=== PATIENT | male | born 1960 | race Caucasian/White ===

== ENCOUNTER 2019-10-15 14:42 | Outpatient (CLI) | payer OTHER, SELFPAY ==
[2019-10-15 15:25] LABS: Basophils Percent Auto 0.8 % (0.2-1.2); Eosinophils Absolute Auto 0.1 K/mm3 (0-0.3); Eosinophils Percent Auto 1.6 % (0-4.4); Hematocrit 42.2 % (42.0-52.0); Hemoglobin 14.3 g/dL (14.0-18.0); Immature Granulocyte Absolute 0.02 K/mm3 (0.00-0.031); Immature Granulocyte Percent A 0.4 % (0-0.5); Lymphocytes Absolute Auto 1.68 K/mm3 (0.9-3.2); Lymphocytes Percent Auto 33.3 % (18.3-44.2); Mean Corpuscular HGB Conc 33.9 g/dl (32-36); Mean Corpuscular Hemoglobin 32.1 pg (26-34); Mean Corpuscular Volume 94.6 fl (80-100); Mean Platelet Volume 9.6 fl (7.4-10.4); Monocytes Absolute Auto 0.4 K/mm3 (0.1-0.6); Monocytes Percent Auto 8.3 % (2.6-8.5); Neutrophils Absolute Auto 2.8 K/mm3 (1.3-6.7); Neutrophils Percent Auto 55.6 % (45.5-73.1); Platelet Count Result 211 k/mm3 (150-375); Red Blood Count 4.46 M/mm3 (4.6-6.20); Red Cell Distribution Width 12.8 % (11.5-14.5)
[2019-10-15 15:35] LABS: Blood Urea Nitrogen 24 mg/dL (9-20); Calcium 9.5 mg/dL (8.4-10.2); Carbon Dioxide 29 mmol/L (22-30); Chloride 101 mmol/L (98-107); Cholesterol 195 mg/dL (0-200); Estimated Glomerular Filt Rate > 60; Glucose 92 mg/dL (75-110); HDL Direct 66 mg/dL; Potassium 4.2 mmol/L (3.4-5.0); Sodium 136 mmol/L (137-145); Triglycerides 61 mg/dL (<150)
[2019-10-15 15:46] LABS: LDL Cholesterol Direct 110 mg/dL
[2019-10-15 16:06] LABS: Prostate Specific Antigen 0.4 ng/mL (< OR = 4.0)
[2019-10-15 16:59] LABS: Free T4 Free Thyroxine 1.02 ng/mL (0.78-2.19); Vitamin D 25 Hydroxy 59.1 ng/mL
[2019-10-18 10:38] LABS: Testosterone Free 63.3 pg/mL (46.0-224.0); Testosterone Total 847 ng/dL (250-1100)
== END 2019-10-15 14:43 | disposition home or self-care (01) ==
PROVIDERS: PCP Internal Medicine Endocrinology, Diabetes & Metabolism; Visit Provider Nurse Practitioner Family
DX: Z13.220 Encounter for screening for lipoid disorders (principal); Z12.5 Encounter for screening for malignant neoplasm of prostate; Z13.29 Encounter for screening for other suspected endocrine disorder; R21 Rash and other nonspecific skin eruption; E55.9 Vitamin D deficiency, unspecified; E34.9 Endocrine disorder, unspecified
CPT/HCPCS: 36415; 80048; 80061; 82306; 84153; 84402; 84403; 84439; 84443; 85025; G0103

== ENCOUNTER 2020-10-22 10:58 | Outpatient (CLI) | payer OTHER, SELFPAY ==
[2020-10-22 11:59] LABS: INR 0.9; Prothrombin Time 13.1 Seconds (11.1-14.7)
[2020-10-22 12:56] LABS: Hepatitis B Surface Antigen Negative (Negative)
[2020-10-22 13:02] LABS: HAV RESULT Negative (Negative); Hepatitis B Core IgM Result Negative (Negative)
[2020-10-22 13:14] LABS: Hepatitis C Virus Antibody Negative (Negative)
[2020-10-25 20:21] LABS: GGT 19 U/L (3-70)
== END 2020-10-22 10:59 | disposition home or self-care (01) ==
LOC: ANHLAB 11:04
PROVIDERS: PCP Internal Medicine Endocrinology, Diabetes & Metabolism; Visit Provider Family Medicine
DX: R17 Unspecified jaundice (principal)
CPT/HCPCS: 36415; 80074; 82977; 85610

== ENCOUNTER → 2020-10-23 11:05 | Outpatient (CLI) | payer OTHER, SELFPAY ==
--- NOTE | ~2020-10-23 | US_ITS ---
US abdomen complete EXAMINATION: US Abdomen Complete INDICATION: Elevated bilirubin. Jaundice. PROCEDURE: Realtime High Resolution abdomen ultrasound. COMPARISON: No prior studies for comparison FINDINGS: Gallbladder within normal limits. No gallstones, pericholecystic fluid, gallbladder wall t hickening or biliary dilatation. Common bile duct measures 4 mm. Liver echotexture within normal limits without focal mass. Pancreas within normal limits. Pancreati c tail is obscured by bowel gas. Spleen is unremarkeable. Renal echotexture is within normal limits bilaterally without hydronephrosis, contour deforming mass or renal stone. Right kidney measures 9.9 cm. Left kidney measures 11.6 cm. Visualized aspects of the aorta and IVC are within normal limits. Portal vein is patent. No sonograph ic Osborn's sign indicated by the technologist. IMPRESSION: 1: Normal abdominal ultrasound. Reviewed, dictated and finalized at location B.
== END ==
PROVIDERS: PCP Family Medicine; Visit Provider Family Medicine
DX: R17 Unspecified jaundice (principal)
CPT/HCPCS: 76700

== ENCOUNTER 2022-07-11 12:46 | Outpatient (CLI) | payer OTHER, SELFPAY ==
--- NOTE | ~2022-07-11 | MR_ITS ---
MRI of the lumbar spine Clinical History: Radiculopathy Technique: Axial T2-weighted images, and sagittal T1-weighted, T2-weighted, and T2 fat-sat images wer e acquired. Findings: No acute fracture and 5. Probable minimal grade 1 retrolisthesis of L3 over L4. There are r eactive marrow signal changes due to degenerative disc disease, particularly about the L3-L4, L4-L5, L5-S1 disc spaces. At L1-L2, there is no disc bulge or herniation. There is mild facet arthropathy. No spinal canal sten osis. There is mild left neural foraminal narrowing. Right neural foramen preserved. At L2-L3, there is moderate degenerative disc narrowing with mild diffuse disc bulge, especially the left paracentral to left foraminal region. There is moderate to severe facet arthropathy. No dario sp inal canal stenosis present. There is moderate to severe right neural foraminal narrowing and minimal left neural foraminal narrowing. At L3-L4, there is advanced degenerative disc narrowing. Disc bulge and facet arthropathy contribute to severe thecal sac compression. There is severe right neural foraminal narrowing. There is mild to moderate left neural foraminal narrowing. At L4-L5, there is severe degenerative disc change. Disc bulge and facet arthropathy contribute to se katelin thecal sac compression. There is severe bilateral neural foraminal narrowing. At L5-S1, there is severe degenerative disc narrowing. Disc bulge and advanced facet arthropathy are present. No definite central canal stenosis evident. There is severe bilateral neural foraminal narro wing. Paravertebral soft tissues are unremarkable. Impression: Advanced degenerative spondylosis, as detailed above. There is severe, multifactorial thecal sac comp ression at L3-L4 and L5-L5, with multilevel severe neural foraminal narrowing. Minimal grade 1 retrolisthesis of L3 over L4. Reviewed, dictated and finalized at location . Impression: Advanced degenerative spondylosis, as detailed above. There is severe, multifac torial thecal sac compression at L3-L4 and L5-L5, with multilevel severe neural foraminal narrowing. Minimal grade 1 retrolisthesis of L3 over L4.
--- NOTE | ~2022-07-11 | MR_ITS ---
MRI of the cervical spine Clinical History: Cervical pain Technique: Axial T2-weighted and gradient images, and sagittal T1-weighted, T2-weighted, and STIR asif ges were acquired. Findings: No acute fracture or subluxation identified. There is reversal normal cervical lordosis. Th ere is reactive marrow signal change, particularly about the C5-C6 disc space due to underlying degen erative disc disease. At C2-C3, there is no disc bulge or herniation. There is facet arthropathy. No spinal canal stenosis or cord compression. Probable right neural foraminal narrowing present. Left neural foramen preserved . At C3-C4, there is minimal disc osteophyte complex. No dario spinal canal stenosis or cord compressio n. There is probable bilateral neural foraminal narrowing with left facet arthropathy present. At C4-C5, there is advanced degenerative disc narrowing with mild disc osteophyte complex. There is m inimal flattening of the ventral cord. There is probable left neural foraminal narrowing and question able minimal right neural foraminal narrowing. At C5-C6, there is severe degenerative disc narrowing. There is minimal disc osteophyte complex. No f rank spinal canal stenosis or cord compression. There is severe bilateral neural foraminal narrowing. At C6-C7, there is minimal disc osteophyte complex. No spinal canal stenosis or cord compression. The re is bilateral neural foraminal narrowing, left worse than right. No abnormal signal seen in the spinal cord. Paravertebral soft tissues are unremarkable. Impression: [id number] degenerative spondylosis, as detailed above, with associated reversal normal cervica l lordosis. Reviewed, dictated and finalized at location M. Impression: [id number] degenerative spondylosis, as detailed above, with associated r eversal normal cervical lordosis.
== END 2022-07-11 12:47 | disposition home or self-care (01) ==
PROVIDERS: PCP Family Medicine
DX: M47.27 Other spondylosis with radiculopathy, lumbosacral region (principal); M47.892 Other spondylosis, cervical region
CPT/HCPCS: 72141; 72148

== ENCOUNTER 2023-02-10 13:25 | Outpatient (CLI) | payer OTHER, SELFPAY ==
--- NOTE | ~2023-02-10 | CT_ITS ---
EXAMINATION: CT cervical spine wo con DATE: 02/10/2023 13:22 INDICATION: Cervical spines central canal stenosis. Cervical radiculopathy. TECHNIQUE: Computed tomography (CT) of the cervical spine was performed without intravenous contrast. Automated exposure control and iterative reconstruction technique were employed. The dose-length pro duct was 480.98 mGy-cm. COMPARISON: Cervical spine MRI 02/10/2023 FINDINGS: There is 3 degrees dextrocurvature of cervical spine. There is 2 mm retrolisthesis of C3 on C4 and C5 on C6. There is mild chronic anterior wedging of C5 and C6 vertebral bodies. There are Jaime morl's nodes of the inferior endplates of C2 and C3. There is mildly decreased disc height at C2-C3 a nd C3-C4 and severely decreased disc height from C4 to C5 through C6-C7. The following disc levels ar e specifically discussed: C2-C3: There is moderate right and severe left uncovertebral joint osteoarthritis. There is severe bi lateral facet joint osteoarthritis. There is mild lateral neural foraminal stenosis. There is no cent ral canal stenosis. C3-C4: There is severe right and moderate left uncovertebral joint osteoarthritis. There is severe bi lateral facet joint osteoarthritis. There is moderate bilateral neural foraminal stenosis. There is m ild central canal stenosis. C4-C5: There is severe bilateral uncovertebral joint osteoarthritis. There is severe bilateral facet joint osteoarthritis. There is mild right and moderate left neural foraminal stenosis. There is mild central canal stenosis. C5-C6: There is severe bilateral uncovertebral joint osteoarthritis. There is severe bilateral facet joint osteoarthritis. There is moderate bilateral neural foraminal stenosis. There is mild central ca nal stenosis. C6-C7: There is severe bilateral uncovertebral joint osteoarthritis. There is moderate right and mild left facet joint osteoarthritis. There is mild right and moderate left neural foraminal stenosis. Th ere is mild central canal stenosis. C7-T1: There is no uncovertebral joint osteoarthritis. There is severe bilateral facet joint osteoart hritis. There is mild bilateral neural foraminal stenosis. There is no central canal stenosis. IMPRESSION: 1. Severe cervical spondylosis. Reviewed, dictated and finalized at location A.
--- NOTE | ~2023-02-10 | MR_ITS ---
EXAMINATION: MR cervical spine wo con DATE: 02/10/2023 13:12 INDICATION: Cervical spine stenosis. Neck pain. TECHNIQUE: Magnetic resonance imaging (MRI) of the cervical spine was performed without intravenous c ontrast. COMPARISON: Cervical spine MRI 07/11/2022 FINDINGS: There is 11 degrees levoscoliosis of upper thoracic spine. There is kyphosis of cervical sp ine. There is 2 mm retrolisthesis of C5 on C6. There is mild chronic height loss of C2, C3, C4, C5, a nd C6 vertebral bodies. There is mildly decreased disc height at C3-C4 and severely decreased disc he ight at C4-C5, C5-C6, and C6-C7. The spinal cord signal intensity is normal. The following disc level s are specifically discussed: C2-C3: The disc does not extend beyond the endplate margin. There is mild bilateral uncovertebral maria guadalupe nt osteoarthritis. There is severe bilateral facet joint osteoarthritis. There is mild bilateral neur al foraminal stenosis. There is no central canal stenosis. C3-C4: The disc is bulging. There is severe bilateral uncovertebral joint osteoarthritis. There is se katelin bilateral facet joint osteoarthritis. There is mild bilateral neural foraminal stenosis. There i s mild central canal stenosis. C4-C5: The disc is bulging. There is severe bilateral uncovertebral joint osteoarthritis. There is se katelin bilateral facet joint osteoarthritis. There is moderate bilateral neural foraminal stenosis. The re is mild central canal stenosis with ventral indentation of the spinal cord. C5-C6: The disc is bulging. There is severe bilateral uncovertebral joint osteoarthritis. There is mi ld bilateral facet joint osteoarthritis. There is moderate right and severe left neural foraminal hanna nosis. There is mild central canal stenosis. C6-C7: The disc is bulging. There is severe bilateral uncovertebral joint osteoarthritis. There is mo derate right and mild left facet joint osteoarthritis. There is mild right and moderate left neural f oraminal stenosis. There is mild central canal stenosis. C7-T1: There is a central extrusion. There is mild bilateral uncovertebral joint osteoarthritis. Ther e is severe bilateral facet joint osteoarthritis. There is mild bilateral neural foraminal stenosis. There is no central canal stenosis. IMPRESSION: 1. Severe cervical spondylosis, stable from 07/11/2022. Reviewed, dictated and finalized at location A.
[2023-02-10 15:55] LABS: Vitamin D 25 Hydroxy 68.2 ng/mL
[2023-02-10 19:33] LABS: Cholesterol 217 mg/dL (0-200); HDL Direct 60 mg/dL; Triglycerides 72 mg/dL (<150)
[2023-02-10 19:43] LABS: LDL Cholesterol Direct 124 mg/dL
[2023-02-10 20:03] LABS: Prostate Specific Antigen 1.3 ng/mL (< OR = 4.0)
== END 2023-02-10 13:26 | disposition home or self-care (01) ==
PROVIDERS: Orthopaedic Surgery; PCP Family Medicine; Referring Provider Family Medicine
DX: Z13.220 Encounter for screening for lipoid disorders (principal); E78.2 Mixed hyperlipidemia; Z12.5 Encounter for screening for malignant neoplasm of prostate; E55.9 Vitamin D deficiency, unspecified; R79.89 Other specified abnormal findings of blood chemistry; M47.22 Other spondylosis with radiculopathy, cervical region
CPT/HCPCS: 36415; 72125; 72141; 80061; 82306; 84153; G0103

== ENCOUNTER 2023-04-18 12:15 | Outpatient (CLI) | payer OTHER, SELFPAY ==
--- NOTE | 2023-04-18 | ECHO_ITS ---
Patient Info Name: Roderick Doan Age: 63 years : 1960 Gender: Male Ht: 65 in Wt: 250 lbs BSA: 2.34 m2 HR: 49 bpm BP: 147 / 91 mmHg Heart Rhythm: Bradycardia Technical Quality: Good Exam Date: 04/18/2023 12:59 PM Exam Location: [facility] Patient Status: Outpatient Admit Date: 04/18/2023 Staff Ordering Physician: Irasema, Ney Marx MD [employer] Installer: Briana Jamison RDCS Attending Provider: Elsisa, Ney Marx MD Referring Physician: Irasema CARBAJAL; Exam Type: CA echo dop color flow w con Study Info Indications - evaluate ao valve heart function and ascending ao Complete two-dimensional, color flow and Doppler transthoracic echocardiogram is performed with contrast to opacify the left ventricle and to improve the deliniation of the left ventricle endocardial borders. Strain analysis performed. Contrast/Agitated Saline Contrast/Ag. Saline: Definity Amount: 3.00 ml Administered By: Briana Jamison RDCS Existing IV Access: No New IV Access: Right Site Condition: IV removed Summary 1. Left ventricular chamber dimension is normal. 2. Left ventricular systolic function is normal, estimated at 65-70%. 3. There is mildly increased left ventricular wall thickness. 4. The left ventricular diastolic function is grade I diastolic dysfunction. 5. Global longitudinal strain is mildly elevated at -16 %. 6. There is mild tricuspid valve regurgitation. 7. Mild pulmonary hypertension, estimated pulmonary arterial systolic pressure is 42 mmHg. 8. The aortic root size at the sinus of Valsalva is moderately dilated at 4.[address] chest if clinically indicated. 9. The prox ascending aorta size is mildly dilated. Left Ventricle Left ventricular chamber dimension is normal. Left ventricular systolic function is normal, estimated at 65-70%. There is mildly increased left ventricular wall thickness. The left ventricular diastolic function is grade I diastolic dysfunction. Global longitudinal strain is mildly elevated at -16 %. Right Ventricle Right ventricular chamber dimension is mildly enlarged. Right ventricular systolic function is normal. Left Atria Left atrial chamber dimension is mildly enlarged. Right Atria Right atrial chamber dimension is normal. Aortic Valve The aortic valve is not well visualized. There is no aortic valve stenosis. There is no aortic valve regurgitation. Pulmonic Valve The pulmonic valve is not well visualized. Mitral Valve The mitral valve has normal leaflets. There is trace mitral valve regurgitation. Tricuspid Valve The tricuspid valve leaflets are normal. There is mild tricuspid valve regurgitation. Mild pulmonary hypertension, estimated pulmonary arterial systolic pressure is 42 mmHg. Pericardium/Pleural The pericardium appears normal. There is no pericardial effusion. Inferior Vena Cava Dilated inferior vena cava with >50% collapse upon inspiration consistent with elevated right atrial pressure, 10 mmHg. Aorta The aortic root size at the sinus of Valsalva is moderately dilated at 4.[address] chest if clinically indicated. The prox ascending aorta size is mildly dilated. Left Ventricular Outflow Tract Name Value Normal LVOT 2D LVOT Diameter 2.27 cm
[2023-04-18] MEDS: PERFLUTREN LIPID MICROSPHERES 1.5 ML VIAL DILUTED TO 10 ML TOTAL VOLUME IV PUSH (13:15)
--- NOTE | 2023-04-18 14:55 | IVDEFINITY ---
Prior to administration of IV Definity the patient was educated on the risks and benefits of the imaging enhancing agent including potential adverse side effects. The patient verbalized understanding. Allergies were verified. No exclusion criteria were identified and at least one of the following inclusion criteria were met: 1) physician request, 2) patient technically difficult to image (per the [place] [employer] guidelines of two or more segments not discernable within the apical view), or 3) questionable left ventricular function. ?
== END 2023-04-18 12:16 | disposition home or self-care (01) ==
LOC: ANHCARD 12:17
PROVIDERS: PCP Family Medicine; Visit Provider Internal Medicine Cardiovascular Disease
DX: I71.21 Aneurysm of the ascending aorta, without rupture (principal); I08.3 Combined rheumatic disorders of mitral, aortic and tricuspid valves
CPT/HCPCS: C8929; Q9957

== ENCOUNTER 2024-07-06 11:04 | Outpatient (CLI) | payer OTHER, SELFPAY ==
[2024-07-06 11:34] LABS: Basophils Percent Auto 0.7 % (0.2-1.2); Eosinophils Absolute Auto 0.1 K/mm3 (0-0.3); Eosinophils Percent Auto 2.6 % (0-4.4); Hematocrit 40.9 % (42.0-52.0); Hemoglobin 13.4 g/dL (14.0-18.0); Immature Granulocyte Absolute 0.02 K/mm3 (0.00-0.031); Immature Granulocyte Percent A 0.5 % (0-0.5); Lymphocytes Absolute Auto 1.27 K/mm3 (0.9-3.2); Lymphocytes Percent Auto 29.8 % (18.3-44.2); Mean Corpuscular HGB Conc 32.8 g/dl (32-36); Mean Corpuscular Hemoglobin 31.2 pg (26-34); Mean Corpuscular Volume 95.1 fl (80-100); Mean Platelet Volume 9.3 fl (7.4-10.4); Monocytes Absolute Auto 0.4 K/mm3 (0.1-0.6); Monocytes Percent Auto 10.1 % (2.6-8.5); Neutrophils Absolute Auto 2.4 K/mm3 (1.3-6.7); Neutrophils Percent Auto 56.3 % (45.5-73.1); Platelet Count Result 222 k/mm3 (150-375); Red Cell Distribution Width 13.7 % (11.5-14.5); White Blood Count 4.3 K/mm3 (4.5-10.0)
[2024-07-06 11:49] LABS: Alanine Aminotransferase 21 U/L (6-50); Albumin Level 4.5 g/dL (3.5-5.1); Alkaline Phosphatase 54 U/L (38-126); Anion Gap 12 mmol/L (4-12); Aspartate Amino Transferase 26 U/L (17-59); Bilirubin,Total 1.9 mg/dL (0.2-1.3); Blood Urea Nitrogen 19 mg/dL (9-20); Calcium 9.6 mg/dL (8.4-10.2); Carbon Dioxide 27 mmol/L (22-30); Chloride 101 mmol/L (98-107); Cholesterol 207 mg/dL (0-200); Estimated Glomerular Filt Rate > 60; Glucose 92 mg/dL (65-110); HDL Direct 69 mg/dL; Potassium 4.3 mmol/L (3.4-5.0); Sodium 140 mmol/L (137-145); Triglycerides 70 mg/dL (<150)
[2024-07-06 11:59] LABS: LDL Cholesterol Direct 94 mg/dL
--- OUTSIDE RECORDS SUMMARY | 2024-07-06 12:01 | XMS_ITS | Referral Summary ---
Author Organization [facility] Address [address] [place] [address] Care Team Providers Care Dental Receptionist Name Role Phone Dima Sanchez MD Primary Care Provider + [phone] Ney Villalpando MD Unavailable [phone] Encounters Date Type Department Care Team Description 06/06/2024 9:30 AM COMPANY DANCER Office Visit [facility] Cardiothoracic Surgery [address] [facility] 8th Floor [id number] [place] [phone] Bridgette Hess MD Monoallelic mutation of MYH11 gene; Aneurysm of ascending aorta without rupture 05/04/2024 Orders Only [facility] ([facility]) [address] [place] [id number] Layne Jaquez RN Monoallelic mutation of MYH11 gene (Primary Dx); Aneurysm of ascending aorta without rupture 05/04/2024 Documentation [facility] Cardiology [address] [facility] Medicine 8th [place] [address] [place] [phone] Ney Villalpando MD 05/04/2024 8:38 AM COMPANY DANCER - 05/04/2024 11:59 PM COMPANY DANCER Hospital Encounter [facility] ([facility]) [address] [place] [address] Ney Villalpando MD Monoallelic mutation of MYH11 gene; Aneurysm of ascending aorta without rupture Discharge Disposition: Discharge to home or self care 04/18/2024 11:00 AM COMPANY DANCER Office Visit [facility] Cardiology [address] [facility] 8th [place] [address] [place] [phone] Ney Villalpando MD Monoallelic mutation of MYH11 gene (Primary Dx); Aneurysm of ascending aorta without rupture; Essential hypertension 04/17/2024 Telephone [facility] Cardiology [address] [facility] 8th [place] [address] [place] [address] Ney Villalpando MD from Last 3 Months Allergies No known active allergies Medications multivitamin (MULTI-DAY ORAL)Indicatio ns:supplelment Take 1 tablet by mouth every morning Active Viibryd 40 mg tabletIndicati ons:major depressive disorder Take 1 tablet (40 mg total) by mouth every morning 0 Active zolpidem (AMBIEN) 10 mg tabletIndicati ons:Sleep-Onse t Insomnia Take 1 tablet (10 mg total) by mouth nightly as needed 0 Active losartan-hydro chlorothiazide (HYZAAR) 100-25 mg per tablet TAKE 1 TABLET BY MOUTH DAILY 90 tablet 3 3 Active B cmplx 4/vit D3/C/folic/zin c (VITAL-D RX ORAL) Take by mouth Active cholecalcifero l, vitamin D3, (VITAJOY DAILY D ORAL) Take by mouth Active diclofenac DR (VOLTAREN) 50 mg EC tabletIndicati ons:Osteoarthr itis Take 1 tablet (50 mg total) by mouth 2 (two) times a day for 14 days 28 tablet 4 Active amLODIPine (NORVASC) 5 mg tablet Take 1 tablet (5 mg total) by mouth daily 30 tablet 11 4 025 Active turmeric root extract 500 mg capsule Take 500 capsules by mouth daily Active omega 6-pxp-wwp-fish oil 60-90-500 mg capsule,delaye d release(DR/EC) Take 500 capsules by mouth daily Active aspirin 81 mg tabletIndicati ons:Heart Take 81 mg by mouth every morning 9 021 Discontinued ALPRAZolam (XANAX) 0.5 mg tablet Take 0.5 mg by mouth 3 (three) times a day as needed for anxiety 1 023 Discontinued Active Problems Problem Noted Date Diagnosed Date Monoallelic mutation of MYH11 gene 07/04/2022 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 Not previously noted. Pt with family/personal hx of colon polyps, most recent colonoscopy w/in last 6 months, pt reports normal findings. Denies family h/o colon cancer. Monitor annually. Primary osteoarthritis of right elbow 10/07/2020 Overview (10/07/2020): Added automatically from request for surgery [id number] Personal history of colonic polyps 09/02/2020 Overview (09/02/2020): Added automatically from request for surgery [id number] Family history of colonic polyps 09/02/2020 Overview (09/02/2020): Added automatically from request for surgery [id number] Intraocular pressure increase, left 10/16/2019 Assessment & Plan (01/29/2021 10:57 AM CDT): Mild intraocular pressure (IOP) asymmetry left eye (OS)>OD at 2020 visit. +strong FHx glaucoma (mother's side). Normal RNFL and GCC thickness 2020 on OCT. Pt ed. RTC 1 year. Assessment & Plan (10/16/2019 11:49 AM CDT): Mild intraocular pressure (IOP) asymmetry left eye (OS)>OD. +Strong FHx Glaucoma (mother's side). Normal RNFL and GCC thickness today on OCT. Pt ed. RTC 1 year. Refraction disorder 10/16/2019 Assessment & Plan (05/21/2022 3:11 PM COMPANY DANCER): New mrx, rec ar coating Assessment & Plan (10/16/2019 11:49 AM CDT): Release updated glasses and CLRx for Dailies. Age-related nuclear cataract of both eyes 2019 Assessment & Plan (05/21/2022 3:11 PM COMPANY DANCER): Not v/s, monitor, rec uv eye protection Assessment & Plan (01/29/2021 10:10 AM CDT): Defer cataract surgery until signs and symptoms indicate. Pt was educated on the diagnosis. Recommend daily UV protection. Assessment & Plan (10/16/2019 11:53 AM CDT): Defer cataract surgery until signs and symptoms indicate. Pt was educated on the diagnosis. Recommend daily UV protection. Pterygium of left eye 10/16/2019 Assessment & Plan (01/29/2021 10:10 AM CDT): NVS, pt educated. Stressed UV protection. Assessment & Plan (10/16/2019 11:50 AM CDT): Pt ed. Stressed UV protection. Dermatochalasis of both upper eyelids 10/16/2019 Assessment & Plan (10/16/2019 11:52 AM CDT): Pt is asymptomatic. Follow. Obstructive sleep apnea 11/24/2018 Complete tear of right rotator cuff 05/29/2018 Overview (05/29/2018): Added automatically from request for surgery [id number] Aneurysm of thoracic aorta 01/09/2018 Multiple actinic keratoses 09/24/2015 Lentigo 09/24/2015 Essential hypertension 02/05/2013 Resolved Problems Problem Noted Date Diagnosed Date Resolved Date Melanocytic nevus of trunk 10/01/2016 0 01/09/2018 Lichen simplex chronicus 10/01/201601/2018 Tinea pedis 09/24/2015 01/09/2018 Palpitations 02/06/2013 01/09/2018 Arthralgia of shoulder 01/18/201301/09 Arthralgia of elbow 09/16/2011 01/10/20 18 Immunizations Immunization Administration Dates Next Due Amanda (J&J) SARS-CoV-2 Vaccination 07/07/2020 Tdap 03/12/2020 Social History Tobacco Use Types Packs/Day Years Used Date Smoking Tobacco: Never Passive Smoke Exposure: Never Smokeless Tobacco: Never Tobacco Cessation:Counseling Given: Not Answered Alcohol Use Standard Drinks/Week Comments Yes 8 (1 standard drink = 0.6 oz pur e alcohol) social AUDIT-C Answer Date Recorded Q1: How often do you have a drink containing alc ohol? 2-3 times a week 11/10/2020 Q2: How many drinks containi ng alcohol do you have on a typical day when you are drinking? 1 or 2 11/10/2020 Q3: How often do you have si x or more drinks on one occasion? Less than monthly 11/10/2020 Personal Safety Answer Date Recorded Have you ever been in or are you currently in a harmful physical or emotional relationship or is someone making you feel afraid or unsafe? Denies 09/03/2022 Sex and Gender Information Value Date Recorded Sex Assigned at Not on file Legal Sex Male 3:02 AM COMPANY DANCER Gender Identity Male 04/16/2021 11:58 AM COMPANY DANCER Sexual Orientation Straight 04/02/2019 2: 04 PM COMPANY DANCER Last Filed Vital Signs Vital Sign Reading Time Taken Comments Blood Pressure 121/75 06/06/2024 10:23 AM COMPANY DANCER Pulse 56 06/06/2024 10:23 AM COMPANY DANCER Temperature 37 C (98.6 F) 04/01/2022 9:59 AM COMPANY DANCER Respiratory Rate 16 09/03/2022 11:4 9 AM CDT Oxygen Saturation 97% 06/06/2024 10: 23 AM COMPANY DANCER Inhaled Oxygen Concentration - - Weight 112.3 kg (247 lb 9.6 oz) 025 10:23 AM COMPANY DANCER Height 185.4 cm (6' 1 ) 06/06/2024 10:2 3 AM COMPANY DANCER Body Mass Index 32.67 06/06/2024 10:23 AM COMPANY DANCER Plan of Treatment Upcoming Encounters Date Type Department Care Team (Latest Contact Info) Description 08/20/2024 8:00 AM CDT Hospital Encounter [facility] Operating Room [address] [place] [address] Bridgette Hess MD [id number] [place] [address] Aneurysm of ascending aorta without rupture 08/20/2024 8:00 AM CDT - 08/20/2024 2:45 PM CDT Surgery [facility] Operating Room [address] [place] [address] Bridgette Hess MD [id number] [place] [address] REPLACEMENT AORTIC VALVE/ROOT-VALVE SPARING ROOT REPLACEMENT Scheduled Procedures Name Priority Associated Diagnoses Date/Ti me REPLACEMENT AORTIC VALVE/ROOT Aneurysm of ascending aorta without rupture 08/20/2024 8:00 AM CDT Medical Devices Implanted Type Area Chief Clerk Shelter Device Identifier Shelf Expiration Date Model / Serial / Lot [employer] [id number]-2324 Bcm Swivelock 4.75mm 24.5mm Self Punch Vent Shoulder [place] Suture - [id number] Implanted:Qty: 1 on 09/11/2018 by Dwayne Torrez MD at [facility] Right: Shoulder [employer] 01/30/2020 [id number] / / [id number] Procedures Procedure Name Priority Date/Time Associated Diagnosis Comments CTA CHEST W CONTRAST Schedule Routine, Read Routine (OP Routine) 05/04/2024 9:11 AM COMPANY DANCER 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 The aortic root measures up to 4.7 cm, unchanged when remeasured in a similar fashion from the prior exam. Electronically signed by: Herman Foster M.D. Narrative 05/04/2024 9:22 AM COMPANY DANCER EXAMINATION: CT ANGIOGRAPHY OF THE CHEST WITH CONTRAST HISTORY: Aortic aneurysm follow-up. TECHNIQUE: CT angiography of the chest was performed following uneventful intravenous administration of 93 ml Optiray-350. Vascular 3D images were generated on a dedicated workstation and also reviewed. COMPARISON: CT images dated 05/05/2022. FINDINGS: No significant change in caliber of the thoracic aorta with measurements as follows: Aortic root: 47 x 46 x 45 mm, not significantly changed when re-measured in a similar fashion. Sinotubular junction: 43 x 42 mm. Ascending aorta: 47 x 45 mm. Transverse aortic arch: 33 x 32 mm. The heart size is unchanged. There is no pericardial effusion. 4 vessel aortic arch. The aortic arch is left-sided. No thoracic lymphadenopathy. Mild atherosclerosis of the thoracic aorta with tortuosity but no dissection or contour irregularity. Esophagus is decompressed. The imaged upper abdomen shows a left renal cyst as well as a right renal cyst but no acute CT finding. Mild dependent atelectasis. No consolidation pulmonary edema, pleural effusion, or pneumothorax. No suspicious pulmonary nodule or mass. Old left-sided rib fractures are noted. No suspicious or aggressive osseous lesion. Procedure Note Herman Foster MD - 05/04/2024 EXAMINATION: CT ANGIOGRAPHY OF THE CHEST WITH CONTRAST HISTORY: Aortic aneurysm follow-up. TECHNIQUE: CT angiography of the chest was performed following uneventful intravenous administration of 93 ml Optiray-350. Vascular 3D images were generated on a dedicated workstation and also reviewed. COMPARISON: CT images dated 05/05/2022. FINDINGS: No significant change in caliber of the thoracic aorta with measurements as follows: Aortic root: 47 x 46 x 45 mm, not significantly changed when re-measured in a similar fashion. Sinotubular junction: 43 x 42 mm. Ascending aorta: 47 x 45 mm. Transverse aortic arch: 33 x 32 mm. The heart size is unchanged. There is no pericardial effusion. 4 vessel aortic arch. The aortic arch is left-sided. No thoracic lymphadenopathy. Mild atherosclerosis of the thoracic aorta with tortuosity but no dissection or contour irregularity. Esophagus is decompressed. The imaged upper abdomen shows a left renal cyst as well as a right renal cyst but no acute CT finding. Mild dependent atelectasis. No consolidation pulmonary edema, pleural effusion, or pneumothorax. No suspicious pulmonary nodule or mass. Old left-sided rib fractures are noted. No suspicious or aggressive osseous lesion. IMPRESSION: Unchanged caliber of the thoracic aorta. The aortic root measures up to 4.7 cm, unchanged when remeasured in a similar fashion from the prior exam. Electronically signed by: Herman Foster M.D. us Ney Villalpando MD IMG CT PROCEDURES Mai l Result * POCT creatinine (05/04/2024 8:55 AM COMPANY DANCER) Creatinine POC 1.3 0.7 - 1.3 mg/dL Blood 05/04/2024 8:55 AM COMPANY DANCER 05/04/2024 8:55 AM COMPANY DANCER us Ney Villalpando MD LAB POCT ORDERABLES - DEVICE Final Result [facility] Department [place] [address] * COLONOSCOPY (10/14/2020 7:01 AM CDT) Anatomical Region Laterality Modality Other Narrative Procedure Note John Guthrie MD - 10/14/2020 7:01 AM CDT ENDOSCOPY LAB Patient Name: Roderick Welch Procedure Date: 10/14/2020 7:01 AM Date of : 1960 Admit Type: Outpatient Age: 60 Gender: Male Attending MD: John Guthrie M.D. Room: [facility] ENDOSCOPY ROOM 01 Note Status: Finalized Procedure: Colonoscopy Indications: Surveillance: Personal history of adenomatouspolyps on last colonoscopy 5 years ago, Last colonoscopy: May 2015, Family history of colonic polyps in a first-degree relative Providers: John Guthrie M.D. Referring MD: Dima Sanchez M.D. Medicines: Monitored Anesthesia Care Complications: No immediate complications. Estimated Blood Loss: Estimated blood loss: none. Procedure: Pre-Anesthesia Assessment: - Immediately prior to administration ofmedications, the patient was re-assessed for adequacy to receive sedatives. The benefits, risks and alternatives of theprocedure and sedation were discussed and informed consentwas obtained. All questions were answered. Please referto the signed informed consent document in the medical record. The scope was passed under direct vision.The [id number] was introduced through the anusand advanced to the terminal ileum, with identificationof the appendiceal orifice and IC valve. Thecolonoscopy was performed without difficulty. The patient tolerated the procedure well. The quality of thebowel preparation was evaluated using the BBPS (BostonBowel Preparation Scale) with scores of: Right Colon = 3, Transverse Colon = 3 and Left Colon = 3 (entiremucosa seen well with no residual staining, smallfragments of stool or opaque liquid). The total BBPS score equals 9. The bowel preparation used was SUPREP via split dose instruction. The right colon wasexamined with at least 2 passes of the colonoscope. Therectum was examined both with straight and retroflexedview. Findings: The perianal and digital rectal examinations were normal. Multiple diverticula were found in the sigmoid colon. The exam was otherwise normal throughout the examined colon. Impression: - Diverticulosis in the sigmoid colon. - No specimens collected. Recommendation: - Annual stool exams for blood and colonoscopy in 5 years or sooner if symptoms develop or stool exams reveal blood. - If an emergency develops, please proceed to the nearest emergency room, or call the office at . If the office is closed, call and ask for the GI fellow production inspector. Electronically Signed by John Guthrie MD John Guthrie M.D. 10/14/2020 7:55:34 AM Number of Addenda: 0 Note Initiated On: 10/14/2020 7:01 AM John Guthrie MD ENDOSCOPY PROCEDURES Final Res ult from Last 3 Months or Most Recently Relevant to Health Maintenance Insurance [facility] Advance Directives For more information, please contact: [phone] * Full Code (Latest Code Status on File) Date Activated Date Inactivated Comments 10/14/2020 6:38 AM 10/14/2020 12:29 PM Care Teams Dental Receptionist Relationship Specialty Start Date End Date Dima Sanchez MD PCP - General 05/01/20 Ney Villalpando MD [address] [place] [address] Career Representative Cardiology 02/08/23
--- OUTSIDE RECORDS SUMMARY | 2024-07-06 12:01 | XMS_ITS | Encounter Summary ---
Author Organization [facility] Address [address] [place] [address] Phone Care Team Providers Care Engagement Quality Consultant Name Role Phone Dima Sanchez MD Primary Care Provider + [phone] Dima Sanchez MD Primary Care Provider + [phone] Theron Peace MD Primary Care Provider [phone] Theron Upton MD Primary Care Provider [phone] Dima Sanchez MD Primary Care Provider + [phone] Ney Villalpando MD Unavailable [phone] Encounter Details Date Type Department Care Team (Latest Contact Info) Description 03/25/2005 Orders Only [facility] Scanning, Provider Social History Tobacco Use Types Packs/Day Years Used Date Smoking Tobacco: Never Assessed Sex and Gender Information Value Date Recorded Sex Assigned at Not on file Legal Sex Male 3:02 AM LABORATORY WORKER Gender Identity Male 04/16/2021 11:58 AM LABORATORY WORKER Sexual Orientation Straight 04/02/2019 2: 04 PM LABORATORY WORKER documented as of this encounter Plan of Treatment Upcoming Encounters Date Type Department Care Team (Latest Contact Info) Description 08/20/2024 8:00 AM CDT Hospital Encounter [facility] Operating Room 1 [place] [address] Bridgette Hess MD [address] [facility] [id number] [place], [place] [id number] Aneurysm of ascending aorta without rupture 08/20/2024 8:00 AM CDT - 08/20/2024 2:45 PM CDT Surgery [facility] Operating Room [address] [place] [address] Bridgette Hess MD [address] [facility] [id number] [place] [address] REPLACEMENT AORTIC VALVE/ROOT-VALVE SPARING ROOT REPLACEMENT Scheduled Procedures Name Priority Associated Diagnoses Date/Ti me REPLACEMENT AORTIC VALVE/ROOT Aneurysm of ascending aorta without rupture 08/20/2024 8:00 AM CDT documented as of this encounter Procedures Procedure Name Priority Date/Time Associated Diagnosis Comments CARDIOLOGY DOCUMENT SCAN 03/25/2005 documented in this encounter Results * SCAN - CARDIOLOGY (03/25/2005) Anatomical Region Laterality Modality Other us Provider Scanning [facility] CARDI[facility] SERVICES PROCEDURES Final Result documented in this encounter Visit Diagnoses Not on filedocumented in this encounter Care Teams Engagement Quality Consultant Relationship Specialty Start Date End Date Dima Sanchez MD PCP - General 02/02/13 01/09/18 Dima Sanchez MD PCP - General 02/01/13 02/01/13 Theron Peace MD [address] [place] [address] PCP - General Obstetrics and Gynecology 01/10/1803/07/18 Theron Upton MD [address] [facility] [address] [place] [address] PCP - General Endocrinology Diabetes & Metabolism 03/08/18 04/30/20 Dima Sanchez MD PCP - General 05/01/20 Ney Villalpando MD [address] [place] [address] Instrument Tech Cardiology 02/08/23 documented as of this encounter
--- OUTSIDE RECORDS SUMMARY | 2024-07-06 12:01 | XMS_ITS | Patient Health Summary ---
Author Organization [facility] Address [address] [place] [address] Care Team Providers Care Industrial Relations Officer Name Role Phone Dima Sanchez MD Primary Care Provider [phone] [facility],non-owned Affiliates and Associated Physician Practices is amultiple site organization consisting of ambulatory clinics and hospital sitesin [place], [place], [place] and [place]. This disclosure is being madepursuant to the Care Everywhere program and may not contain all information available regarding this patient. Last updated 18.[facility] Social History Tobacco Use Types Packs/Day Years Used Date Smoking Tobacco: Never Assessed Sex and Gender Information Value Date Recorded Sex Assigned at Not on file Gender Identity Not on file Sexual Orientation Not on file Procedures * ECHO COMPLETE(Performed 02/05/2013) * MRI SHOULDER LEFT WO CONTRAST(Performed 01/22/2013) Results * ECHO W DOPPLER AND COLOR FLOW (02/05/2013 12:00 AM CDT) Anatomical Region Laterality Modality Other 02/05/2013 Dima Sanchez MD ECHOCARDIOGRAPHY RAD IANT * MRI SHOULDER LEFT WO CONTRAST (01/22/2013 8:08 AM CDT) Anatomical Region Laterality Modality Upper Extremity Other Impressions 01/22/2013 3:48 PM CDT Impression: 1. Supraspinatus high-grade articular surface partial thickness tear (greater than 50 percent thickness) at the insertion. 2. Subscapularis small focal partial-thickness articular surface tear. 3. Extensive signal abnormality in the glenoid labrum consistent with degenerative tear. 4. Moderate glenohumeral joint osteoarthritis. 5. Moderate glenohumeral effusion containing debris in the long head of the biceps tendon sheath and also in the subcoracoid region. Report dictated by Yrn Palomino MD. I, Dr. GEOFFREY ZHENG MD have personally reviewed and interpreted this examination/study. This report was electronically signed by GEOFFREY ZHENG MD on 01/22/2013 3:48 PM . Narrative 01/22/2013 3:48 PM CDT Exam: MR of the left shoulder without contrast Date: 01/22/2013 at 0735 hours Clinical indication: Pain in joint Technique: Coronal T1, T2 fat-sat; sagittal T1, T2 fat-sat, T2 fat-sat oblique; and axial proton density fat-sat images were obtained. Comparison: None available Findings: There is a moderate glenohumeral joint effusion with debris in the subcoracoid region and biceps tendon sheath. This debris may be related to synovial debris or synovitis. Extensive increased signal and abnormal morphology in the superior, anterior/inferior, and posterior labrum suggesting extensive degenerative tear. Thinning of the glenoid articular cartilage is noted consistent with osteoarthritis. Subchondral cyst formation is noted in the superior glenoid. The acromioclavicular joint is intact with mild-moderate degenerative changes. There is no fracture or dislocation. In the subscapularis tendon, there is a small undersurface tear (partial- thickness, 50%) and tendinosis. In the supraspinatus tendon, there is tendinosis and a high-grade articular surface partial thickness tear (greater than 50% thickness) at the insertion. In the infraspinatus tendon, there is mild tendinosis, but no tear. In the teres minor tendon, there is no tear. The long head of the biceps tendon is intact. There is a small amount of subdeltoid/subacromial fluid. Procedure Note Geoffrey Zheng MD - 07/31/2017 Exam: MR of the left shoulder without contrast Date: 01/22/2013 at 0735 hours Clinical indication: Pain in joint Technique: Coronal T1, T2 fat-sat; sagittal T1, T2 fat-sat, T2 fat-satoblique; and axial proton density fat-sat images were obtained. Comparison: None available Findings: There is a moderate glenohumeral joint effusion with debris in thesubcoracoid region and biceps tendon sheath. This debris may be related tosynovial debris or synovitis. Extensive increased signal and abnormalmorphology in the superior, anterior/inferior, and posterior labrum suggesting extensive degenerativetear. Thinning of the glenoid articular cartilage is noted consistent withosteoarthritis. Subchondral cyst formation is noted in the superiorglenoid. The acromioclavicular joint is intact with mild-moderate degenerativechanges. There is no fracture or dislocation. In the subscapularis tendon, there is a small undersurface tear(partial- thickness, 50%) and tendinosis. In the supraspinatus tendon, there is tendinosis and a high-gradearticular surface partial thickness tear (greater than 50% thickness) atthe insertion. In the infraspinatus tendon, there is mild tendinosis, but no tear. In the teres minor tendon, there is no tear. The long head of the biceps tendon is intact. There is a small amount of subdeltoid/subacromial fluid. IMPRESSION Impression: 1. Supraspinatus high-grade articular surface partial thickness tear(greater than 50 percent thickness) at the insertion. 2. Subscapularis small focal partial-thickness articular surface tear. 3. Extensive signal abnormality in the glenoid labrum consistent withdegenerative tear. 4. Moderate glenohumeral joint osteoarthritis. 5. Moderate glenohumeral effusion containing debris in the long head ofthe biceps tendon sheath and also in the subcoracoid region. Report dictated by Yrn Palomino MD. I, Dr. GEOFFREY ZHENG MD have personally reviewed and interpreted thisexamination/study. This report was electronically signed by GEOFFREY ZHENG MD on 01/22/20133:48 PM . Dima Sanchez MD MR ORDERABLES Care Teams Industrial Relations Officer Relationship Specialty Start Date End Date Dima Sanchez MD [address] [place] [id number] PCP - General 01/22/13
--- OUTSIDE RECORDS SUMMARY | 2024-07-06 12:01 | XMS_ITS | Encounter Summary ---
Author Organization [facility] Address [address] [place] [address] Phone Care Team Providers Care Ios Software Engineer Name Role Phone Dima Sanchez MD Primary Care Provider + [phone] Dima Sanchez MD Primary Care Provider + [phone] Theron Peace MD Primary Care Provider [phone] Theron Upton MD Primary Care Provider [phone] Dima Sanchez MD Primary Care Provider + [phone] Ney Villalpando MD Unavailable [phone] Encounter Details Date Type Department Care Team (Latest Contact Info) Description 09/06/2007 Orders Only [facility] Scanning, Provider Social History Tobacco Use Types Packs/Day Years Used Date Smoking Tobacco: Never Assessed Sex and Gender Information Value Date Recorded Sex Assigned at Not on file Legal Sex Male 3:02 AM TRESTLE BUILDER Gender Identity Male 04/16/2021 11:58 AM TRESTLE BUILDER Sexual Orientation Straight 04/02/2019 2: 04 PM TRESTLE BUILDER documented as of this encounter Plan of Treatment Upcoming Encounters Date Type Department Care Team (Latest Contact Info) Description 08/20/2024 8:00 AM CDT Hospital Encounter [facility] [address] [place] [address] Bridgette Hess MD [address] [facility] [id number] [place], [place] [id number] Aneurysm of ascending aorta without rupture 08/20/2024 8:00 AM CDT - 08/20/2024 2:45 PM CDT Surgery [facility] [address] [place] [address] Bridgette Hess MD [address] [facility] [id number] [place] [address] REPLACEMENT AORTIC VALVE/ROOT-VALVE SPARING ROOT REPLACEMENT Scheduled Procedures Name Priority Associated Diagnoses Date/Ti me REPLACEMENT AORTIC VALVE/ROOT Aneurysm of ascending aorta without rupture 08/20/2024 8:00 AM CDT documented as of this encounter Procedures Procedure Name Priority Date/Time Associated Diagnosis Comments SCAN - RADIOLOGY/IMAGING 09/06/2007 documented in this encounter Results * SCAN - RADIOLOGY/IMAGING (09/06/2007) Anatomical Region Laterality Modality Other us Provider Scanning Final Result documented in this encounter Visit Diagnoses Not on filedocumented in this encounter Care Teams Ios Software Engineer Relationship Specialty Start Date End Date Dima Sanchez MD PCP - General 02/02/13 01/09/18 Dima Sanchez MD PCP - General 02/01/13 02/01/13 Theron Peace MD [address] [place] [address] PCP - General Obstetrics and Gynecology 01/10/1803/07/18 Theron Upton MD [address] [facility] [address] [place] [address] PCP - General Endocrinology Diabetes & Metabolism 03/08/18 04/30/20 Dima Sanchez MD PCP - General 05/01/20 Ney Villalpando MD [address] [place] [address] Highway Maintenance Technician Cardiology 02/08/23 documented as of this encounter
--- OUTSIDE RECORDS SUMMARY | 2024-07-06 12:01 | XMS_ITS | Clinical Summary ---
Author Organization [facility] Address [address] [place] [address] Care Team Providers Care Restaurant Hostess Name Role Phone Dima Sanchez MD Primary Care Provider [phone] Source Comments [facility],non-owned Affiliates and Associated Physician Practices is amultiple site organization consisting of ambulatory clinics and hospital sitesin [place], [place], [place] and [place]. This disclosure is being madepursuant to the Care Everywhere program and may not contain all information available regarding this patient. Last updated 18.[facility] Social History Tobacco Use Types Packs/Day Years Used Date Smoking Tobacco: Never Assessed Sex and Gender Information Value Date Recorded Sex Assigned at Not on file Gender Identity Not on file Sexual Orientation Not on file Plan of Treatment Health Maintenance Due Date Last Done Comments COLOGUARD (AGES 45-75) - COL ON CA SCREENING 1960 COLON MONITORING 1960 COLONOSCOPY - COLON CA SCREENING 1960 CT COLONOGRAPHY - COLON CA SCREENING 1960 Colorectal Cancer Screening 1960 FIT - COLON CA SCREENING 1960 FLEX SIG - COLON CA SCREENING 1960 LIPID TESTING 1960 HIV SCREENING 1975 HEPATITIS C SCREENING 03/03/1978 DTAP/TDAP/TD VACCINES (1 - Tdap) 1979 PNEUMOCOCCAL VACCINE 50+ (1 of 1 - PCV) 2010 ZOSTER VACCINE (1 of 2) 2010 COVID-19 VACCINE ( - 2023-2 5 season) 2024 INFLUENZA VACCINE (#1) 2024 DEPRESSION SCREENING 05/02/2024 Respiratory Syncytial Virus (RSV) Vaccine Pt: or over 60 yrs (1 - 1-dose 75+ series) 2035 HEPATITIS B VACCINE Aged Out No longe r eligible based on patient's age to complete this topic HIB VACCINE Aged Out No longer eligi ble based on patient's age to complete this topic HPV VACCINE Aged Out No longer eligi ble based on patient's age to complete this topic MENINGOCOCCAL (Group B) VACCINE Aged Out No longer eligible based on patient's age to complete this topic MENINGOCOCCAL VACCINE Aged Out No [place] eligible based on patient's age to complete this topic Care Teams Restaurant Hostess Relationship Specialty Start Date End Date Dima Sanchez MD [address] [place] [address] PCP - General 01/22/13
--- OUTSIDE RECORDS SUMMARY | 2024-07-06 12:01 | XMS_ITS | Clinical Summary ---
Author Organization [facility] Address [address] [place] [address] Care Team Providers Care Manager Client Name Role Phone Dima Sanchez MD Primary Care Provider + [phone] Ney Villalpando MD Unavailable [phone] Allergies No known active allergies Medications multivitamin [...] 500 capsules by mouth daily Active omega 5-ead-hle-fish oil 60-90-500 mg capsule,delaye d release(DR/EC) Take [...] (10/07/2020): Added automatically from request for surgery [id number] Personal history of colonic polyps 09/02/2020 Overview (09/02/2020): Added automatically from request for surgery [id number] Family history of colonic polyps 09/02/2020 Overview (09/02/2020): Added automatically from request for surgery [id number] Intraocular pressure increase, left 10/16/2019 Assessment & [...] 10/16/2019 Assessment & Plan (05/21/2022 3:11 PM AUTO PHONE INSTALLER): New mrx, rec ar coating Assessment & Plan (10/16/2019 11:49 AM CDT): Release updated glasses and CLRx for Dailies. Age-related nuclear cataract of both eyes 2019 Assessment & Plan (05/21/2022 3:11 PM AUTO PHONE INSTALLER): Not v/s, monitor, rec uv eye protection [...] (05/29/2018): Added automatically from request for surgery [id number] Aneurysm of thoracic aorta 01/09/2018 Multiple actinic keratoses 09/24/2015 Lentigo 09/24/2015 Essential hypertension 02/05/2013 Resolved Problems Problem Noted Date Diagnosed Date Resolved Date Melanocytic nevus of trunk 10/01/2016 0 01/09/2018 Lichen simplex chronicus 10/01/201601/2018 Tinea pedis 09/24/2015 01/09/2018 Palpitations 02/06/2013 01/09/2018 Arthralgia of shoulder 01/18/201301/09 Arthralgia of elbow 09/16/2011 01/10/20 18 Encounters Date Type Department Care Team Description 06/06/2024 9:30 AM AUTO PHONE INSTALLER Office Visit [facility] Cardiothoracic Surgery [address] [place] [address] [facility] 8th Floor [address] [place] [address] Bridgette Hess MD Monoallelic mutation of MYH11 gene; Aneurysm of ascending aorta without rupture 05/04/2024 8:38 AM AUTO PHONE INSTALLER - 05/04/2024 11:59 PM AUTO PHONE INSTALLER Hospital Encounter [facility] ([facility]) [address] [place] [address] Ney Villalpando MD Monoallelic mutation of MYH11 gene; Aneurysm of ascending aorta without rupture Discharge Disposition: Discharge to home or self care 05/04/2024 Orders Only [facility] ([facility]) [address] [place] [address] Layne Jaquez RN Monoallelic mutation of MYH11 gene (Primary Dx); Aneurysm of ascending aorta without rupture 05/04/2024 Documentation [facility] Cardiology [address] [place] [address] [facility] 8th [place] [address] [place] [address] Ney Villalpando MD 04/18/2024 11:00 AM AUTO PHONE INSTALLER Office Visit [facility] Cardiology [address] [place] [address] 8th [place] [address] [place] [address] Ney Villalpando MD Monoallelic mutation of MYH11 gene (Primary Dx); Aneurysm of ascending aorta without rupture; Essential hypertension 04/17/2024 Telephone [facility] Cardiology [address] [place] [address] [facility] 8th [place] [address] [place] [address] Ney Villalpando MD from Last 3 Months Immunizations Immunization Administration Dates Next Due Memolane (J&J) SARS-CoV-2 Vaccination 07/07/2020 Tdap 03/12/2020 Surgical History Surgery Date Site/Laterality Comments ELBOW SURGERY 05/02/2005 - 05/01/2006 Bilateral arthroscopic capsular arthroplasty THROMBOLYSIS 01/30/2002 - 03/01/2002 NERVE SURGERY 05/02/2007 - 05/01/2008 Left ulnar nerve decompression COLONOSCOPY 10/14/2020 ROTATOR CUFF REPAIR 05/02/2018 - 05/01/2019 Right OTHER SURGICAL HISTORY 05/02/2000 - 05/01/2001 Left torn labrium EXPLORATORY LAPAROTOMY 05/02/1980 - 05/01/1981 lacerated liver FL UPPER GI AIR CONTRAST W KUB 08/02/2022 Bilateral KNEE ARTHROSCOPY W/ LATERAL RELEASE Both elbows Medical History Medical History Date Comments Arthritis Deep vein thrombosis (HCC) 1999 Depression Hypertension Ascending aortic aneurysm 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) 02/06/2013 Sleep apnea Cataract Family History Medical History Relation Name Comments Glaucoma Brother Suspect Cancer Father Johnathan Welch Family history of malignant neoplasm - (Added by TW Conv) Hypertension Father Johnathan Welch Stroke Father Johnathan Welch Diabetes Mother Zhanna Welch Family history of diabetes mellitus - (Added by TW Conv) Glaucoma Mother Zhanna Welch Hypertension Mother Zhanna Welch Macular degeneration Mother Zhanna Welch Heart disease Paternal Grandfather Anaya Welch Heart disease Paternal Grandmother Soni Welch Anesthesia problems Neg Hx Relation Name Status Comments Brother Father Johnathan Welch Mother Zhanna Welch Paternal Grandfather Anaya Welch Paternal Grandmother Soni Welch Social History Tobacco Use Types Packs/Day Years [...] on file Legal Sex Male 3:02 AM AUTO PHONE INSTALLER Gender Identity Male 04/16/2021 11:58 AM AUTO PHONE INSTALLER Sexual Orientation Straight 04/02/2019 2: 04 PM AUTO PHONE INSTALLER Obstetrics History Last Filed Vital Signs Vital Sign Reading Time Taken Comments Blood Pressure 121/75 06/06/2024 10:23 AM AUTO PHONE INSTALLER Pulse 56 06/06/2024 10:23 AM AUTO PHONE INSTALLER Temperature 37 C (98.6 F) 04/01/2022 9:59 AM AUTO PHONE INSTALLER Respiratory Rate 16 09/03/2022 11:4 9 AM CDT Oxygen Saturation 97% 06/06/2024 10: 23 AM AUTO PHONE INSTALLER Inhaled Oxygen Concentration - - Weight 112.3 kg (247 lb 9.6 oz) 025 10:23 AM AUTO PHONE INSTALLER Height 185.4 cm (6' 1 ) 06/06/2024 10:2 3 AM AUTO PHONE INSTALLER Body Mass Index 32.67 06/06/2024 10:23 AM AUTO PHONE INSTALLER Plan of Treatment Upcoming Encounters Date Type Department Care Team (Latest Contact Info) Description 08/20/2024 8:00 AM CDT Hospital Encounter [facility] Operating Room [address] [place] [address] Bridgette Hess MD [address] [facility] [address] [place], [place] [id number] Aneurysm of ascending aorta without rupture 08/20/2024 8:00 AM CDT - 08/20/2024 2:45 PM CDT Surgery [facility] Operating Room [address] [place] [phone] Bridgette Hess MD [address] [facility] [address] [place], [place] [phone] REPLACEMENT AORTIC VALVE/ROOT-VALVE SPARING ROOT REPLACEMENT Scheduled Procedures Name Priority Associated Diagnoses Date/Ti me REPLACEMENT AORTIC VALVE/ROOT Aneurysm of ascending aorta without rupture 08/20/2024 8:00 AM CDT Health Maintenance Due Date Last Done Comments Depression Screening 1960 Hepatitis C Screening 1960 Prostate Cancer Screening-PSA 1960 Hepatitis B Screening 1978 Regular Well Visit/Exam 18-64 1978 Zoster Vaccine (1 of 2) 2010 Covid-19 Vaccine (2 - season) 2024 07/07/2020 Influenza Vaccine (#1) 2024 DTaP/Tdap/Td Vaccine (2 - Td or Tdap) 03/12/2030 03/12/2020 Colon Cancer Screening-Colonoscopy 10/14/2030 10/14/2020, 05/14/2015 Colon Cancer Screening-CT Colonography Discontinued 10/14/2020, 05/14/2015 Colon Cancer Screening-DNA Stool Discontinued 10/14/2020, 05/14/2015 Colon Cancer Screening-FIT Discontinued 10/14, 05/14/2015 Colon Cancer Screening-Sigmoidoscopy Discontinued 10/14/2020, 05/14/2015 Pneumococcal vaccine <65 Aged Out No longer eligible based on patient's age to complete this topic Medical Devices Implanted Type Area Furnace Brazer Device Identifier Shelf Expiration Date Model / Serial / Lot [employer] [id number] Bcm Swivelock 4.75mm 24.5mm Self Punch Vent Shoulder [place] Suture - [id number] Implanted:Qty: 1 on 09/11/2018 by Dwayne Torrez MD at [facility] Right: Shoulder [employer] 01/30/2020 [id number] / / [id number] Procedures Procedure Name Priority Date/Time Associated Diagnosis Comments CTA CHEST W CONTRAST Schedule Routine, Read Routine (OP Routine) 05/04/2024 9:11 AM AUTO PHONE INSTALLER Monoallelic mutation of MYH11 gene Aneurysm of ascending aorta without rupture POCT CREATININE - DEVICE Routine 05/04/2024 8:55 AM AUTO PHONE INSTALLER COLONOSCOPY 10/14/2020 7:01 AM CDT from Last 3 Months or Most Recently Relevant to Health Maintenance Results * CTA Chest W Contrast (05/04/2024 9:11 AM AUTO PHONE INSTALLER) Anatomical Region Laterality Modality Chest N/A Computed Tomogra phy 05/04/2024 9:22 AM AUTO PHONE INSTALLER Impressions 05/04/2024 9:22 AM AUTO PHONE INSTALLER Unchanged caliber of the thoracic aorta. The aortic root measures up to 4.7 cm, unchanged when remeasured in a similar fashion from the prior exam. Electronically signed by: Herman Foster M.D. Narrative 05/04/2024 9:22 AM AUTO PHONE INSTALLER EXAMINATION: CT ANGIOGRAPHY OF THE CHEST WITH [...] exam. Electronically signed by: Herman Foster M.D. Ney Villalpando MD IMG CT PROCEDURES Mai l Result * POCT creatinine (05/04/2024 8:55 AM AUTO PHONE INSTALLER) Creatinine POC 1.3 0.7 - 1.3 mg/dL Blood 05/04/2024 8:55 AM AUTO PHONE INSTALLER 05/04/2024 8:55 AM AUTO PHONE INSTALLER Ney Villalpando MD LAB POCT ORDERABLES - DEVICE Final Result Performing Organization Address City/State/[facility] Co de Phone Number [facility] Department [place] [address] * COLONOSCOPY (10/14/2020 7:01 AM CDT) Anatomical Region Laterality Modality Other Narrative Procedure Note John Guthrie MD - 10/14/2020 7:01 AM CDT ENDOSCOPY LAB Patient Name: Roderick Welch Procedure Date: 10/14/2020 7:01 AM Date of : 1960 Admit Type: Outpatient Age: 60 Gender: Male Attending MD: John Guthrie M.D. Room: [facility] ENDOSCOPY ROOM 01 Note Status: Finalized Procedure: [...] The scope was passed under direct vision.The [id number] was introduced through the anusand advanced to [...] call and ask for the GI fellow solution lead. Electronically Signed by John Guthrie MD John Guthrie M.D. 10/14/2020 7:55:34 AM Number of Addenda: 0 Note Initiated On: 10/14/2020 7:01 AM John Guthrie MD ENDOSCOPY PROCEDURES Final Res ult from Last 3 Months or Most Recently Relevant to Health Maintenance Insurance [facility] Advance Directives For more information, please contact: [phone] * Full Code (Latest Code Status on File) Date Activated Date Inactivated Comments 10/14/2020 6:38 AM 10/14/2020 12:29 PM Care Teams Manager Client Relationship Specialty Start Date End Date Dima Sanchez MD PCP - General 05/01/20 Ney Villalpando MD [address] [place] [address] Exhibition Designer Cardiology 02/08/23
--- OUTSIDE RECORDS SUMMARY | 2024-07-06 12:01 | XMS_ITS | Encounter Summary ---
Author Organization [facility] School [facility] Address [address] [place] [address] Phone Care Team Providers Care Janitor Caretaker Name Role Phone Dima Sanchez MD Primary Care Provider + [phone] Dima Sanchez MD Primary Care Provider + [phone] Theron Peace MD Primary Care Provider +[phone] Theron Upton MD Primary Care Provider +[phone] Dima Sanchez MD Primary Care Provider + [phone] Ney Villalpando MD Unavailable [phone] Encounter Details Date Type Department Care Team (Latest Contact Info) Description 01/22/2013 Orders Only [facility] Scanning, Provider Social History Tobacco Use Types Packs/Day Years Used Date Smoking Tobacco: Never Assessed Sex and Gender Information Value Date Recorded Sex Assigned at Not on file Legal Sex Male 3:02 AM SERVICE CENTER ASSISTANT Gender Identity Male 04/16/2021 11:58 AM SERVICE CENTER ASSISTANT Sexual Orientation Straight 04/02/2019 2: 04 PM SERVICE CENTER ASSISTANT documented as of this encounter Plan of Treatment Upcoming Encounters Date Type Department Care Team (Latest Contact Info) Description 08/20/2024 8:00 AM CDT Hospital Encounter [facility] Operating Room 1 [place] [address] Bridgette Hess MD [address] [facility] 8233-08-31 [place], [place] [id number] Aneurysm of ascending aorta without rupture 08/20/2024 8:00 AM CDT - 08/20/2024 2:45 PM CDT Surgery [facility] Operating Room 1 [place] [address] Bridgette Hess MD [address] [facility] 8233-08-31 [place] [address] REPLACEMENT AORTIC VALVE/ROOT-VALVE SPARING ROOT REPLACEMENT Scheduled Procedures Name Priority Associated Diagnoses Date/Ti me REPLACEMENT AORTIC VALVE/ROOT Aneurysm of ascending aorta without rupture 08/20/2024 8:00 AM CDT documented as of this encounter Procedures Procedure Name Priority Date/Time Associated Diagnosis Comments SCAN - RADIOLOGY/IMAGING 01/22/2013 documented in this encounter Results * SCAN - RADIOLOGY/IMAGING (01/22/2013) Anatomical Region Laterality Modality Other us Provider Scanning Final Result documented in this encounter Visit Diagnoses Not on filedocumented in this encounter Care Teams Janitor Caretaker Relationship Specialty Start Date End Date Dima Sanchez MD PCP - General 02/02/13 01/09/18 Dima Sanchez MD PCP - General 02/01/13 02/01/13 Theron Peace MD [address] [place] [address] PCP - General Obstetrics and Gynecology 01/10/1803/07/18 Theron Upton MD [address] [facility] [address] [place] [address] PCP - General Endocrinology Diabetes & Metabolism 03/08/18 04/30/20 Dima Sanchez MD PCP - General 05/01/20 Ney Villalpando MD [address] [place] [address] Frog Catcher Cardiology 02/08/23 documented as of this encounter
--- OUTSIDE RECORDS SUMMARY | 2024-07-06 12:01 | XMS_ITS | Referral Summary ---
Author Organization [facility] Address [address] [place] [address] Care Team Providers Care Corporate Sales Representative Name Role Phone Dima Sanchez MD Primary Care Provider [phone] Source Comments [facility],non-owned Affiliates and Associated Physician Practices is amultiple site organization consisting of ambulatory clinics and hospital sitesin [place], [place], [place] and [place]. This disclosure is being madepursuant to the Care Everywhere program and may not contain all information available regarding this patient. Last updated 18.[facility] [employer] Social History Tobacco Use Types Packs/Day Years Used Date Smoking Tobacco: Never Assessed Sex and Gender Information Value Date Recorded Sex Assigned at Not on file Gender Identity Not on file Sexual Orientation Not on file Plan of Treatment Not on file Care Teams Corporate Sales Representative Relationship Specialty Start Date End Date Dima Sanchez MD [address] [place] [address] PCP - General 01/22/13
--- OUTSIDE RECORDS SUMMARY | 2024-07-06 12:01 | XMS_ITS | Encounter Summary ---
Author Organization [facility] School of [facility] Address [address] [place] [address] Phone Care Team Providers Care Hydrogen Braze Furnace Operator Name Role Phone Dima Sanchez MD Primary Care Provider + [phone] Dima Sanchez MD Primary Care Provider + [phone] Theron Peace MD Primary Care Provider +[phone] Theron Upton MD Primary Care Provider +[phone] Dima Sanchez MD Primary Care Provider + [phone] Ney Villalpando MD Unavailable [phone] Encounter Details Date Type Department Care Team (Latest Contact Info) Description 02/01/2013 Orders Only [facility] Scanning, Provider Social History Tobacco Use Types Packs/Day Years Used Date Smoking Tobacco: Never Assessed Sex and Gender Information Value Date Recorded Sex Assigned at Not on file Legal Sex Male 3:02 AM LABOR UTILIZATION SUPERINTENDENT Gender Identity Male 04/16/2021 11:58 AM LABOR UTILIZATION SUPERINTENDENT Sexual Orientation Straight 04/02/2019 2: 04 PM LABOR UTILIZATION SUPERINTENDENT documented as of this encounter Plan of Treatment Upcoming Encounters Date Type Department Care Team (Latest Contact Info) Description 08/20/2024 8:00 AM CDT Hospital Encounter [facility] Operating Room 1 [place] [address] Bridgette Hess MD [address] [facility] 8233-08-[address] [place], [place] [id number] Aneurysm of ascending aorta without rupture 08/20/2024 8:00 AM CDT - 08/20/2024 2:45 PM CDT Surgery [facility] Operating Room 1 [place] [address] Bridgette Hess MD [address] [facility] 8233-08-31 [place] [address] REPLACEMENT AORTIC VALVE/ROOT-VALVE SPARING ROOT REPLACEMENT Scheduled Procedures Name Priority Associated Diagnoses Date/Ti me REPLACEMENT AORTIC VALVE/ROOT Aneurysm of ascending aorta without rupture 08/20/2024 8:00 AM CDT documented as of this encounter Procedures Procedure Name Priority Date/Time Associated Diagnosis Comments CARDIOLOGY DOCUMENT SCAN 02/01/2013 documented in this encounter Results * SCAN - CARDIOLOGY (02/01/2013) Anatomical Region Laterality Modality Other us Provider Scanning CV CARDIAC SERVICES PROCEDURES Final Result documented in this encounter Visit Diagnoses Not on filedocumented in this encounter Care Teams Hydrogen Braze Furnace Operator Relationship Specialty Start Date End Date Dima Sanchez MD PCP - General 02/02/13 01/09/18 Dima Sanchez MD PCP - General 02/01/13 02/01/13 Theron Peace MD [address] [place] [place] [address] PCP - General Obstetrics and Gynecology 01/10/1803/07/18 Theron Upton MD [address] [facility] [address] [place] [address] PCP - General Endocrinology Diabetes & Metabolism 03/08/18 04/30/20 Dima Sanchez MD PCP - General 05/01/20 Ney Villalpando MD [address] [place] [address] Senior Insight Manager International Cardiology 02/08/23 documented as of this encounter
--- OUTSIDE RECORDS SUMMARY | 2024-07-06 12:01 | XMS_ITS | Clinical Summary ---
Author Organization [facility] Address [address] [place] [address] Care Team Providers Care Telecommunication Engineer Name Role Phone Unavailable Primary Care Provider Unavailabl e Social History Tobacco Use Types Packs/Day Years Used Date Smoking Tobacco: Never Assessed Sex and Gender Information Value Date Recorded Sex Assigned at Not on file Legal Sex Male 7:20 PM CDT Gender Identity Not on file Sexual Orientation Not on file Plan of Treatment Health Maintenance Due Date Last Done Comments Colorectal Cancer Screening Colonoscopy (10 Years) 1960 Annual Physical 1963 Hepatitis C 1978 DTaP, Tdap and Td Vaccines ( 1 - Tdap) 1979 Zoster Vaccines (1 of 2) 2010 COVID-19 Vaccine ( - 2023-2 5 season) 2024 Influenza Adult (#1) 2024 RSV Immunization or 60+ Years (1 - 1-dose 75+ series) 2035 Meningococcal B Vaccine Aged Out No l onger eligible based on patient's age to complete this topic Meningococcal Vaccine Aged Out No [place] eligible based on patient's age to complete this topic Pneumococcal Vaccine: Pediat rics (0 to 5 Years) and At-Risk Patients (6 to 64 Years) Aged Out No longer eligible b ased on patient's age to complete this topic RSV Immunizations Under 20 Months Aged Out No longer eligible based on patient's age to complete this topic
--- OUTSIDE RECORDS SUMMARY | 2024-07-06 12:01 | XMS_ITS | Encounter Summary ---
Author Organization [facility] School of [facility] Address [address] [place] [address] Phone Care Team Providers Care Carton Liner Name Role Phone Dima Sanchez MD Primary Care Provider + [phone] Dima Sanchez MD Primary Care Provider + [phone] Theron Peace MD Primary Care Provider [phone] Theron Upton MD Primary Care Provider [phone] Dima Sanchez MD Primary Care Provider + [phone] Ney Villalpando MD Unavailable [phone] Encounter Details Date Type Department Care Team (Latest Contact Info) Description 09/10/2011 Orders Only [facility] Scanning, Provider Social History Tobacco Use Types Packs/Day Years Used Date Smoking Tobacco: Never Assessed Sex and Gender Information Value Date Recorded Sex Assigned at Not on file Legal Sex Male 3:02 AM INSTALLER MOLDING AND TRIM Gender Identity Male 04/16/2021 11:58 AM INSTALLER MOLDING AND TRIM Sexual Orientation Straight 04/02/2019 2: 04 PM INSTALLER MOLDING AND TRIM documented as of this encounter Plan of Treatment Upcoming Encounters Date Type Department Care Team (Latest Contact Info) Description 08/20/2024 8:00 AM CDT Hospital Encounter [facility] Operating Room 1 [place] [address] Bridgette Hess MD [address] [facility] 8233-08-[address] [place], [place] [id number] Aneurysm of ascending aorta without rupture 08/20/2024 8:00 AM CDT - 08/20/2024 2:45 PM CDT Surgery [facility] Operating Room [address] [place] [address] Bridgette Hess MD [address] [facility] 8233-08-31 [place] [address] REPLACEMENT AORTIC VALVE/ROOT-VALVE SPARING ROOT REPLACEMENT Scheduled Procedures Name Priority Associated Diagnoses Date/Ti me REPLACEMENT AORTIC VALVE/ROOT Aneurysm of ascending aorta without rupture 08/20/2024 8:00 AM CDT documented as of this encounter Procedures Procedure Name Priority Date/Time Associated Diagnosis Comments CARDIOLOGY DOCUMENT SCAN 09/10/2011 documented in this encounter Results * SCAN - CARDIOLOGY (09/10/2011) Anatomical Region Laterality Modality Other us Provider Scanning CV CARDIAC SERVICES PROCEDURES Final Result documented in this encounter Visit Diagnoses Not on filedocumented in this encounter Care Teams Carton Liner Relationship Specialty Start Date End Date Dima Sanchez MD PCP - General 02/02/13 01/09/18 Dima Sanchez MD PCP - General 02/01/13 02/01/13 Theron Peace MD [address] [place] [address] PCP - General Obstetrics and Gynecology 01/10/1803/07/18 Theron Upton MD [address] [facility] [address] [place] [address] PCP - General Endocrinology Diabetes & Metabolism 03/08/18 04/30/20 Dima Sanchez MD PCP - General 05/01/20 Ney Villalpando MD [address] [place] [place] [address] Philosophy Specialist Cardiology 02/08/23 documented as of this encounter
--- OUTSIDE RECORDS SUMMARY | 2024-07-06 12:01 | XMS_ITS | Encounter Summary ---
Author Organization [facility] School of [facility] Address [address] [place] [address] Phone Care Team Providers Care Pulley Man Name Role Phone Dima Sanchez MD Primary Care Provider + [phone] Dima Sanchez MD Primary Care Provider + [phone] Theron Peace MD Primary Care Provider [phone] Theron Upton MD Primary Care Provider [phone] Dima Sanchez MD Primary Care Provider + [phone] Ney Villalpando MD Unavailable [phone] Encounter Details Date Type Department Care Team (Latest Contact Info) Description 05/12/2000 Orders Only [facility] Scanning, Provider Social History Tobacco Use Types Packs/Day Years Used Date Smoking Tobacco: Never Assessed Sex and Gender Information Value Date Recorded Sex Assigned at Not on file Legal Sex Male 3:02 AM INFORMATION TECHNOLOGY SECURITY MANAGER Gender Identity Male 04/16/2021 11:58 AM INFORMATION TECHNOLOGY SECURITY MANAGER Sexual Orientation Straight 04/02/2019 2: 04 PM INFORMATION TECHNOLOGY SECURITY MANAGER documented as of this encounter Plan of Treatment Upcoming Encounters Date Type Department Care Team (Latest Contact Info) Description 08/20/2024 8:00 AM CDT Hospital Encounter [facility] Operating Room 1 [place] [address] Bridgette Hess MD [address] [facility] 8233-08-[address] [place], [place] [id number] Aneurysm of ascending aorta without rupture 08/20/2024 8:00 AM CDT - 08/20/2024 2:45 PM CDT Surgery [facility] Operating Room [address] [place] [address] Bridgette Hess MD [address] [facility] 8233-08-31 [place] [address] REPLACEMENT AORTIC VALVE/ROOT-VALVE SPARING ROOT REPLACEMENT Scheduled Procedures Name Priority Associated Diagnoses Date/Ti me REPLACEMENT AORTIC VALVE/ROOT Aneurysm of ascending aorta without rupture 08/20/2024 8:00 AM CDT documented as of this encounter Procedures Procedure Name Priority Date/Time Associated Diagnosis Comments CARDIOLOGY DOCUMENT SCAN 05/12/2000 documented in this encounter Results * SCAN - CARDIOLOGY (05/12/2000) Anatomical Region Laterality Modality Other us Provider Scanning CV CARDIAC SERVICES PROCEDURES Final Result documented in this encounter Visit Diagnoses Not on filedocumented in this encounter Care Teams Pulley Man Relationship Specialty Start Date End Date Dima Sanchez MD PCP - General 02/02/13 01/09/18 Dima Sanchez MD PCP - General 02/01/13 02/01/13 Theron Peace MD [address] [place] [address] PCP - General Obstetrics and Gynecology 01/10/1803/07/18 Theron Upton MD [address] [facility] [address] [place] [address] PCP - General Endocrinology Diabetes & Metabolism 03/08/18 04/30/20 Dima Sanchez MD PCP - General 05/01/20 Ney Villalpando MD [address] [place] [address] Physician Extender Cardiology 02/08/23 documented as of this encounter
[2024-07-09 10:48] LABS: PSA, Free 0.3 ng/mL; PSA, Total 1.2 ng/mL (< OR = 4.0); Percent Free Prostate Spec Ag 25 % (calc) (>25)
== END 2024-07-06 11:05 | disposition home or self-care (01) ==
PROVIDERS: PCP Family Medicine; Visit Provider Family Medicine
DX: E55.9 Vitamin D deficiency, unspecified (principal); Z13.220 Encounter for screening for lipoid disorders; Z13.9 Encounter for screening, unspecified; Z12.5 Encounter for screening for malignant neoplasm of prostate; Z13.0 Encounter for screening for diseases of the blood and blood-forming organs and certain disorders involving the immune mechanism; Z13.818 Encounter for screening for other digestive system disorders
CPT/HCPCS: 36415; 80053; 80061; 82652; 84153; 84154; 84443; 85025

== ENCOUNTER 2024-07-09 10:29 | Outpatient (CLI) | payer OTHER, SELFPAY ==
[2024-07-09 11:10] LABS: Alanine Aminotransferase 21 U/L (6-50); Albumin Level 4.5 g/dL (3.5-5.1); Alkaline Phosphatase 55 U/L (38-126); Aspartate Amino Transferase 27 U/L (17-59); Bilirubin,Total 1.8 mg/dL (0.2-1.3)
--- OUTSIDE RECORDS SUMMARY | 2024-07-09 12:16 | XMS_ITS | Encounter Summary ---
Author Organization [facility] School of [facility] Address [address] [place] [address] Phone Care Team Providers Care Roadmaster Name Role Phone Dima Sanchez MD Primary Care Provider + [phone] Dima Sanchez MD Primary Care Provider + [phone] Theron Peace MD Primary Care Provider +[phone] Theron Upton MD Primary Care Provider +[phone] Dima Sanchez MD Primary Care Provider + [phone] Ney Villalpando MD Unavailable [phone] Encounter Details Date Type Department Care Team (Latest Contact Info) Description 09/06/2007 Orders Only [facility] Scanning, Provider Social History Tobacco Use Types Packs/Day Years Used Date Smoking Tobacco: Never Assessed Sex and Gender Information Value Date Recorded Sex Assigned at Not on file Legal Sex Male 3:02 AM ROLLER LEVELER Gender Identity Male 04/16/2021 11:58 AM ROLLER LEVELER Sexual Orientation Straight 04/02/2019 2: 04 PM ROLLER LEVELER documented as of this encounter Plan of Treatment Upcoming Encounters Date Type Department Care Team (Latest Contact Info) Description 08/20/2024 8:00 AM CDT Hospital Encounter [facility] Operating Room 1 [place] [address] Bridgette Hess MD [address] [facility] 8233-08-[address] [place], [place] [id number] Aneurysm of ascending aorta without rupture 08/20/2024 8:00 AM CDT - 08/20/2024 2:45 PM CDT Surgery [facility] Operating Room 1 [place] [address] Bridgette Hess MD [address] [facility] 8233-08-[address] [place] [address] REPLACEMENT AORTIC VALVE/ROOT-VALVE SPARING ROOT REPLACEMENT Scheduled [...] on filedocumented in this encounter Care Teams Roadmaster Relationship Specialty Start Date End Date Dima Sanchez MD PCP - General 02/02/13 01/09/18 Dima Sanchez MD PCP - General 02/01/13 02/01/13 Theron Peace MD [address] [place] [address] PCP - General Obstetrics and Gynecology 01/10/1803/07/18 Theron Upton MD [address] [facility] [address] [place] [address] PCP - General Endocrinology Diabetes & Metabolism 03/08/18 04/30/20 Dima Sanchez MD PCP - General 05/01/20 Ney Villalpando MD [address] [place] [address] Scientific Laboratory Supervisor Cardiology 02/08/23 documented as of this encounter
--- OUTSIDE RECORDS SUMMARY | 2024-07-09 12:16 | XMS_ITS | Encounter Summary ---
Author Organization [facility] Address [address] [place] [address] Phone Care Team Providers Care Bindery Machine Setter Name Role Phone Dima Sanchez MD Primary Care Provider + [phone] Dima Sanchez MD Primary Care Provider + [phone] Theron Peace MD Primary Care Provider [phone] Theron Upton MD Primary Care Provider [phone] Dima Sanchez MD Primary Care Provider + [phone] Ney Villalpando MD Unavailable [phone] Encounter Details Date Type Department Care Team (Latest Contact Info) Description 03/25/2005 Orders Only [facility] Scanning, Provider Social History Tobacco Use Types Packs/Day Years Used Date Smoking Tobacco: Never Assessed Sex and Gender Information Value Date Recorded Sex Assigned at Not on file Legal Sex Male 3:02 AM GENERAL OFFICE DISPATCHER Gender Identity Male 04/16/2021 11:58 AM GENERAL OFFICE DISPATCHER Sexual Orientation Straight 04/02/2019 2: 04 PM GENERAL OFFICE DISPATCHER documented as of this encounter Plan of Treatment Upcoming Encounters Date Type Department Care Team (Latest Contact Info) Description 08/20/2024 8:00 AM CDT Hospital Encounter [facility] Operating Room 1 [place] [address] Bridgette Hess MD [address] [facility] 8233[address]08-[address] [place], [place] [id number] Aneurysm of ascending aorta without rupture 08/20/2024 8:00 AM CDT - 08/20/2024 2:45 PM CDT Surgery [facility] Operating Room 1 [place] [address] Bridgette Hess MD [address] [facility] 8233-08-31 [place] [address] REPLACEMENT AORTIC VALVE/ROOT-VALVE SPARING ROOT REPLACEMENT Scheduled [...] on filedocumented in this encounter Care Teams Bindery Machine Setter Relationship Specialty Start Date End Date Dima Sanchez MD PCP - General 02/02/13 01/09/18 Dima Sanchez MD PCP - General 02/01/13 02/01/13 Theron Peace MD [address] [place] [address] PCP - General Obstetrics and Gynecology 01/10/1803/07/18 Therno Upton MD [address] [facility] [address] [place] [address] PCP - General Endocrinology Diabetes & Metabolism 03/08/18 04/30/20 Dima Sanchez MD PCP - General 05/01/20 Ney Villalpando MD [address] [place] [address] Counselor Camp Cardiology 02/08/23 documented as of this encounter
--- OUTSIDE RECORDS SUMMARY | 2024-07-09 12:16 | XMS_ITS | Clinical Summary ---
Author Organization [facility] Address [address] [place] [address] Care Team Providers Care Fit Model Name Role Phone Dima Sanchez MD Primary Care Provider + [phone] Ney Villalpando MD Unavailable [phone] Allergies No known active allergies Medications multivitamin [...] 500 capsules by mouth daily Active omega 6-npg-gri-fish oil 60-90-500 mg capsule,delaye d release(DR/EC) Take [...] (10/07/2020): Added automatically from request for surgery [id number] Personal history of colonic polyps 09/02/2020 Overview (09/02/2020): Added automatically from request for surgery [id number] Family history of colonic polyps 09/02/2020 Overview (09/02/2020): Added automatically from request for surgery [id number] Intraocular pressure increase, left 10/16/2019 Assessment & [...] 10/16/2019 Assessment & Plan (05/21/2022 3:11 PM MONOMER RECOVERY OPERATOR): New mrx, rec ar coating Assessment & Plan (10/16/2019 11:49 AM CDT): Release updated glasses and CLRx for Dailies. Age-related nuclear cataract of both eyes 2019 Assessment & Plan (05/21/2022 3:11 PM MONOMER RECOVERY OPERATOR): Not v/s, monitor, rec uv eye protection [...] (05/29/2018): Added automatically from request for surgery [id number] Aneurysm of thoracic aorta 01/09/2018 Multiple actinic keratoses 09/24/2015 Lentigo 09/24/2015 Essential hypertension 02/05/2013 Resolved Problems Problem Noted Date Diagnosed Date Resolved Date Melanocytic nevus of trunk 10/01/2016 0 01/09/2018 Lichen simplex chronicus 10/01/201601/2018 Tinea pedis 09/24/2015 01/09/2018 Palpitations 02/06/2013 01/09/2018 Arthralgia of shoulder 01/18/201301/09 Arthralgia of elbow 09/16/2011 01/10/20 18 Encounters Date Type Department Care Team Description 06/06/2024 9:30 AM MONOMER RECOVERY OPERATOR Office Visit [facility] Cardiothoracic Surgery [address] [place] [address] Advanced Medicine 8th Floor [address] Room 08-085 [place] [address] Bridgette Hess MD Monoallelic mutation of MYH11 gene; Aneurysm of ascending aorta without rupture 05/04/2024 8:38 AM MONOMER RECOVERY OPERATOR - 05/04/2024 11:59 PM MONOMER RECOVERY OPERATOR Hospital Encounter [facility] [address] [place] [address] Ney Villalpando MD Monoallelic mutation of MYH11 gene; Aneurysm of ascending aorta without rupture Discharge Disposition: Discharge to home or self care 05/04/2024 Orders Only [facility] [address] [place] [address] Layne Jaquez RN Monoallelic mutation of MYH11 gene (Primary Dx); Aneurysm of ascending aorta without rupture 05/04/2024 Documentation [facility] Cardiology [address] [place] [address] Advanced [facility] 8th [place] [address] [place] [address] Ney Villalpando MD 04/18/2024 11:00 AM MONOMER RECOVERY OPERATOR Office Visit [facility] Cardiology [address] [place] [address] 8th [place] [address] [place] [address] Ney Villalpando MD Monoallelic mutation of MYH11 gene (Primary Dx); Aneurysm of ascending aorta without rupture; Essential hypertension 04/17/2024 Telephone [facility] Cardiology [address] [place] [address] Advanced [facility] 8th [place] [address] [place] [address] Ney Villalpando MD from Last 3 Months Immunizations Immunization Administration Dates Next Due Squirrly (J&J) SARS-CoV-2 Vaccination 07/07/2020 Tdap 03/12/2020 Surgical [...] (Added by TW Conv) Hypertension Father Johnathan Wlech Stroke Father Johnathan Welch Diabetes Mother Zhanna [...] on file Legal Sex Male 3:02 AM MONOMER RECOVERY OPERATOR Gender Identity Male 04/16/2021 11:58 AM MONOMER RECOVERY OPERATOR Sexual Orientation Straight 04/02/2019 2: 04 PM MONOMER RECOVERY OPERATOR Obstetrics History Last Filed Vital Signs Vital Sign Reading Time Taken Comments Blood Pressure 121/75 06/06/2024 10:23 AM MONOMER RECOVERY OPERATOR Pulse 56 06/06/2024 10:23 AM MONOMER RECOVERY OPERATOR Temperature 37 C (98.6 F) 04/01/2022 9:59 AM MONOMER RECOVERY OPERATOR Respiratory Rate 16 09/03/2022 11:4 9 AM CDT Oxygen Saturation 97% 06/06/2024 10: 23 AM MONOMER RECOVERY OPERATOR Inhaled Oxygen Concentration - - Weight 112.3 kg (247 lb 9.6 oz) 025 10:23 AM MONOMER RECOVERY OPERATOR Height 185.4 cm (6' 1 ) 06/06/2024 10:2 3 AM MONOMER RECOVERY OPERATOR Body Mass Index 32.67 06/06/2024 10:23 AM MONOMER RECOVERY OPERATOR Plan of Treatment Upcoming Encounters Date Type Department Care Team (Latest Contact Info) Description 08/20/2024 8:00 AM CDT Hospital Encounter [facility] Operating Room 1 [place] [address] Bridgette Hess MD [address] [place] [id number] [place], [place] [phone] Aneurysm of ascending aorta without rupture 08/20/2024 8:00 AM CDT - 08/20/2024 2:45 PM CDT Surgery [facility] Operating Room [address] [place] [phone] Bridgette Hess MD [address] [place] [id number] [place], [place] [id number] REPLACEMENT AORTIC VALVE/ROOT-VALVE SPARING ROOT REPLACEMENT Scheduled [...] this topic Medical Devices Implanted Type Area Doll Maker Device Identifier Shelf Expiration Date Model / Serial / Lot [employer] Ar-2324 Bcm Swivelock 4.75mm 24.5mm Self Punch Vent Shoulder Kiron Suture - [id number] Implanted:Qty: 1 on 09/11/2018 by Dwayne Torrez MD at [facility] Right: Shoulder [employer] 01/30/2020 AR-[id number] / / [id number] Procedures Procedure Name Priority Date/Time Associated Diagnosis Comments CTA CHEST W CONTRAST Schedule Routine, Read Routine (OP Routine) 05/04/2024 9:11 AM MONOMER RECOVERY OPERATOR Monoallelic mutation of MYH11 gene Aneurysm of ascending aorta without rupture POCT CREATININE - DEVICE Routine 05/04/2024 8:55 AM MONOMER RECOVERY OPERATOR COLONOSCOPY 10/14/2020 7:01 AM CDT from Last 3 Months or Most Recently Relevant to Health Maintenance Results * CTA Chest W Contrast (05/04/2024 9:11 AM MONOMER RECOVERY OPERATOR) Anatomical Region Laterality Modality Chest N/A Computed Tomogra phy 05/04/2024 9:22 AM MONOMER RECOVERY OPERATOR Impressions 05/04/2024 9:22 AM MONOMER RECOVERY OPERATOR Unchanged caliber of the thoracic aorta. The aortic root measures up to 4.7 cm, unchanged when remeasured in a similar fashion from the prior exam. Electronically signed by: Herman Foster M.D. Narrative 05/04/2024 9:22 AM MONOMER RECOVERY OPERATOR EXAMINATION: CT ANGIOGRAPHY OF THE CHEST WITH [...] Result * POCT creatinine (05/04/2024 8:55 AM MONOMER RECOVERY OPERATOR) Creatinine POC 1.3 0.7 - 1.3 mg/dL Blood 05/04/2024 8:55 AM MONOMER RECOVERY OPERATOR 05/04/2024 8:55 AM MONOMER RECOVERY OPERATOR Ney Villalpando MD LAB POCT ORDERABLES - DEVICE Final Result Performing Organization Address City/State/[facility] Co de Phone Number [facility] Department [place] [address] * COLONOSCOPY (10/14/2020 7:01 AM CDT) Anatomical Region Laterality Modality Other Narrative Procedure Note John Guthrie MD - 10/14/2020 7:01 AM CDT ENDOSCOPY LAB Patient Name: Roderick Welch Procedure Date: 10/14/2020 7:01 AM Date of : 1960 Admit Type: Outpatient Age: 60 Gender: Male Attending MD: John Guthrie M.D. Room: [facility] ENDOSCOPY ROOM 01 Note Status: Finalized [...] The scope was passed under direct vision.The [id number] was introduced through the anusand advanced to [...] call and ask for the GI fellow senior loss control specialist. Electronically Signed by John Guthrie MD John Guthrie M.D. 10/14/2020 7:55:34 AM Number of Addenda: 0 Note Initiated On: 10/14/2020 7:01 AM John Guthrie MD ENDOSCOPY PROCEDURES Final Res ult from Last 3 Months or Most Recently Relevant to Health Maintenance Insurance [facility] Advance Directives For more information, please contact: [phone] * Full Code (Latest Code Status on File) Date Activated Date Inactivated Comments 10/14/2020 6:38 AM 10/14/2020 12:29 PM Care Teams Fit Model Relationship Specialty Start Date End Date Dima Sanchez MD PCP - General 05/01/20 Ney Villalpando MD [address] [address] Cascade Operator Cardiology 02/08/23
--- OUTSIDE RECORDS SUMMARY | 2024-07-09 12:16 | XMS_ITS | Encounter Summary ---
Author Organization [facility] Address [address] [place] [address] Phone Care Team Providers Care Human Resources Partner Name Role Phone Dima Sanchez MD Primary Care Provider + [phone] Dima Sanchez MD Primary Care Provider + [phone] Theron Peace MD Primary Care Provider [phone] Theron Upton MD Primary Care Provider [phone] Dima Sanchez MD Primary Care Provider + [phone] Ney Villalpando MD Unavailable [phone] Encounter Details Date Type Department Care Team (Latest Contact Info) Description 01/22/2013 Orders Only [facility] Scanning, Provider Social History Tobacco Use Types Packs/Day Years Used Date Smoking Tobacco: Never Assessed Sex and Gender Information Value Date Recorded Sex Assigned at Not on file Legal Sex Male 3:02 AM FORMULATOR Gender Identity Male 04/16/2021 11:58 AM FORMULATOR Sexual Orientation Straight 04/02/2019 2: 04 PM FORMULATOR documented as of this encounter Plan of Treatment Upcoming Encounters Date Type Department Care Team (Latest Contact Info) Description 08/20/2024 8:00 AM CDT Hospital Encounter [facility] Operating Room 1 [place] [address] Bridgette Hess MD [address] [facility] [id number] [place], [place] [phone] Aneurysm of ascending aorta without rupture 08/20/2024 8:00 AM CDT - 08/20/2024 2:45 PM CDT Surgery [facility] Operating Room [address] [place] [address] Bridgette Hess MD [address] [facility] [id number] [place] [address] REPLACEMENT AORTIC VALVE/ROOT-VALVE SPARING ROOT REPLACEMENT Scheduled [...] on filedocumented in this encounter Care Teams Human Resources Partner Relationship Specialty Start Date End Date Dima Sanchez MD PCP - General 02/02/13 01/09/18 Dima Sanchez MD PCP - General 02/01/13 02/01/13 Theron Peace MD [address] [place] [address] PCP - General Obstetrics and Gynecology 01/10/1803/07/18 Theron Upton MD [address] [facility] [address] [place] [address] PCP - General Endocrinology Diabetes & Metabolism 03/08/18 04/30/20 Dima Sanchez MD PCP - General 05/01/20 Ney Villalpando MD [address] [place] [address] Appeals Rn Cardiology 02/08/23 documented as of this encounter
--- OUTSIDE RECORDS SUMMARY | 2024-07-09 12:16 | XMS_ITS | Referral Summary ---
Author Organization [facility] Address [address] [place] [address] Care Team Providers Care Vice President Of Talent Acquisition Name Role Phone Dima Sanchez MD Primary Care Provider + [phone] Ney Villalpando MD Unavailable [phone] Encounters Date Type Department Care Team Description 06/06/2024 9:30 AM BUS MATRON Office Visit [facility] Cardiothoracic Surgery [address] [facility] Advanced Medicine 8th Floor [address] [place] [phone] Bridgette Hess MD Monoallelic mutation of MYH11 gene; Aneurysm of ascending aorta without rupture 05/04/2024 Orders Only [facility]iology [facility] [facility] ([facility]) [address] [place] [address] Layne Jaquez RN Monoallelic mutation of MYH11 gene (Primary Dx); Aneurysm of ascending aorta without rupture 05/04/2024 Documentation [facility] Cardiology [address] [facility] Medicine 8th [place] [address] [place] [address] Ney Villalpando MD 05/04/2024 8:38 AM BUS MATRON - 05/04/2024 11:59 PM BUS MATRON Hospital Encounter [facility] Rad[facility] [place] ([facility]) [address] [place] [address] Ney Villalpando MD Monoallelic mutation of MYH11 gene; Aneurysm of ascending aorta without rupture Discharge Disposition: Discharge to home or self care 04/18/2024 11:00 AM BUS MATRON Office Visit [facility] Cardiology [address] [facility] 8th [place] [address] [place] [address] Ney Villalpando MD Monoallelic mutation of MYH11 gene (Primary Dx); Aneurysm of ascending aorta without rupture; Essential hypertension 04/17/2024 Telephone [facility] Cardiology [address] [facility] 8th [place] [address] [place] [address] Ney Villalpando MD from Last [...] 500 capsules by mouth daily Active omega 8-kmj-dpb-fish oil 60-90-500 mg capsule,delaye d release(DR/EC) Take [...] (10/07/2020): Added automatically from request for surgery [id number] Personal history of colonic polyps 09/02/2020 Overview (09/02/2020): Added automatically from request for surgery [id number] Family history of colonic polyps 09/02/2020 Overview (09/02/2020): Added automatically from request for surgery [id number] Intraocular pressure increase, left 10/16/2019 Assessment & [...] 10/16/2019 Assessment & Plan (05/21/2022 3:11 PM BUS MATRON): New mrx, rec ar coating Assessment & Plan (10/16/2019 11:49 AM CDT): Release updated glasses and CLRx for Dailies. Age-related nuclear cataract of both eyes 2019 Assessment & Plan (05/21/2022 3:11 PM BUS MATRON): Not v/s, monitor, rec uv eye protection [...] (05/29/2018): Added automatically from request for surgery [id number] Aneurysm of thoracic aorta 01/09/2018 Multiple actinic [...] on file Legal Sex Male 3:02 AM BUS MATRON Gender Identity Male 04/16/2021 11:58 AM BUS MATRON Sexual Orientation Straight 04/02/2019 2: 04 PM BUS MATRON Last Filed Vital Signs Vital Sign Reading Time Taken Comments Blood Pressure 121/75 06/06/2024 10:23 AM BUS MATRON Pulse 56 06/06/2024 10:23 AM BUS MATRON Temperature 37 C (98.6 F) 04/01/2022 9:59 AM BUS MATRON Respiratory Rate 16 09/03/2022 11:4 9 AM CDT Oxygen Saturation 97% 06/06/2024 10: 23 AM BUS MATRON Inhaled Oxygen Concentration - - Weight 112.3 kg (247 lb 9.6 oz) 025 10:23 AM BUS MATRON Height 185.4 cm (6' 1 ) 06/06/2024 10:2 3 AM BUS MATRON Body Mass Index 32.67 06/06/2024 10:23 AM BUS MATRON Plan of Treatment Upcoming Encounters Date Type Department Care Team (Latest Contact Info) Description 08/20/2024 8:00 AM CDT Hospital Encounter [facility] Operating Room 1 [place] [address] Bridgette Hess MD [address] [facility] [id number] [address] Aneurysm of ascending aorta without rupture 08/20/2024 8:00 AM CDT - 08/20/2024 2:45 PM CDT Surgery [facility] Operating Room 1 [place] [address] Bridgette Hess MD [address] [facility] [id number] [address] REPLACEMENT AORTIC VALVE/ROOT-VALVE SPARING ROOT REPLACEMENT Scheduled Procedures Name Priority Associated Diagnoses Date/Ti me REPLACEMENT AORTIC VALVE/ROOT Aneurysm of ascending aorta without rupture 08/20/2024 8:00 AM CDT Medical Devices Implanted Type Area Test Skein Winder Device Identifier Shelf Expiration Date Model / Serial / Lot [employer] Ar-2324 Bcm Swivelock 4.75mm 24.5mm Self Punch Vent Shoulder [place] Suture - [id number] Implanted:Qty: 1 on 09/11/2018 by Dwayne Torrez MD at [facility] Advanced Medicine Right: Shoulder [employer] 01/30/2020 AR-[id number] / / [id number] Procedures Procedure Name Priority Date/Time Associated Diagnosis Comments CTA CHEST W CONTRAST Schedule Routine, Read Routine (OP Routine) 05/04/2024 9:11 AM BUS MATRON Monoallelic mutation of MYH11 gene Aneurysm of ascending aorta without rupture POCT CREATININE - DEVICE Routine 05/04/2024 8:55 AM BUS MATRON COLONOSCOPY 10/14/2020 7:01 AM CDT from Last 3 Months or Most Recently Relevant to Health Maintenance Results * CTA Chest W Contrast (05/04/2024 9:11 AM BUS MATRON) Anatomical Region Laterality Modality Chest N/A Computed Tomogra phy 05/04/2024 9:22 AM BUS MATRON Impressions 05/04/2024 9:22 AM BUS MATRON Unchanged caliber of the thoracic aorta. The aortic root measures up to 4.7 cm, unchanged when remeasured in a similar fashion from the prior exam. Electronically signed by: Herman Foster M.D. Narrative 05/04/2024 9:22 AM BUS MATRON EXAMINATION: CT ANGIOGRAPHY OF THE CHEST WITH [...] Result * POCT creatinine (05/04/2024 8:55 AM BUS MATRON) Creatinine POC 1.3 0.7 - 1.3 mg/dL Blood 05/04/2024 8:55 AM BUS MATRON 05/04/2024 8:55 AM BUS MATRON us Ney Villalpando MD LAB POCT ORDERABLES - DEVICE Final Result [facility] Department [place] [address] * COLONOSCOPY (10/14/2020 7:01 AM CDT) Anatomical Region Laterality Modality Other Narrative Procedure Note John Guthrie MD - 10/14/2020 7:01 AM CDT ENDOSCOPY LAB Patient Name: Roderick Welch Procedure Date: 10/14/2020 7:01 AM Date of : 1960 Admit Type: Outpatient Age: 60 Gender: Male Attending MD: John Guthrie M.D. Room: [facility] ENDOSCOPY ROOM 01 Note Status: Finalized [...] The scope was passed under direct vision.The [id number] was introduced through the anusand advanced to [...] call and ask for the GI fellow merchandise presentation associate. Electronically Signed by John Guthrie MD John Guthrie M.D. 10/14/2020 7:55:34 AM Number of Addenda: 0 Note Initiated On: 10/14/2020 7:01 AM John Guthrie MD ENDOSCOPY PROCEDURES Final Res ult from Last 3 Months or Most Recently Relevant to Health Maintenance Insurance [facility]PPO Address[facility] [address] [place] [address] [facility] H[facility]/PPO Address: [facility] [address] [place] [address] [facility] H[facility]/PPO Address: [facility] [address] [place] [address] Advance Directives For more information, please contact: [phone] * Full Code (Latest Code Status on File) Date Activated Date Inactivated Comments 10/14/2020 6:38 AM 10/14/2020 12:29 PM Care Teams Vice President Of Talent Acquisition Relationship Specialty Start Date End Date Dima Sanchez MD PCP - General 05/01/20 Ney Villalpando MD [address] CARDIOLOGY [address] Crew Trainer Cardiology 02/08/23
--- OUTSIDE RECORDS SUMMARY | 2024-07-09 12:16 | XMS_ITS | Clinical Summary ---
Author Organization [facility] [employer] Address [address] [place] [address] Care Team Providers Care Garage Attendant Name Role Phone Dima Sanchez MD Primary Care Provider [phone] Source Comments [facility] [employer],non-owned Affiliates and Associated Physician Practices is amultiple site organization consisting of ambulatory clinics and hospital sitesin [place], [place], [place] and [place]. This disclosure is being madepursuant to the Care Everywhere program and may not contain all information available regarding this patient. Last updated 18.[facility] [employer] Social History Tobacco Use Types Packs/Day Years [...] age to complete this topic Care Teams Garage Attendant Relationship Specialty Start Date End Date Dima Sanchez MD [address] [place] [address] PCP - General 01/22/13
--- OUTSIDE RECORDS SUMMARY | 2024-07-09 12:16 | XMS_ITS | Encounter Summary ---
Author Organization [facility] Address [address] [place] [address] Phone Care Team Providers Care Sort Manager Name Role Phone Dima Sanchez MD Primary Care Provider + [phone] Dima Sanchez MD Primary Care Provider + [phone] Theron Peace MD Primary Care Provider [phone] Theron Upton MD Primary Care Provider [phone] Dima Sanchez MD Primary Care Provider + [phone] Ney Villalpando MD Unavailable [phone] Encounter Details Date Type Department Care Team (Latest Contact Info) Description 09/10/2011 Orders Only [facility] Scanning, Provider Social History Tobacco Use Types Packs/Day Years Used Date Smoking Tobacco: Never Assessed Sex and Gender Information Value Date Recorded Sex Assigned at Not on file Legal Sex Male 3:02 AM ATHLETIC MONITOR Gender Identity Male 04/16/2021 11:58 AM ATHLETIC MONITOR Sexual Orientation Straight 04/02/2019 2: 04 PM ATHLETIC MONITOR documented as of this encounter Plan of Treatment Upcoming Encounters Date Type Department Care Team (Latest Contact Info) Description 08/20/2024 8:00 AM CDT Hospital Encounter [facility] Operating Room 1 [place] [address] Bridgette Hess MD [address] [facility] [id number] [place], [place] [phone] Aneurysm of ascending aorta without rupture 08/20/2024 8:00 AM CDT - 08/20/2024 2:45 PM CDT Surgery [facility] Operating Room [address] [place] [address] Bridgette Hess MD [address] [facility] [id number] [place] [address] REPLACEMENT AORTIC VALVE/ROOT-VALVE SPARING ROOT REPLACEMENT Scheduled [...] on filedocumented in this encounter Care Teams Sort Manager Relationship Specialty Start Date End Date Dima Sanchez MD PCP - General 02/02/13 01/09/18 Dima Sanchez MD PCP - General 02/01/13 02/01/13 Theron Peace MD [address] [place] [address] PCP - General Obstetrics and Gynecology 01/10/1803/07/18 Theron Upton MD [address] [facility] [address] [place] [address] PCP - General Endocrinology Diabetes & Metabolism 03/08/18 04/30/20 Dima Sanchez MD PCP - General 05/01/20 Ney Villalpando MD [address] [place] [address] Recycling Director Cardiology 02/08/23 documented as of this encounter
--- OUTSIDE RECORDS SUMMARY | 2024-07-09 12:16 | XMS_ITS | Clinical Summary ---
Author Organization [facility] Address [address] [place] [address] Care Team Providers Care Fugitive Detective Name Role Phone Unavailable Primary Care Provider [...]
--- OUTSIDE RECORDS SUMMARY | 2024-07-09 12:16 | XMS_ITS | Patient Health Summary ---
Author Organization [facility] Address [address] [facility] [place] [address] Care Team Providers Care Senior Linux Systems Engineer Name Role Phone Dima Sanchez MD Primary Care Provider Note from [facility],non-owned Affiliates and Associated Physician Practices is amultiple site organization consisting of ambulatory clinics and hospital sitesin [place], [place], [place] and [place]. This disclosure is being madepursuant to the Care Everywhere program and may not contain all information available regarding this patient. Last updated 18.[facility] Social History Tobacco Use Types Packs/Day Years [...] Dima Sanchez MD MR ORDERABLES Care Teams Senior Linux Systems Engineer Relationship Specialty Start Date End Date Dima Sanchez MD [address] [place] [address] PCP - General 01/22/13
--- OUTSIDE RECORDS SUMMARY | 2024-07-09 12:16 | XMS_ITS | Encounter Summary ---
Author Organization [facility] [place] Address [address] [place] [address] Phone Care Team Providers Care Speech Teacher Name Role Phone Dima Sanchez MD Primary Care Provider + [phone] Dima Sanchez MD Primary Care Provider + [phone] Theron Peace MD Primary Care Provider +[phone] Theron Upton MD Primary Care Provider [phone] Dima Sanchez MD Primary Care Provider + [phone] Ney Villalpando MD Unavailable [phone] Encounter Details Date Type Department Care Team (Latest Contact Info) Description 02/01/2013 Orders Only [facility] Scanning, Provider Social History Tobacco Use Types Packs/Day Years Used Date Smoking Tobacco: Never Assessed Sex and Gender Information Value Date Recorded Sex Assigned at Not on file Legal Sex Male 3:02 AM NEEDLE LOOM OPERATOR HELPER Gender Identity Male 04/16/2021 11:58 AM NEEDLE LOOM OPERATOR HELPER Sexual Orientation Straight 04/02/2019 2: 04 PM NEEDLE LOOM OPERATOR HELPER documented as of this encounter Plan of Treatment Upcoming Encounters Date Type Department Care Team (Latest Contact Info) Description 08/20/2024 8:00 AM CDT Hospital Encounter [facility] Operating Room [address] [place] [address] Bridgette Hess MD [address] [facility] [address] [place], [place] [id number] Aneurysm of ascending aorta without rupture 08/20/2024 8:00 AM CDT - 08/20/2024 2:45 PM CDT Surgery [facility] [address] [place] [address] Bridgette Hess MD [address] [facility] 8233-08-31 [place] [address] REPLACEMENT AORTIC VALVE/ROOT-VALVE SPARING ROOT REPLACEMENT Scheduled [...] on filedocumented in this encounter Care Teams Speech Teacher Relationship Specialty Start Date End Date Dima Sanchez MD PCP - General 02/02/13 01/09/18 Dima Sanchez MD PCP - General 02/01/13 02/01/13 Theron Peace MD [address] [place] [address] PCP - General Obstetrics and Gynecology 01/10/1803/07/18 Theron Upton MD [address] [facility] [address] [place] [address] PCP - General Endocrinology Diabetes & Metabolism 03/08/18 04/30/20 Dima Sanchez MD PCP - General 05/01/20 Ney Villalpando MD [address] [place] [address] Anthropologist Cardiology 02/08/23 documented as of this encounter
--- OUTSIDE RECORDS SUMMARY | 2024-07-09 12:16 | XMS_ITS | Encounter Summary ---
Author Organization [facility] Address [address] [place] [address] Phone Care Team Providers Care Tree And Shrub Worker Name Role Phone Dima Sanchez MD Primary Care Provider + [phone] Dima Sanchez MD Primary Care Provider + [phone] Theron Peace MD Primary Care Provider [phone] Theron Upton MD Primary Care Provider [phone] Dima Sanchez MD Primary Care Provider + [phone] Ney Villalpando MD Unavailable [phone] Encounter Details Date Type Department Care Team (Latest Contact Info) Description 05/12/2000 Orders Only [facility] Scanning, Provider Social History Tobacco Use Types Packs/Day Years Used Date Smoking Tobacco: Never Assessed Sex and Gender Information Value Date Recorded Sex Assigned at Not on file Legal Sex Male 3:02 AM PULPER OPERATOR Gender Identity Male 04/16/2021 11:58 AM PULPER OPERATOR Sexual Orientation Straight 04/02/2019 2: 04 PM PULPER OPERATOR documented as of this encounter Plan of Treatment Upcoming Encounters Date Type Department Care Team (Latest Contact Info) Description 08/20/2024 8:00 AM CDT Hospital Encounter [facility] Operating Room [address] [place] [address] Bridgette Hess MD [address] [facility] [place] [address] [place], [place] [id number] Aneurysm of ascending aorta without rupture 08/20/2024 8:00 AM CDT - 08/20/2024 2:45 PM CDT Surgery [facility] Operating [address] [place] [address] Bridgette Hess MD [address] [facility] [address] [place] [address] REPLACEMENT AORTIC VALVE/ROOT-VALVE SPARING ROOT REPLACEMENT Scheduled [...] on filedocumented in this encounter Care Teams Tree And Shrub Worker Relationship Specialty Start Date End Date Dima Sanchez MD PCP - General 02/02/13 01/09/18 Dima Sanchez MD PCP - General 02/01/13 02/01/13 Theron Peace MD [address] [place] [address] PCP - General Obstetrics and Gynecology 01/10/1803/07/18 Theron Upton MD [address] [facility] [address] [place] [address] PCP - General Endocrinology Diabetes & Metabolism 03/08/18 04/30/20 Dima Sanchez MD PCP - General 05/01/20 Ney Villalpando MD [address] [place] [address] Sales Assistant Displays Cardiology 02/08/23 documented as of this encounter
--- OUTSIDE RECORDS SUMMARY | 2024-07-09 12:16 | XMS_ITS | Referral Summary ---
Author Organization [facility] Address [address] [place] [address] Care Team Providers Care Aircraft Electrician Name Role Phone Dima Sanchez MD Primary Care Provider [phone] Source Comments [facility],non-owned Affiliates and Associated Physician Practices is amultiple site organization consisting of ambulatory clinics and hospital sitesin [place], [place], [place] and [place]. This disclosure is being madepursuant to the Care Everywhere program and may not contain all information available regarding this patient. Last updated 18.[facility] [employer] Social History Tobacco Use Types Packs/Day Years Used Date Smoking Tobacco: Never Assessed Sex and Gender Information Value Date Recorded Sex Assigned at Not on file Gender Identity Not on file Sexual Orientation Not on file Plan of Treatment Not on file Care Teams Aircraft Electrician Relationship Specialty Start Date End Date Dima Sanchez MD [address] [place] [address] PCP - General 01/22/13
== END 2024-07-09 10:30 | disposition home or self-care (01) ==
LOC: ANHLAB 10:29
PROVIDERS: PCP Family Medicine; Visit Provider Family Medicine
DX: Z13.818 Encounter for screening for other digestive system disorders (principal)
CPT/HCPCS: 36415; 80076

== ENCOUNTER 2024-08-10 09:50 | Outpatient (CLI) | payer OTHER, SELFPAY ==
--- OUTSIDE RECORDS SUMMARY | 2024-08-10 10:22 | XMS_ITS | Encounter Summary ---
Author Organization [facility] Address [address] [place] [address] Phone Care Team Providers Care Pile Fabric Knitter Name Role Phone Dima Sanchez MD Primary Care Provider + [phone] Dima Sanchez MD Primary Care Provider + [phone] Theron Peace MD Primary Care Provider [phone] Theron Upton MD Primary Care Provider [phone] Dima Sanchez MD Primary Care Provider + [phone] Ney Villalpando MD Unavailable [phone] Encounter Details Date Type Department Care Team (Latest Contact Info) Description 05/12/2000 Orders Only [facility] Scanning, Provider Social History Tobacco Use Types Packs/Day Years Used Date Smoking Tobacco: Never Assessed Sex and Gender Information Value Date Recorded Sex Assigned at Not on file Legal Sex Male 3:02 AM GRAIN SHIPPER Gender Identity Male 04/16/2021 11:58 AM GRAIN SHIPPER Sexual Orientation Straight 04/02/2019 2: 04 PM GRAIN SHIPPER documented as of this encounter Plan of Treatment Upcoming Encounters Date Type Department Care Team (Latest Contact Info) Description 08/20/2024 8:00 AM CDT Hospital Encounter [facility] Operating Room [address] [place] [address] Bridgette Hess MD [address] [facility] [address] [place] [address] Aneurysm of ascending aorta without rupture 08/20/2024 8:00 AM CDT Anesthesia Event [facility] Operating [facility] [address] [place] [address] Gunnar Stephenson, INTERPRETER AND TRANSLATOR [address] [facility] [id number] [place] [address] 08/20/2024 8:00 AM CDT - 08/20/2024 2:45 PM CDT Surgery [facility] Operating [address] [place] [address] Bridgette Hess MD [address] [facility] [place] [place] 8[address] [place] [address] REPLACEMENT AORTIC VALVE/ROOT-VALVE SPARING ROOT REPLACEMENT Scheduled [...] on filedocumented in this encounter Care Teams Pile Fabric Knitter Relationship Specialty Start Date End Date Dima Sanchez MD PCP - General 02/02/13 01/09/18 Dima Sanchez MD PCP - General 02/01/13 02/01/13 Theron Peace MD [address] [place] [address] PCP - General Obstetrics and Gynecology 01/10/1803/07/18 Theron Upton MD [address] [place] [address] PCP - General Endocrinology Diabetes & Metabolism 03/08/18 04/30/20 Dima Sanchez MD PCP - General 05/01/20 Ney Villalpando MD [address] [place] [address] Iap Displays Analyst Cardiology 02/08/23 documented as of this encounter
--- OUTSIDE RECORDS SUMMARY | 2024-08-10 10:22 | XMS_ITS | Encounter Summary ---
Author Organization [facility] Address [address] [place] [address] Phone Care Team Providers Care Warehouse Freight Handler Name Role Phone Dima Sanchez MD Primary Care Provider + [phone] Dima Sanchez MD Primary Care Provider + [phone] Theron Peace MD Primary Care Provider [phone] Theron Upton MD Primary Care Provider [phone] Dima Sanchez MD Primary Care Provider + [phone] Ney Villalpando MD Unavailable [phone] Encounter Details Date Type Department Care Team (Latest Contact Info) Description 09/10/2011 Orders Only [facility] Scanning, Provider Social History Tobacco Use Types Packs/Day Years Used Date Smoking Tobacco: Never Assessed Sex and Gender Information Value Date Recorded Sex Assigned at Not on file Legal Sex Male 3:02 AM CRATE OPENER Gender Identity Male 04/16/2021 11:58 AM CRATE OPENER Sexual Orientation Straight 04/02/2019 2: 04 PM CRATE OPENER documented as of this encounter Plan of Treatment Upcoming Encounters Date Type Department Care Team (Latest Contact Info) Description 08/20/2024 8:00 AM CDT Hospital Encounter [facility] Operating Room [address] [place] [address] Bridgette Hess MD [address] [facility] [address] [place] [address] Aneurysm of ascending aorta without rupture 08/20/2024 8:00 AM CDT Anesthesia Event [facility] Operating Room [address] [place] [address] Gunnar Stephenson, PELLETIZER [address] [facility] [id number] [place] [address] 08/20/2024 8:00 AM CDT - 08/20/2024 2:45 PM CDT Surgery [facility] Operating Room [address] [place] [address] Bridgette Hess MD [address] [facility] [address] [place] [address] REPLACEMENT AORTIC VALVE/ROOT-VALVE SPARING ROOT REPLACEMENT Scheduled [...] on filedocumented in this encounter Care Teams Warehouse Freight Handler Relationship Specialty Start Date End Date Dima Sanchez MD PCP - General 02/02/13 01/09/18 Dima Sanchez MD PCP - General 02/01/13 02/01/13 Theron Peace MD [address] [place] [address] PCP - General Obstetrics and Gynecology 01/10/1803/07/18 Theron Upton MD [address] [place] [address] PCP - General Endocrinology Diabetes & Metabolism 03/08/18 04/30/20 Dima Sanchez MD PCP - General 05/01/20 Ney Villalpando MD [address] [place] [address] Vocational Trainer Cardiology 02/08/23 documented as of this encounter
--- OUTSIDE RECORDS SUMMARY | 2024-08-10 10:22 | XMS_ITS | Encounter Summary ---
Author Organization [facility] Address [address] [place] [address] Phone Care Team Providers Care Lead Press Operator Name Role Phone Dima Sanchez MD Primary Care Provider + [phone] Dima Sanchez MD Primary Care Provider + [phone] Theron Peace MD Primary Care Provider [phone] Theron Upton MD Primary Care Provider [phone] Dima Sanchez MD Primary Care Provider + [phone] Ney Villalpando MD Unavailable [phone] Encounter Details Date Type Department Care Team (Latest Contact Info) Description 03/25/2005 Orders Only [facility] Scanning, Provider Social History Tobacco Use Types Packs/Day Years Used Date Smoking Tobacco: Never Assessed Sex and Gender Information Value Date Recorded Sex Assigned at Not on file Legal Sex Male 3:02 AM COUNTY ORDINARY Gender Identity Male 04/16/2021 11:58 AM COUNTY ORDINARY Sexual Orientation Straight 04/02/2019 2: 04 PM COUNTY ORDINARY documented as of this encounter Plan of Treatment Upcoming Encounters Date Type Department Care Team (Latest Contact Info) Description 08/20/2024 8:00 AM CDT Hospital Encounter [facility] Operating Room [address] [place] [address] Bridgette Hess MD [address] [facility] [address] [place] [address] Aneurysm of ascending aorta without rupture 08/20/2024 8:00 AM CDT Anesthesia Event [facility] Operating Room [address] [place] [address] Gunnar Stephenson, ALIGNER BARREL AND RECEIVER [address] [facility] [phone] [place] [address] 08/20/2024 8:00 AM CDT - 08/20/2024 2:45 PM CDT Surgery [facility] Operating Room [address] [place] [address] Bridgette Hess MD [address] [facility] [address] [place] [address] REPLACEMENT AORTIC VALVE/ROOT-VALVE SPARING ROOT REPLACEMENT Scheduled [...] on filedocumented in this encounter Care Teams Lead Press Operator Relationship Specialty Start Date End Date Dima Sanchez MD PCP - General 02/02/13 01/09/18 Dima Sanchez MD PCP - General 02/01/13 02/01/13 Theron Peace MD [address] [place] [address] PCP - General Obstetrics and Gynecology 01/10/1803/07/18 Theron Upton MD [address] [employer] [address] [place] [address] PCP - General Endocrinology Diabetes & Metabolism 03/08/18 04/30/20 Dima Sanchez MD PCP - General 05/01/20 Ney Villalpando MD [address] [employer] [address] [place] [address] Complex Manager Cardiology 02/08/23 documented as of this encounter
--- OUTSIDE RECORDS SUMMARY | 2024-08-10 10:22 | XMS_ITS | Clinical Summary ---
Author Organization [facility] Address [address] [place] [address] Care Team Providers Care Manager Developmental Name Role Phone Dima Sanchez MD Primary Care Provider [phone] Ney Villalpando MD Unavailable [phone] Allergies No known active allergies Medications multivitamin (MULTI-DAY ORAL)Indications :supplelment Take 1 tablet by mouth every morning Active Viibryd 40 mg tabletIndication s:major depressive disorder Take 1 tablet (40 mg total) by mouth every morning 09/17/19 20 Active zolpidem (AMBIEN) 10 mg tabletIndication s:Sleep-Onset Insomnia Take 1 tablet (10 mg total) by mouth nightly as needed 09/26/19 20 Active losartan-hydroch lorothiazide (HYZAAR) 100-25 mg per tablet TAKE 1 TABLET BY MOUTH DAILY 90 tablet 3 04/18/20 23 Active B cmplx 4/vit D3/C/folic/zinc (VITAL-D RX ORAL) Take by mouth Active cholecalciferol, vitamin D3, (VITAJOY DAILY D ORAL) Take by mouth Active diclofenac DR (VOLTAREN) 50 mg EC tabletIndication s:Osteoarthritis Take 1 tablet (50 mg total) by mouth 2 (two) times a day for 14 days 28 tablet 05/20/19 24 Active amLODIPine (NORVASC) 5 mg tablet Take 1 tablet (5 mg total) by mouth daily 30 tablet 11 04/18/20 24 025 Active turmeric root extract 500 mg capsule Take 500 capsules by mouth daily Active omega 9-tqg-ods-fish oil 60-90-500 mg capsule,delayed release(DR/EC) Take 500 capsules by mouth daily Active chlorhexidine (PERIDEX) 0.12 % oral rinseIndications :Mouth Infection Prevention Apply 15 mL to the mouth or throat 3 (three) times a day for 5 days 225 mL 08/16/19 25 025 Active mupirocin (BACTROBAN) 2 % ointmentIndicati ons:Methicillin- Resistant S. Aureus Nasal Colonization Apply to each nostril 2 (two) times a day for 5 days 22 g 08/16/19 25 025 Active aspirin 81 mg tabletIndication s:Heart Take 81 mg by mouth every morning 06/11/19 09 021 Discontinued ALPRAZolam (XANAX) 0.5 mg tablet Take 0.5 mg by mouth 3 (three) times a day as needed for anxiety 08/22/19 21 023 Discontinued Active Problems Problem Noted Date [...] (10/07/2020): Added automatically from request for surgery [id number] Personal history of colonic polyps 09/02/2020 Overview (09/02/2020): Added automatically from request for surgery [id number] Family history of colonic polyps 09/02/2020 Overview (09/02/2020): Added automatically from request for surgery [id number] Intraocular pressure increase, left 10/16/2019 Assessment & [...] 10/16/2019 Assessment & Plan (05/21/2022 3:11 PM SCHOOL LUNCH MONITOR): New mrx, rec ar coating Assessment & Plan (10/16/2019 11:49 AM CDT): Release updated glasses and CLRx for Dailies. Age-related nuclear cataract of both eyes 2019 Assessment & Plan (05/21/2022 3:11 PM SCHOOL LUNCH MONITOR): Not v/s, monitor, rec uv eye protection [...] (05/29/2018): Added automatically from request for surgery [id number] Aneurysm of thoracic aorta 01/09/2018 Multiple actinic keratoses 09/24/2015 Lentigo 09/24/2015 Essential hypertension 02/05/2013 Resolved Problems Problem Noted Date Diagnosed Date Resolved Date Melanocytic nevus of trunk 10/01/2016 0 01/09/2018 Lichen simplex chronicus 10/01/201601/2018 Tinea pedis 09/24/2015 01/09/2018 Palpitations 02/06/2013 01/09/2018 Arthralgia of shoulder 01/18/201301/09 Arthralgia of elbow 09/16/2011 01/10/20 18 Encounters Date Type Department Care Team Description 08/10/2024 7:45 AM CDT Hospital Encounter [facility] Cardiac Diagnostic Lab [address] [facility] [address] [place] [address] Aneurysm of ascending aorta without rupture 08/09/2024 9:35 AM CDT - 08/09/2024 11:00 AM CDT Surgery [facility] [address] [place] [phone] Ashley Beckman, DO LEFT HEART CATHETERIZATION WITH CORONARY ANGIOGRAPHY AND WITH OR WITHOUT LEFT VENTRICULOGRAM [id number] 08/09/2024 6:43 AM CDT - 08/09/2024 1:25 PM CDT Hospital Encounter [facility] [address] [place] [phone] Elvie PangTea Leaf ReaderMD Aneurysm of ascending aorta without rupture Discharge Disposition: Discharge to home or self care 07/18/2024 Documentation [facility] Cardiothoracic Surgery [address] [facility] 8th Floor [address] Room [address] [phone] Jason Hess MD Surgery Confirmation 07/18/2024 Orders Only [facility] Cardiothoracic Surgery [facility] 8th Floor [address] Room [address] [place] [phone] Jason Hess MD 07/18/2024 Orders Only [facility] Cardiothoracic Surgery [address] [facility] 8th Floor [address] Room [address] [place] [phone] Jason Hess MD Aneurysm of ascending aorta without rupture (Primary Dx) 07/18/2024 Orders Only [facility] Cardiothoracic Surgery [address] [facility] 8th Floor [address] Room [address] [place] [phone] Jason Hess MD Aneurysm of ascending aorta without rupture (Primary Dx) 07/18/2024 Telephone [facility] Cardiology [address] [facility] 8th [place] [address] [place] [address] surgery 06/06/2024 9:30 AM SCHOOL LUNCH MONITOR Office Visit [facility] Cardiothoracic Surgery [address] [facility] 8th Floor [address] Room [address] [place] [phone] Jason Hess MD Monoallelic mutation of MYH11 gene; Aneurysm of ascending aorta without rupture from Last 3 Months Immunizations Immunization Administration Dates Next Due Amanda (J&J) SARS-CoV-2 Vaccination 07/07/2020 Tdap 03/12/2020 Surgical [...] KNEE ARTHROSCOPY W/ LATERAL RELEASE Both elbows CARDIAC CATHETERIZATION 08/09/2024 Left Procedure: LEFT HEART CATHETERIZATION WITH CORONARY ANGIOGRAPHY AND WITH OR WITHOUT LEFT VENTRICULOGRAM [id number]; Surgeon: Ashley Beckman DO; Location: [facility] CARDIAC SHELL MACHINE OPERATOR; Service: Cardiovascular; Laterality: Left; Medical History Medical History Date Comments Arthritis [...] you have a drink containing alc ohol? Monthly or less 08/09/2024 Q2: How many drinks containi ng alcohol do you have on a typical day when you are drinking? 1 or 2 08/09/2024 Q3: How often do you have si x or more drinks on one occasion? Never 08/09/2024 Personal Safety Answer Date Recorded Have you ever been in or are you currently in a harmful physical or emotional relationship or is someone making you feel afraid or unsafe? Denies 08/09/2024 Sex and Gender Information Value Date Recorded Sex Assigned at Not on file Legal Sex Male 3:02 AM SCHOOL LUNCH MONITOR Gender Identity Male 04/16/2021 11:58 AM SCHOOL LUNCH MONITOR Sexual Orientation Straight 04/02/2019 2: 04 PM SCHOOL LUNCH MONITOR Obstetrics History Last Filed Vital Signs Vital Sign Reading Time Taken Comments Blood Pressure 106/56 08/09/2024 12:55 PM CDT Pulse 61 08/09/2024 12:55 PM CDT Temperature 36.8 C (98.2 F) 08/09/2024 8:10 AM CDT Respiratory Rate 25 08/09/2024 12:5 5 PM CDT Oxygen Saturation 97% 08/09/2024 12: 55 PM CDT Inhaled Oxygen Concentration - - Weight 107.4 kg (236 lb 12.4 oz) 08/09/2024 8:10 AM CDT Height 188 cm (6' 2 ) 08/09/2024 8:10 AM CDT Body Mass Index 30.4 08/09/2024 8:10 AM CDT Plan of Treatment Upcoming Encounters Date Type Department Care Team (Latest Contact Info) Description 08/20/2024 8:00 AM CDT Hospital Encounter [facility] Operating Room [address] [place] [address] Jason Hess MD [address] [facility] [id number] [place] [address] Aneurysm of ascending aorta without rupture 08/20/2024 8:00 AM CDT Anesthesia Event [facility] Operating Room [address] [place] [phone] Gunnar Stephenson, OFFICE SERVICES COORDINATOR [address] [facility] [id number] [place] [address] 08/20/2024 8:00 AM CDT - 08/20/2024 2:45 PM CDT Surgery [facility] Operating Room [address] [place] [address] Jason Hess MD [address] [facility] [id number] [place] [address] REPLACEMENT AORTIC VALVE/ROOT-VALVE SPARING ROOT REPLACEMENT Scheduled [...] (2 - season) 2024 07/07/2020 Influenza Vaccine (Season Ended) 2024 DTaP/Tdap/Td Vaccine (2 - Td or Tdap) 03/12/2030 03/12/2020 Colon Cancer Screening-Colonoscopy 10/14/2030 10/14/2020, 05/14/2015 Colon Cancer Screening-CT Colonography Discontinued 10/14/2020, 05/14/2015 Colon Cancer Screening-DNA Stool Discontinued 10/14/2020, 05/14/2015 Colon Cancer Screening-FIT Discontinued 10/14, 05/14/2015 Colon Cancer Screening-Sigmoidoscopy Discontinued 10/14/2020, 05/14/2015 Pneumococcal vaccine <65 Aged Out No longer eligible based on patient's age to complete this topic Medical Devices Implanted Type Area Information Engineer Device Identifier Shelf Expiration Date Model / Serial / Lot [employer] Ar-[id number] Bcm Swivelock 4.75mm 24.5mm Self Punch Vent Shoulder [place] Suture - [id number] Implanted:Qty: 1 on 09/11/2018 by Dwayne Torrez MD at [facility] Advanced Medicine Right: Shoulder [employer] 01/30/2020 [id number] / / [id number] Procedures Procedure Name Priority Date/Time Associated Diagnosis Comments TRANSTHORACIC ECHO (TTE) COMPLETE W DOPPLER/CF WO CONTRAST Routine 08/10/2024 9:03 AM CDT Aneurysm of ascending aorta without rupture LEFT HEART CATHETERIZATION WITH CORONARY ANGIOGRAPHY AND WITH AND WITHOUT LEFT VENTRICULOGRAM Routine 08/09/2024 10:35 AM CDT Aneurysm of ascending aorta without rupture CBC WITHOUT DIFFERENTIAL Routine 08/09/2024 10:10 AM CDT ECG 12-LEAD Routine 08/09/2024 7:02 AM CDT EGFR STAT 08/09/2024 6:47 AM CDT BASIC METABOLIC PANEL STAT 08/09/2024 6:47 AM CDT CBC WITHOUT DIFFERENTIAL STAT 08/09/2024 6:47 AM CDT COLONOSCOPY 10/14/2020 7:01 AM CDT from Last 3 Months or Most Recently Relevant to Health Maintenance Results * TRANSTHORACIC ECHO (TTE) COMPLETE W DOPPLER/CF WO CONTRAST (08/10/2024 9:03 AM CDT) Anatomical Region Laterality Modality Ultrasound 08/10/2024 8:18 AM CDT Narrative 08/10/2024 9:18 AM CDT [facility] Cardiac [place] [address] Transthoracic Echocardiographic Report Patient Name: RODERICK WELCH GE : 1960 (64y 5m) Gender: M Study Date: 08/10/2024 08:18:39 AM Ht(Inch): 74 Wt(Lb): 229.94 BSA: 2.33 Bottle House Pumper: Yara Park RDCS Location: [facility] Order Provider: JASON HESS Heart Rate: 56 BMI: 29.52 BP: 138 / 84 Ref Provider: JASON HESS PROCEDURES: Echocardiographic Report: Transthoracic complete echo with strain imaging, 2D, spectral and tissue Doppler, color flow Doppler, M-mode. INDICATIONS: I71.21 Aneurysm of the ascending aorta, without rupture. CONCLUSIONS: 1. Normal left ventricular size based on volume index. Concentric LV hypertrophy. Normal left ventricular systolic function. The Ejection Fraction (Freed's) is measured at 62 %. The average global longitudinal strain is normal. 2. Moderate aortic root dilation at sinuses of Valsalva. Dilation of the ascending aorta when indexed. 3. Right ventricular dilatation. Normal right ventricular systolic function. 4. Mildly dilated left atrium. 5. Right atrial dilatation. 6. Mild mitral annular calcification. Mild mitral valve regurgitation. 7. The estimated pulmonary artery systolic pressure is 33.0 mmHg. 8. Mild pulmonic regurgitation. 9. Normal pericardium without pericardial effusion. 10. IVC is normal in size. ATTESTATION: I have personally reviewed and interpreted this study without fellow or resident. - DISCLAIMER: The study images and the final report will be retained in the patient chart by the Echo Laboratory for the legally required time period. This chart constitutes the legal record of any testing performed. FINDINGS: Left Ventricle: Normal left ventricular size based on volume index. Concentric LV hypertrophy. Normal left ventricular systolic function. The Ejection Fraction (Freed's) is measured at 62 %. The average global longitudinal strain is normal. The LV global strain is: -22.0 %. Right Ventricle: Right ventricular dilatation. Normal right ventricular systolic function. Left Atrium: Mildly dilated left atrium. Right Atrium: Right atrial dilatation. Mitral Valve: Mild mitral annular calcification. Mild mitral valve regurgitation. Aortic Valve: The mean transaortic gradient is 5 mmHg. The aortic valve area by the continuity equation (using VTI) is 3.96 cm2. Aortic valve dimensionless index is 0.76. Tricuspid Valve: Normal tricuspid valve structure. Mild tricuspid regurgitation. The estimated pulmonary artery systolic pressure is 33.0 mmHg. Pulmonic Valve: Mild pulmonic regurgitation. Pericardium: Normal pericardium without pericardial effusion. Aorta: Moderate aortic root dilation at sinuses of Valsalva. Dilation of the ascending aorta when indexed. IVC: IVC is normal in size. MEASUREMENTS: 2D/MM Value Range Doppler Value Range LVIDd 2D 5.54 cm [ 4.20 - 5.80 ] AV Peak Isra 1.5 m/s [ 1.0 - 1.7 ] LVIDs 2D 3.64 cm [ 2.50 - 4.00 ] AV Peak PG 9.00 mmHg IVSd 2D 1.16 cm [ 0.60 - 1.00 ] AV Mean PG 5 mmHg LVPWd 2D 1.18 cm [ 0.60 - 1.00 ] AV VTI 31.7 cm LV Thickness Ratio 1.0 LVOT Peak Isra 1.2 m/s [ 0.7 - 1.1 ] LV FS 2D 34.30 % [ 25.00 - 43.00 ] LVOT Peak PG 5.76 mmHg LV Mass 2D 271.68 g LVOT Mean PG 3 mmHg LV Mass Index 2D 116.60 g/m2 LVOT VTI 24.2 cm RWT 0.43 LVOT Diam 2.57 cm EDV Mod BP 118.38 ml [ 62.00 - 150.00 ] CORY VTI 3.96 cm2 LV EDV Index 50.81 ml/m2 LVOT/AV VTI 0.76 - Dimensionless index (DVI) ESV Mod BP 45.50 ml [ 21.00 - 61.00 ] MV E Peak Isra 0.7 m/s [ 0.6 - 1.3 ] EF Mod BP 62 % [ 52 - 72 ] MV A Peak Isra 0.6 m/s [ 1.0 - 1.2 ] LV GLS -22.0 % [ -25.0 - -18.0 ] MV E/A 1.1 ratio [ 0.8 - 1.5 ] LA Length 4C 6.36 cm MV Decel Time 297.45 msec [ 104.00 - 258.00 ] LA Length 2C 6.74 cm Med E` Isra 7.3 cm/sec [ 8.0 - 25.0 ] LA Volume BP 85.80 ml Lat E` Isra 15.9 cm/sec [ 10.0 - 25.0 ] LA Volume Index 36.82 ml/m2 [ 16.00 - 34.00 ] Average E/E` 6.03 RV Base Dimen 2D 5.6 cm [ 2.5 - 4.2 ] RV S` 15.58 cm/sec TAPSE 3.01 cm [ 1.71 - 5.00 ] TR Peak Isra 2.7 m/s [ 1.0 - 2.8 ] RA Volume 118.66 ml TR Peak PG 29.2 mmHg RA Volume Index 50.93 ml/m2 PV Peak Isra 1.0 m/s [ 0.4 - 0.8 ] AoR Diam 2D 4.58 cm [ 3.10 - 3.70 ] PV Peak PG 4.00 mmHg Ao Root Index 1.97 cm/m2 [ 1.00 - 2.00 ] PI Peak Isra 1.7 m/s Asc Ao Diam 2D 4.60 cm PI Peak PG 12 mmHg Asc Ao Index 1.97 cm/m2 PI PHT 427.56 sec Electronically Signed By: Mimi Wilson [facility] 08/10/2024 9:17:54 AM CDT Procedure Note Mimi Wilson MD - 08/10/2024 [facility] Cardiac [place] [address] [place] [address] Transthoracic Echocardiographic Report Patient Name: RODERICK WELCH GE : 1960 (64y 5m) Gender: M Study Date: 08/10/2024 08:18:39 AM Ht(Inch): 74 Wt(Lb): 229.94 BSA: 2.33 Bottle House Pumper: Yara Park RDCS Location: [facility] Order Provider:JASON HESS Heart Rate: 56 BMI: 29.52 BP: 138 / 84 Ref Provider: JASON HESS PROCEDURES: Echocardiographic Report: Transthoracic complete echo with strain imaging,2D, spectral and tissue Doppler, color flow Doppler, M-mode. INDICATIONS: I71.21 Aneurysm of the ascending aorta, without rupture. CONCLUSIONS: 1. Normal left ventricular size based on volume index. Concentric LVhypertrophy. Normal left ventricular systolic function. The Ejection Fraction (Freed's) ismeasured at 62 %. The average global longitudinal strain is normal. 2. Moderate aortic root dilation at sinuses of Valsalva. Dilation of theascending aorta when indexed. 3. Right ventricular dilatation. Normal right ventricular systolicfunction. 4. Mildly dilated left atrium. 5. Right atrial dilatation. 6. Mild mitral annular calcification. Mild mitral valve regurgitation. 7. The estimated pulmonary artery systolic pressure is 33.0 mmHg. 8. Mild pulmonic regurgitation. 9. Normal pericardium without pericardial effusion. 10. IVC is normal in size. ATTESTATION: I have personally reviewed and interpreted this study without fellow orresident. - DISCLAIMER: The study images and the final report will be retained in the patientchart by the Echo Laboratory for the legally required time period. This chart constitutesthe legal record of any testing performed. FINDINGS: Left Ventricle: Normal left ventricular size based on volume index.Concentric LV hypertrophy. Normal left ventricular systolic function. The EjectionFraction (Freed's) is measured at 62 %. The average global longitudinal strain is normal. TheLV global strain is: -22.0 %. Right Ventricle: Right ventricular dilatation. Normal right ventricularsystolic function. Left Atrium: Mildly dilated left atrium. Right Atrium: Right atrial dilatation. Mitral Valve: Mild mitral annular calcification. Mild mitral valveregurgitation. Aortic Valve: The mean transaortic gradient is 5 mmHg. The aortic valvearea by the continuity equation (using VTI) is 3.96 cm2. Aortic valve dimensionlessindex is 0.76. Tricuspid Valve: Normal tricuspid valve structure. Mild tricuspidregurgitation. The estimated pulmonary artery systolic pressure is 33.0 mmHg. Pulmonic Valve: Mild pulmonic regurgitation. Pericardium: Normal pericardium without pericardial effusion. Aorta: Moderate aortic root dilation at sinuses of Valsalva. Dilation ofthe ascending aorta when indexed. IVC: IVC is normal in size. MEASUREMENTS: 2D/MM Value Range DopplerValue Range LVIDd 2D 5.54 cm [ 4.20 - 5.80 ] AV Peak Vel1.5 m/s [ 1.0 - 1.7 ] LVIDs 2D 3.64 cm [ 2.50 - 4.00 ] AV Peak PG9.00 mmHg IVSd 2D 1.16 cm [ 0.60 - 1.00 ] AV Mean PG5 mmHg LVPWd 2D 1.18 cm [ 0.60 - 1.00 ] AV VTI31.7 cm LV Thickness Ratio 1.0 LVOT Peak Vel1.2 m/s [ 0.7 - 1.1 ] LV FS 2D 34.30 % [ 25.00 - 43.00 ] LVOT Peak PG5.76 mmHg LV Mass 2D 271.68 g LVOT Mean PG3 mmHg LV Mass Index 2D 116.60 g/m2 LVOT VTI24.2 cm RWT 0.43 LVOT Diam2.57 cm EDV Mod BP 118.38 ml [ 62.00 - 150.00 ] CORY VTI3.96 cm2 LV EDV Index 50.81 ml/m2 LVOT/AV VTI0.76 - Dimensionless index (DVI) ESV Mod BP 45.50 ml [ 21.00 - 61.00 ] MV E Peak Vel0.7 m/s [ 0.6 - 1.3 ] EF Mod BP 62 % [ 52 - 72 ] MV A Peak Vel0.6 m/s [ 1.0 - 1.2 ] LV GLS -22.0 % [ -25.0 - -18.0 ] MV E/A1.1 ratio [ 0.8 - 1.5 ] LA Length 4C 6.36 cm MV Decel Xdny662.45 msec [ 104.00 - 258.00 ] LA Length 2C 6.74 cm Med E` Vel7.3 cm/sec [ 8.0 - 25.0 ] LA Volume BP 85.80 ml Lat E` Vel15.9 cm/sec [ 10.0 - 25.0 ] LA Volume Index 36.82 ml/m2 [ 16.00 - 34.00 ] Average E/E`6.03 RV Base Dimen 2D 5.6 cm [ 2.5 - 4.2 ] RV S`15.58 cm/sec TAPSE 3.01 cm [ 1.71 - 5.00 ] TR Peak Vel2.7 m/s [ 1.0 - 2.8 ] RA Volume 118.66 ml TR Peak PG29.2 mmHg RA Volume Index 50.93 ml/m2 PV Peak Vel1.0 m/s [ 0.4 - 0.8 ] AoR Diam 2D 4.58 cm [ 3.10 - 3.70 ] PV Peak PG4.00 mmHg Ao Root Index 1.97 cm/m2 [ 1.00 - 2.00 ] PI Peak Vel1.7 m/s Asc Ao Diam 2D 4.60 cm PI Peak PG12 mmHg Asc Ao Index 1.97 cm/m2 PI [id number] sec Electronically Signed By: Mimi Wilson [facility] 08/10/2024 9:17:54 AM CDT Jason Hess MD CV ECHO PROCEDURES Final Result * LEFT HEART CATHETERIZATION WITH CORONARY ANGIOGRAPHY AND WITH AND WITHOUT LEFT VENTRICULOGRAM (08/09/2024 10:35 AM CDT) Anatomical Region Laterality Modality X-Ray Angiograph y Narrative 08/09/2024 12:29 PM CDT Cardiac Catheterization Report, Left Heart Facility: [facility] Referring Physician: Jason Hess MD Performing: Ashley Beckman DO Fellow: Celeste Chaney MD PATIENT CLINICAL PROFILE Roderick Welch is a 64 y.o. male with a history of dilated ascending aorta and hypertension who is being referred for coronary angiography as part of his evaluation in preparation for surgical intervention. He is referred by Dr. Hess for left heart catheterization and selective coronary angiography. Allergies: NKDA PROCEDURE The risks, benefits and alternatives of the procedures and moderate sedation were explained to the patient and informed consent was obtained. The patient was brought to the sugar laboratory assistant and placed on the table. The planned puncture sites were prepped and draped in the usual sterile fashion. The patient was sedated for the procedure. Cardiac catheterization performed. Sedation: versed 1 mg, fentanyl 25 mcg. Right radial artery access. The puncture site was infiltrated with 2 % lidocaine. The vessel was accessed using the modified Seldinger technique, a wire was threaded into the vessel, and a 4/5 Fr GlideSheath Slender was advanced over the wire into the vessel. Vasodilators and heparin were given after access obtained. Left coronary artery angiography. A 5 Fr Eric catheter was advanced to the aorta and positioned in the vessel ostia under fluoroscopic guidance. Angiography was performed in multiple projections. Right coronary artery angiography. A 5 Fr Eric catheter was advanced to the aorta and positioned in the vessel ostia under fluoroscopic guidance. Angiography was performed in multiple projections. At the end of the case, a Trans Radial Band was applied to the right wrist and the arterial sheath was removed with hemostasis obtained. The patient was transported to the post-procedure holding area in stable condition. There were no procedural complications. RESULTS Selective Coronary Angiography: This coronary arterial system is a right-dominant system. Left main coronary artery: Left main coronary artery gives rise to the LAD and circumflex. There are minimal luminal irregularities. Left anterior descending coronary artery: Left anterior descending artery arises from the left main and courses down the anterior wall, wrapping around the LV apex. The LAD supplies multiple diagonal branches. There is minimal disease throughout the LAD. Left circumflex coronary artery: Circumflex arises from the left main and gives rise to multiple OM branches with the AV groove circumflex becoming diminutive. OM1 and OM2 are moderate-sized vessels. There is minimal disease throughout the circumflex and OM branches. Right coronary artery: Right coronary artery is a dominant vessel that gives rise to the RPDA and RPL branch. This is a large vessel that supplies a significant territory. There is minimal disease throughout the RCA or RPDA branches. DIAGNOSTIC IMPRESSIONS No [place] coronary artery disease.. THERAPEUTIC RECOMMENDATIONS Findings of the catheterization were discussed with the patient and will be conveyed to the referring physician who will determine the patient's future therapy and follow-up. Conscious sedation note: I provided direct xcce-nw-hmoi monitoring of conscious sedation, which was administered by an independent, trained nurse using fentanyl and midazolam for 35 minutes. Ashley Beckman DO [facility] Division of Cardiology [facility] Jason Hess MD CV CARDIAC CATH PROCEDURES Final Result * (ABNORMAL) CBC without differential (08/09/2024 10:10 AM CDT) [facility] WBC 3.66(L) 3.80 - 9.90 K/cumm Hgb 12.5(L) 13.0 - 17.5 g/dL [facility] Hct 36.1(L) 38.9 - 50.3 % [facility] Plt 237 150 - 400 K/cumm [facility] MPV 9.5 9.1 - 12.3 fL [facility] RBC 3.97(L) 4.30 - 5.80 M/cumm [facility] MCV 90.9 81.3 - 96.4 fL [facility] MCH 31.5 27.1 - 33.3 pg [facility] MCHC 34.6 32.3 - 35.7 g/dL [facility] RDW CV 13.0 11.1 - 14.9 % [facility] RDW SD 43.3 35.7 - 48.1 fL [facility] NRBC abs 0.00 0.00 - 0.01 K/cumm [facility] Blood 08/09/2024 10:1 0 AM CDT 08/09/2024 10:16 AM CDT Narrative [facility] - 08/09/2024 10:32 AM CDT To be drawn after hydration bolus complete us Ashley Beckman DO LAB BLOOD ORDERABLE S Final Result [facility] Department [place] [address] * ECG 12 lead (08/09/2024 7:02 AM CDT) Ventricular Rate EKG/Min 51 BPM [facility] Atrial Rate 51 BPM [facility] ND-Interval (MSEC) 200 ms [facility] QRS-Interval (MSEC) 146 ms [facility] QT-Interval (MSEC) 480 ms [facility] QTc 442 ms [facility] [employer] 66 degrees [facility] [employer] -50 degrees [facility] [employer] 12 degrees [facility] Diagnosis Sinus bradycardia Right bundle branch block Left anterior fascicular block Bifascicular block Abnormal ECG When compared with ECG of 10-JUL-2018 09:54, no significant change Confirmed by BLANCA PRO M.D ([id number]) on 08/09/2024 11:44:55 AM [facility] 08/09/2024 7:02 AM CDT 08/09/2024 11:44 AM CDT us Ashley Harrisonminruby DO ECG ORDERABLES Fin al Result [facility] * eGFR (08/09/2024 6:47 AM CDT) eGFR 82 >=60 mL/min/1. 73 m2 Comment: Interpretive Data Reference Interval Normal >/= 90 mL/min/1.73m2 Mildly decreased* 60 - 89 mL/min/1.73m2 Mildly to moderately decreased 45 - 59 mL/min/1.73m2 Moderately to severely decreased 30 - 44 mL/min/1.73m2 Severely decreased 15 - 29 mL/min/1.73m2 Kidney Failure < 15 mL/min/1.73m2 *Relative to young adult level Estimated glomerular filtration rate is determined by the 2020 CKD-EPI equation recommended by the National Kidney Foundation (A Unifying Approach to GFR Estimation: Recommendations of the NKF-ASK Task Force on Reassessing the Inclusion of Race in Diagnosing Kidney Disease, JASN 2020). The CKD-EPI equation should not be used for patients with unstable renal function and has not been validated in children and those over 70. Current interpretive data was last reviewed 2021. Blood 08/09/2024 6:47 AM CDT 08/09/2024 8:32 AM CDT Ashley Beckman DO LAB BLOOD ORDERABLE S Final Result Performing Organization Address City/[facility] Co de Phone Number [facility] Department [place] [address] * CBC without differential (08/09/2024 6:47 AM CDT) Pathologist [facility] WBC 3.86 3.80 - 9.90 K/cumm Hgb 13.6 13.0 - 17.5 g/dL [facility] Hct 39.6 38.9 - 50.3 % [facility] Plt 257 150 - 400 K/cumm [facility] MPV 9.7 9.1 - 12.3 fL [facility] RBC 4.34 4.30 - 5.80 M/cumm [facility] MCV 91.2 81.3 - 96.4 fL [facility] MCH 31.3 27.1 - 33.3 pg [facility] MCHC 34.3 32.3 - 35.7 g/dL [facility] RDW CV 13.1 11.1 - 14.9 % [facility] RDW SD 43.8 35.7 - 48.1 fL [facility] NRBC abs 0.00 0.00 - 0.01 K/cumm [facility] Blood 08/09/2024 6:47 AM CDT 08/09/2024 8:32 AM CDT us Ashley Beckman DO LAB BLOOD ORDERABLE S Final Result [facility] Department [place] [address] * Basic metabolic panel (08/09/2024 6:47 AM CDT) Sodium 143 135 - 145 mmol/L Potassium, pl 4.9 3.3 - 4.9 mmol/L [facility] Comment:Hemolyzed; Potassium value may be falsely elevated by as much as 0.6-1.0 mmol/L. Suggest redraw and reanalysis. Chloride 105 97 - 110 mmol/L [facility] CO2 30 22 - 32 mmol/L [facility] Anion gap 8 2 - 15 mmol/L [facility] BUN 14 6 - 25 mg/dL [facility] Creatinine 1.02 0.80 - 1.30 mg/dL [facility] Glucose 97 70 - 199 mg/dL [facility] Comment: Interpretive Data Fasting glucose >/= 126 mg/dl is diagnostic for diabetes. Fasting is defined as no caloric intake for at least 8 hours. Fasting glucose between 100 mg/dl to 125 mg/dl is diagnostic of prediabetes. In a patient with classic symptoms of hyperglycemia or hyperglycemic crisis, a random glucose >/= 200 mg/dl is diagnostic for diabetes. In the absence of unequivocal hyperglycemia, results should be confirmed by repeat testing. The classification and Diagnosis of Diabetes Diabetes Care 202; 46: S19-S40. Current interpretive data was last revised 2022. Calcium 9.6 8.5 - 10.3 mg/dL D[facility] AMBROSIO Blood 08/09/2024 6:47 AM CDT 08/09/2024 8:32 AM CDT us Ashley Zhongpaulineharvey Beckman DO LAB BLOOD ORDERABLE S Final Result [facility] Department [place] [address] * COLONOSCOPY (10/14/2020 7:01 AM CDT) Anatomical Region Laterality Modality Other Narrative Procedure Note John Guthrie MD - 10/14/2020 7:01 AM CDT ENDOSCOPY LAB Patient Name: Roderick Welch Procedure Date: 10/14/2020 7:01 AM Date of : 1960 Admit Type: Outpatient Age: 60 Gender: Male Attending MD: John Guthrie M.D. Room: [facility] ENDOSCOPY ROOM 01 Note Status: Finalized [...] The scope was passed under direct vision.The [id number] was introduced through the anusand advanced to [...] call and ask for the GI fellow school transportation director. Electronically Signed by John Guthrie MD John Guthrie M.D. 10/14/2020 7:55:34 AM Number of Addenda: 0 Note Initiated On: 10/14/2020 7:01 AM John Guthrie MD ENDOSCOPY PROCEDURES Final Res ult from Last 3 Months or Most Recently Relevant to Health Maintenance Insurance [facility] Advance Directives For more information, please contact: [phone] * Full Code (Latest Code Status on File) Date Activated Date Inactivated Comments 10/14/2020 6:38 AM 10/14/2020 12:29 PM Care Teams Manager Developmental Relationship Specialty Start Date End Date Dima Sanchez MD PCP - General 05/01/20 Ney Villalpando MD [address] [facility] [address] [place] [address] [facility] Cardiology 02/08/23
--- OUTSIDE RECORDS SUMMARY | 2024-08-10 10:22 | XMS_ITS | Referral Summary ---
Author Organization [facility] Address [address] [place] [address] Care Team Providers Care Cabinet Professional Name Role Phone Dima Sanchez MD Primary Care Provider + [phone] Ney Villalpando MD Unavailable [phone] Encounters Date Type Department Care Team Description 08/10/2024 7:45 AM CDT Hospital Encounter [facility] Cardiac Diagnostic Lab [address] [facility] [address] [place] [address] Aneurysm of ascending aorta without rupture 08/09/2024 9:35 AM CDT - 08/09/2024 11:00 AM CDT Surgery [facility] Heart and Vascular [address] [phone] Ashley Beckman, LEFT HEART CATHETERIZATION WITH CORONARY ANGIOGRAPHY AND WITH OR WITHOUT LEFT VENTRICULOGRAM [id number] 08/09/2024 6:43 AM CDT - 08/09/2024 1:25 PM CDT Hospital Encounter [facility] Heart count includes the [facility] Vascular [address] [phone] Elvie PangSales CoordinatorMD Aneurysm of ascending aorta without rupture Discharge Disposition: Discharge to home or self care 07/18/2024 Documentation [facility] Cardiothoracic Surgery [address] [facility] 8th Floor [address] Room [address] [place] [address] Jason Hess MD Surgery Confirmation 07/18/2024 Orders Only [facility] Cardiothoracic Surgery [address] [facility] 8th Floor [address] Room [address] [place] [phone] Jason Hess MD 07/18/2024 Orders Only [facility] Cardiothoracic Surgery [address] [facility] 8th Floor [address] Room [address] [place] [phone] Jason Hess MD Aneurysm of ascending aorta without rupture (Primary Dx) 07/18/2024 Orders Only [facility] Cardiothoracic Surgery [address] [facility] 8th Floor [address] Room [address] [place] [phone] Jason Hess MD Aneurysm of ascending aorta without rupture (Primary Dx) 07/18/2024 Telephone [facility] Cardiology [address] [facility] 8th [place] [address] [place] [address] surgery 06/06/2024 9:30 AM PROPERTY AND SUPPLY OFFICER Office Visit [facility] Cardiothoracic Surgery Counts include 234 beds at the [facility] 8th Floor [address] Room [address] [place] [phone] Jason Hess MD Monoallelic mutation of MYH11 gene; Aneurysm of ascending aorta without rupture from Last 3 Months Allergies No known [...] 500 capsules by mouth daily Active omega 8-vav-ywt-fish oil 60-90-500 mg capsule,delayed release(DR/EC) Take 500 [...] (10/07/2020): Added automatically from request for surgery [id number] Personal history of colonic polyps 09/02/2020 Overview (09/02/2020): Added automatically from request for surgery [id number] Family history of colonic polyps 09/02/2020 Overview (09/02/2020): Added automatically from request for surgery [id number] Intraocular pressure increase, left 10/16/2019 Assessment & [...] 10/16/2019 Assessment & Plan (05/21/2022 3:11 PM PROPERTY AND SUPPLY OFFICER): New mrx, rec ar coating Assessment & Plan (10/16/2019 11:49 AM CDT): Release updated glasses and CLRx for Dailies. Age-related nuclear cataract of both eyes 2019 Assessment & Plan (05/21/2022 3:11 PM PROPERTY AND SUPPLY OFFICER): Not v/s, monitor, rec uv eye protection [...] (05/29/2018): Added automatically from request for surgery [id number] Aneurysm of thoracic aorta 01/09/2018 Multiple actinic [...] on file Legal Sex Male 3:02 AM PROPERTY AND SUPPLY OFFICER Gender Identity Male 04/16/2021 11:58 AM PROPERTY AND SUPPLY OFFICER Sexual Orientation Straight 04/02/2019 2: 04 PM PROPERTY AND SUPPLY OFFICER Last Filed Vital Signs Vital Sign Reading [...] Description 08/20/2024 8:00 AM CDT Hospital Encounter [facility] Operating Room 1 [place] [phone] Jason Hess MD [address] [facility] [id number] [place] [address] Aneurysm of ascending aorta without rupture 08/20/2024 8:00 AM CDT Anesthesia Event [facility] Operating Room [address] [place] [phone] Gunnar Stephenson, SANTOS [address] [facility] [phone] [place] [address] 08/20/2024 8:00 AM CDT - 08/20/2024 2:45 PM CDT Surgery [facility] Operating Room [address] [place] [phone] Jason Hess MD [address] [facility] [id number] [place] [address] REPLACEMENT AORTIC VALVE/ROOT-VALVE SPARING ROOT REPLACEMENT Scheduled Procedures Name Priority Associated Diagnoses Date/Ti me REPLACEMENT AORTIC VALVE/ROOT Aneurysm of ascending aorta without rupture 08/20/2024 8:00 AM CDT Medical Devices Implanted Type Area Cloth Classer Device Identifier Shelf Expiration Date Model / Serial / Lot [employer] Ar-2324 Bcm Swivelock 4.75mm 24.5mm Self Punch Vent Shoulder [place] Suture - [id number] Implanted:Qty: 1 on 09/11/2018 by Dwayne Torrez MD at [facility] Medicine Right: Shoulder [employer] 01/30/2020 [id number] / / [id number] Procedures Procedure Name Priority Date/Time Associated Diagnosis [...] AM CDT Narrative 08/10/2024 9:18 AM CDT [facility] [place] [address] Transthoracic Echocardiographic Report Patient Name: RODERICK WELCH GE : 1960 (64y 5m) Gender: M Study Date: 08/10/2024 08:18:39 AM Ht(Inch): 74 Wt(Lb): 229.94 BSA: 2.33 Copy Reader: Yara Park RDCS Location: [facility] Order Provider: JSAON HESS Heart Rate: 56 BMI: 29.52 BP: [...] 427.56 sec Electronically Signed By: Mimi Wilson [facility] 08/10/2024 9:17:54 AM CDT Procedure Note Mimi Wilson MD - 08/10/2024 [facility] [place] [address] Transthoracic Echocardiographic Report Patient Name: RODERICK WELCH GE : 1960 (64y 5m) Gender: M Study Date: 08/10/2024 08:18:39 AM Ht(Inch): 74 Wt(Lb): 229.94 BSA: 2.33 Copy Reader: Yara Park RDCS Location: [facility] Order Provider:JASON HESS Heart Rate: 56 BMI: [...] LA Length 4C 6.36 cm MV Decel Dntb240.45 msec [ 104.00 - 258.00 ] LA [...] mmHg Asc Ao Index 1.97 cm/m2 PI SDZ674.56 sec Electronically Signed By: Mimi Wilson [facility] 08/10/2024 9:17:54 AM CDT us Jason Hess MD CV ECHO PROCEDURES Final Result * LEFT HEART CATHETERIZATION WITH CORONARY ANGIOGRAPHY AND WITH AND WITHOUT LEFT VENTRICULOGRAM (08/09/2024 10:35 AM CDT) Anatomical Region Laterality Modality X-Ray Angiograph y Narrative 08/09/2024 12:29 PM CDT Cardiac Catheterization Report, Left Heart Facility: [facility] Referring Physician: Jason Hess MD [...] obtained. The patient was brought to the clinical lab assistant and placed on the table. The [...] RCA or RPDA branches. DIAGNOSTIC IMPRESSIONS No tatitlek coronary artery disease.. THERAPEUTIC RECOMMENDATIONS Findings of the catheterization were discussed with the patient and will be conveyed to the referring physician who will determine the patient's future therapy and follow-up. Conscious sedation note: I provided direct gyva-uh-xprj monitoring of conscious sedation, which was administered by an independent, trained nurse using fentanyl and midazolam for 35 minutes. Ashley Beckman DO [employer] Division of Cardiology [facility] Jason Hess MD CV CARDIAC CATH PROCEDURES Final Result * (ABNORMAL) CBC without differential (08/09/2024 10:10 AM CDT) WBC 3.66(L) 3.80 - 9.90 K/cumm Hgb 12.5(L) 13.0 - 17.5 g/dL [facility] Hct 36.1(L) 38.9 - 50.3 % [facility] Plt 237 150 - 400 K/cumm [facility] MPV 9.5 9.1 - 12.3 fL [facility] RBC 3.97(L) 4.30 - 5.80 M/cumm [facility] MCV 90.9 81.3 - 96.4 fL [facility] MCH 31.5 27.1 - 33.3 pg [facility] MCHC 34.6 32.3 - 35.7 g/dL [facility] RDW CV 13.0 11.1 - 14.9 % [facility] RDW SD 43.3 35.7 - 48.1 fL [facility] NRBC abs 0.00 0.00 - 0.01 K/cumm [facility] Blood 08/09/2024 10:1 0 AM CDT 08/09/2024 10:16 AM CDT Narrative DEDRICK AMBROSIO - 08/09/2024 10:32 AM CDT To be drawn after hydration bolus complete us Ashley Beckman DO LAB BLOOD ORDERABLE S Final Result Performing Organization Address City/[facility] Co de Phone Number [facility] Department [place] [address] * ECG 12 lead (08/09/2024 7:02 AM CDT) Ventricular Rate EKG/Min 51 BPM [facility] Atrial Rate 51 BPM [facility] GA-Interval (MSEC) 200 ms [facility] QRS-Interval (MSEC) 146 ms [facility] QT-Interval (MSEC) 480 ms [facility] QTc 442 ms [facility] P [place] 66 degrees [facility] R [place] -50 degrees [facility] T [place] 12 degrees [facility] Diagnosis Sinus bradycardia Right bundle branch block Left anterior fascicular block Bifascicular block Abnormal ECG When compared with ECG of 10-JUL-2018 09:54, no significant change Confirmed by BLANCA PRO M.D ([id number]) on 08/09/2024 11:44:55 AM [facility] 08/09/2024 7:02 AM CDT 08/09/2024 11:44 AM CDT us Ashley Beckman DO ECG ORDERABLES Fin al Result Performing Organization Address City/[facility]/ZIP Co de Phone Number [facility] * eGFR (08/09/2024 6:47 AM [...] DO LAB BLOOD ORDERABLE S Final Result [facility] Department [place] [address] * CBC without differential (08/09/2024 6:47 AM CDT) WBC 3.86 3.80 - 9.90 K/cumm Hgb 13.6 13.0 - 17.5 g/dL [facility] Hct 39.6 38.9 - 50.3 % [facility] Plt 257 150 - 400 K/cumm [facility] MPV 9.7 9.1 - 12.3 fL [facility] RBC 4.34 4.30 - 5.80 M/cumm [facility] MCV 91.2 81.3 - 96.4 fL [facility] MCH 31.3 27.1 - 33.3 pg [facility] MCHC 34.3 32.3 - 35.7 g/dL [facility] RDW CV 13.1 11.1 - 14.9 % [facility] RDW SD 43.8 35.7 - 48.1 fL [facility] NRBC abs 0.00 0.00 - 0.01 K/cumm [facility] Blood 08/09/2024 6:47 AM CDT 08/09/2024 8:32 AM CDT us Ashley Dushayyski Giacomino DO LAB BLOOD ORDERABLE S Final Result D[facility]RICK AMBROSIO [facility] Department [place] [address] * Basic metabolic panel (08/09/2024 6:47 AM CDT) Sodium 143 135 - 145 mmol/L Potassium, pl 4.9 3.3 - 4.9 mmol/L [facility] Comment:Hemolyzed; Potassium value may be falsely elevated by as much as 0.6-1.0 mmol/L. Suggest redraw and reanalysis. Chloride 105 97 - 110 mmol/L [facility] CO2 30 22 - 32 mmol/L [facility] Anion gap 8 2 - 15 mmol/L [facility] BUN 14 6 - 25 mg/dL [facility] Creatinine 1.02 0.80 - 1.30 mg/dL [facility] Glucose 97 70 - 199 mg/dL [facility] Comment: Interpretive Data Fasting glucose >/= 126 [...] 2022. Calcium 9.6 8.5 - 10.3 mg/dL [facility] Blood 08/09/2024 6:47 AM CDT 08/09/2024 8:32 AM CDT us Ashley Dupaulniegwyni Giacomino DO LAB BLOOD ORDERABLE S Final Result DEDRICK [facility] One [facility] Department [place] [address] * COLONOSCOPY (10/14/2020 7:01 AM CDT) Anatomical Region Laterality Modality Other Narrative Procedure Note John Guthrie MD - 10/14/2020 7:01 AM CDT ENDOSCOPY LAB Patient Name: Roderick Welch Procedure Date: 10/14/2020 7:01 AM Date of : 1960 Admit Type: Outpatient Age: 60 Gender: Male Attending MD: John Guthrie M.D. Room: [facility] ENDOSCOPY ROOM 01 Note Status: Finalized Procedure: [...] The scope was passed under direct vision.The [id number] was introduced through the anusand advanced to [...] call and ask for the GI fellow insolvency consultant. Electronically Signed by John Guthrie MD John Guthrie M.D. 10/14/2020 7:55:34 AM Number of Addenda: 0 Note Initiated On: 10/14/2020 7:01 AM John Guthrie MD ENDOSCOPY PROCEDURES Final Res ult from Last 3 Months or Most Recently Relevant to Health Maintenance Insurance [facility]PP[facility] Address: [address] [place] [address] [facility] Advance Directives For more information, please contact: [phone] * Full Code (Latest Code Status on File) Date Activated Date Inactivated Comments 10/14/2020 6:38 AM 10/14/2020 12:29 PM Care Teams Cabinet Professional Relationship Specialty Start Date End Date Dima Sanchez MD PCP - General 05/01/20 Ney Villalpando MD [address] [facility] [address] [place] [address] [facility] 02/08/23
--- OUTSIDE RECORDS SUMMARY | 2024-08-10 10:22 | XMS_ITS | Clinical Summary ---
Author Organization [facility] Address [address] [place] [address] Care Team Providers Care Electrostatic Powder Coating Technician Name Role Phone Unavailable Primary Care Provider [...] Vaccine ( - 2023-2 5 season) 2024 RSV Immunization or 60+ Years (1 [...]
--- OUTSIDE RECORDS SUMMARY | 2024-08-10 10:22 | XMS_ITS | Encounter Summary ---
Author Organization [facility] Address [address] [place] [address] Phone Care Team Providers Care Faculty Research Assistant Name Role Phone Dima Sanchez MD Primary Care Provider + [phone] Dima Sanchez MD Primary Care Provider + [phone] Theron Peace MD Primary Care Provider [phone] Theron Upton MD Primary Care Provider [phone] Dima Sanchez MD Primary Care Provider + [phone] Ney Villalpando MD Unavailable [phone] Encounter Details Date Type Department Care Team (Latest Contact Info) Description 01/22/2013 Orders Only [facility] Scanning, Provider Social History Tobacco Use Types Packs/Day Years Used Date Smoking Tobacco: Never Assessed Sex and Gender Information Value Date Recorded Sex Assigned at Not on file Legal Sex Male 3:02 AM FIELD OPERATIONS FARM MANAGER Gender Identity Male 04/16/2021 11:58 AM FIELD OPERATIONS FARM MANAGER Sexual Orientation Straight 04/02/2019 2: 04 PM FIELD OPERATIONS FARM MANAGER documented as of this encounter Plan of Treatment Upcoming Encounters Date Type Department Care Team (Latest Contact Info) Description 08/20/2024 8:00 AM CDT Hospital Encounter [facility] Operating Room 1 [place] [phone] Bridgette Hess MD [address] [facility] [id number] [place] [address] Aneurysm of ascending aorta without rupture 08/20/2024 8:00 AM CDT Anesthesia Event [facility] Operating Room [address] [place] [address] Gunnar Stephenson, REEL MAN [address] [facility] [address] [phone] [place] [address] 08/20/2024 8:00 AM CDT - 08/20/2024 2:[address] [facility] Operating Room [address] [place] [address] Bridgette Hess MD [address] [facility] [id number] [place] [address] REPLACEMENT AORTIC VALVE/ROOT-VALVE SPARING ROOT REPLACEMENT Scheduled Procedures Name Priority Associated Diagnoses Date/Ti me REPLACEMENT AORTIC VALVE/ROOT Aneurysm of ascending aorta without rupture 08/20/2024 8:00 AM CDT documented as of this encounter Procedures Procedure Name Priority Date/Time Associated Diagnosis Comments SCAN - RADIOLOGY/IMAGING 01/22/2013 documented in this encounter Results * SCAN - RADIOLOGY/IMAGING (01/22/2013) Anatomical Region Laterality Modality Other Provider Scanning Final Result documented in this encounter Visit Diagnoses Not on filedocumented in this encounter Care Teams Faculty Research Assistant Relationship Specialty Start Date End Date Dima Sanchez MD PCP - General 02/02/13 01/09/18 Dima Sanchez MD PCP - General 02/01/13 02/01/13 Theron Peace MD [address] [place] [address] PCP - General Obstetrics and Gynecology 01/10/1803/07/18 Theron Upton MD [email or web address] [place] [address] PCP - General Endocrinology Diabetes & Metabolism 03/08/18 04/30/20 Dima Sanchez MD PCP - General 05/01/20 Ney Villalpando MD [email or web address] [place] [address] Box Repairer Cardiology 02/08/23 documented as of this encounter
--- OUTSIDE RECORDS SUMMARY | 2024-08-10 10:22 | XMS_ITS | Encounter Summary ---
Author Organization [facility] Address [address] [place] [address] Phone Care Team Providers Care Clin Application Specialist Name Role Phone Dima Sanchez MD Primary Care Provider + [phone] Dima Sanchez MD Primary Care Provider + [phone] Theron Peace MD Primary Care Provider [phone] Theron Upton MD Primary Care Provider [phone] Dima Sanchez MD Primary Care Provider + [phone] Ney Villalpando MD Unavailable [phone] Encounter Details Date Type Department Care Team (Latest Contact Info) Description 09/06/2007 Orders Only [facility] Scanning, Provider Social History Tobacco Use Types Packs/Day Years Used Date Smoking Tobacco: Never Assessed Sex and Gender Information Value Date Recorded Sex Assigned at Not on file Legal Sex Male 3:02 AM 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 PRESIDENT RESIDENTIAL SOLAR SALES Gender Identity Male 04/16/2021 11:58 AM VICE PRESIDENT [employer]IDENTIAL [employer] SAL[employer] Sexual Orientation Straight 04/02/2019 2: 04 PM VICE PRESIDENT RESIDENTIAL SOLAR SALES documented as of this encounter Plan of Treatment Upcoming Encounters Date Type Department Care Team (Latest Contact Info) Description 08/20/2024 8:00 AM CDT Hospital Encounter [facility] [address] [place] [phone] Bridgette Hess MD [address] [facility] [id number] [place] [address] Aneurysm of ascending aorta without rupture 08/20/2024 8:00 AM CDT Anesthesia Event [facility] [address] [place] [address] Gunnar Stephenson, SHOE WORKER [address] [facility] [id number] [place] [address] 08/20/2024 8:00 AM CDT - 08/20/2024 2:45 PM CDT Surgery [facility] [address] [place] [address] Bridgette Hess MD [address] [facility] [id number] [place] [address] REPLACEMENT AORTIC VALVE/ROOT-VALVE SPARING ROOT REPLACEMENT Scheduled Procedures Name Priority Associated Diagnoses Date/Ti me REPLACEMENT AORTIC VALVE/ROOT Aneurysm of ascending aorta without rupture 08/20/2024 8:00 AM CDT documented as of this encounter Procedures Procedure Name Priority Date/Time Associated Diagnosis Comments SCAN - RADIOLOGY/IMAGING 09/06/2007 documented in this encounter Results * SCAN - RADIOLOGY/IMAGING (09/06/2007) Anatomical Region Laterality Modality Other Provider Scanning Final Result documented in this encounter Visit Diagnoses Not on filedocumented in this encounter Care Teams Clin Application Specialist Relationship Specialty Start Date End Date Dima Sanchez MD PCP - General 02/02/13 01/09/18 Dima Sanchez MD PCP - General 02/01/13 02/01/13 Theron Peace MD [address] [place] [address] PCP - General Obstetrics and Gynecology 01/10/1803/07/18 Theron Upton MD [address] [place] [address] PCP - General Endocrinology Diabetes & Metabolism 03/08/18 04/30/20 Dima Sanchez MD PCP - General 05/01/20 Ney Villalpando MD [address] [place] [address] Cottrell Operator Cardiology 02/08/23 documented as of this encounter
--- OUTSIDE RECORDS SUMMARY | 2024-08-10 10:22 | XMS_ITS | Encounter Summary ---
Author Organization [facility] Address [address] [place] [address] Phone Care Team Providers Care Systems Programmer Analyst Name Role Phone Dima Sanchez MD Primary Care Provider + [phone] Dima Sanchez MD Primary Care Provider + [phone] Theron Peace MD Primary Care Provider [phone] Theron Upton MD Primary Care Provider [phone] Dima Sanchez MD Primary Care Provider + [phone] Ney Villalpando MD Unavailable [phone] Encounter Details Date Type Department Care Team (Latest Contact Info) Description 02/01/2013 Orders Only [facility] Scanning, Provider Social History Tobacco Use Types Packs/Day Years Used Date Smoking Tobacco: Never Assessed Sex and Gender Information Value Date Recorded Sex Assigned at Not on file Legal Sex Male 3:02 AM FUDGE CANDY MAKER Gender Identity Male 04/16/2021 11:58 AM FUDGE CANDY MAKER Sexual Orientation Straight 04/02/2019 2: 04 PM FUDGE CANDY MAKER documented as of this encounter Plan of Treatment Upcoming Encounters Date Type Department Care Team (Latest Contact Info) Description 08/20/2024 8:00 AM CDT Hospital Encounter [facility] Operating Room [address] [place] [phone] Bridgette Hess MD [address] [facility] [id number] [place] [address] Aneurysm of ascending aorta without rupture 08/20/2024 8:00 AM CDT Anesthesia Event [facility] [address] [place] [address] Gunnar Stephenson, MERCHANT MILLER [address] [facility] [id number] [place] [address] 08/20/2024 8:00 AM CDT - 08/20/2024 2:45 PM CDT Surgery [facility] [address] [place] [phone] Bridgette Hess MD [address] [facility] [id number] [place] [address] REPLACEMENT AORTIC VALVE/ROOT-VALVE SPARING ROOT REPLACEMENT Scheduled [...] on filedocumented in this encounter Care Teams Systems Programmer Analyst Relationship Specialty Start Date End Date Dima Sanchez MD PCP - General 02/02/13 01/09/18 Dima Sanchez MD PCP - General 02/01/13 02/01/13 Theron Peace MD [address] [place] [address] PCP - General Obstetrics and Gynecology 01/10/1803/07/18 Theron Upton MD [address] [place] [address] PCP - General Endocrinology Diabetes & Metabolism 03/08/18 04/30/20 Dima Sanchez MD PCP - General 05/01/20 Ney Villalpando MD [address] [place] [address] Dowel Pin Worker Cardiology 02/08/23 documented as of this encounter
--- OUTSIDE RECORDS SUMMARY | 2024-08-10 10:22 | XMS_ITS | Clinical Summary ---
Author Organization [facility] Address [address] [place] [address] Care Team Providers Care Hack Driver Name Role Phone Dima Sanchez MD Primary Care Provider [phone] Source Comments [facility],non-owned Affiliates and Associated Physician Practices is amultiple site organization consisting of ambulatory clinics and hospital sitesin [place], [place], [place] and [place]. This disclosure is being madepursuant to the Care Everywhere program and may not contain all information available regarding this patient. Last updated 18.[facility] Social History Tobacco Use Types Packs/Day Years [...] VACCINE ( - 2023-2 5 season) 2024 DEPRESSION SCREENING 05/02/2024 INFLUENZA VACCINE (Season Ended) 2024 Respiratory Syncytial Virus (RSV) Vaccine Pt: or [...] to complete this topic MENINGOCOCCAL (Group B) VACC INE SHARED DECISION-MAKING Aged Out No longer eligibl e based on patient's age to complete this topic MENINGOCOCCAL GROUPS A/C/Y/W VACCINE Aged Out No longer eligible b ased on patient's age to complete this topic Care Teams Hack Driver Relationship Specialty Start Date End Date Dima Sanchez MD [address] [place] [address] PCP - General 01/22/13
--- OUTSIDE RECORDS SUMMARY | 2024-08-10 10:23 | XMS_ITS | Encounter Summary ---
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 of ascending aorta without rupture [I71.21] Procedures LEFT HEART CATHETERIZATION WITH CORONARY ANGIOGRAPHY AND WITH OR WITHOUT LEFT VENTRICULOGRAM [id number] Referral ID Status Reason Start Date Expiration Date Visits Re quested Visits Authorized [id number] 1 1 Encounter Details Date Type Department Care Team (Latest Contact Info) Description 08/09/2024 6:43 AM CDT - 08/09/2024 1:25 PM CDT Hospital Encounter [facility] [address] [place] [address] Elvie aPngBee RaiserMD [address] [place], [place] [id number] Aneurysm of ascending aorta without rupture Discharge Disposition: Discharge to home or self care Social History Tobacco Use Types Packs/Day Years Used Date Smoking Tobacco: Never Passive Smoke Exposure: Never Smokeless Tobacco: Never Alcohol Use Standard Drinks/Week Comments Yes 8 [...] on file Legal 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 Monthly or less 08/09/2024 8:15 AM CDT Hannah Martinez RN Q2: How many drinks containing alcohol do you have on a typical day when you are drinking? 1 or 2 08/09/2024 8:15 AM DORIST Aidee Martienz RN Q3: How often do you have six or more drinks on one occasion? Never 08/09/2024 8:15 AM CDT Hannah Martinez RN documented as of this encounter Discharge Instructions * Discharge Instructions* Celeste Chaney MD - 08/09/2024 10:44 AM CDT Discharge Instructions For Cardiac Catheterization (Radial Approach) The Radial Artery is the small artery on the thumb side of your wrist. Your doctor has used this artery for your procedure. At the end of your procedure your doctor placed a special pressure pad/banddirectly on the artery to stop the bleeding and applied a wrist support to keep your wrist and handin a quiet position. We have removed that band and the support and have a Band-aid over the site. You may remove the Band-aid in the morning. Gently clean the area and apply a new Band-aid in the morning if you wish. Activity Restrictions: Take it easy for the next few days. We encourage you to perform your usual activities; you should move your arm, wrist, hand and fingers when you go home. Perform hand exercises by making a fist and opening it 5-10 times a minute as often as you remember. Due to your sedation: do not drive for 24 hours, and do not make any legal decisions for 24 hours. Keep the site dry. Do not soak your arm in water or a bath for 3 days. Washing your hands and showering is okay. Do not lift more than 5 pounds with your affect arm for 3 days. No heavy impact activities for one week. All activities are permitted after one week if no problems occur. Avoid NSAIDs. You may take Acetaminophen 650mg every 6 hours for mild post- procedural discomfort. Due to receiving sedation for your procedure: Do not make any legal decisions for 24 hours Do not operate potentially dangerous machinery for 24 hours Do not drink alcohol for 24hours Continue to take your home medications on your regular schedule. If you notice bleeding at the puncture site: Apply gentle direct pressure with your fingers over the site for 15 minutes. After 15 minutes you may release the pressure gently. If the bleeding re-starts or continues; reapply direct pressure and call 911. NEVER wrap a dressing or adhesive tape completely around your wrist as this can cause serious circulation complications. Call your doctor immediately for any of these rare but serious problems. If you are unable to reach your doctor go to the nearest Emergency Room. A swelling or bruise that is increasing in size or getting worse rather than disappearing. Severe pain at the puncture site, affected hand or forearm Your affected hand becomes cold, pale, or numb as compared to your other hand. Your arm becomes red, warm to the touch, or swollen as compared to your other arm. IV dye reactions are rare but can occur. If you develop a rash, hives, or itching of the skin or have throat tightness, notice selling of the tongue or lips, you may be having a dye reaction. For routine questions or concerns regarding your care after your catheterization please feel free to call us. From 7am-5pm M-F call our Outpatient Nurse Coordinators at [phone]. If you need to speak to someone after 5pm please call [facility] at [phone] and ask the postage machine operator topage the Cardiac International Trade Specialist Fellow collision mechanic. documented in this encounter Medications at Time of Discharge amLODIPine (NORVASC) 5 mg tablet Take 1 tablet (5 mg total) by mouth daily 30 tablet 11 04/18/2024 5 B cmplx 4/vit D3/C/folic/zinc (VITAL-D RX ORAL) Take by mouth chlorhexidine (PERIDEX) 0.12 % oral rinseIndications:M outh Infection Prevention Apply 15 mL to the mouth or throat 3 (three) times a day for 5 days 225 mL 08/15/2024 5 cholecalciferol, vitamin D3, (VITAJOY DAILY D ORAL) Take by mouth multivitamin (MULTI-DAY ORAL)Indications:s upplelment Take 1 tablet by mouth every morning mupirocin (BACTROBAN) 2 % ointmentIndication s:Methicillin-Resi stant S. Aureus Nasal Colonization Apply to each nostril 2 (two) times a day for 5 days 22 g 08/15/2024 5 omega 3-eqg-org-fish oil 60-90-500 mg capsule,delayed release(DR/EC) Take 500 capsules by mouth daily turmeric root extract 500 mg capsule Take 500 capsules by mouth daily Viibryd 40 mg tabletIndications: major depressive disorder Take 1 tablet (40 mg total) by mouth every morning 09/17/2019 zolpidem (AMBIEN) 10 mg tabletIndications: Sleep-Onset Insomnia Take 1 tablet (10 mg total) by mouth nightly as needed 09/26/2019 documented as of this encounter Discharge Disposition Disposition Code Departure Means Destination Comment s Discharge to home or self care documented in this encounter Miscellaneous Notes * Perioperative Nursing Note - Peyman Smart RN - 08/09/2024 1:13 PM CDT PT returns from [facility] procedure alert and oriented x 4 with a TR band. The site has remained clean and dry with no signs of active bleeding or oozing. The site has remained soft and free from a hematoma. The pt has been drinking fluids and eating without difficulty. Once bedrest was completed, pt ambulated in the hallway with a steady gait, used the restroom and then returned to the bay to prepare for discharge. INT was removed with tip intact, coban applied. All belongings returned to patient, AVS reviewed and signed by patient, patient discharged per MD order via Dr. Chaney, with responsible caregiver spouse. * Pre-Sedation Documentation - Celeste Chaney MD - 08/09/2024 8:01 AM CDT Sedation Plan ASA 3 - Severe systemic disease Mallampati class: III. Risks, benefits, and alternatives discussed with patient. History of sedation/Anesthesia complications:No History of transfusion reaction: No Current Facility-Administered Medications Medication Dose Route Frequency Provider Last Rate Last Admin Carrier Fluids for Secondary Infusion - 0.9% Sodium Chloride 30 mL intravenous PRN Giacomino Ashley Dugolenski, DO sodium chloride 0.9% bolus 300 mL 300 mL intravenous Once GiacominAshley beltransktobias, DO Followed by sodium chloride 0.9% infusion 1 mL/kg/hr intravenous Continuous Giacomino, Ashley Dupaulinelenski, DO sodium chloride 0.9% flush 0.5-20 mL 0.5-20 mL intra-catheter Q8H [facility] Ashley Beckman DO sodium chloride 0.9% flush 0.5-20 mL 0.5-20 mL intra-catheter PRN Ashley Beckman DO Laboratory review: Chemistry BMP No results found for: GLUCOSE , CALCIUM , SODIUM , POTASSIUM , CO2 , BUNSER , CREATININE and CBC:No results found for: WBC , RBC , HGB , HCT , MCV , MCH , MCHC , RDW , RDWCV , RDWSD , MPV , NRBC , NRBCABS , NRBCPCT Current meds/Labs/Test Results that may affect sedation reviewed: Yes Last PO Intake: Before midnight HEENT Exam: negative Sedation Plan: Moderate Cosigned by Ashley Beckman DO at 08/09/2024 9:25 AM CDT * Pre-Cardiac Catheterization Workup and H&P - Winsome Perkins RN - 08/07/2024 9:39 AM CDT PRE-CARDIAC CATHETERIZATION WORKUP Patient Name: Roderick Myers Patient Patient : 1960 Date of Procedure: 08/09/2024 ORDERING PULP COOKER: Surgeon(s): Elvie PangBee RaiserMD Procedure(s): LEFT HEART CATHETERIZATION WITH CORONARY ANGIOGRAPHY AND WITH OR WITHOUT LEFT VENTRICULOGRAM [id number] Requested Diagnostic: [] Coronary Angiograms Only [x] Left Heart Cath [] LV Gram [] Right Heart Cath [] Right and Left Heart Cath Valve Study: [] Aortic [] Mitral [] Pulmonic [] Tricuspid [] Pulmonary HTN Study [] Pericardial Constriction Study [] Congential Study [] Other Study: Requested Intervention: [] Coronary [] FFR [] Percutaneous VAD [] IAPB [] Pericardiocentesis [] Vascular [] Renal Valvuloplasty: [] Aortic [] Mitral [] Pulmonic [] Tricuspid Strucutural Heart: [] ASD/PFO Closure [] VSD Closure [] TAVR [] Other Intervention: NARRATIVE: 64 year old male with history of arthritis, depression, sleep apnea, RBBB, HTN, h/o DVT in 1999, and a dilated aortic root and ascending aorta. 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 Imaging performed on 05/04/24 showed his aorta dimensions in the root and ascending to be 4.5 cm-4.7 cm. These were reviewed by Dr. Shaffer and felt that his aorta was slightly larger than 2 years ago. Patient denies SOB, chest pain, nausea, or diaphoresis. Referred for [facility] as part of pre-op chaka luation for a valve sparing root replacement and ascending replacement by Dr. Hess. ALLERGIES: Patient has no known allergies. Topical Iodine Allergy: [x] No [] Yes IV Contrast Allergy: [x] No [] Yes If yes, Premedicated for contrast allergy: [] No [] Yes PRE-Procedure Medications Antiarrhythmic Agent: [] Yes [x] No [] Contraindicated Aspirin: [] Yes [x] No [] Contraindicated Beta Malgorzata (Any): [] Yes [x] No [] Contraindicated Ca Channel Malgorzata (Any): [x] Yes [] No [] Contraindicated Long Acting Nirates (Any): [] Yes [x] No [] Contraindicated Non-Statin (Any): [] Yes [x] No [] Contraindicated Ranolazin: [] Yes [x] No [] Contraindicated Statin (Any): [] Yes [x] No [] Contraindicated Indications for International Trade Specialist visit (Select all that apply): [] ACS less than or equal to 24 hours [] ACS greater than 24 hours [] Stable/Known CAD [] Cardiac Arrhythmia [] Post Cardiac Transplant [] New Onset Angina less than or equal to 2 months [] Suspected CAD [] Worsening Angina [] Cardiomyopathy [x] Pre-operative evaluation [] Valvular Disease [] LV Dysfunction [] Evaluation for Exercise Clearance [] Syncope [] Pericardial Disease [] Resuscitated Cardiac Arrest [] Congenital Heart Disease [] Evaluate CAD [] Pre-Transplant Evaluation [] Abnormal Stress Test [] Pulmonary HTN [] Heart Failure [] Other: Chest Pain Symptom Assessment: [] Typical Angina [] Atypical Angina [] Non-anginal Chest Pain [x] Asymptomatic HISTORY AND RISK FACTORS Family History of Premature CAD: [] Yes [x] No [] Male less than 55 years old [] Female less than 65 years old Relationship: Cerebrovascular Disease: [] Yes [x] No Hypertension: [x] Yes [] No Diabetes Mellitus: [] Yes [x] No Dyslipidemia: [] Yes [x] No Peripheral Arterial Disease: [] Yes [x] No Chronic Lung Disease: [] Yes [x] No Prior Heart Failure: [] Yes [x] No [] CKD [] ESRD [] Dialysis [] HD []PD: Prior [place]: [] Yes [x] No If Yes, Most Recent [place] Date: Tobacco Use Social History Tobacco Use Smoking Status Never Passive exposure: Never Smokeless Tobacco Never Previous Cardiac and Peripheral Interventions: (Include hospital/procedure/most recent date) Cardiac Cath/Prior PCI:[] Yes [x] No If Yes, Most Recent PCI Date: Report Available: [] Yes [] No Prior CABG: [] Yes [x] No If Yes, Most Recent CABG Date: Report Available: [] Yes [] No Valvular Surgery: [] Yes [x] No Report Available: [] Yes [] No (Include percutaneous procedures): Peripheral Intervention: [] Yes [x] No Report Available: [] Yes [] No LABS Results for orders placed or performed during the hospital encounter of 05/04/24 POCT creatinine Collection Time: 05/04/24 8:55 AM Result Value Ref Range Creatinine POC 1.3 0.7 - 1.3 mg/dL WBC HGB HCT pits PT INR PTT Na K+ Glucose BUN Cr HCG Cath/PCI Indication: [] CAD (without Ischemic Sx) [] Stable Angina [] New Onset Angina less than or equal to 2 months [] NSTE-ACS [x] Other:pre-op [] STEMI Symptom Date: Time: [] Thrombolytic [] Yes [] No If Yes, Start Date Time [] Staged PCI, Anginal symptoms stable on Medical Therapy and restricted activity: Anginal Class within 2 weeks [] CCS I [] CCS II [] CCS III [] CCS IV If AMI: N/A [] Cardiogenic Shock at First Medical Contact [] Systolic Blood Pressure: and Heart Rate: at First Medical Contact [] Cardiac arrest within 24 hours [] Cardiogenic shock within 24 hours [] Cardiogenic shock at start of PCI Heart Failure: [x] Yes [] NO If Yes, Newly Diagnosed: [] Yes [x] No [facility] Class: [x] Class I [] Class II [] Class III [] Class IV HF Type: [x] Diastolic [] Systolic [] Unknown Test Performed (Choose One): [] Exercise Stress Test (w/o imaging) [] Stress Echocardiogram [] Stress Nuclear [] Stress Imaging w/CMR [x] Chest CTA If Yes, Result: 05-04-24 FINDINGS: No significant change in caliber of [...] a similar fashion from the prior exam. Result: [] Negative [] Positive [] Indeterminate IF Positive: Risk/Extent of ischemia: [] Low [] Intermediate [] High FINDINGS LVEF Assessed: [x] Yes [] No If yes, Most recent LVEF 65%: ECHO: 04-18-23 (under cardiology tab) Nurse Coordinator: Craig Perkins RN Date: 08-07-24 Time: 954 PHYSICAL EXAM BP: 112/73 Pulse: 54 Respiration: 20 SpO2: 98% General appearance: NAD Extremities: No RIVAS Pulmonary: No incr WOB Neurological: No focal deficits CARDIAC EXAM: Bradycardic, regular rhythm EKG: Sinus kacy, RBBB CSHA Clinical Frailty Scale: [] 1: Very Fit [] 2: Well [x] 3: Managing Well [] 4: Vulnerable [] 5: Mildly Frail [] 6: Moderately Frail [] 7: Severely Frail [] 8: Very Severely Frail [] 9: Terminally Ill PLAN: Procedure, risks, benefits and alternatives have been explained to the patient. The patient voiced understanding, consent is signed and orders are written. Form Completed/Reviewed and Assessment Completed by: Name: Celeste Chaney MD Date: 08/09/2024 Time: 8:01 AM Cosigned by Ashley Beckman DO at 08/09/2024 9:25 AM CDT documented in this encounter Plan of Treatment Upcoming Encounters Date Type Department Care Team (Latest Contact Info) Description 08/20/2024 8:00 AM CDT Hospital Encounter [facility] Operating [facility] [address] [place] [id number] Bridgette Hess MD [address] [facility] [id number] [place], [place] [id number] Aneurysm of ascending aorta without rupture 08/20/2024 8:00 AM CDT Anesthesia Event [facility] Operating Room [address] [place] [id number] Gunnar Stephenson, SANTOS [address] [facility] [phone] [place] [address] 08/20/2024 8:00 AM CDT - 08/20/2024 2:45 PM CDT Surgery [facility] Operating Room [address] [place] [phone] Bridgette Hess MD [address] [facility] [id number] [place], [place] [id number] REPLACEMENT AORTIC VALVE/ROOT-VALVE SPARING ROOT REPLACEMENT Scheduled Procedures Name Priority Associated Diagnoses Date/Ti me REPLACEMENT AORTIC VALVE/ROOT Aneurysm of ascending aorta without rupture 08/20/2024 8:00 AM CDT documented as of this encounter Procedures Procedure Name Priority Date/Time Associated Diagnosis Comments LEFT HEART CATHETERIZATION WITH CORONARY ANGIOGRAPHY AND WITH AND WITHOUT LEFT VENTRICULOGRAM Routine 08/09/2024 10:35 AM CDT Aneurysm of ascending aorta without rupture CBC WITHOUT DIFFERENTIAL Routine 08/09/2024 10:10 AM CDT ECG 12-LEAD Routine 08/09/2024 7:02 AM CDT EGFR STAT 08/09/2024 6:47 AM CDT CBC WITHOUT DIFFERENTIAL STAT 08/09/2024 6:47 AM CDT BASIC METABOLIC PANEL STAT 08/09/2024 6:47 AM CDT documented in this encounter Results * LEFT HEART CATHETERIZATION WITH CORONARY ANGIOGRAPHY AND WITH AND WITHOUT LEFT VENTRICULOGRAM (08/09/2024 10:35 AM CDT) Anatomical Region Laterality Modality X-Ray Angiograph y Narrative 08/09/2024 12:29 PM CDT Cardiac Catheterization Report, Left Heart Facility: [facility] Referring Physician: Bridgette Hess MD Performing: Ashley Beckman DO Fellow: Celeste Chaney MD PATIENT CLINICAL PROFILE Roderick Myers is a 64 y.o. male with a [...] obtained. The patient was brought to the manager cardiac cath and placed on the table. The planned [...] RCA or RPDA branches. DIAGNOSTIC IMPRESSIONS No [place] coronary artery disease.. THERAPEUTIC RECOMMENDATIONS Findings of the catheterization were discussed with the patient and will be conveyed to the referring physician who will determine the patient's future therapy and follow-up. Conscious sedation note: I provided direct [id number]-oasl monitoring of conscious sedation, which was administered by an independent, trained nurse using fentanyl and midazolam for 35 minutes. Ashley Beckman DO Concrete Crusher Loader Operator Division of Cardiology [facility] Bridgette Hess MD CV CARDIAC CATH PROCEDURES Final Result * (ABNORMAL) CBC without differential (08/09/2024 10:10 AM CDT) [facility] WBC 3.66(L) 3.80 - 9.90 K/cumm Hgb 12.5(L) 13.0 - 17.5 g/dL [facility] Hct 36.1(L) 38.9 - 50.3 % [facility] Plt 237 150 - 400 K/cumm [facility] MPV 9.5 9.1 - 12.3 fL [facility] RBC 3.97(L) 4.30 - 5.80 M/cumm [facility] MCV 90.9 81.3 - 96.4 fL [facility] MCH 31.5 27.1 - 33.3 pg [facility] MCHC 34.6 32.3 - 35.7 g/dL [facility] RDW CV 13.0 11.1 - 14.9 % [facility] RDW SD 43.3 35.7 - 48.1 fL [facility] NRBC abs 0.00 0.00 - 0.01 K/cumm [facility] Blood 08/09/2024 10:1 0 AM CDT 08/09/2024 10:16 AM CDT Narrative [facility] - 08/09/2024 10:32 AM CDT To be drawn after hydration bolus complete us Ashley Beckman DO LAB BLOOD ORDERABLE S Final Result [facility] Department [place] [address] * ECG 12 lead (08/09/2024 7:02 AM CDT) [facility] Ventricular Rate EKG/Min 51 BPM [facility] Atrial Rate 51 BPM [facility] MT-Interval (MSEC) 200 ms [facility] QRS-Interval (MSEC) 146 ms [facility] QT-Interval (MSEC) 480 ms [facility] QTc 442 ms [facility] P [place] 66 degrees [facility] R [place] -50 degrees [facility] T [place] 12 degrees [facility] Diagnosis Sinus bradycardia Right bundle branch block Left anterior fascicular block Bifascicular block Abnormal ECG When compared with ECG of 10-JUL-2018 09:54, no significant change Confirmed by BLANCA PRO M.D ([id number]) on 08/09/2024 11:44:55 AM [facility] 08/09/2024 7:02 AM CDT 08/09/2024 11:44 AM CDT us Ashley Palominoacomino DO ECG ORDERABLES Fin al Result [facility] * eGFR (08/09/2024 6:47 AM [...] CDT 08/09/2024 8:32 AM CDT us Ashley Palominoacomino DO LAB BLOOD ORDERABLE S Final Result [facility] Department [place] [address] * Basic metabolic panel (08/09/2024 6:47 AM CDT) [facility] Sodium 143 135 - 145 mmol/L Potassium, pl 4.9 3.3 - 4.9 mmol/L [facility] Comment:Hemolyzed; Potassium value may be falsely elevated by as much as 0.6-1.0 mmol/L. Suggest redraw and reanalysis. Chloride 105 97 - 110 mmol/L [facility] CO2 30 22 - 32 mmol/L [facility] Anion gap 8 2 - 15 mmol/L [facility] BUN 14 6 - 25 mg/dL [facility] Creatinine 1.02 0.80 - 1.30 mg/dL [facility] Glucose 97 70 - 199 mg/dL [facility] Comment: Interpretive Data Fasting glucose >/= 126 [...] 2022. Calcium 9.6 8.5 - 10.3 mg/dL [facility] Blood 08/09/2024 6:47 AM CDT 08/09/2024 8:32 AM CDT us Ashley Beckman DO LAB BLOOD ORDERABLE S Final Result [facility] Department [place] [address] * CBC without differential (08/09/2024 6:47 AM CDT) [facility] WBC 3.86 3.80 - 9.90 K/cumm Hgb 13.6 13.0 - 17.5 g/dL [facility] Hct 39.6 38.9 - 50.3 % [facility] Plt 257 150 - 400 K/cumm [facility] MPV 9.7 9.1 - 12.3 fL [facility] RBC 4.34 4.30 - 5.80 M/cumm [facility] MCV 91.2 81.3 - 96.4 fL [facility] MCH 31.3 27.1 - 33.3 pg [facility] MCHC 34.3 32.3 - 35.7 g/dL [facility] RDW CV 13.1 11.1 - 14.9 % [facility] RDW SD 43.8 35.7 - 48.1 fL [facility] NRBC abs 0.00 0.00 - 0.01 K/cumm [facility] Blood 08/09/2024 6:47 AM CDT 08/09/2024 8:32 AM CDT us Ashley Beckman DO LAB BLOOD ORDERABLE S Final Result [facility] [place] [address] documented in this encounter Visit Diagnoses Diagnosis Aneurysm of ascending aorta without rupture Aneurysm of thoracic aorta- Primary Thoracic aneurysm without mention of rupture Aneurysm of ascending aorta without rupture Aneurysm of ascending aorta without rupture Aneurysm of ascending aorta without rupture documented in this encounter Admitting Diagnoses Diagnosis Aneurysm of thoracic aorta Thoracic aneurysm without mention of rupture documented in this encounter Administered Medications Inactive Administered Medications - up to 3 most recent administrations Medication Order MAR Action Action Date Dose Rate Site Carrier Fluids for Secondary Infusion - 0.9% Sodium Chloride 30 mL, intravenous, As needed, For priming tubing and/or flushing, Starting on Ashley 08/09/24 at 0646, Pre-Procedure (CV), 0-250 ml/hr to flush line after IV infusions when no maintenance IV ordered. Infuse 30mL at the same rate as the secondary infusion. Run as primary IV, not intended for KVO. sodium chloride 0.9% bolus 300 mL 300 mL, intravenous, Once, On Ashley 08/09/24 at 0730, For 1 dose, Pre-Procedure (CV), Immediately on arrival (at least 30 minutes prior to procedure) New Bag 08/09/2024 8:21 AM CDT 300 mL sodium chloride 0.9% flush 0.5-20 mL 0.5-20 mL, intra-catheter, Every 8 hours scheduled, First dose on Ashley 08/09/24 at 0730, Pre-Procedure (CV), Flush volume based on line type and size. sodium chloride 0.9% flush 0.5-20 mL 0.5-20 mL, intra-catheter, As needed, line care, Starting on Ashley 08/09/24 at 0646, Pre-Procedure (CV), Flush volume based on line type and size. Flush before and after each use. sodium chloride 0.9% infusion 1 mL/kg/hr 104.3 kg (104.3 mL/hr, rounded to 104 mL/hr), intravenous, Continuous, Starting on Ashley 08/09/24 at 0730, Pre-Procedure (CV) New Bag 08/09/2024 8:21 AM CDT 1 mL/kg/hr 104 mL/hr documented in this encounter Active and Recently Administered Medications Times are shown in CDT. Scheduled Medication Order 08/07/2024 08/08/2024 08/09/2024 sodium chloride 0.9% bolus 300 mL (COMPLETED)(Linked Group 1) 300 mL, intravenous, Once, On Ashley 08/09/24 at 0730, For 1 dose, Pre-Procedure (CV), Immediately on arrival (at least 30 minutes prior to procedure) 0821 (New Bag - Prov ider: Hannah Martinez RN) sodium chloride 0.9% flush 0.5-20 mL 0.5-20 mL, intra-catheter, Every 8 hours scheduled, First dose on Ashley 08/09/24 at 0730, Pre-Procedure (CV), Flush volume based on line type and size. 0730 (Due) Continuous Medication Order 08/07/2024 08/08/2024 08/09/2024 sodium chloride 0.9% infusion(Linked Group 1) 1 mL/kg/hr 104.3 kg (104.3 mL/hr, rounded to 104 mL/hr), intravenous, Continuous, Starting on Ashley 08/09/24 at 0730, Pre-Procedure (CV) 0821 (New Bag - Prov ider: Hannah Martinez, AVERY)1132 (Stopped - Provider: Peyman Smart RN) PRN Medication Order 08/07/2024 08/08/2024 08/09/2024 Carrier Fluids for Secondary Infusion - 0.9% Sodium Chloride 30 mL, intravenous, As needed, For priming tubing and/or flushing, Starting on Ashley 08/09/24 at 0646, Pre-Procedure (CV), 0-250 ml/hr to flush line after IV infusions when no maintenance IV ordered. Infuse 30mL at the same rate as the secondary infusion. Run as primary IV, not intended for KVO. fentaNYL (SUBLIMAZE) preservative free injection (CANCELED) Code/trauma/sedation medication, Starting on Ashley 08/09/24 at 0955, Intra-Procedure (CV) 0955 (Given - Provid er: Briana Schaffer RN) heparin 1,000 unit/mL injection (CANCELED) Code/trauma/sedation medication, Starting on Ashley 08/09/24 at 1016, Intra-Procedure (CV) 1016 (Given - Provid er: Ashley Beckman DO) ioversoL (OPTIRAY 350) injection (CANCELED) Code/trauma/sedation medication, Starting on Ashley 08/09/24 at 1035, Intra-Procedure (CV) 1035 (Given - Provid er: Ashley Beckman DO) lidocaine (XYLOCAINE) 10 mg/mL (1 %) injection (CANCELED) Code/trauma/sedation medication, Starting on Ashley 08/09/24 at 0956, Intra-Procedure (CV), Indications: Administration of Local Anesthesia 1001 (Given - Provid er: Celeste Chaney MD) midazolam (VERSED) 1 mg/mL preservative free injection (CANCELED) Administer over 2 Minutes, Code/trauma/sedation medication, Starting on Ashley 08/09/24 at 0956, Intra-Procedure (CV) 0956 (Given - Provid er: Briana Schaffer RN) niCARdipine (CARDENE) 1 mg/10 mL in sodium chloride 0.9% (premix) (CANCELED) Code/trauma/sedation medication, Starting on Ashley 08/09/24 at 1011, Intra-Procedure (CV) 1011 (Given - Provid er: Ashley Beckman DO) nitroglycerin injection 100 mcg/mL in D5W 10 mL (CANCELED) Code/trauma/sedation medication, Starting on Ashley 08/09/24 at 1011, Intra-Procedure (CV) 1011 (Given - Provid er: Ashley Beckman DO) sodium chloride 0.9% flush 0.5-20 mL 0.5-20 mL, intra-catheter, As needed, line care, Starting on Ashley 08/09/24 at 0646, Pre-Procedure (CV), Flush volume based on line type and size. Flush before and after each use. Linked Groups Order Group 1: sodium chloride 0.9% bolus 300 mL (COMPLETED)Jump to med 300 mL, intravenous, Once, On Ashley 08/09/24 at 0730, For 1 dose, Pre-Procedure (CV), Immediately on arrival (at least 30 minutes prior to procedure) Followed by sodium chloride 0.9% infusionJump to med 1 mL/kg/hr 104.3 kg (104.3 mL/hr, rounded to 104 mL/hr), intravenous, Continuous, Starting on Ashley 08/09/24 at 0730, Pre-Procedure (CV) documented in this encounter Orders Medications Ordered That Ernesto ht Not Have Been Administered Count Last Ordered Date First Ordered Date Carrier Fluids for Secondary Infusion - 0.9% Sodium Chloride 08/09/2024 fentaNYL (SUBLIMAZE) preserv ative free injection 08/09/2024 heparin 1,000 unit/mL injection ioversoL (OPTIRAY 350) injection 08/10/19 lidocaine (XYLOCAINE) 10 mg/ mL (1 %) injection 08/09/2024 midazolam (VERSED) 1 mg/mL p reservative free injection 08/09/2024 niCARdipine (CARDENE) 1 mg/1 0 mL in sodium chloride 0.9% (premix) 08/09/2024 nitroglycerin injection 100 mcg/mL in D5W 10 mL 1 08/09/2024 sodium chloride 0.9% flush 0.5-20 mL 2 07/31 Discharge Count Last Ordered Date First Orde red Date DISCHARGE PATIENT 1 08/09/2024 documented in this encounter Care Teams Rn Testing Relationship Specialty Start Date End Date Dima Sanchez MD PCP - General 05/01/20 Ney Villalpando MD [address] [facility] [address] [place] [address] Variety Lathe Operator Cardiology 02/08/23 documented as of this encounter
--- OUTSIDE RECORDS SUMMARY | 2024-08-10 10:23 | XMS_ITS | Encounter Summary ---
Author Organization [facility] Address [address] [place] [address] Care Team Providers Care Field Application Engineer Name Role Phone Dima Sanchez MD Primary Care Provider + [phone] Ney Villalpando MD Unavailable [phone] Reason for Referral * Cardiology (Routine) - Closed Specialty Diagnoses / Procedures Referred By Contac t Referred To Contact Diagnoses Aneurysm of ascending aorta without rupture Procedures Transthoracic Echo (TTE) Complete W Doppler/CF Jason Hess MD [address] [facility] [id number] [place] [address] Phone: tel: fax: [address] [phone] Referral ID Status Reason Start Date Expiration Date Visits Re quested Visits Authorized [id number] Closed 07/18/2024 08/17/2025 1 1 Reason for Visit * Cardiology (Routine) - Closed Specialty Diagnoses / Procedures Referred By Contac t Referred To Contact Diagnoses Aneurysm of ascending aorta without rupture Procedures Transthoracic Echo (TTE) Complete W Doppler/CF Jason Hess MD [address] [facility] [id number] [place] [address] Phone: tel: fax: [facility] [address] [place] [address] Referral ID Status Reason Start Date Expiration Date Visits Re quested Visits Authorized [id number] Closed 07/18/2024 08/17/2025 1 1 Encounter Details Date Type Department Care Team (Latest Contact Info) Description 08/10/2024 7:45 AM CDT Hospital Encounter [facility] Cardiac Diagnostic Lab [address] [place] [address] [address] [place] [phone] Aneurysm of ascending aorta without rupture Social History Tobacco Use Types Packs/Day Years [...] file Legal 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 Gender Identity Male 04/16/2021 11:58 AM COMPANY SECRETARY Sexual Orientation Straight 04/02/2019 2: 04 PM COMPANY SECRETARY documented as of this encounter Plan of Treatment Upcoming Encounters Date Type Department Care Team (Latest Contact Info) Description 08/20/2024 8:00 AM CDT Hospital Encounter [facility] Operating Room [address] [place] [id number] Jason Hess MD [id number] [place] [address] Aneurysm of ascending aorta without rupture 08/20/2024 8:00 AM CDT Anesthesia Event [facility] Operating Room [address] [place] [address] Sachin, Gunnar Everett, CREDIT ASSOCIATE [address] [facility] [id number] [place] [address] 08/20/2024 8:00 AM CDT - 08/20/2024 2:45 PM CDT Surgery [facility] Operating Room [address] [place] [phone] Jason Hess MD [id number] [place] [address] REPLACEMENT AORTIC VALVE/ROOT-VALVE SPARING ROOT REPLACEMENT Scheduled Procedures Name Priority Associated Diagnoses Date/Ti me REPLACEMENT AORTIC VALVE/ROOT Aneurysm of ascending aorta without rupture 08/20/2024 8:00 AM CDT documented as of this encounter Procedures Procedure Name Priority Date/Time Associated Diagnosis Comments TRANSTHORACIC ECHO (TTE) COMPLETE W DOPPLER/CF WO CONTRAST Routine 08/10/2024 9:03 AM CDT Aneurysm of ascending aorta without rupture documented in this encounter Results * TRANSTHORACIC ECHO (TTE) COMPLETE W DOPPLER/CF WO CONTRAST (08/10/2024 9:03 AM CDT) Anatomical Region Laterality Modality Ultrasound 08/10/2024 8:18 AM CDT Narrative 08/10/2024 9:18 AM CDT [facility] Cardiac Diagnostic [place] [address] [place] [address] Transthoracic Echocardiographic Report Patient Name: RODERICK WELCH GE : 1960 (64y 5m) Gender: M Study Date: 08/10/2024 08:18:39 AM Ht(Inch): 74 Wt(Lb): 229.94 BSA: 2.33 Anesthesiologists' Assistant: Yara Park RDCS Location: [facility] Order Provider: JASON HESS Heart Rate: 56 [...] 427.56 sec Electronically Signed By: Mimi Wilson [facility] 08/10/2024 9:17:54 AM CDT Procedure Note Mimi Wilson MD - 08/10/2024 [facility] [place] [address] Transthoracic Echocardiographic Report Patient Name: RODERICK WELCH GE : 1960 (64y 5m) Gender: M Study Date: 08/10/2024 08:18:39 AM Ht(Inch): 74 Wt(Lb): 229.94 BSA: 2.33 Anesthesiologists' Assistant: Yara Park RDCS Location: [facility] [...] LA Length 4C 6.36 cm MV Decel Bjan765.45 msec [ 104.00 - 258.00 ] LA [...] mmHg Asc Ao Index 1.97 cm/m2 PI UTB573.56 sec Electronically Signed By: Mimi Wilson [facility] 08/10/2024 9:17:54 AM CDT Jason Hess MD CV ECHO PROCEDURES Final Result documented in this encounter Visit Diagnoses Diagnosis Aneurysm of ascending aorta without rupture Aneurysm of ascending aorta without rupture Aneurysm of ascending aorta without rupture documented in this encounter Orders Medications Ordered That Ernesto ht Not Have Been Administered Count Last Ordered Date First Ordered Date perflutren protein-a (OPTISO N) 3 mL in sodium chloride 0.9% 8 mL syringe 1 08/10/2024 documented in this encounter Care Teams Field Application Engineer Relationship Specialty Start Date End Date Dima Sanchez MD PCP - General 05/01/20 Ney Villalpando MD [address] [facility] [address] [place] [address] Assembly Loader Cardiology 02/08/23 documented as of this encounter
--- OUTSIDE RECORDS SUMMARY | 2024-08-10 10:23 | XMS_ITS | Encounter Summary ---
Author Organization [facility] Healthcare Address [address] [place] [address] Care Team Providers Care Rn Orthopaedic Name Role Phone Dima Sanchez MD Primary Care Provider + [phone] Ney Villalpando MD Unavailable [phone] Reason for Visit * Auth/Cert (Routine) Specialty Diagnoses / Procedures Referred By Contac t Referred To Contact Diagnoses Aneurysm of ascending aorta without rupture Aneurysm of ascending aorta without rupture [I71.21] Procedures LEFT HEART CATHETERIZATION WITH CORONARY ANGIOGRAPHY AND WITH OR WITHOUT LEFT VENTRICULOGRAM [id number] Referral ID Status Reason Start Date Expiration Date Visits Re quested Visits Authorized [id number] 1 1 Encounter Details Date Type Department Care Team (Late st Contact Info) Description 08/09/2024 9:35 AM CDT - 08/09/2024 11:[address] [facility] [address] [place] [address] Ashley Beckman, DO [address] [place], [place] [id number] LEFT HEART CATHETERIZATION WITH CORONARY ANGIOGRAPHY AND WITH OR WITHOUT LEFT VENTRICULOGRAM [id number] Surgery Details Date/Time Status Location OR Service Patient Class Case Class Case Type Trauma Case? 08/09/2024 9:35 AM Posted [facility] CCL 03 Cardiovascular Outpatient Elective Panel 1 Procedure LRB Anes Op Region Wound Class Comments LEFT HEART CATHETERIZATION WITH CORONARY ANGIOGRAPHY AND WITH OR WITHOUT LEFT VENTRICULOGRAM 12189 Left Conscious Sedation Surgeon Surgeon Role Service Panel Celeste Chaney MD Fellow Cardiovascular 1 Ashley Beckman, DO Primary Cardiovasc ular 1 Case Notes 0700 early arrival for labs IV contrast dye limit= 295mlACC Bleed risk= 0.8% documented in this encounter Social History Tobacco Use Types Packs/Day Years [...] on file Legal Sex Male 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 Monthly or less 08/09/2024 8:15 AM Hannah Salinas RN Q2: How many drinks containing alcohol do you have on a typical day when you are drinking? 1 or 2 08/09/2024 8:15 AM Aidee Salinas RN Q3: How often do you have six or more drinks on one occasion? Never 08/09/2024 8:15 AM Hannah Salinas RN documented as of this encounter Discharge [...] M-F call our Outpatient Nurse Coordinators at [phone]. If you need to speak to someone after 5pm please call [facility] at [phone] and ask the tank operator topage the Cardiac Mink Farmer Fellow online marketing strategist. documented in this encounter Medications at Time [...] 5 days 22 g 08/15/2024 5 omega 0-rwt-rji-fish oil 60-90-500 mg capsule,delayed release(DR/EC) Take 500 [...] 08/09/2024 1:13 PM CDT PT returns from [facility] procedure alert and oriented x 4 with [...] 0.9% Sodium Chloride 30 mL intravenous PRN Ashley Beckman, DO sodium chloride 0.9% bolus 300 mL 300 mL intravenous Once GeorgetteacoAshley quintana, DO Followed by sodium chloride 0.9% infusion 1 mL/kg/hr intravenous Continuous GiacominAshley beltran, DO sodium chloride 0.9% flush 0.5-20 mL 0.5-20 mL intra-catheter Q8H PADMINI GiacominoAshleylenski, DO sodium chloride 0.9% flush 0.5-20 mL 0.5-20 mL intra-catheter PRN GiacominAshley beltran, DO Laboratory review: Chemistry BMP No results [...] : 1960 Date of Procedure: 08/09/2024 ORDERING BALANCE WHEEL SCREW HOLE TAPPER: Surgeon(s): Cupid, Container CoordinatorMD Procedure(s): LEFT HEART CATHETERIZATION WITH CORONARY ANGIOGRAPHY AND WITH OR WITHOUT LEFT VENTRICULOGRAM 25807 Requested Diagnostic: [] Coronary Angiograms Only [x] [...] chest pain, nausea, or diaphoresis. Referred for C as part of pre-op chaka luation for [...] Yes [x] No [] Contraindicated Indications for Mink Farmer visit (Select all that apply): [] ACS [...] ESRD [] Dialysis [] HD []PD: Prior CO: [] Yes [x] No If Yes, Most Recent CO Date: Tobacco Use Social History Tobacco Use [...] Yes, Newly Diagnosed: [] Yes [x] No NYHS Class: [x] Class I [] Class II [...] Coordinator: Craig Perkins RN Date: 08-07-24 Time: 09 PHYSICAL EXAM BP: 112/73 Pulse: 54 Respiration: [...] 08/20/2024 8:00 AM CDT Hospital Encounter [facility] Operating Room [address] [place] [address] Bridgette Hess MD [id number] [place] [address] Aneurysm of ascending aorta without rupture 08/20/2024 8:00 AM CDT Anesthesia Event [facility] Operating Room [address] [place] [address] Gunnar Stephenson, PLUG CUTTER [address] [facility] [id number] [place] [address] 08/20/2024 8:00 AM CDT - 08/20/2024 2:[address] [facility] Operating Room [address] [place] [phone] Bridgette Hess MD [id number] [place] [address] REPLACEMENT AORTIC VALVE/ROOT-VALVE SPARING ROOT REPLACEMENT Scheduled [...] CDT Cardiac Catheterization Report, Left Heart Facility: [facility] Referring Physician: Bridgette Hess MD Performing: Ashley [...] obtained. The patient was brought to the laborer pullet farm and placed on the table. The planned [...] RCA or RPDA branches. DIAGNOSTIC IMPRESSIONS No minto coronary artery disease.. THERAPEUTIC RECOMMENDATIONS Findings of the catheterization were discussed with the patient and will be conveyed to the referring physician who will determine the patient's future therapy and follow-up. Conscious sedation note: I provided direct [id number]-kv-ueja monitoring of conscious sedation, which was administered by an independent, trained nurse using fentanyl and midazolam for 35 minutes. Ashley Beckman DO Mobile Equipment Mechanic Division of Cardiology [employer] us Bridgette Hess MD CV CARDIAC CATH PROCEDURES Final Result * (ABNORMAL) CBC without differential (08/09/2024 10:10 AM CDT) WBC 3.66(L) 3.80 - 9.90 K/cumm Hgb 12.5(L) 13.0 - 17.5 g/dL [facility] Hct 36.1(L) 38.9 - 50.3 % [facility] Plt 237 150 - 400 K/cumm [facility] MPV 9.5 9.1 - 12.3 fL [facility] RBC 3.97(L) 4.30 - 5.80 M/cumm [facility] MCV 90.9 81.3 - 96.4 fL [facility] MCH 31.5 27.1 - 33.3 pg [facility] MCHC 34.6 32.3 - 35.7 g/dL [facility] RDW CV 13.0 11.1 - 14.9 % [facility] RDW SD 43.3 35.7 - 48.1 fL [facility] NRBC abs 0.00 0.00 - 0.01 K/cumm [facility] Blood 08/09/2024 10:1 0 AM CDT 08/09/2024 10:16 AM CDT Narrative [facility] - 08/09/2024 10:32 AM CDT To be drawn after hydration bolus complete us Ashley Beckman DO LAB BLOOD ORDERABLE S Final Result [facility] Department [place] [address] * ECG 12 lead (08/09/2024 7:02 AM CDT) Ventricular Rate EKG/Min 51 BPM [facility] Atrial Rate 51 BPM [facility] NV-Interval (MSEC) 200 ms [facility] QRS-Interval (MSEC) 146 ms [facility] QT-Interval (MSEC) 480 ms [facility] QTc 442 ms [facility] P [place] 66 degrees [facility] R [place] -50 degrees [facility] T [place] 12 degrees [facility] Diagnosis Sinus bradycardia Right bundle branch block Left anterior fascicular block Bifascicular block Abnormal ECG When compared with ECG of 10-JUL-2018 09:54, no significant change Confirmed by BLANCA PRO M.D ([id number]) on 08/09/2024 11:44:55 AM [facility] 08/09/2024 7:02 AM CDT 08/09/2024 11:44 AM CDT us Ashley Harrisonminruby DO ECG ORDERABLES Fin al Result [facility] * eGFR (08/09/2024 6:47 AM [...] of Race in Diagnosing Kidney Disease, JASN 202). The CKD-EPI equation should not be used for patients with unstable renal function and has not been validated in children and those over 70. Current interpretive data was last reviewed 2021. Blood 08/09/2024 6:47 AM CDT 08/09/2024 8:32 AM CDT us Ashley Beckman DO LAB BLOOD ORDERABLE S Final Result [facility] Department [place] [address] * Basic metabolic panel (08/09/2024 6:47 AM CDT) Sodium 143 135 - 145 mmol/L Potassium, pl 4.9 3.3 - 4.9 mmol/L [facility] Comment:Hemolyzed; Potassium value may be falsely elevated by as much as 0.6-1.0 mmol/L. Suggest redraw and reanalysis. Chloride 105 97 - 110 mmol/L [facility] CO2 30 22 - 32 mmol/L [facility] Anion gap 8 2 - 15 mmol/L [facility] BUN 14 6 - 25 mg/dL [facility] Creatinine 1.02 0.80 - 1.30 mg/dL [facility] Glucose 97 70 - 199 mg/dL [facility] Comment: Interpretive Data Fasting glucose >/= 126 [...] 2022. Calcium 9.6 8.5 - 10.3 mg/dL [facility] Blood 08/09/2024 6:47 AM CDT 08/09/2024 8:32 AM CDT Ashley Song Giacomino DO LAB BLOOD ORDERABLE S Final Result Performing Organization Address City/[facility]/ZIP Co de Phone Number [facility] [place] [address] * CBC without differential (08/09/2024 6:47 AM CDT) [facility] WBC 3.86 3.80 - 9.90 K/cumm Hgb 13.6 13.0 - 17.5 g/dL [facility] Hct 39.6 38.9 - 50.3 % [facility] Plt 257 150 - 400 K/cumm [facility] MPV 9.7 9.1 - 12.3 fL [facility] RBC 4.34 4.30 - 5.80 M/cumm [facility] MCV 91.2 81.3 - 96.4 fL [facility] MCH 31.3 27.1 - 33.3 pg [facility] MCHC 34.3 32.3 - 35.7 g/dL [facility] RDW CV 13.1 11.1 - 14.9 % [facility] RDW SD 43.8 35.7 - 48.1 fL [facility] NRBC abs 0.00 0.00 - 0.01 K/cumm [facility] Blood 08/09/2024 6:47 AM CDT 08/09/2024 8:32 AM CDT us Ashley Song Giacomino DO LAB BLOOD ORDERABLE S Final Result [facility] [place] [email or web address] [address] documented in this encounter Visit Diagnoses Diagnosis [...] for KVO. fentaNYL (SUBLIMAZE) preservative free injection Code/trauma/sedation medication, Starting on Ashley 08/09/24 at 0955, Intra-Procedure (CV) Given 08/09/2024 9:55 AM CDT 25 mcg heparin 1,000 unit/mL injection Code/trauma/sedation medication, Starting on Ashley 08/09/24 at 1016, Intra-Procedure (CV) Given 08/09/2024 10:16 AM CDT 7,000 Units ioversoL (OPTIRAY 350) injection Code/trauma/sedation medication, Starting on Ashley 08/09/24 at 1035, Intra-Procedure (CV) Given 08/09/2024 10:35 AM CDT 55 mL lidocaine (XYLOCAINE) 10 mg/mL (1 %) injection Code/trauma/sedation medication, Starting on Ashley 08/09/24 at 0956, Intra-Procedure (CV), Indications: Administration of Local AnesthesiaIndications:Ad ministration of Local Anesthesia Given 08/09/2024 10:01 AM CDT 5 mL Right Wrist midazolam (VERSED) 1 mg/mL preservative free injection Administer over 2 Minutes, Code/trauma/sedation medication, Starting on Ashley 08/09/24 at 0956, Intra-Procedure (CV) Given 08/09/2024 9:56 AM CDT 1 mg niCARdipine (CARDENE) 1 mg/10 mL in sodium chloride 0.9% (premix) Code/trauma/sedation medication, Starting on Ashley 08/09/24 at 1011, Intra-Procedure (CV) Given 08/09/2024 10:11 AM CDT 200 mcg nitroglycerin injection 100 mcg/mL in D5W 10 mL Code/trauma/sedation medication, Starting on Ashley 08/09/24 at 1011, Intra-Procedure (CV) Given 08/09/2024 10:11 AM CDT 200 mcg sodium chloride 0.9% bolus 300 mL 300 [...] for Secondary Infusion - 0.9% Sodium Chloride 1 08/09/2024 sodium chloride 0.9% flush 0.5-20 mL 2 07/31 Discharge Count Last Ordered Date First Orde red Date DISCHARGE PATIENT 1 08/09/2024 documented in this encounter Care Teams Rn Orthopaedic Relationship Specialty Start Date End Date Dima Sanchez MD PCP - General 05/01/20 Ney Villalpando MD [address] [place] [address] Pharmacy Stock Clerk Cardiology 02/08/23 documented as of this encounter
[2024-08-10 10:28] LABS: Basophils Percent Auto 0.7 % (0.2-1.2); Hematocrit 41.4 % (42.0-52.0); Hemoglobin 13.3 g/dL (14.0-18.0); Immature Granulocyte Absolute 0.01 K/mm3 (0.00-0.031); Immature Granulocyte Percent A 0.2 % (0-0.5); Lymphocytes Absolute Auto 1.09 K/mm3 (0.9-3.2); Mean Corpuscular HGB Conc 32.1 g/dl (32-36); Mean Corpuscular Hemoglobin 30.7 pg (26-34); Mean Corpuscular Volume 95.6 fl (80-100); Mean Platelet Volume 9.5 fl (7.4-10.4); Monocytes Absolute Auto 0.3 K/mm3 (0.1-0.6); Monocytes Percent Auto 7.6 % (2.6-8.5); Neutrophils Absolute Auto 2.7 K/mm3 (1.3-6.7); Neutrophils Percent Auto 64.5 % (45.5-73.1); Platelet Count Result 253 k/mm3 (150-375); Red Blood Count 4.33 M/mm3 (4.6-6.20); Red Cell Distribution Width 13.1 % (11.5-14.5); White Blood Count 4.2 K/mm3 (4.5-10.0)
[2024-08-10 10:55] LABS: Iron 106 ug/dL (49-181)
[2024-08-10 11:05] LABS: Percent Iron Saturation 37 % (20-50)
[2024-08-10 12:09] LABS: Folic Acid > 20.0 ng/mL (2.76->20)
== END 2024-08-10 09:51 | disposition home or self-care (01) ==
LOC: ANHLAB 09:51
PROVIDERS: PCP Family Medicine; Visit Provider Nurse Practitioner Family
DX: D64.9 Anemia, unspecified (principal)
CPT/HCPCS: 36415; 82607; 82746; 83540; 83550; 85025

== ENCOUNTER 2024-09-06 15:31 | Outpatient (CLI) | payer OTHER, SELFPAY ==
--- OUTSIDE RECORDS SUMMARY | 2024-09-06 15:37 | XMS_ITS | Clinical Summary ---
Author Organization [facility] Address [address] [place] [address] Care Team Providers Care Multiple Needle Stitcher Name Role Phone Dima Sanchez MD Primary Care Provider [phone] Ney Villalpando MD Unavailable [phone] Jason Hess MD Unavailable Allergies No known active allergies Medications * This document contains information received from the source organization and may not represent a complete record from that organization. multivitamin (MULTI-DAY ORAL)Indications :supplelment Take 1 tablet by mouth every morning Active Viibryd 40 mg tabletIndication s:major depressive disorder Take 1 tablet (40 mg total) by mouth every morning 09/17/19 20 Active zolpidem CR (AMBIEN CR) 12.5 mg CR tabletIndication s:Sleep-Onset Insomnia Take 1 tablet (12.5 mg total) by mouth nightly as needed for sleep 09/26/19 20 Active amLODIPine (NORVASC) 5 mg tablet Take 1 tablet (5 mg total) by mouth daily 30 tablet 11 04/18/20 24 025 Active Additional Information Patient taking differently:5 mg oralEvery morning, Indications: hypertension, Informant: Self, Reported on 08/29/[address] (CYMBALTA) 20 mg capsuleIndicatio ns:Anxiety with Depression Take 1 capsule (20 mg total) by mouth 2 (two) times a day 08/10/19 25 Active ALPRAZolam (XANAX) 0.5 mg tabletIndication s:anxiety Take 1 tablet (0.5 mg total) by mouth as needed for anxiety Active cholecalciferol (VITAMIN D-3) 5,000 unit capsuleIndicatio ns:Vitamin D Deficiency Take 1 capsule (5,000 Units total) by mouth every morning Active oxyCODONE (ROXICODONE) 5 mg immediate release tabletIndication s:Pain Take 1 tablet (5 mg total) by mouth every 4 (four) hours as needed (acute post operative pain) 10 tablet 08/26/19 25 Active acetaminophen (TYLENOL) 325 mg tablet Take 2 tablets (650 mg total) by mouth every 4 (four) hours as needed for pain 08/27/19 25 Active aspirin 81 mg enteric coated tablet Take 1 tablet (81 mg total) by mouth daily 30 tablet 1 08/28/19 25 Active furosemide (LASIX) 40 mg tablet Take 1 tablet (40 mg total) by mouth daily for 14 days 14 tablet 08/28/19 25 025 Active metoprolol XL (TOPROL-XL) 25 mg extended release tablet Take 1 tablet (25 mg total) by mouth daily 30 tablet 1 08/28/19 25 Active potassium chloride ER (KLOR-CON) 20 mEq CR tablet Take 1 tablet (20 mEq total) by mouth daily for 14 days 14 tablet 08/28/19 25 025 Active senna (SENOKOT) 8.6 mg tabletIndication s:constipation Take 1 tablet by mouth 2 (two) times a day as needed for constipation 20 tablet 08/27/19 25 Active ferrous sulfate 325 mg (65 mg of elemental iron) tabletIndication s:Iron Deficiency Anemia Take 1 tablet (325 mg total) by mouth 2 (two) times a day 60 tablet 2 08/30/19 25 Active losartan-hydroch lorothiazide (HYZAAR) 100-25 mg per tablet TAKE 1 TABLET BY MOUTH DAILY 90 tablet 3 04/18/20 23 025 Discontin ued(Stop Taking at Discharge ) B cmplx 4/vit D3/C/folic/zinc (VITAL-D RX ORAL) Take by mouth 025 Discontin ued(Error ) cholecalciferol, vitamin D3, (VITAJOY DAILY D ORAL) Take by mouth 025 Discontin ued(Error ) diclofenac DR (VOLTAREN) 50 mg EC tabletIndication s:Osteoarthritis Take 1 tablet (50 mg total) by mouth 2 (two) times a day for 14 days 28 tablet 05/20/19 24 025 Discontin ued(Thera py completed ) turmeric root extract 500 mg capsuleIndicatio ns:supplement Take 500 capsules by mouth every morning 025 Discontin ued(Stop Taking at Discharge ) omega 1-clr-xag-fish oil 60-90-500 mg capsule,delayed release(DR/EC)In dications:supple ment Take 500 capsules by mouth every morning 025 Discontin ued(Stop Taking at Discharge ) chlorhexidine (PERIDEX) 0.12 % oral rinseIndications :Mouth Infection Prevention Apply 15 mL to the mouth or throat 3 (three) times a day for 5 days 225 mL 08/16/19 25 025 Discontin ued(Stop Taking at Discharge ) mupirocin (BACTROBAN) 2 % ointmentIndicati ons:Methicillin- Resistant S. Aureus Nasal Colonization Apply to each nostril 2 (two) times a day for 5 days 22 g 08/16/19 25 025 Discontin ued(Stop Taking at Discharge ) Active Problems Problem Noted Date Diagnosed Date Palpitations 08/29/2024 Acute post-operative pain 08/24/2024 Assessment & Plan (08/25/2024 4:00 PM CDT): Acute post-op pain S/p sternotomy and chest tube placement. Pain controlled this AM. Receiving scheduled Tylenol and Oxycodone/ Dilaudid PRN may use Lidocaine patches as adjunct Assessment & Plan (08/24/2024 7:02 PM CDT): Acute post-op pain S/p sternotomy and chest tube placement. Pain controlled this AM. Receiving scheduled Tylenol and Oxycodone/ Dilaudid PRN - may use Lidocaine patches as adjunct Depression 08/24/2024 Assessment & Plan (08/25/2024 4:01 PM CDT): Depression Insomnia Resumed home Cymbalta, Vilazodone & Ambien, PRN nightly Assessment & Plan (08/24/2024 7:04 PM CDT): Depression Insomnia Resumed home Berylallucian, Rocio & Jeb, PRN nightly Radiculopathy affecting upper extremity 08/25/19 Assessment & Plan (08/25/2024 4:01 PM CDT): Post-sternotomy left C8 radiculopathy Noted to have decreased motor and sensation of L hand 08/21. Code stroke activated; 08/22 HCT with no LVO or acute intracranial abnormalities Per Neurology note This is a relatively common neuromuscular complication of sternotomy in which the C8 nerve root undergoes stretch/compression injury often against the first rib in the context of rib retraction during sternotomy - NV checks Q4h to bilateral upper extremities - Neuromuscular clinic after discharge to track his recovery Assessment & Plan (08/24/2024 7:06 PM CDT): Post-sternotomy left C8 radiculopathy Noted to have decreased motor and sensation of L hand 08/21. Code stroke activated; 08/22 HCT with no LVO or acute intracranial abnormalities Per Neurology note This is a relatively common neuromuscular complication of sternotomy in which the C8 nerve root undergoes stretch/compression injury often against the first rib in the context of rib retraction during sternotomy - NV checks Q4h to bilateral upper extremities - Neuromuscular clinic after discharge to track his recovery Acute blood loss anemia 08/24/2024 Assessment & Plan (08/25/2024 4:00 PM CDT): Has not received RBC this admission. - HH 7.2/ overnight, repeat this morning 7.2/21.1 - continue to monitor - f/u daily CBC and clinical signs of bleeding to determine transfusion requirement Assessment & Plan (08/24/2024 7:07 PM CDT): Hgb 8.4 from 9.8, hemodynamically stable Has not received RBC this admission. - f/u daily CBC and clinical signs of bleeding to determine transfusion requirement S/P aortic aneurysm repair 08/24/2024 Assessment & Plan (08/25/2024 4:01 PM CDT): S/p Replacement of Ascending aorta and aortic root (valve-sparing), direct reimplantation of the coronary arteries - see aortic root enlargement Assessment & Plan (08/24/2024 7:08 PM CDT): S/p Replacement of Ascending aorta and aortic root (valve-sparing), direct reimplantation of the coronary arteries - see aortic root enlargement Aortic root enlargement 08/21/2024 Assessment & Plan (08/25/2024 4:01 PM CDT): S/p Replacement of Ascending aorta and aortic root (valve-sparing), direct reimplantation of the coronary arteries - TTF - provide analgesia as described above - bowel regimen while receiving narcotics - receiving Aspirin and Metoprolol - GI prophylaxis (not indicated) - DVT prophylaxis w/ SQ Lovenox - melissa-op antibiotics completed - PT/ OT eval and treat ongoing - EPW pulled 08/04 - continue metoprolol and titrate up as able Assessment & Plan (08/24/2024 7:08 PM CDT): S/p Replacement of Ascending aorta and aortic root (valve-sparing), direct reimplantation of the coronary arteries - TTF - provide analgesia as described above - bowel regimen while receiving narcotics - receiving Aspirin and Metoprolol - GI prophylaxis (not indicated) - DVT prophylaxis w/ SQ Lovenox - melissa-op antibiotics completed - PT/ OT eval and treat ongoing - pull EPW - continue metoprolol and titrate up as able 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 Age-related nuclear cataract of both eyes 2019 Assessment & Plan (05/21/2022 3:11 PM INCLUSION INTERN): Not v/s, monitor, rec uv eye protection [...] (05/29/2018): Added automatically from request for surgery [id number] Aneurysm of thoracic aorta 01/09/2018 Multiple actinic keratoses 09/24/2015 Lentigo 09/24/2015 Essential hypertension 02/05/2013 Resolved Problems Problem Noted Date Diagnosed Date Resolved Date Melanocytic nevus of trunk 10/01/2016 0 01/09/2018 Lichen simplex chronicus 10/01/201601/2018 Tinea pedis 09/24/2015 01/09/2018 Palpitations 02/06/2013 01/09/2018 Arthralgia of shoulder 01/18/201301/09 Arthralgia of elbow 09/16/2011 01/10/20 18 Encounters * This document contains information received from the source organization and may not represent a complete record from that organization. Date Type Department Care Team Description 08/29/2024 12:00 PM CDT Office Visit [facility] [address] [place] [address] Medicine 8th [place] [address] [place] [address] Ney Villalpando MD Essential hypertension (Primary Dx); S/P aortic aneurysm repair; Palpitations 08/29/2024 Results Follow-Up [facility] [address] [place] [address] 8th [place] [address] [place] [address] Ney Villalpando MD 08/28/2024 Orders Only [facility] [address] [place] [address] Medicine 8th Floor [address] Room [address] [place] [address] Jason Hess MD S/P aortic aneurysm repair (Primary Dx) 08/27/2024 Telephone [facility] [address] [facility] 8th [place] [address] [place] [address] Ney Villalpando MD f/u after surgery 08/21/2024 9:45 AM CDT - 08/21/2024 11:59 PM CDT Hospital Encounter [address] [address] Discharge Disposition: Discharge to home or self care 08/21/2024 7:02 AM CDT Anesthesia Event [facility] Operating Room 1 [place] [address] Christine Loaiza MD Maue, Saima Walsh NP 08/21/2024 7:00 AM CDT - 08/21/2024 1:30 PM CDT Surgery [facility] Operating Room 1 [place] [address] Jason Hess MD VALVE SPARING AORTIC ROOT REPLACEMENT 08/21/2024 6:55 AM CDT Ancillary Procedure [facility] Operating Room 1 [place] [address] 08/21/2024 5:03 AM CDT - 08/26/2024 1:20 PM CDT Hospital Encounter [address] [address] Jason Hess MD Aneurysm of ascending aorta without rupture (Primary Dx); Neuropathy; Dermatochalasis of both upper eyelids; S/P aortic aneurysm repair Discharge Disposition: Discharge to home or self care 08/13/2024 3:05 PM CDT Lab [facility] [address] [place] [id number] Aneurysm of ascending aorta without rupture; Preop testing 08/13/2024 Telephone [facility] [address] [facility] 8th Floor [address] Room [address] [place] [phone] Diane Mendez RMA 08/13/2024 Orders Only [facility] [address] [place] [address] Advanced Medicine 8th Floor [address] Room [address] [place] [phone] Jason Hess MD Aneurysm of ascending aorta without rupture (Primary Dx); Preop testing 08/10/2024 4:30 PM CDT Pre-Admission Testing [facility] for Preoperative Assessment and Planning [facility] [address] [place] [address] Pre-operative exam (Primary Dx) 08/10/2024 3:28 PM CDT - 08/10/2024 11:59 PM CDT Hospital Encounter [facility] Radiology [facility] ([facility]) [address] [place] [id number] Pre-operative exam Discharge Disposition: Discharge to home or self care 08/10/2024 7:45 AM CDT - 08/10/2024 11:59 PM CDT Hospital Encounter [facility] Diagnostic [facility] [address] [place] [phone] Aneurysm of ascending aorta without rupture Discharge Disposition: Discharge to home or self care 08/09/2024 9:35 AM CDT - 08/09/2024 11:00 AM CDT Surgery [facility] Heart and Vascular [address] [address] Ashley Beckman, LEFT HEART CATHETERIZATION WITH CORONARY ANGIOGRAPHY AND WITH OR WITHOUT LEFT VENTRICULOGRAM [id number] 08/09/2024 6:43 AM CDT - 08/09/2024 1:25 PM CDT Hospital Encounter [facility] critical [facility] Vascular [address] [address] 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, Aneurysm of ascending aorta without rupture Discharge Disposition: Discharge to home or self care 07/18/2024 Documentation [facility] [address] [facility] 8th Floor [address] Room [address] [place] [phone] Jason Hess MD Surgery Confirmation 07/18/2024 Orders Only [facility] [address] [facility] 8th Floor [address] Room [address] [place] [phone] Jason Hess MD 07/18/2024 Orders Only [facility] [address] [facility] 8th Floor [address] Room [address] [place] [phone] Jason Hess MD Aneurysm of ascending aorta without rupture (Primary Dx) 07/18/2024 Orders Only [facility] [address] [facility] 8th Floor [address] Room [address] [place] [phone] Jason Hess MD Aneurysm of ascending aorta without rupture (Primary Dx) 07/18/2024 Telephone [facility] [address] [facility] 8th [place] [address] [place] [address] surgery from Last 3 Months Immunizations Immunization Administration Dates Next Due [employer] ([employer]) SARS-CoV-2 Vaccination 07/07/2020 Tdap 03/12/2020 Surgical [...] ANGIOGRAPHY AND WITH OR WITHOUT LEFT VENTRICULOGRAM [id number]; Surgeon: Ashley Beckman DO; Location: [facility]; Service: Cardiovascular; Laterality: Left; Medical History Medical [...] Welch Heart disease Paternal Grandmother Soni Welch Malcaron Hyperthermia Neg Hx Pseudochol deficiency Neg Hx Relation Name Status Comments Brother [...] do you have a drink containing alcohol? Never 08/21/2024 Q2: How many drinks containi ng alcohol do you have on a typical day when you are drinking? Patient does not drink Q3: How often do you have si x or more drinks on one occasion? Never 08/21/2024 Personal Safety Answer Date Recorded Have you ever been in or are you currently in a harmful physical or emotional relationship or is someone making you feel afraid or unsafe? Denies 08/21/2024 Sex and Gender Information Value Date Recorded Sex Assigned at Not on file Legal Sex Male 3:02 AM INCLUSION INTERN Gender Identity Male 04/16/2021 11:58 AM INCLUSION INTERN Sexual Orientation Straight 04/02/2019 2: 04 PM INCLUSION INTERN Obstetrics History Last Filed Vital Signs Vital Sign Reading Time Taken Comments Blood Pressure 125/72 08/29/2024 11:30 AM CDT Pulse 84 08/29/2024 11:30 AM CDT Temperature 36.7 C (98.1 F) 08/26/2024 11:48 AM CDT Respiratory Rate 18 08/26/2024 11:48 AM CDT Oxygen Saturation 96% 08/29/2024 11:30 AM CDT Inhaled Oxygen Concentration - - Weight 102.6 kg (226 lb 4 oz) 08/29/2024 11:30 A M CDT Height 185.4 cm (6' 1 ) 08/29/2024 11:30 AM CDT Body Mass Index 29.85 08/29/2024 11:30 AM CDT Plan of Treatment Health Maintenance Due Date Last Done Comments Depression Screening 1960 Prostate Cancer Screening-PSA 1960 Hepatitis [...] 05/14/2015 Colon Cancer Screening-Sigmoidoscopy Discontinued 10/14/2020, 05/14/2015 Hepatitis C Screening Completed 08/21/2024 Pneumococcal vaccine <65 Aged Out No longer eligible based on patient's age to complete this topic Medical Devices Implanted Type Area Porcelain Technician Device Identifier Shelf Expiration Date Model / Serial / Lot [employer] Ar-2324 Bcm Swivelock 4.75mm 24.5mm Self Punch Vent Shoulder [place] Suture - [id number] Implanted:Qty: 1 on 09/11/2018 by Dwayne Torrez MD at [facility] Right: Shoulder [employer] 01/30/2020 AR-[id number] CM / / [id number] [employer] [place] [employer] Graft Straight Thoracic Collagen Coated Double Velour Hemashield [place] 01hin39ve Woven Polyester [id number] - [id number] - [id number] Implanted:Qty: 1 on 08/21/2024 by Jason Hess MD at [facility] N/A: Mediastinum [employer] [id number] 03/01/2029 [id number] / [id number] / [id number] [employer] [place] [employer] Graft Straight Thoracic Collagen Coated Double Velour Hemashield [place] 14cer79ok Woven Polyester [id number] - [id number] - [id number] Implanted:Qty: 1 on 08/21/2024 by Jason Hess MD at [facility] N/A: Mediastinum [employer] [id number] 12/30/2028 [id number] / [id number] / [id number] Bard Peripheral Vascular 6x6in Patch Thk1.65mm [place] [employer] Ptfe Sterile Latex Free [id number] - [id number] Implanted:Qty: 1 on 08/21/2024 by Jason Hess MD at [facility] N/A: Aorta Bard Peripheral Vascular [id number] / / Procedures Procedure Name Priority Date/Time Associated Diagnosis Comments ECG 12-LEAD Routine 08/29/2024 11:33 AM CDT Essential hypertension EGFR Routine 08/25/2024 9:36 PM CDT CBC WITHOUT DIFFERENTIAL Routine 08/25/2024 9:36 PM CDT BASIC METABOLIC PANEL Routine 08/25/2024 9:36 PM CDT XR CHEST PA LATERAL 2 VIEWS IP Routine 08/25/2024 12:17 PM CDT TYPE AND SCREEN Timed 08/25/2024 4:29 AM CDT CBC WITHOUT DIFFERENTIAL Timed 08/25/2024 4:29 AM CDT EGFR Routine 08/24/2024 10:19 PM CDT TYPE AND SCREEN Timed 08/24/2024 10:19 PM CDT PHOSPHORUS Routine 08/24/2024 10:19 PM CDT MAGNESIUM Routine 08/24/2024 10:19 PM CDT CBC WITHOUT DIFFERENTIAL Routine 08/24/2024 10:19 PM CDT BASIC METABOLIC PANEL Routine 08/24/2024 10:19 PM CDT XR CHEST 1 VIEW Timed 08/24/2024 9:45 PM CDT PHOSPHORUS Routine 08/23/2024 10:42 PM CDT EGFR Routine 08/23/2024 10:42 PM CDT MAGNESIUM Routine 08/23/2024 10:42 PM CDT CBC WITHOUT DIFFERENTIAL Routine 08/23/2024 10:42 PM CDT BASIC METABOLIC PANEL Routine 08/23/2024 10:42 PM CDT POCT GLUCOSE DEVICE Routine 08/23/2024 9 :14 PM CDT XR CHEST 1 VIEW Timed 08/23/2024 9:02 PM CDT EGFR Routine 08/23/2024 12:09 AM CDT PHOSPHORUS Routine 08/23/2024 12:09 AM CDT POTASSIUM, WHOLE BLOOD Routine 12:09 AM CDT BASIC METABOLIC PANEL Routine 08/23/2024 12:09 AM CDT CBC WITHOUT DIFFERENTIAL Routine 08/23/2024 12:09 AM CDT XR CHEST 1 VIEW IP Routine 08/22/2024 7:41 PM CDT CRITICAL CARE Routine 08/22/2024 6:40 PM CDT Dermatochalasis of both upper eyelids POCT GLUCOSE DEVICE Routine 08/22/2024 5 :25 PM CDT POCT GLUCOSE DEVICE Routine 08/22/2024 11:17 AM CDT CRITICAL CARE Routine 08/22/2024 11:15 AM CDT Aneurysm of ascending aorta without rupture POCT GLUCOSE DEVICE Routine 08/22/2024 7 :[address] STROKE PROTOCOL WO CONTRAST Critical/Life- Threatening 08/22/2024 6:06 AM CDT POCT GLUCOSE DEVICE Routine 08/22/2024 5 :45 AM CDT OXYHEMOGLOBIN, PULMONARY ARTERY STAT 08/22/2024 5:12 AM CDT POTASSIUM, WHOLE BLOOD STAT 5:12 AM CDT POCT GLUCOSE DEVICE Routine 08/22/2024 4 :00 AM CDT OXYHEMOGLOBIN, PULMONARY ARTERY STAT 08/22/2024 3:47 AM CDT POTASSIUM, WHOLE BLOOD STAT 3:47 AM CDT POTASSIUM LEVEL Timed 08/22/2024 3:47 AM CDT POCT GLUCOSE DEVICE Routine 08/22/2024 12:31 AM CDT EGFR Routine 08/22/2024 12:26 AM CDT BLOOD GAS, ARTERIAL STAT 08/22/2024 12:26 AM CDT OXYHEMOGLOBIN, PULMONARY ARTERY STAT 08/22/2024 12:26 AM CDT POTASSIUM, WHOLE BLOOD STAT 12:26 AM CDT PHOSPHORUS Routine 08/22/2024 12:26 AM CDT MAGNESIUM Routine 08/22/2024 12:26 AM CDT BASIC METABOLIC PANEL Routine 08/22/2024 12:26 AM CDT CBC WITHOUT DIFFERENTIAL Routine 08/22/2024 12:26 AM CDT POCT GLUCOSE DEVICE Routine 08/21/2024 7 :57 PM CDT TRIGLYCERIDES Timed 08/21/2024 7:53 PM CDT BLOOD GAS, ARTERIAL STAT 08/21/2024 7 :53 PM CDT POTASSIUM, WHOLE BLOOD Routine 7:53 PM CDT CALCIUM,IONIZED, WHOLE BLOOD STAT 08/21/2024 7:53 PM CDT CRITICAL CARE Routine 08/21/2024 6:35 PM CDT POCT GLUCOSE DEVICE Routine 08/21/2024 6 :10 PM CDT POCT GLUCOSE DEVICE Routine 08/21/2024 5 :06 PM CDT POCT GLUCOSE DEVICE Routine 08/21/2024 3 :54 PM CDT XR CHEST 1 VIEW ED Urgent/IP Urgent 08/21/2024 3:44 PM CDT OXYHEMOGLOBIN, PULMONARY ARTERY STAT 08/21/2024 3:00 PM CDT POC BLOOD GAS AND CHEMISTRIES, ARTERIAL Routine 08/21/2024 2:48 PM CDT EGFR STAT 08/21/2024 2:48 PM CDT APTT STAT 08/21/2024 2:48 PM CDT PROTIME-INR STAT 08/21/2024 2:48 PM CDT CBC WITHOUT DIFFERENTIAL STAT 08/21/2024 2:48 PM CDT MAGNESIUM STAT 08/21/2024 2:48 PM CDT BASIC METABOLIC PANEL STAT 08/21/2024 2:48 PM CDT TYPE AND SCREEN Timed 08/21/2024 2:48 PM CDT CV HYBRID ROOM (DEFAULT ORDERABLE) Routine 08/21/2024 2:21 PM CDT Aneurysm of ascending aorta without rupture POC BLOOD GAS AND CHEMISTRIES, ARTERIAL Routine 08/21/2024 1:48 PM CDT POCT PROTHROMBIN TIME Routine 08/21/2024 1:47 PM CDT POCT PARTIAL THROMBOPLASTIN TIME (PTT) Routine 08/21/2024 1:47 PM CDT POCT PLATELET COUNT AND HEMATOCRIT Routine 08/21/2024 1:47 PM CDT TRANSFUSE PLATELETS Timed 08/21/2024 12:55 PM CDT TRANSFUSE PLATELETS Timed 08/21/2024 12:55 PM CDT POCT HEPARIN/ACT CPB Routine 08/21/2024 12:47 PM CDT POC BLOOD GAS AND CHEMISTRIES, ARTERIAL Routine 08/21/2024 12:46 PM CDT POCT PROTHROMBIN TIME Routine 08/21/2024 12:45 PM CDT POCT PARTIAL THROMBOPLASTIN TIME (PTT) Routine 08/21/2024 12:44 PM CDT POCT PLATELET COUNT AND HEMATOCRIT Routine 08/21/2024 12:44 PM CDT PREPARE PLATELETS STAT 08/21/2024 12:36 PM CDT POCT HEPARIN/ACT CPB Routine 08/21/2024 11:37 AM CDT POC BLOOD GAS AND CHEMISTRIES, ARTERIAL Routine 08/21/2024 11:36 AM CDT POCT HEPARIN/ACT CPB Routine 08/21/2024 11:00 AM CDT POC BLOOD GAS AND CHEMISTRIES, ARTERIAL Routine 08/21/2024 10:58 AM CDT POCT HEPARIN/ACT CPB Routine 08/21/2024 10:23 AM CDT POC BLOOD GAS AND CHEMISTRIES, ARTERIAL Routine 08/21/2024 10:23 AM CDT HI AN PROCEDURE PLACEHOLDER Routine 08/21/2024 9:58 AM CDT HI AN PROCEDURE PLACEHOLDER Routine 08/21/2024 9:57 AM CDT PULMONARY ARTERY CATH Routine 08/21/2024 9:57 AM CDT BW AN SHEATH INTRODUCER PERFORMABLE Routine 08/21/2024 9:57 AM CDT POCT HEPARIN/ACT CPB Routine 08/21/2024 9:49 AM CDT POC BLOOD GAS AND CHEMISTRIES, ARTERIAL Routine 08/21/2024 9:49 AM CDT SURGICAL PATHOLOGY Routine 08/21/2024 9: 47 AM CDT Aneurysm of ascending aorta without rupture HIV 1/2 ANTIBODY PLUS P24 ANTIGEN Routine 08/21/2024 9:45 AM CDT HEPATITIS C ANTIBODY Routine 08/21/2024 9:45 AM CDT HEPATITIS B SURFACE ANTIGEN STAT 08/21/2024 9:45 AM CDT ANESTHESIA CENTRAL VENOUS LINE PLACEMENT Routine 08/21/2024 8:59 AM CDT ANESTHESIA ARTERIAL LINE PLACEMENT Routine 08/21/2024 8:59 AM CDT ANESTHESIA INTUBATION Routine 08/21/2024 8:57 AM CDT POCT HEPARIN/ACT CPB Routine 08/21/2024 8:56 AM CDT POC BLOOD GAS AND CHEMISTRIES, ARTERIAL Routine 08/21/2024 8:31 AM CDT POCT HEPARIN DOSE RESPONSE, CPB Routine 08/21/2024 8:27 AM CDT REPLACEMENT AORTIC VALVE/ROOT 08/21/2024 7:01 AM CDT Aneurysm of ascending aorta without rupture JEFF ADD-ON FOR OR Routine 08/21/2024 6:5 4 AM CDT PREPARE PLASMA STAT 08/21/2024 6:54 AM CDT PREPARE RBC STAT 08/21/2024 6:54 AM CDT B CHECK SAMPLE STAT 08/21/2024 5:57 AM CDT PROTIME-INR Routine 08/13/2024 3:18 PM CDT Aneurysm of ascending aorta without rupture Preop testing APTT Routine 08/13/2024 3:18 PM CDT Aneurysm of ascending aorta without rupture Preop testing XR CHEST PA LATERAL 2 VIEWS Schedule Routine, Read Routine (OP Routine) 08/10/2024 3:32 PM CDT Pre-operative exam TYPE AND SCREEN 14 DAY Routine 3:21 PM CDT Pre-operative exam URINALYSIS AND REFLEX TO MICROSCOPIC AND CULTURE Routine 08/10/2024 3:21 PM CDT Pre-operative exam TRANSTHORACIC ECHO (TTE) COMPLETE W DOPPLER/CF WO [...] Recently Relevant to Health Maintenance Results * ECG 12 lead (08/29/2024 11:33 AM CDT) us Ney Villalpando MD ECG ORDERABLES Edited Result - Final * eGFR (08/25/2024 9:36 PM CDT) eGFR 66 >=60 mL/min/1. 73 m2 Comment: Interpretive Data [...] interpretive data was last reviewed 2021. Blood 08/25/2024 9:36 PM CDT 08/25/2024 11:43 PM CDT us Moriah Stauffer [employer] LAB BLOOD ORDERABLES Final R esult [facility] [place] [address] * (ABNORMAL) CBC without differential (08/25/2024 9:36 PM CDT) WBC 5.23 3.80 - 9.90 K/cumm Hgb 7.3(L) 13.0 - 17.5 g/dL [facility] Hct 22.1(L) 38.9 - 50.3 % [facility] Plt 246 150 - 400 K/cumm [facility] MPV 10.0 9.1 - 12.3 fL [facility] RBC 2.35(L) 4.30 - 5.80 M/cumm [facility] MCV 94.0 81.3 - 96.4 fL [facility] MCH 31.1 27.1 - 33.3 pg [facility] MCHC 33.0 32.3 - 35.7 g/dL [facility] RDW CV 14.0 11.1 - 14.9 % [facility] RDW SD 47.5 35.7 - 48.1 fL [facility] NRBC abs 0.00 0.00 - 0.01 K/cumm [facility] Blood 08/25/2024 9:36 PM CDT 08/25/2024 11:42 PM CDT Moriah Stauffer [employer] LAB BLOOD ORDERABLES Final R esult Performing Organization Address [facility] Co de Phone Number [facility] Department [place] [address] * Basic metabolic panel (08/25/2024 9:36 PM CDT) [facility] Sodium 142 135 - 145 mmol/L Potassium, pl 4.5 3.3 - 4.9 mmol/L [facility] Chloride 104 97 - 110 mmol/L [facility] CO2 30 22 - 32 mmol/L [facility] Anion gap 8 2 - 15 mmol/L [facility] BUN 23 6 - 25 mg/dL [facility] Creatinine 1.22 0.80 - 1.30 mg/dL [facility] Glucose 92 70 - 199 mg/dL [facility] Comment: Interpretive Data Fasting glucose >/= [...] classification and Diagnosis of Diabetes Diabetes Care 2021; 46: S19-S40. Current interpretive data was last revised 2022. Calcium 8.8 8.5 - 10.3 mg/dL [facility] Blood 08/25/2024 9:36 PM CDT 08/25/2024 11:43 PM CDT Moriah Stauffer [employer] LAB BLOOD ORDERABLES Final R esult Performing Organization Address [facility] Co de Phone Number [facility] Department [place] [address] * XR Chest PA Lateral 2 Views (08/25/2024 12:17 PM CDT) Anatomical Region Laterality Modality Body, Chest N/A Computed Radiogr aphy 08/25/2024 9:53 PM CDT Impressions 08/25/2024 9:53 PM CDT 2 views of the chest are compared to chest radiograph dated 08/24/2024. Median sternotomy wires are aligned. Old left-sided rib fractures again noted. Unchanged small right pleural effusion with associated atelectasis. Mild bibasilar atelectasis is unchanged. No pulmonary edema or new airspace opacity. No pneumothorax. Heart size and cardiomediastinal silhouette are unchanged. Electronically signed by: Herman Foster M.D. Narrative 08/25/2024 9:53 PM CDT EXAMINATION: 2 view chest radiograph Procedure Note Herman Foster MD - 08/25/2024 EXAMINATION: 2 view chest radiograph IMPRESSION: 2 views of the chest are compared to chest radiograph dated 08/24/2024. Median sternotomy wires are aligned. Old left-sided rib fractures again noted. Unchanged small right pleural effusion with associated atelectasis. Mild bibasilar atelectasis is unchanged. No pulmonary edema or new airspace opacity. No pneumothorax. Heart size and cardiomediastinal silhouette are unchanged. Electronically signed by: Herman Foster M.D. Moriah Stauffer [employer] IMG XR PROCEDURES Final Resu lt * (ABNORMAL) CBC without differential (08/25/2024 4:29 AM CDT) WBC 5.34 3.80 - 9.90 K/cumm Hgb 7.2(L) 13.0 - 17.5 g/dL [facility] Hct 21.1(L) 38.9 - 50.3 % [facility] Plt 183 150 - 400 K/cumm [facility] MPV 9.7 9.1 - 12.3 fL [facility] RBC 2.29(L) 4.30 - 5.80 M/cumm [facility] MCV 92.1 81.3 - 96.4 fL [facility] MCH 31.4 27.1 - 33.3 pg [facility] MCHC 34.1 32.3 - 35.7 g/dL [facility] RDW CV 13.7 11.1 - 14.9 % [facility] RDW SD 45.6 35.7 - 48.1 fL [facility] NRBC abs 0.00 0.00 - 0.01 K/cumm [facility] Blood 08/25/2024 4:29 AM CDT 08/25/2024 4:57 AM CDT Akiko Villavicencio NP LAB BLOOD ORDERABLES Final Result Performing Organization Address [facility] Co de Phone Number [facility] Department [place] [address] * Type and screen (08/25/2024 4:29 AM CDT) ABO Rh A Negative Neyda, indirect Negative [facility] Blood 08/25/2024 4:29 AM CDT 08/25/2024 10:38 AM CDT Narrative [facility] - 08/25/2024 11:15 AM CDT Has the patient had Daratumumab or Isatuximab in the past 6 months?->Unknown us Akiko Villavicencio NP LAB BLOOD BANK TEST ORDERA BLES Final Result [facility] Department [place] [address] * eGFR (08/24/2024 10:19 PM CDT) eGFR 72 >=60 mL/min/1. 73 m2 Comment: Interpretive Data [...] interpretive data was last reviewed 2021. Blood 08/24/2024 10:1 9 PM CDT 08/24/2024 10:48 PM CDT us Moriah Stauffer [employer] LAB BLOOD ORDERABLES Final R esult [facility] Department [place] [address] * (ABNORMAL) CBC without differential (08/24/2024 10:19 PM CDT) WBC 5.96 3.80 - 9.90 K/cumm Hgb 7.2(L) 13.0 - 17.5 g/dL [facility] Hct 21.0(L) 38.9 - 50.3 % [facility] Plt 173 150 - 400 K/cumm [facility] MPV 10.1 9.1 - 12.3 fL [facility] RBC 2.29(L) 4.30 - 5.80 M/cumm [facility] MCV 91.7 81.3 - 96.4 fL [facility] MCH 31.4 27.1 - 33.3 pg [facility] MCHC 34.3 32.3 - 35.7 g/dL [facility] RDW CV 13.8 11.1 - 14.9 % [facility] RDW SD 46.2 35.7 - 48.1 fL [facility] NRBC abs 0.00 0.00 - 0.01 K/cumm [facility] Blood 08/24/2024 10:1 9 PM CDT 08/24/2024 10:48 PM CDT Moriah Stauffer NP LAB BLOOD ORDERABLES Final R esult Performing Organization Address City/[facility]/ZIP Co de Phone Number [facility] [place] [address] * Type and screen (08/24/2024 10:19 PM CDT) Pathologist [facility] Neyda, indirect Negative ABO Rh A Negative [facility] Blood 08/24/2024 10:1 9 PM CDT 08/24/2024 10:57 PM CDT Narrative [facility] - 08/25/2024 7:33 AM CDT Has the patient had Daratumumab or Isatuximab in the past 6 months?->Unknown Moriah Stauffer NP LAB BLOOD BANK TEST ORDERABL ES Final Result Performing Organization Address [facility] Co de Phone Number [facility] [place] [address] * Phosphorus (08/24/2024 10:19 PM CDT) Pathologist [facility] Phosphorus, pl 3.5 2.3 - 4.5 mg/dL Blood 08/24/2024 10:1 9 PM CDT 08/24/2024 10:48 PM CDT us Lakisha Viera [employer] LAB BLOOD ORDERABLES Final Result Performing Organization Address City/[facility]/[place] [address] * Magnesium (08/24/2024 10:19 PM CDT) Pathologist [facility] Magnesium 2.1 1.4 - 2.5 mg/dL Blood 08/24/2024 10:1 9 PM CDT 08/24/2024 10:48 PM CDT Moriah Stauffer [employer] LAB BLOOD ORDERABLES Final R esult Performing Organization Address City/[facility] Co de Phone Number [facility] Department [place] [address] * Basic metabolic panel (08/24/2024 10:19 PM CDT) [facility] Sodium 142 135 - 145 mmol/L Potassium, pl 4.3 3.3 - 4.9 mmol/L [facility] Chloride 106 97 - 110 mmol/L [facility] CO2 30 22 - 32 mmol/L [facility] Anion gap 6 2 - 15 mmol/L [facility] BUN 24 6 - 25 mg/dL [facility] Creatinine 1.14 0.80 - 1.30 mg/dL [facility] Glucose 108 70 - 199 mg/dL [facility] Comment: Interpretive Data Fasting glucose >/= [...] classification and Diagnosis of Diabetes Diabetes Care 2021; 46: S19-S40. Current interpretive data was last revised 2022. Calcium 8.8 8.5 - 10.3 mg/dL [facility] Blood 08/24/2024 10:1 9 PM CDT 08/24/2024 10:48 PM CDT Moriah Stauffer NP LAB BLOOD ORDERABLES Final R esult Performing Organization Address [facility] Co de Phone Number [facility] Department [place] [address] * XR Chest 1 View (08/24/2024 9:45 PM CDT) Anatomical Region Laterality Modality Body, Chest N/A Digital Radiogra phy 08/25/2024 6:20 AM CDT Impressions 08/25/2024 6:20 AM CDT Median sternotomy wires again seen. Stable mild enlargement of the cardiomediastinal silhouette. Right costophrenic angle opacity may be due to atelectasis or trace pleural effusion. Minimal atelectasis or trace fluid along the right minor fissure. Mild left basilar atelectasis. No pneumothorax. Healed left rib fractures again seen. Electronically signed by: John Arauz M.D. Narrative 08/25/2024 6:20 AM CDT EXAMINATION: 1 view chest radiograph COMPARISON: 08/23/2024 Procedure Note John Arauz MD - 08/25/2024 EXAMINATION: 1 view chest radiograph COMPARISON: 08/23/2024 IMPRESSION: Median sternotomy wires again seen. Stable mild enlargement of the cardiomediastinal silhouette. Right costophrenic angle opacity may be due to atelectasis or trace pleural effusion. Minimal atelectasis or trace fluid along the right minor fissure. Mild left basilar atelectasis. No pneumothorax. Healed left rib fractures again seen. Electronically signed by: John Arauz M.D. Sneha Rodriguez [employer] IMG XR PROCEDURES Final Re sult * eGFR (08/23/2024 10:42 PM CDT) eGFR 77 >=60 mL/min/1. 73 m2 Comment: Interpretive Data [...] interpretive data was last reviewed 2021. Blood 08/23/2024 10:4 2 PM CDT 08/23/2024 11:14 PM CDT us Moriah Stauffer [employer] LAB BLOOD ORDERABLES Final R esult [facility] Department [place] [address] * (ABNORMAL) CBC without differential (08/23/2024 10:42 PM CDT) WBC 7.17 3.80 - 9.90 K/cumm Hgb 7.8(L) 13.0 - 17.5 g/dL [facility] Hct 23.1(L) 38.9 - 50.3 % [facility] Plt 112(L) 150 - 400 K/cumm [facility] MPV 11.0 9.1 - 12.3 fL [facility] RBC 2.51(L) 4.30 - 5.80 M/cumm [facility] MCV 92.0 81.3 - 96.4 fL [facility] MCH 31.1 27.1 - 33.3 pg [facility] MCHC 33.8 32.3 - 35.7 g/dL [facility] RDW CV 13.7 11.1 - 14.9 % [facility] RDW SD 46.0 35.7 - 48.1 fL [facility] NRBC abs 0.00 0.00 - 0.01 K/cumm [facility] Blood 08/23/2024 10:4 2 PM CDT 08/23/2024 11:13 PM CDT Moriah Stauffer NP LAB BLOOD ORDERABLES Final R esult Performing Organization Address City/[facility] Co de Phone Number [facility] [place] [address] * Phosphorus (08/23/2024 10:42 PM CDT) [facility] Phosphorus, pl 2.7 2.3 - 4.5 mg/dL Blood 08/23/2024 10:4 2 PM CDT 08/23/2024 11:14 PM CDT Jason Hess MD LAB BLOOD ORDERABLES Final Resul t Performing Organization Address [facility] Co de Phone Number [facility] Department [place] [address] * Magnesium (08/23/2024 10:42 PM CDT) [facility] Magnesium 2.1 1.4 - 2.5 mg/dL Blood 08/23/2024 10:4 2 PM CDT 08/23/2024 11:08 PM CDT Jason Hess MD LAB BLOOD ORDERABLES Final Resul t Performing Organization Address [facility] de Phone Number [facility] Department [place] [address] * Basic metabolic panel (08/23/2024 10:42 PM CDT) [facility] Sodium 138 135 - 145 mmol/L Potassium, pl 4.3 3.3 - 4.9 mmol/L [facility] Comment:Hemolyzed; Potassium value may be falsely elevated by as much as 0.3-0.5 mmol/L. Suggest redraw and reanalysis. Chloride 104 97 - 110 mmol/L [facility] CO2 29 22 - 32 mmol/L [facility] Anion gap 5 2 - 15 mmol/L [facility] BUN 19 6 - 25 mg/dL [facility] Creatinine 1.07 0.80 - 1.30 mg/dL [facility] Glucose 103 70 - 199 mg/dL [facility] Comment: Interpretive Data Fasting glucose >/= [...] classification and Diagnosis of Diabetes Diabetes Care 2021; 46: S19-S40. Current interpretive data was last revised 2022. Calcium 9.0 8.5 - 10.3 mg/dL [facility] Blood 08/23/2024 10:4 2 PM CDT 08/23/2024 11:08 PM CDT us Moriah Stauffer [employer] LAB BLOOD ORDERABLES Final R esult Performing Organization Address City/[facility]/ZIP Co de Phone Number [facility] [place] [address] * POCT glucose (08/23/2024 9:14 PM CDT) Glucose, POC 121 70 - 199 mg/dL Blood 08/23/2024 9:14 PM CDT 08/23/2024 9:14 PM CDT us Jason Hess MD LAB POCT ORDERABLES - DEVICE Fin al Result Performing Organization Address [facility]/ZIP Co de Phone Number [facility] Department [place] [address] * XR Chest 1 View (08/23/2024 9:02 PM CDT) Anatomical Region Laterality Modality Body, Chest N/A Computed Radiogr aphy 08/24/2024 8:38 AM CDT Impressions 08/24/2024 11:08 AM CDT Comparison 08/22/2024. Sternal wires are aligned. Interval removal of the right internal jugular line. Small lung volume. No definite pleural effusion or pneumothorax. Stable widened cardiac mediastinal silhouette. Old healed left rib fractures seen. Left lower lobe atelectasis. Dictated by: Maria D Carlton MD The radiology attending physician has personally reviewed this study, and had reviewed and/or edited this written report and agrees with it. Electronically signed by: César Davis M.D. Narrative 08/24/2024 11:08 AM CDT EXAMINATION: 1 view chest radiograph Procedure Note César Davis MD - 08/24/2024 EXAMINATION: 1 view chest radiograph IMPRESSION: Comparison 08/22/2024. Sternal wires are aligned. Interval removal of the right internal jugular line. Small lung volume. No definite pleural effusion or pneumothorax. Stable widened cardiac mediastinal silhouette. Old healed left rib fractures seen. Left lower lobe atelectasis. Dictated by: Maria D Carlton MD The radiology attending physician has personally reviewed this study, and had reviewed and/or edited this written report and agrees with it. Electronically signed by: César Davis M.D. Sneha Rodriguez [employer] IMG XR PROCEDURES Final Re sult * Potassium, whole blood (08/23/2024 12:09 AM CDT) [facility] Potassium, bld 4.1 3.3 - 4.9 mmol/L Blood 08/23/2024 12:0 9 AM CDT 08/23/2024 12:28 AM CDT us Ema Bell NP LAB BLOOD ORDERABLES Final Result [facility] Department [place] [address] * eGFR (08/23/2024 12:09 AM CDT) [facility] eGFR 68 >=60 mL/min/1. 73 m2 Comment: Interpretive Data [...] interpretive data was last reviewed 2021. Blood 08/23/2024 12:0 9 AM CDT 08/23/2024 12:40 AM CDT us Ema Bell [employer] LAB BLOOD ORDERABLES Final Result [facility] [place] [address] * (ABNORMAL) CBC without differential (08/23/2024 12:09 AM CDT) WBC 7.88 3.80 - 9.90 K/cumm Hgb 8.4(L) 13.0 - 17.5 g/dL [facility] Hct 24.8(L) 38.9 - 50.3 % [facility] Plt 146(L) 150 - 400 K/cumm [facility] MPV 10.5 9.1 - 12.3 fL [facility] RBC 2.67(L) 4.30 - 5.80 M/cumm [facility] MCV 92.9 81.3 - 96.4 fL [facility] MCH 31.5 27.1 - 33.3 pg [facility] MCHC 33.9 32.3 - 35.7 g/dL [facility] RDW CV 13.7 11.1 - 14.9 % [facility] RDW SD 45.9 35.7 - 48.1 fL [facility] NRBC abs 0.00 0.00 - 0.01 K/cumm [facility] Blood 08/23/2024 12:0 9 AM CDT 08/23/2024 12:40 AM CDT Ema Cantu Arabella [employer] LAB BLOOD ORDERABLES Final Result Performing Organization Address City/[facility] Co de Phone Number [facility] [place] [address] * Phosphorus (08/23/2024 12:09 AM CDT) [facility] Phosphorus, pl 3.1 2.3 - 4.5 mg/dL Blood 08/23/2024 12:0 9 AM CDT 08/23/2024 12:40 AM CDT Ema Cantu Bell [employer] LAB BLOOD ORDERABLES Final Result Performing Organization Address [facility] de Phone Number [facility] [place] [address] * Basic metabolic panel (08/23/2024 12:09 AM CDT) [facility] Sodium 138 135 - 145 mmol/L Potassium, pl 4.1 3.3 - 4.9 mmol/L [facility] Chloride 103 97 - 110 mmol/L [facility] CO2 28 22 - 32 mmol/L [facility] Anion gap 7 2 - 15 mmol/L [facility] BUN 22 6 - 25 mg/dL [facility] Creatinine 1.20 0.80 - 1.30 mg/dL [facility] Glucose 133 70 - 199 mg/dL [facility] Comment: Interpretive Data Fasting glucose >/= [...] classification and Diagnosis of Diabetes Diabetes Care 2021; 46: S19-S40. Current interpretive data was last revised 2022. Calcium 8.8 8.5 - 10.3 mg/dL [facility] Blood 08/23/2024 12:0 9 AM CDT 08/23/2024 12:40 AM CDT us Ema Alondra Arabella GRAHAM LAB BLOOD ORDERABLES Final Result [facility] [place] [address] * XR Chest 1 View - in PM (08/22/2024 7:41 PM CDT) Anatomical Region Laterality Modality Body, Chest N/A Computed Radiogr aphy 08/23/2024 9:05 AM CDT Impressions 08/23/2024 11:01 AM CDT The current study is compared with the prior radiograph dated 08/21/2024 at 3:14 PM. Patient is status post median sternotomy. Mediastinal and pericardial drains are noted. Right internal jugular venous approach catheter tip overlying the superior vena cava. Mild left basilar atelectasis. No pleural effusion or pneumothorax. Stable enlarged cardiomediastinal silhouette given differences in technique. Chronic healed left-sided rib deformities are again noted. Dictated by: Kaz Moctezuma M.D. The radiology attending physician has personally reviewed this study, and had reviewed and/or edited this written report and agrees with it. Electronically signed by: Yen Orellana M.D. Narrative 08/23/2024 11:01 AM CDT EXAMINATION: 1 view chest radiograph Procedure Note Yen Orellana MD - 08/23/2024 EXAMINATION: 1 view chest radiograph IMPRESSION: The current study is compared with the prior radiograph dated 08/21/2024 at 3:14 PM. Patient is status post median sternotomy. Mediastinal and pericardial drains are noted. Right internal jugular venous approach catheter tip overlying the superior vena cava. Mild left basilar atelectasis. No pleural effusion or pneumothorax. Stable enlarged cardiomediastinal silhouette given differences in technique. Chronic healed left-sided rib deformities are again noted. Dictated by: Kaz Moctezuma M.D. The radiology attending physician has personally reviewed this study, and had reviewed and/or edited this written report and agrees with it. Electronically signed by: Yen Orellana M.D. Ema Bell [employer] IMG XR PROCEDURES Final Re sult * Critical Care (08/22/2024 6:40 PM CDT) Narrative Efrem Ziegler MD PhD - 08/22/2024 6:40 PM CDT Efrem Ziegler MD PhD 08/23/2024 6:36 AM Critical Care Performed by: Yrn Porras PA Authorized by: Yrn Porras PA CRITICAL CARE: Team: 56 CTICU Shift: PM Level of Billing: Subsequent Hospital Visit Level 3 My time spent with this patient was 45 minutes: Critical Provider Statement: I have seen and examined the patient on this day of service. I have reviewed and confirmed the history, physical exam, laboratory, and radiographic data as documented in the ICU note. I have reviewed and discussed my treatment plan with the patient's team and other medical/oracle financials consultant staff. This time was in addition to and separate from care provided by other practitioners on this day of service. I spent time reviewing and interpreting data from bedside monitors, laboratory results, and imaging, I spent time discussing the management of this critically ill patient with consultants and the medical staff and I spent time documenting in the medical record Yrn FELIZ IN CLINIC/BEDSIDE ORDERAB LES Final Result * POCT glucose (08/22/2024 5:25 PM CDT) Glucose, POC 141 70 - 199 mg/dL Blood 08/22/2024 5:25 PM CDT 08/22/2024 5:25 PM CDT us Jason Hess MD LAB POCT ORDERABLES - DEVICE Fin al Result Performing Organization Address City/[facility] Co de Phone Number [facility] [place] [address] * POCT glucose (08/22/2024 11:17 AM CDT) Glucose, POC 140 70 - 199 mg/dL Blood 08/22/2024 11:1 7 AM CDT 08/22/2024 11:17 AM CDT Jason Hess MD LAB POCT ORDERABLES - DEVICE Fin al Result Performing Organization Address [facility] Co de Phone Number [facility] Department [place] [address] * Critical Care (08/22/2024 11:15 AM CDT) Narrative Efrem Ziegler MD PhD - 08/22/2024 11:15 AM CDT Efrem Ziegler MD PhD 08/22/2024 5:50 PM Critical Care Performed by: Ileana Shane DNP Authorized by: Ileana Shane DNP CRITICAL CARE: Team: 56 CTICU Shift: AM Level of Billing: Critical Care My time spent with this patient was 80 minutes: Critical Provider Statement: I have seen and examined the patient on this day of service. I have reviewed and confirmed the history, physical exam, laboratory and radiologic data as documented in the signed ICU note. I have reviewed and discussed my treatment plan with the ICU team and other medical/oracle financials consultant staff, making frequent assessments and decisions regarding this patient's complex medical care. Critical Care time was exclusive of time spent performing separately billed procedures, treating other patients, and teaching. This time was in addition to and separate from critical care provided by other practitioners in my group on this day of service. Critical Care was necessary to treat or prevent imminent or life-threatening deterioration of the following conditions: I spent time reviewing and interpreting data from bedside monitors, laboratory results, and imaging, I spent time discussing the management of this critically ill patient with consultants and the medical staff and I spent time documenting in the medical record us Ileana Shane DNP IN CLINIC/BEDSIDE ORDER SAMUEL Final Result * POCT glucose (08/22/2024 7:52 AM CDT) Glucose, POC 131 70 - 199 mg/dL Blood 08/22/2024 7:52 AM CDT 08/22/2024 7:52 AM CDT us Jason Hess MD LAB POCT ORDERABLES - DEVICE Fin al Result [facility] [place] [address] * CT Stroke Head WO Contrast (08/22/2024 6:06 AM CDT) Anatomical Region Laterality Modality Head N/A Computed Tomogra phy 08/22/2024 6:14 AM CDT Impressions 08/22/2024 8:20 AM CDT No acute intracranial hemorrhage or large territorial edematous infarct. The Critical results were discussed with Dr. Carroll Deluca by Dr. Carlos on 08/22/2024 at 6:14 AM Dictated by: Estiven Carlos MD The radiology attending physician has personally reviewed this study, and had reviewed and/or edited this written report and agrees with it. Electronically signed by: Dione Basurto M.D. Narrative 08/22/2024 8:20 AM CDT EXAMINATION: CT head without contrast HISTORY: Code stroke. Left hand numbness and weakness. NIHSS 1- not a TPA or thrombectomy candidate. TECHNIQUE: CT of the head was performed with images acquired from skull base to vertex without intravenous contrast. COMPARISON: None Available. FINDINGS: There is no acute intracranial hemorrhage. Ventricles are of normal size and morphology. No mass effect or midline shift is present. The lopez-white matter differentiation is normal. The visualized portions of the orbits are normal. The visualized portions of the mastoids are normal. The visualized portions of the paranasal sinuses are normal. No fractures are identified. Procedure Note Dione Basurto MD - 08/22/2024 EXAMINATION: CT head without contrast HISTORY: Code stroke. Left hand numbness and weakness. NIHSS 1- not a TPA or thrombectomy candidate. TECHNIQUE: CT of the head was performed with images acquired from skull base to vertex without intravenous contrast. COMPARISON: None Available. FINDINGS: There is no acute intracranial hemorrhage. Ventricles are of normal size and morphology. No mass effect or midline shift is present. The lopez-white matter differentiation is normal. The visualized portions of the orbits are normal. The visualized portions of the mastoids are normal. The visualized portions of the paranasal sinuses are normal. No fractures are identified. IMPRESSION: No acute intracranial hemorrhage or large territorial edematous infarct. The Critical results were discussed with Dr. Carroll Deluca by Dr. Carlos on 08/22/2024 at 6:14 AM Dictated by: Estiven Carlos MD The radiology attending physician has personally reviewed this study, and had reviewed and/or edited this written report and agrees with it. Electronically signed by: Dione Basurto M.D. Jason Hess MD IMG CT PROCEDURES Final Result * POCT glucose (08/22/2024 5:45 AM CDT) Glucose, POC 132 70 - 199 mg/dL Blood 08/22/2024 5:45 AM CDT 08/22/2024 5:45 AM CDT Jason Hess MD LAB POCT ORDERABLES - DEVICE Fin al Result [facility] Department [place] [address] * Oxyhemoglobin, pulmonary artery (08/22/2024 5:12 AM CDT) Oxyhemoglobin, PA 62.0 % Comment: Interpretive Data No reference range established. Current interpretive data was last revised 2019. Blood 08/22/2024 5:12 AM CDT 08/22/2024 5:25 AM CDT us Ema Bell [employer] LAB BLOOD ORDERABLES Final Result Performing Organization Address [facility] Co de Phone Number [facility] [place] [address] * Potassium, whole blood (08/22/2024 5:12 AM CDT) Potassium, bld 4.6 3.3 - 4.9 mmol/L Blood 08/22/2024 5:12 AM CDT 08/22/2024 5:25 AM CDT us Sneha Rodriguez [employer] LAB BLOOD ORDERABLES Final Result Performing Organization Address [facility] de Phone Number [facility] [place] [address] * POCT glucose (08/22/2024 4:00 AM CDT) Glucose, POC 142 70 - 199 mg/dL Blood 08/22/2024 4:00 AM CDT 08/22/2024 4:00 AM CDT Jason Hess MD LAB POCT ORDERABLES - DEVICE Fin al Result Performing Organization Address [facility] [place] [address] * Oxyhemoglobin, pulmonary artery (08/22/2024 3:47 AM CDT) Oxyhemoglobin, PA 60.7 % Comment: Interpretive Data No reference range established. Current interpretive data was last revised 2019. Blood 08/22/2024 3:47 AM CDT 08/22/2024 4:09 AM CDT Ema Alondra Bell [employer] LAB BLOOD ORDERABLES Final Result Performing Organization Address [facility] Co de Phone Number [facility] [place] [address] * Potassium, whole blood (08/22/2024 3:47 AM CDT) Potassium, bld 4.9 3.3 - 4.9 mmol/L Blood 08/22/2024 3:47 AM CDT 08/22/2024 4:09 AM CDT Sneha Rodriguez [employer] LAB BLOOD ORDERABLES Final Result Performing Organization Address [facility] Co de Phone Number [facility] [place] [address] * (ABNORMAL) Potassium (08/22/2024 3:47 AM CDT) Potassium, pl 5.2(H) 3.3 - 4.9 mmol/L Blood 08/22/2024 3:47 AM CDT 08/22/2024 4:09 AM CDT Narrative [facility] - 08/22/2024 4:31 AM CDT Provider to discontinue after two normal results. Jason Hess MD LAB BLOOD ORDERABLES Final Resul t Performing Organization Address [facility] Co de Phone Number [facility] [place] [address] * POCT glucose (08/22/2024 12:31 AM CDT) Glucose, POC 151 70 - 199 mg/dL Blood 08/22/2024 12:3 1 AM CDT 08/22/2024 12:31 AM CDT Jason Hess MD LAB POCT ORDERABLES - DEVICE Fin al Result Performing Organization Address [facility] Co de Phone Number [facility] [place] [address] * Oxyhemoglobin, pulmonary artery (08/22/2024 12:26 AM CDT) Oxyhemoglobin, PA 72.1 % Comment: Interpretive Data No reference range established. Current interpretive data was last revised 2019. Blood 08/22/2024 12:2 6 AM CDT 08/22/2024 12:43 AM CDT us Ema Bell [employer] LAB BLOOD ORDERABLES Final Result Performing Organization Address [facility] Co de Phone Number [facility] [place] [address] * (ABNORMAL) Potassium, whole blood (08/22/2024 12:26 AM CDT) Pathologist [facility] Potassium, bld 5.3(H) 3.3 - 4.9 mmol/L Blood 08/22/2024 12:2 6 AM CDT 08/22/2024 12:43 AM CDT us Sneha Rodriguez [employer] LAB BLOOD ORDERABLES Final Result Performing Organization Address [facility] Co de Phone Number [facility] [place] [address] * eGFR (08/22/2024 12:26 AM CDT) eGFR 62 >=60 mL/min/1. 73 m2 Comment: Interpretive Data [...] interpretive data was last reviewed 2021. Blood 08/22/2024 12:2 6 AM CDT 08/22/2024 12:46 AM CDT us Ema Bell NP LAB BLOOD ORDERABLES Final Result Performing Organization Address City/State/[facility] Co de Phone Number [facility] Department [place] [address] * (ABNORMAL) CBC without differential (08/22/2024 12:26 AM CDT) WBC 7.94 3.80 - 9.90 K/cumm Hgb 9.8(L) 13.0 - 17.5 g/dL [facility] Hct 29.5(L) 38.9 - 50.3 % [facility] Plt 161 150 - 400 K/cumm [facility] MPV 10.0 9.1 - 12.3 fL [facility] RBC 3.17(L) 4.30 - 5.80 M/cumm [facility] MCV 93.1 81.3 - 96.4 fL [facility] MCH 30.9 27.1 - 33.3 pg [facility] MCHC 33.2 32.3 - 35.7 g/dL [facility] RDW CV 13.2 11.1 - 14.9 % [facility] RDW SD 45.2 35.7 - 48.1 fL [facility] NRBC abs 0.00 0.00 - 0.01 K/cumm [facility] Blood 08/22/2024 12:2 6 AM CDT 08/22/2024 12:46 AM CDT Ema Bell [employer] LAB BLOOD ORDERABLES Final Result Performing Organization Address City/[facility] Co de Phone Number [facility] [place] [address] * (ABNORMAL) Phosphorus (08/22/2024 12:26 AM CDT) Phosphorus, pl 5.4(H) 2.3 - 4.5 mg/dL Blood 08/22/2024 12:2 6 AM CDT 08/22/2024 12:46 AM CDT Ema Bell [employer] LAB BLOOD ORDERABLES Final Result Performing Organization Address [facility] Co de Phone Number [facility] [place] [address] * Magnesium (08/22/2024 12:26 AM CDT) Magnesium 2.2 1.4 - 2.5 mg/dL Blood 08/22/2024 12:2 6 AM CDT 08/22/2024 12:46 AM CDT Ema Bell [employer] LAB BLOOD ORDERABLES Final Result Performing Organization Address [facility] Co de Phone Number [facility] [place] [address] * (ABNORMAL) Blood gas, arterial (08/22/2024 12:26 AM CDT) pH, Art 7.33(L) 7.35 - 7.45 PCO2, Arterial 49(H) 35 - 45 mmHg [facility] PO2, Arterial 132(H) 83 - 108 mmHg [facility] HCO3 Art (Calculated) 27 20 - 30 mmol/L [facility] BE, art 0 mmol/L [facility] Comment: Interpretive Data No Reference Range Established Current Interpretive Data was last revised on 2017 O2 Sat Art (Measured) 99(H) 90 - 95 % [facility] Blood 08/22/2024 12:2 6 AM CDT 08/22/2024 12:43 AM CDT Ema Alondra Bell [employer] LAB BLOOD ORDERABLES Final Result Performing Organization Address City/[facility]/ZIP Co de Phone Number [facility] Department [place] [address] * (ABNORMAL) Basic metabolic panel (08/22/2024 12:26 AM CDT) [facility] Sodium 139 135 - 145 mmol/L Potassium, pl 5.6(H) 3.3 - 4.9 mmol/L [facility] Chloride 106 97 - 110 mmol/L [facility] CO2 27 22 - 32 mmol/L [facility] Anion gap 6 2 - 15 mmol/L [facility] BUN 23 6 - 25 mg/dL [facility] Creatinine 1.29 0.80 - 1.30 mg/dL [facility] Glucose 154 70 - 199 mg/dL [facility] Comment: Interpretive Data Fasting glucose >/= [...] classification and Diagnosis of Diabetes Diabetes Care 2021; 46: S19-S40. Current interpretive data was last revised 2022. Calcium 8.7 8.5 - 10.3 mg/dL [facility] Blood 08/22/2024 12:2 6 AM CDT 08/22/2024 12:46 AM CDT Ema Cantu Arabella [employer] LAB BLOOD ORDERABLES Final Result Performing Organization Address [facility]/ZIP Co de Phone Number [facility] Department [place] [address] * POCT glucose (08/21/2024 7:57 PM CDT) Glucose, POC 163 70 - 199 mg/dL Blood 08/21/2024 7:57 PM CDT 08/21/2024 7:57 PM CDT Jason Hess MD LAB POCT ORDERABLES - DEVICE Fin al Result [facility] [place] [address] * (ABNORMAL) Potassium, whole blood (08/21/2024 7:53 PM CDT) Potassium, bld 5.1(H) 3.3 - 4.9 mmol/L Blood 08/21/2024 7:53 PM CDT 08/21/2024 8:34 PM CDT Jason Hess MD LAB BLOOD ORDERABLES Final Resul t Performing Organization Address City/[facility]/[place] [address] * Calcium, ionized, whole blood (08/21/2024 7:53 PM CDT) Ca, ionized, bld 5.03 4.50 - 5.10 mg/dL Blood 08/21/2024 7:53 PM CDT 08/21/2024 8:34 PM CDT Jason Hess MD LAB BLOOD ORDERABLES Final Resul t [facility] [place] [address] * Triglycerides (08/21/2024 7:53 PM CDT) Triglycerides 59 <=149 mg/dL Comment: Interpretive Data Ages < or = 9 years Acceptable: <75 mg/dL Borderline high: 75-99 mg/dL High: >or= 100 mg/dL Ages 10 to 20 years Acceptable: <90 mg/dL Borderline high: 90-129 mg/dL High: >or= 130 mg/dL Ages > or = 20 years Desirable: <150 mg/dL Borderline high: 150-199 mg/dL High: 200-499 mg/dL Very high: >or= 499 mg/dL Literature References: 1. Expert Panel on Integrated Guidelines for Cardiovascular Health and Risk Reduction in Children and Adolescents. Pediatrics 2011;128:S213 2. NCEP Expert Panel. Circulation 2004;110:227 Current Interpretive Data was last revised on 2017. Blood 08/21/2024 7:53 PM CDT 08/21/2024 8:34 PM CDT Narrative [facility] - 08/21/2024 9:02 PM CDT While on propofol infusion. us Ema Bell [employer] LAB BLOOD ORDERABLES Final Result [facility] [place] [address] * (ABNORMAL) Blood gas, arterial (08/21/2024 7:53 PM CDT) pH, Art 7.32(L) 7.35 - 7.45 PCO2, Arterial 47(H) 35 - 45 mmHg [facility] PO2, Arterial 99 83 - 108 mmHg [facility] HCO3 Art (Calculated) 25 20 - 30 mmol/L [facility] BE, art -2 mmol/L [facility] Comment: Interpretive Data No Reference Range Established Current Interpretive Data was last revised on 2017 O2 Sat Art (Measured) 97(H) 90 - 95 % [facility] Blood 08/21/2024 7:53 PM CDT 08/21/2024 8:34 PM CDT us Jason Hess MD LAB BLOOD ORDERABLES Final Resul t Performing Organization Address [facility] Co de Phone Number [facility] [place] [address] * Critical Care (08/21/2024 6:35 PM CDT) Narrative Efrem Ziegler MD PhD - 08/21/2024 6:35 PM CDT Efrem Ziegler MD PhD 08/22/2024 6:40 AM Critical Care Performed by: Ema Bell NP Authorized by: Ema Bell NP CRITICAL CARE: Team: 56 CTICU Shift: AM Level of Billing: Critical Care My time spent with this patient was 90 minutes: Critical Provider Statement: I have seen and examined the patient on this day of service. I have reviewed and confirmed the history, physical exam, laboratory and radiologic data as documented in the signed ICU note. I have reviewed and discussed my treatment plan with the ICU team and other medical/oracle financials consultant staff, making frequent assessments and decisions regarding this patient's complex medical care. Critical Care time was exclusive of time spent performing separately billed procedures, treating other patients, and teaching. This time was in addition to and separate from critical care provided by other practitioners in my group on this day of service. Critical Care was necessary to treat or prevent imminent or life-threatening deterioration of the following conditions: I spent time reviewing and interpreting data from bedside monitors, laboratory results, and imaging, I spent time discussing the management of this critically ill patient with consultants and the medical staff and I spent time documenting in the medical record Ema Bell [employer] IN CLINIC/BEDSIDE ORDERABL ES Final Result * POCT glucose (08/21/2024 6:10 PM CDT) Glucose, POC 125 70 - 199 mg/dL Blood 08/21/2024 6:10 PM CDT 08/21/2024 6:10 PM CDT Jason Hess MD LAB POCT ORDERABLES - DEVICE Fin al Result Performing Organization Address [facility]/ZIP Co de Phone Number [facility] [place] [address] * POCT glucose (08/21/2024 5:06 PM CDT) Glucose, POC 98 70 - 199 mg/dL Blood 08/21/2024 5:06 PM CDT 08/21/2024 5:06 PM CDT Jason Hess MD LAB POCT ORDERABLES - DEVICE Fin al Result Performing Organization Address [facility] [place] [address] * POCT glucose (08/21/2024 3:54 PM CDT) Glucose, POC 103 70 - 199 mg/dL Blood 08/21/2024 3:54 PM CDT 08/21/2024 3:54 PM CDT Jason Hess MD LAB POCT ORDERABLES - DEVICE Fin al Result Performing Organization Address [facility] [place] [address] * XR Chest 1 View (08/21/2024 3:44 PM CDT) Anatomical Region Laterality Modality Body, Chest N/A Digital Radiogra phy 08/21/2024 4:46 PM CDT Impressions 08/21/2024 4:56 PM CDT The current study is compared with the prior radiograph dated 08/10/2024 at 3:32 PM. Patient is status post median sternotomy. Endotracheal tube terminates 4.2 cm above the kirill. Right internal jugular venous approach catheter tip overlying the superior vena cava. Right internal jugular venous approach [place] catheter with tip overlying the right pulmonary artery. Pericardial drain in place. Mediastinal drain noted. Left retrocardiac opacity compatible with atelectasis. Lungs otherwise clear. No pneumothorax seen. Enlarged cardiomediastinal silhouette which is an expected finding in the recent postoperative setting. Multiple old left-sided rib fracture deformities noted. Dictated by: Kaz Moctezuma M.D. The radiology attending physician has personally reviewed this study, and had reviewed and/or edited this written report and agrees with it. Electronically signed by: César Davis M.D. Narrative 08/21/2024 4:56 PM CDT EXAMINATION: 1 view chest radiograph Procedure Note César Davis MD - 08/21/2024 EXAMINATION: 1 view chest radiograph IMPRESSION: The current study is compared with the prior radiograph dated 08/10/2024 at 3:32 PM. Patient is status post median sternotomy. Endotracheal tube terminates 4.2 cm above the kirill. Right internal jugular venous approach catheter tip overlying the superior vena cava. Right internal jugular venous approach [place] catheter with tip overlying the right pulmonary artery. Pericardial drain in place. Mediastinal drain noted. Left retrocardiac opacity compatible with atelectasis. Lungs otherwise clear. No pneumothorax seen. Enlarged cardiomediastinal silhouette which is an expected finding in the recent postoperative setting. Multiple old left-sided rib fracture deformities noted. Dictated by: Kaz Moctezuma M.D. The radiology attending physician has personally reviewed this study, and had reviewed and/or edited this written report and agrees with it. Electronically signed by: César Davis M.D. Jason Hess MD IMG XR PROCEDURES Final Result * Oxyhemoglobin, pulmonary artery (08/21/2024 3:00 PM CDT) Oxyhemoglobin, PA 83.9 % Comment: Interpretive Data No reference range established. Current interpretive data was last revised 2019. Blood 08/21/2024 3:00 PM CDT 08/21/2024 3:20 PM CDT Ema Bell [employer] LAB BLOOD ORDERABLES Final Result [facility] [place] [address] * eGFR (08/21/2024 2:48 PM CDT) eGFR 68 >=60 mL/min/1. 73 m2 Comment: Interpretive Data [...] interpretive data was last reviewed 2021. Blood 08/21/2024 2:48 PM CDT 08/21/2024 3:15 PM CDT us Jason Hess MD LAB BLOOD ORDERABLES Final Resul t [facility] AMBROSIO Marcela [facility] [place] [address] * (ABNORMAL) POC Blood Gas and Chemistries, Arterial - (08/21/2024 2:48 PM CDT) pH, Art POC 7.38 7.35 - 7.45 pCO2, Art POC 39 35 - 45 mmHg [facility] pO2, Art POC 144(H) 83 - 108 mmHg [facility] Na, POC 139 135 - 145 mmol/L [facility] K POC 4.0 3.3 - 4.9 mmol/L [facility] Comment: Interpretive Data Not all point of care methods assess for hemolysis. Confirm with instrument and retest K+ if not consistent with clinical signs and symptoms. Current Interpretive Data was last revised on 2023. Cl, POC 110 97 - 110 mmol/L [facility] Ionized Ca, POC 5.38(H) 4.50 - 5.10 mg/dL [facility] Glucose, POC 133 70 - 199 mg/dL [facility] Lactate, POC 2.5(H) 0.7 - 2.0 mmol/L [facility] SO2 (jose angel) arterial 99(H) 90 - 95 % [facility] Base excess, POC -1.8 mmol/L [facility] HCO3, Art POC 23 20 - 30 mmol/L [facility] Hct, POC 32.0(L) 41.4 - 51.6 % [facility] Total Hb, POC 10.7(L) 13.8 - 17.2 g/dL [facility] Blood 08/21/2024 2:48 PM CDT 08/21/2024 2:48 PM CDT Jason Hess MD LAB POCT ORDERABLES - DEVICE Fin al Result Performing Organization Address City/[facility] Co de Phone Number [facility] [place] [address] * aPTT (08/21/2024 2:48 PM CDT) aPTT 29 28 - 38 sec Comment: Interpretive Data Heparin therapeutic range: 66.0 - 100.0 seconds. Range based on correlation with therapeutic heparin activity range of 0.3 - 0.7 Units/mL. Current interpretive data was last revised on 2023. Blood 08/21/2024 2:48 PM CDT 08/21/2024 3:09 PM CDT Jason Hess MD LAB BLOOD ORDERABLES Final Resul t Performing Organization Address City/[facility]/ZIP Co de Phone Number [facility] [place] [address] * (ABNORMAL) Protime-INR (08/21/2024 2:48 PM CDT) [facility] PT 13.4(H) 9.7 - 13.0 sec INR 1.24(H) 0.90 - 1.20 [facility] Comment: Interpretive data Oral anticoagulant therapeutic ranges: Venous thromboembolism prophylaxis or treatment: 2.0-3.0 CARDIOLOGY Standard range: 2.0-3.0 High-intensity range: 2.5-3.5 Refer to indication-specific guidelines for appropriate target ranges for prosthetic heart valve replacement. Current interpretive data was last revised on 2019. Blood 08/21/2024 2:48 PM CDT 08/21/2024 3:09 PM CDT us Jason Hess MD LAB BLOOD ORDERABLES Final Resul t [facility] [place] [address] * (ABNORMAL) CBC without differential (08/21/2024 2:48 PM CDT) [facility] WBC 11.46(H) 3.80 - 9.90 K/cumm Hgb 10.1(L) 13.0 - 17.5 g/dL [facility] Hct 29.8(L) 38.9 - 50.3 % [facility] Plt 155 150 - 400 K/cumm [facility] MPV 9.6 9.1 - 12.3 fL [facility] RBC 3.24(L) 4.30 - 5.80 M/cumm [facility] MCV 92.0 81.3 - 96.4 fL [facility] MCH 31.2 27.1 - 33.3 pg [facility] MCHC 33.9 32.3 - 35.7 g/dL [facility] RDW CV 13.2 11.1 - 14.9 % [facility] RDW SD 44.8 35.7 - 48.1 fL [facility] NRBC abs 0.00 0.00 - 0.01 K/cumm [facility] Blood 08/21/2024 2:48 PM CDT 08/21/2024 3:15 PM CDT Jason Hess MD LAB BLOOD ORDERABLES Final Resul t Performing Organization Address [facility] Co de Phone Number [facility] [place] [address] * Type and screen (08/21/2024 2:48 PM CDT) ABO Rh A Negative Neyda, indirect Negative [facility] Blood 08/21/2024 2:48 PM CDT 08/21/2024 3:36 PM CDT Narrative [facility] - 08/21/2024 4:41 PM CDT Has the patient had Daratumumab or Isatuximab in the past 6 months?->Unknown Sneha Rodriguez NP LAB BLOOD BANK TEST ORDERA BLES Final Result Performing Organization Address [facility] Co de Phone Number [facility] [place] [address] * Magnesium (08/21/2024 2:48 PM CDT) [facility] Magnesium 2.5 1.4 - 2.5 mg/dL Blood 08/21/2024 2:48 PM CDT 08/21/2024 3:15 PM CDT Jason Hess MD LAB BLOOD ORDERABLES Final Resul t Performing Organization Address [facility] [place] [address] * Basic metabolic panel (08/21/2024 2:48 PM CDT) Pathologist [facility] Sodium 142 135 - 145 mmol/L Potassium, pl 3.9 3.3 - 4.9 mmol/L [facility] Comment:Hemolyzed; Potassium value may be falsely elevated by as much as 0.3-0.5 mmol/L. Suggest redraw and reanalysis. Chloride 109 97 - 110 mmol/L [facility] CO2 26 22 - 32 mmol/L [facility] Anion gap 7 2 - 15 mmol/L [facility] BUN 17 6 - 25 mg/dL [facility] Creatinine 1.20 0.80 - 1.30 mg/dL [facility] Glucose 128 70 - 199 mg/dL [facility] Comment: Interpretive Data Fasting glucose >/= [...] classification and Diagnosis of Diabetes Diabetes Care 2021; 46: S19-S40. Current interpretive data was last revised 2022. Calcium 9.3 8.5 - 10.3 mg/dL [facility] Blood 08/21/2024 2:48 PM CDT 08/21/2024 3:15 PM CDT Jason Hess MD LAB BLOOD ORDERABLES Final Resul t [facility] One [facility] Department [place] [address] * REPAIR ANEURYSM ASCENDING AORTIC (08/21/2024 2:21 PM CDT) Anatomical Region Laterality Modality X-Ray Angiograph y Narrative 08/21/2024 2:21 PM CDT Please see OpNote for result. Jason Hess MD SURGICAL CASE ORDERS Final Resul t * (ABNORMAL) POC Blood Gas and Chemistries, Arterial - (08/21/2024 1:48 PM CDT) pH, Art POC 7.34(L) 7.35 - 7.45 pCO2, Art POC 42 35 - 45 mmHg [facility] pO2, Art POC 332(H) 83 - 108 mmHg [facility] Na, POC 140 135 - 145 mmol/L [facility] K POC 3.7 3.3 - 4.9 mmol/L [facility] Comment: Interpretive Data Not all point of care methods assess for hemolysis. Confirm with instrument and retest K+ if not consistent with clinical signs and symptoms. Current Interpretive Data was last revised on 2023. Cl, POC 109 97 - 110 mmol/L [facility] Ionized Ca, POC 5.76(H) 4.50 - 5.10 mg/dL [facility] Glucose, POC 174 70 - 199 mg/dL [facility] Lactate, POC 2.7(H) 0.7 - 2.0 mmol/L [facility] SO2 (jose angel) arterial 100(H) 90 - 95 % [facility] Base excess, POC -2.9 mmol/L [facility] HCO3, Art POC 23 20 - 30 mmol/L [facility] Hct, POC 30.0(L) 41.4 - 51.6 % [facility] Total Hb, POC 10.0(L) 13.8 - 17.2 g/dL [facility] Blood 08/21/2024 1:48 PM CDT 08/21/2024 1:48 PM CDT us Jason Hess MD LAB POCT ORDERABLES - DEVICE Fin al Result [facility] One [facility] Department [place] [address] * (ABNORMAL) POCT prothrombin time (08/21/2024 1:47 PM CDT) PT, POC 21.1(H) 11.7 - 16.6 sec INR, POC 1.6(H) 0.9 - 1.2 [facility] Blood 08/21/2024 1:47 PM CDT 08/21/2024 1:47 PM CDT Jason Hess MD LAB POCT ORDERABLES - DEVICE Fin al Result Performing Organization Address [facility] de Phone Number [facility] [place] [address] * (ABNORMAL) POCT hemoglobin, hematocrit and platelet count (08/21/2024 1:47 PM CDT) Hgb, POC 9.4(L) 13.0 - 17.5 g/dL Hematocrit POC 28.7(L) 38.9 - 50.3 % [facility] Platelet POC 150 150 - 400 K/cumm [facility] Blood 08/21/2024 1:47 PM CDT 08/21/2024 1:47 PM CDT Jason Hess MD LAB POCT ORDERABLES - DEVICE Fin al Result Performing Organization Address [facility] Co de Phone Number [facility] [place] [address] * POCT Partial thromboplastin time (PTT) (08/21/2024 1:47 PM CDT) [facility] APTT, POC 41.5 32.5 - 46.1 sec Blood 08/21/2024 1:47 PM CDT 08/21/2024 1:47 PM CDT Jason Hess MD LAB POCT ORDERABLES - DEVICE Fin al Result Performing Organization Address [facility] Co de Phone Number [facility] [place] [address] * Transfuse platelets (08/21/2024 12:56 PM CDT) Blood Christine Loaiza MD BLOOD TRANSFUSION ORDERA BLES Final Result Performing Organization Address [facility] Co de Phone Number [facility] [place] [address] * Transfuse platelets (08/21/2024 12:56 PM CDT) Blood Christine Loaiza MD BLOOD TRANSFUSION ORDERA BLES Final Result Performing Organization Address [facility] [place] [address] * POCT heparin/ACT CPB (08/21/2024 12:47 PM CDT) Pathologist [facility] Heparin POC 0.0 units/mL ACT, CPB 113 112 - 174 sec [facility] Blood 08/21/2024 12:4 7 PM CDT 08/21/2024 12:47 PM CDT us Jason Hess MD LAB POCT ORDERABLES - DEVICE Fin al Result Performing Organization Address [facility] [place] [address] * (ABNORMAL) POC Blood Gas and Chemistries, Arterial - (08/21/2024 12:46 PM CDT) pH, Art POC 7.33(L) 7.35 - 7.45 pCO2, Art POC 40 35 - 45 mmHg [facility] pO2, Art POC 303(H) 83 - 108 mmHg [facility] Na, POC 139 135 - 145 mmol/L [facility] K POC 3.9 3.3 - 4.9 mmol/L [facility] Comment: Interpretive Data Not all point of care methods assess for hemolysis. Confirm with instrument and retest K+ if not consistent with clinical signs and symptoms. Current Interpretive Data was last revised on 2023. Cl, POC 108 97 - 110 mmol/L [facility] Ionized Ca, POC 4.71 4.50 - 5.10 mg/dL [facility] Glucose, POC 236(H) 70 - 199 mg/dL [facility] Lactate, POC 2.9(H) 0.7 - 2.0 mmol/L [facility] SO2 (jose angel) arterial 100(H) 90 - 95 % [facility] Base excess, POC -4.5 mmol/L [facility] HCO3, Art POC 22 20 - 30 mmol/L [facility] Hct, POC 31.0(L) 41.4 - 51.6 % [facility] Total Hb, POC 10.3(L) 13.8 - 17.2 g/dL [facility] Blood 08/21/2024 12:4 6 PM CDT 08/21/2024 12:46 PM CDT Jason Hess MD LAB POCT ORDERABLES - DEVICE Fin al Result Performing Organization Address [facility] Co de Phone Number [facility] [place] [address] * (ABNORMAL) POCT prothrombin time (08/21/2024 12:45 PM CDT) PT, POC 22.4(H) 11.7 - 16.6 sec INR, POC 1.7(H) 0.9 - 1.2 [facility] Blood 08/21/2024 12:4 5 PM CDT 08/21/2024 12:45 PM CDT Jason Hess MD LAB POCT ORDERABLES - DEVICE Fin al Result Performing Organization Address City/[facility]/ZIP Co de Phone Number [facility] [place] [address] * (ABNORMAL) POCT hemoglobin, hematocrit and platelet count (08/21/2024 12:44 PM CDT) Hgb, POC 9.9(L) 13.0 - 17.5 g/dL Hematocrit POC 29.3(L) 38.9 - 50.3 % [facility] Platelet POC 114(L) 150 - 400 K/cumm [facility] Blood 08/21/2024 12:4 4 PM CDT 08/21/2024 12:44 PM CDT Jason Hess MD LAB POCT ORDERABLES - DEVICE Fin al Result Performing Organization Address City/[facility] Co de Phone Number [facility] Department [place] [address] * POCT Partial thromboplastin time (PTT) (08/21/2024 12:44 PM CDT) Pathologist [facility] APTT, POC 41.5 32.5 - 46.1 sec Blood 08/21/2024 12:4 4 PM CDT 08/21/2024 12:44 PM CDT Jason Hess MD LAB POCT ORDERABLES - DEVICE Fin al Result Performing Organization Address City/[facility] Co de Phone Number [facility] [place] [address] * Prepare platelets: 2 Units (08/21/2024 12:36 PM CDT) Product code [id number] [facility] Unit Number [id number] [facility] Product Blood Type APOS [facility] Dispense Status PRESUMED TRANSFUSED [facility] Product code [id number] Unit Number [id number] [facility] Product Blood Type APOS [facility] Dispense Status PRESUMED TRANSFUSED [facility] Blood Venous blood specimen / Unknown 08/21/2024 12:36 PM CDT 08/21/2024 12:36 PM CDT Narrative [facility] - 08/22/2024 12:55 AM CDT Other indication->cts Are special requirements needed? (all products are leukoreduced)->No Date required:-[id number] PLT # of Units:-2-Units Reasons:-Other (Specify)} Christine Loaiza MD BLOOD BANK PRODUCT ORDER SAMUEL Final Result Performing Organization Address City/[facility]/ZIP Co de Phone Number [facility] [place] [address] * (ABNORMAL) POCT heparin/ACT CPB (08/21/2024 11:37 AM CDT) Pathologist [facility] Heparin POC >4.7 units/mL ACT, CPB 549(H) 112 - 174 sec [facility] Blood 08/21/2024 11:3 7 AM CDT 08/21/2024 11:37 AM CDT Jason Hess MD LAB POCT ORDERABLES - DEVICE Fin al Result Performing Organization Address [facility] de Phone Number [facility] [place] [address] * (ABNORMAL) POC Blood Gas and Chemistries, Arterial - (08/21/2024 11:36 AM CDT) Pathologist [facility] pH, Art POC 7.36 7.35 - 7.45 pCO2, Art POC 41 35 - 45 mmHg [facility] pO2, Art POC 220(H) 83 - 108 mmHg [facility] Na, POC 138 135 - 145 mmol/L [facility] K POC 4.5 3.3 - 4.9 mmol/L [facility] Comment: Interpretive Data Not all point of care methods assess for hemolysis. Confirm with instrument and retest K+ if not consistent with clinical signs and symptoms. Current Interpretive Data was last revised on 2023. Cl, POC 108 97 - 110 mmol/L [facility] Ionized Ca, POC 4.82 4.50 - 5.10 mg/dL [facility] Glucose, POC 218(H) 70 - 199 mg/dL [facility] Lactate, POC 1.8 0.7 - 2.0 mmol/L [facility] SO2 (jose angel) arterial 100(H) 90 - 95 % [facility] Base excess, POC -2.1 mmol/L [facility] HCO3, Art POC 23 20 - 30 mmol/L [facility] Hct, POC 32.0(L) 41.4 - 51.6 % [facility] Total Hb, POC 10.8(L) 13.8 - 17.2 g/dL [facility] Blood 08/21/2024 11:3 6 AM CDT 08/21/2024 11:36 AM CDT Jason Hess MD LAB POCT ORDERABLES - DEVICE Fin al Result Performing Organization Address [facility] Co de Phone Number [facility] [place] [address] * (ABNORMAL) POCT heparin/ACT CPB (08/21/2024 11:00 AM CDT) Heparin POC >4.7 units/mL ACT, CPB 518(H) 112 - 174 sec [facility] Blood 08/21/2024 11:0 0 AM CDT 08/21/2024 11:00 AM CDT Jason Hess MD LAB POCT ORDERABLES - DEVICE Fin al Result Performing Organization Address [facility] de Phone Number [facility] [place] [address] * (ABNORMAL) POC Blood Gas and Chemistries, Arterial - (08/21/2024 10:58 AM CDT) pH, Art POC 7.33(L) 7.35 - 7.45 pCO2, Art POC 40 35 - 45 mmHg [facility] pO2, Art POC 268(H) 83 - 108 mmHg [facility] Na, POC 137 135 - 145 mmol/L [facility] K POC 4.9 3.3 - 4.9 mmol/L [facility] Comment: Interpretive Data Not all point of care methods assess for hemolysis. Confirm with instrument and retest K+ if not consistent with clinical signs and symptoms. Current Interpretive Data was last revised on 2023. Cl, POC 107 97 - 110 mmol/L [facility] Ionized Ca, POC 4.85 4.50 - 5.10 mg/dL [facility] Glucose, POC 220(H) 70 - 199 mg/dL [facility] Lactate, POC 1.5 0.7 - 2.0 mmol/L [facility] SO2 (jose angel) arterial 100(H) 90 - 95 % [facility] Base excess, POC -4.5 mmol/L [facility] HCO3, Art POC 22 20 - 30 mmol/L [facility] Hct, POC 33.0(L) 41.4 - 51.6 % [facility] Total Hb, POC 11.0(L) 13.8 - 17.2 g/dL [facility] Blood 08/21/2024 10:5 8 AM CDT 08/21/2024 10:58 AM CDT Jason Hess MD LAB POCT ORDERABLES - DEVICE Fin al Result Performing Organization Address City/[facility]/ZIP Co de Phone Number [facility] Department [place] [address] * (ABNORMAL) POCT heparin/ACT CPB (08/21/2024 10:23 AM CDT) Heparin POC >4.7 units/mL ACT, CPB 538(H) 112 - 174 sec [facility] Blood 08/21/2024 10:2 3 AM CDT 08/21/2024 10:23 AM CDT Jason Hess MD LAB POCT ORDERABLES - DEVICE Fin al Result [facility] [place] [address] * (ABNORMAL) POC Blood Gas and Chemistries, Arterial - (08/21/2024 10:23 AM CDT) pH, Art POC 7.39 7.35 - 7.45 pCO2, Art POC 36 35 - 45 mmHg [facility] pO2, Art POC 297(H) 83 - 108 mmHg [facility] Na, POC 136 135 - 145 mmol/L [facility] K POC 4.6 3.3 - 4.9 mmol/L [facility] Comment: Interpretive Data Not all point of care methods assess for hemolysis. Confirm with instrument and retest K+ if not consistent with clinical signs and symptoms. Current Interpretive Data was last revised on 2023. Cl, POC 107 97 - 110 mmol/L [facility] Ionized Ca, POC 4.74 4.50 - 5.10 mg/dL [facility] Glucose, POC 211(H) 70 - 199 mg/dL [facility] Lactate, POC 1.5 0.7 - 2.0 mmol/L [facility] SO2 (jose angel) arterial 100(H) 90 - 95 % [facility] Base excess, POC -2.7 mmol/L [facility] HCO3, Art POC 23 20 - 30 mmol/L [facility] Hct, POC 33.0(L) 41.4 - 51.6 % [facility] Total Hb, POC 10.9(L) 13.8 - 17.2 g/dL [facility] Blood 08/21/2024 10:2 3 AM CDT 08/21/2024 10:23 AM CDT us Jason Hess MD LAB POCT ORDERABLES - DEVICE Fin al Result Performing Organization Address City/State/[facility] Co de Phone Number [facility] One [facility] [place] [address] * HI AN PROCEDURE PLACEHOLDER (08/21/2024 9:58 AM CDT) Anatomical Region Laterality Modality Other Narrative 08/21/2024 9:58 AM CDT Christine Loaiza MD 08/22/2024 7:02 AM JEFF Date/time: Staff: Supervising anesthesiologist: Christine Loaiza MD Performed by: 1st Fellow: Balta Villalta MD Preprocedure checklist: patient identified, procedure contraindications assessed, procedure consent, risks, benefits and alternatives discussed, monitors and equipment checked, timeout performed and JEFF probe inserted into esophagus using lubricating jelly General procedure Information: Reason for procedure/indications: assessment of ascending aorta and assessment of surgical repair Performed: personally and with fellows Procedure performed at surgeon's request: yes Results discussed with surgeon: yes Images submitted to archive: yes Patient location: OR Intubated: yes Bite blocked placed: yes Probe Insertion: easy Complications: no Probe type: adult Modalities: 2D imaging, 3D imaging, continuous wave Doppler, pulsed wave Doppler and color Doppler Billing information: Physician requesting echo: Jason Hess MD CPT code: JEFF placement and diagnostic exam, non-congenital (69657) Echocardiographic and doppler measurements: Ventricles: Left ventricle: Cavity size: normal Hypertrophy: No Thrombus: No Global function: normal LVEF%: normal Right ventricle: Cavity size: mildly dilated Hypertrophy: no Thrombus: No Global function: normal Interventricular septum: normal Regional function: 1- Basal anteroseptal: normal 2- Basal anterior: normal 3- Basal anterolateral: normal 4- Basal inferolateral: normal 5- Basal inferior: normal 6- Basal inferoseptal: normal 7- Mid anteroseptal: normal 8- Mid anterior: normal 9- Mid anterolateral: normal 10- Mid inferolateral: normal 11- Mid inferior: normal 12- Mid inferoseptal: normal 13- Apical anterior: normal 14- Apical lateral: normal 15- Apical inferior: normal 16- Apical septal: normal 17- Waite: normal Valves: Aortic Valve: Annulus: normal Leaflet morphology: normal Leaflet motion: normal Stenosis: none Regurgitation: trace Mitral valve: Annulus: normal Leaflet morphology anterior: normal Leaflet morphology posterior: normal Leaflet motion anterior: normal Leaflet motion posterior: normal Stenosis: none Regurgitation: mild Tricuspid valve: Annulus: normal Leaflet morphology: normal Leaflet motion: normal Stenosis: none Regurgitation: mild Pulmonic valve: Annulus: normal Leaflet morphology: calcified Stenosis: none Regurgitation: mild Aorta: Ascending aorta: Size: dilated Dissection: no Aortic arch: Size: normal Dissection: no Descending aorta: Size: normal Dissection: no Atria: Right atrium: Size: normal Spontaneous echo contrast: No Thrombus: no Mass: No Left atrium: Size: normal (normal) Spontaneous echo contrast: No Thrombus: no Mass: No Left atrial appendage: normal Interatrial septum: normal Diastolic function and other findings: Pericardium: normal Left pleural effusion: none Right pleural effusion: normal Pre-procedure JEFF exam summary: Pre-CPB JEFF performed under GA+PPV No inotropic or mechanical support SB Overall qualitatively normal BiV function without RWMAs No PFO on CFD & GRADY clear from thrombi Trileaflet, non-calcified AV with trace AI and no Mild central MR Mild TR Trace-Mild PI No significant pericardial or pleural effusions Visualized portions of the aorta are free from dissection planes All findings communicated with surgical team Postprocedure (follow-up) JEFF exam: LV: unchanged RV: unchanged Interventricular septum: unchanged Aortic valve: unchanged Mitral valve: unchanged Pulmonic valve: unchanged Tricuspid valve: unchanged Atria: unchanged Pericardium: unchanged Left pleural: unchanged Right pleural: unchanged Postprocedure (follow-up) JEFF exam comments: Post-CPB JEFF performed under GA+PPV 3 WASTE RECYCLER DDD at 90 Overall LV function remains unchanged RV function seems mildly decreased from prior, but improving No new significant valvulopathies New root & ascending aortic grafts appreciated No significant pericardial or pleural effusions Visualized portions of the aorta are free from dissection planes All findings communicated with surgical team Attestation Statement: By signing this report the attending anesthesiologist certifies that he or she has personally reviewed and interpreted the echocardiogram and has reviewed and or edited and agrees with the written comments contained within the report. us Christine Loaiza MD ANESTHESIA ORDERABLES Fi nal Result * BW AN SHEATH INTRODUCER PERFORMABLE, PULMONARY ARTERY CATH, HI AN PROCEDURE PLACEHOLDER (59:57 AM CDT) Narrative Christine Loaiza MD - 08/21/2024 9:57 AM CDT Christine Loaiza MD 08/22/2024 7:02 AM Central Venous Line Patient location: OR Indication: central venous access Other indication: For large volume transfusions and-or placement of PA catheter and-or placement of a SLIC catheter for more IV access Staff: Supervising provider: Christine Loaiza MD Placed by: Fellow: Balta Villalta MD Other staff: Jono Singh RN Procedure prep: Patient position: Trendelenburg. PPE: provider hand hygiene, provider hat/mask, sterile gloves, sterile gown, full body drape, sterile gel and sterile probe covers. Prep solution: chlorhexadine/alcohol was applied to area. Ultrasound Evaluation: Ultrasound was prepped into field. Ultrasound image(s) saved to archive. Prior to the procedure, the cannulated vein was evaluated by ultrasound and deemed suitably patent for access.This vessel was accessed using real-time ultrasound guidance and an image was placed in the patient's medical record Central line: Laterality: right Site: internal jugular An individually distinct skin insertion site is being utilized for placement of the catheter. Catheter type: introducer sheath Catheter size: 9 Fr. Catheter length (cm): 11. Catheter length at skin: 11 cm Technique: anatomy identified with surface landmarks, anatomy identified with ultrasound, vein located with finder needle, Seldinger technique, wire threaded easily and wire removed intact Venous verification: manometry and ultrasound confirmation Post insertion: all ports aspirated, all ports flushed easily, line sutured in place and occlusive dressing applied Chlorhexidine patch applied: yes Number of attempts: 1 PA catheter placement: PA catheter type: oximetric PA catheter size: 7 Fr PA catheter laterality: right PA catheter site: internal jugular Placement guided by: pressure tracing changes and verified by TEENo Assessment: Events: patient tolerated procedure well with no complications Christine Loaiza MD ANESTHESIA ORDERABLES Fi nal Result * (ABNORMAL) POCT heparin/ACT CPB (08/21/2024 9:49 AM CDT) [facility] Heparin POC <4.9 units/mL ACT, CPB 543(H) 112 - 174 sec [facility] Blood 08/21/2024 9:49 AM CDT 08/21/2024 9:49 AM CDT Jason Hess MD LAB POCT ORDERABLES - DEVICE Fin al Result [facility] One [facility] Department [place] [address] * (ABNORMAL) POC Blood Gas and Chemistries, Arterial - (08/21/2024 9:49 AM CDT) pH, Art POC 7.37 7.35 - 7.45 pCO2, Art POC 40 35 - 45 mmHg [facility] pO2, Art POC 256(H) 83 - 108 mmHg [facility] Na, POC 136 135 - 145 mmol/L [facility] K POC 5.1(H) 3.3 - 4.9 mmol/L [facility] Comment: Interpretive Data Not all point of care methods assess for hemolysis. Confirm with instrument and retest K+ if not consistent with clinical signs and symptoms. Current Interpretive Data was last revised on 2023. Cl, POC 108 97 - 110 mmol/L [facility] Ionized Ca, POC 4.81 4.50 - 5.10 mg/dL [facility] Glucose, POC 193 70 - 199 mg/dL [facility] Lactate, POC 1.6 0.7 - 2.0 mmol/L [facility] SO2 (jose angel) arterial 100(H) 90 - 95 % [facility] Base excess, POC -2.0 mmol/L [facility] HCO3, Art POC 23 20 - 30 mmol/L [facility] Hct, POC 32.0(L) 41.4 - 51.6 % [facility] Total Hb, POC 10.5(L) 13.8 - 17.2 g/dL [facility] Blood 08/21/2024 9:49 AM CDT 08/21/2024 9:49 AM CDT us Jason Hess MD LAB POCT ORDERABLES - DEVICE Fin al Result [facility] [place] [address] * Surgical pathology (08/21/2024 9:47 AM CDT) Tissue (Aorta) 08/21/2024 9: 47 AM CDT Narrative PATHOLOGY [facility] - 08/24/2024 10:53 AM CDT EPIC results best viewed via link to PDF [facility] [place] [address] Note to Patients: This report may contain a detailed description of human tissue sent by a health care provider to the laboratory for pathologic evaluation. The content of this report is essential for diagnosis and may provide important critical findings. This information may be unfamiliar to patients to review without a medical professional present. It is advised that the patient review this report in the presence of a health care provider who can answer questions and explain the details. SURGICAL PATHOLOGY REPORT FINAL Patient Name: CHICA WELCH Gender: M : 1960 (Age: 64) Address: [address] [place] [id number] Hospital #: [id number] Taken:08/21/2024 Received:08/21/2024 Reported: 08/24/2024 Patient Type: [facility] Inpatient Service: Cardiothoracic Location: [place] [address] Physician(s): Jason Hess M.D. Dimasaran Mckinney M.D. Diagnosis: A. Aorta, excision: - Cystic medial degeneration 08/24/2024 10:53 By this signature, I attest that the above diagnosis is based upon my personal examination of the slides(and/or other material indicated in the diagnosis). Marco Antonio Adames M.D. Report Electronically Reviewed and Signed Out By Marco Antonio Adames M.D. 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 Operative procedure: Replacement aortic valve/root and repair aneurysm Specimen(s) Received: A: Aorta Gross Description: Received in formalin labeled with patient identifiers and aorta are five fragments of aortic wall that range from 1.7 to 7.0 cm in greatest dimension aggregating to 7.0 x 4.0 x 1.3 cm. The wall measures up to 0.3 cm in thickness. The tunica adventitia is lopez purple and roughened to ulloa-yellow and lobulated. The tunica intima is ulloa-white and smooth with fatty streaking. Software Database Architect sections are submitted. Labeled A1. Jar 1. rxr/08/22/2024 13:39 PA(s): Lizette Revels, MS, TRINI(ASCP)CM By this signature, I attest that the above diagnosis is based upon my personal examination of the slides(and/or other material). Addenda/Procedures The performance characteristics of some immunohistochemical stains, fluorescence in-situ hybridization tests and immunophenotyping by flow cytometry cited in this report (if any) were determined by the Surgical Pathology and Flow Cytometry Departments at [facility] as part of an ongoing quality technician fiberglass program and in compliance with federally mandated regulations drawn from the Clinical Laboratory Improvement Act of 1988 (CLIA '88). Some of these tests rely on the use of analyte specific reagents and are subject to specific labeling requirements by the US Food and Drug Administration. Such diagnostic tests may only be performed in a facility that is certified by the Department of Health and Human Services as a high complexity laboratory under CLIA '88. The FDA has determined that such clearance or approval is not necessary. This test is used for clinical purposes. It should not be regarded as investigational or for research. Nevertheless, federal rules concerning the medical use of analyte specific reagents require that the following disclaimer be attached to the report: This test was developed and its performance characteristics determined by the Surgical Pathology and Flow Cytometry Departments of [facility]. It has not been cleared or approved by the U. S. Food and Drug Administration. IMAGES AND SCANNED DOCUMENTS, IF INCLUDED, ONLY VIEWABLE IN PDF VERSION OF REPORT Jason Hess MD LAB PATHOLOGY ORDERABLES Final R esult PATHOLOGY [facility] 3rd Floor [place], [place] [phone] * HIV 1/2 Antibody plus p24 Antigen Blood (08/21/2024 9:45 AM CDT) HIV 1/2 ab + p24 ag Nonreactive Nonreactive Comment:Nonreactive for HIV- 1 antigen and HIV-1/HIV-2 antibodies. No laboratory evidence of HIV infection. If acute HIV infection is suspected, consider testing for HIV-1 RNA. Current interpretive data was last revised on 21. Blood 08/21/2024 9:45 AM CDT 08/21/2024 11:09 AM CDT us Notinfile Unknown LAB MICROBIOLOGY - GENERAL ORD ERABLES Final Result Performing Organization Address [facility] Co de Phone Number [facility] [place] [address] * Hepatitis C antibody Blood (08/21/2024 9:45 AM CDT) Hep C Ab Nonreactive Nonreactive Comment:Antibodies to HCV no t detected. Does NOT exclude the possibility of recent exposure to HCV. Current interpretive data was last revised on 21 Blood 08/21/2024 9:45 AM CDT 08/21/2024 11:09 AM CDT us Notinfile Unknown LAB MICROBIOLOGY - GENERAL ORD ERABLES Final Result Performing Organization Address [facility] [place] [address] * Hepatitis B Surface Antigen Blood (08/21/2024 9:45 AM CDT) HepBsAg Nonreactive Nonreactive Blood 08/21/2024 9:45 AM CDT 08/21/2024 11:09 AM CDT us Notinfile Unknown LAB MICROBIOLOGY - GENERAL ORD ERABLES Final Result Performing Organization Address [facility] de Phone Number [facility] [place] [address] * Central Venous Line (08/21/2024 8:59 AM CDT) Narrative Balta Villalta MD - 08/21/2024 8:59 AM CDT Balta Villalta MD 08/21/2024 9:57 AM Central Venous Line Patient location: OR Indication: central venous access and CVP monitoring Staff: Supervising provider: Christine Loaiza MD Placed by: Fellow: Balta Villalta MD Other staff: Jono Singh RN Procedure prep: Patient position: supine. PPE: provider hand hygiene, provider hat/mask, sterile gloves, large sterile drape, full body drape, sterile gel, sterile probe covers and sterile gown. Prep solution: chlorhexadine/alcohol was applied to area. Ultrasound Evaluation: Ultrasound was prepped into field. Ultrasound image(s) saved to archive. Central line: Laterality: right Site: internal jugular Catheter type: quad lumen Catheter size: 7.5 Fr. Catheter length: 15 cm Technique: anatomy identified with ultrasound Venous verification: manometry Post insertion: all ports aspirated, all ports flushed easily, line sutured in place and occlusive dressing applied Chlorhexidine patch applied: yes Number of attempts: 1 PA catheter placement: PA catheter size: 7 Fr PA catheter laterality: right PA catheter site: internal jugular Placement guided by: pressure tracing changes and verified by JEFF Christine Loaiza MD ANESTHESIA ORDERABLES Ed ited Result - Final * Arterial Line (08/21/2024 8:59 AM CDT) Balta Hanson MD - 08/21/2024 8:59 AM CDT Balta Villalta MD 08/21/2024 9:58 AM Arterial Line Patient location: pre-op holding Indication: continuous blood pressure monitoring and blood sampling needed Ultrasound assisted: yes Staff: Supervising provider: Christine Loaiza MD Placed by: Fellow: Balta Villalta MD Other staff: Jono Singh RN Procedure prep: Prep solution: chlorhexadine/alcohol Prep: provider hat/mask, sterile gloves and sterile probe cover Skin infiltrated with lidocaine 1%: yes Arterial line: Catheter size: 20 gauge Catheter length: 3/4 inch Catheter type: wire-guided catheter Laterality: right Site: radial artery Line secured: Tegaderm Results: good waveform and good blood return Number of attempts: 1 Assessment: Events: patient tolerated procedure well with no complications us Christine Loaiza MD ANESTHESIA ORDERABLES Ed ited Result - Final * Airway (08/21/2024 8:57 AM CDT) Balta Hanson MD - 08/21/2024 8:57 AM CDT Balta Villalta MD 08/21/2024 9:58 AM Airway Patient location: OR Urgency: elective Indications for airway management: anesthesia Difficult airway: no Staff: Supervising provider: Christine Loaiza MD Placed by: Fellow: Balta Villalta MD Other staff: Jono Singh RN Emergent airway documentation: Risks and benefits discussed: yes Consent obtained: yes Consent given by: patient Airway prep: Preoxygenated: yes Patient position: sniffing Mask difficulty assessment: 2 - vent by mask + OA or adjuvant Spontaneous ventilation during airway: absent Sedation level during airway: GA Final airway details: Final airway type: endotracheal airway Tube type: ETT ETT size: 8.0 mm Cuffed: yes Technique used for successful ETT placement: video laryngoscopy Devices/Methods used in placement: stylet Insertion site: oral Blade type: Pamela Video blade type: Arevalo Blade size: 4 Cormack-Lehane (video): grade I - full view of glottis Cuff volume: 6 mL Cuff inflated with: air ETT to lips: 24 cm Placement verified by: auscultation and CO2 detection Airway secured with: silk tape Number of attempts: 1no us Christine Loaiza MD ANESTHESIA ORDERABLES Ed ited Result - Final * (ABNORMAL) POCT heparin/ACT CPB (08/21/2024 8:56 AM CDT) Heparin POC >6.7 units/mL ACT, CPB 543(H) 112 - 174 sec [facility] Blood 08/21/2024 8:56 AM CDT 08/21/2024 8:56 AM CDT us Jason Hess MD LAB POCT ORDERABLES - DEVICE Fin al Result [facility] Department [place] [address] * (ABNORMAL) POC Blood Gas and Chemistries, Arterial - (08/21/2024 8:31 AM CDT) pH, Art POC 7.43 7.35 - 7.45 pCO2, Art POC 40 35 - 45 mmHg [facility] pO2, Art POC 391(H) 83 - 108 mmHg [facility] Na, POC 137 135 - 145 mmol/L [facility] K POC 3.9 3.3 - 4.9 mmol/L [facility] Comment: Interpretive Data Not all point of care methods assess for hemolysis. Confirm with instrument and retest K+ if not consistent with clinical signs and symptoms. Current Interpretive Data was last revised on 2023. Cl, POC 106 97 - 110 mmol/L [facility] Ionized Ca, POC 4.88 4.50 - 5.10 mg/dL [facility] Glucose, POC 127 70 - 199 mg/dL [facility] Lactate, POC 1.0 0.7 - 2.0 mmol/L [facility] SO2 (jose angel) arterial 100(H) 90 - 95 % [facility] Base excess, POC 2.0 mmol/L [facility] HCO3, Art POC 27 20 - 30 mmol/L [facility] Hct, POC 39.0(L) 41.4 - 51.6 % [facility] Total Hb, POC 13.0(L) 13.8 - 17.2 g/dL [facility] Blood 08/21/2024 8:31 AM CDT 08/21/2024 8:31 AM CDT Jason Hess MD LAB POCT ORDERABLES - DEVICE Fin al Result [facility] Department [place] [address] * (ABNORMAL) POCT heparin dose response, CPB (08/21/2024 8:27 AM CDT) Baseline ACT POC 135 112 - 174 sec Heparin dose response slope POC 59(L) 60 - 195 [facility] Projected Heparin Concentration POC 5.8 units/mL [facility] Blood 08/21/2024 8:27 AM CDT 08/21/2024 8:27 AM CDT Jason Hess MD LAB POCT ORDERABLES - DEVICE Fin al Result Performing Organization Address [facility] Co de Phone Number [facility] [place] [address] * JEFF Add-On For OR (08/21/2024 6:54 AM CDT) Narrative [facility] PROSOLV_CARDIOREPORT_CONS SCIMAGE - 08/21/2024 6:54 AM CDT Procedure Auto Finalized by Rule: BW CV JEFF DURING CASE OR Please see the Anesthesiologist's Procedure Note for the results. Balta Villalta MD CV ECHO PROCEDURES Final Result Performing Organization Address [facility] de Phone Number [facility] PROSOLV_CARDIOREPORT_CONS SCIMAGE * Prepare plasma: 2 Units (08/21/2024 6:54 AM CDT) Product code [id number] Unit Number [id number] 3-U [facility] Product Blood Type APOS [facility] Dispense Status RETURNED [facility] Product code [id number] [facility] Unit Number [id number] 1-F [facility] Product Blood Type APOS [facility] Dispense Status RETURNED [facility] Blood Venous blood specimen / Unknown 08/21/2024 6:54 AM CDT 08/21/2024 6:54 AM CDT Narrative [facility] - 08/21/2024 2:34 PM CDT Date required:-[id number] FFP # of Units:-2-Units Reasons:-Immediate need for surgical intervention Balta Villalta MD BLOOD BANK PRODUCT ORDERA BLES Final Result Performing Organization Address [facility] Co de Phone Number [facility] Department [place] [address] * Prepare RBC: 4 Units (08/21/2024 6:54 AM CDT) Product code [id number] Unit Number [id number] 3-O [facility] Product Blood Type ANEG [facility] Dispense Status RETURNED [facility] Product code [id number] [facility] Unit Number [id number] 4-5 [facility] Product Blood Type ANEG [facility] Dispense Status RETURNED [facility] Product code [id number] [facility] Unit Number [id number] 6-W [facility] Product Blood Type ANEG [facility] Dispense Status RETURNED [facility] Product code [id number] [facility] Unit Number [id number] 3-5 [facility] Product Blood Type ANEG [facility] Dispense Status RETURNED [facility] Blood 08/21/2024 6:54 AM CDT 08/21/2024 6:54 AM CDT Narrative [facility] - 08/21/2024 2:34 PM CDT Are special requirements needed? (All products are leukoreduced and CMV- safe)- >No Date required:-[id number] LRRBC # of [id number] Reasons:-Intra-op transfusion} us Balta Villalta MD BLOOD BANK PRODUCT ORDERA BLES Final Result Performing Organization Address [facility] Co de Phone Number [facility] [place] [address] * Check Sample (08/21/2024 5:57 AM CDT) ABO Rh A Negative [facility] OTHER 08/21/2024 5:57 AM CDT 08/21/2024 6:47 AM CDT us Jason Hess MD LAB BLOOD ORDERABLES Final Resul t Performing Organization Address [facility] Co de Phone Number [facility] [place] [address] BJ * aPTT (08/13/2024 3:18 PM CDT) aPTT 37 22 - 37 sec Comment: Interpretive data aPTT test has not been evaluated for monitoring heparin therapy. The anti-Xa is the preferred test. Current interpretive data was last revised on 2019. Blood 08/13/2024 3:18 PM CDT 08/13/2024 3:26 PM CDT Jason Hess MD LAB BLOOD ORDERABLES Final Resul t Performing Organization Address [facility] de Phone Number [address] [place] [address] * Protime-INR (08/13/2024 3:18 PM CDT) PT 14.1 12.0 - 14.6 sec INR 1.1 0.9 - 1.2 [facility] Comment: Ref Range High Interpretive data Oral anticoagulant therapeutic ranges: Venous thromboembolism prophylaxis or treatment: 2.0-3.0 CARDIOLOGY Standard range: 2.0-3.0 High-intensity range: 2.5-3.5 Refer to indication-specific guidelines for appropriate target ranges for prosthetic heart valve replacement. Current interpretive data was last revised on 2019. Blood 08/13/2024 3:18 PM CDT 08/13/2024 3:26 PM CDT Jason Hess MD LAB BLOOD ORDERABLES Final Resul t Performing Organization Address [facility] de Phone Number [address] [place] [address] * XR Chest PA Lateral 2 Views (08/10/2024 3:32 PM CDT) Anatomical Region Laterality Modality Body, Chest N/A Computed Radiogr aphy 08/10/2024 4:59 PM CDT Impressions 08/10/2024 5:10 PM CDT The current study is compared with the prior radiograph dated 03/04/2018. No consolidation, pleural effusion, or pneumothorax. Tortuous aorta. Otherwise, the cardiomediastinal silhouette is within normal limits. Multiple old left rib fractures are noted. Dictated by: Travis Morales MD The radiology attending physician has personally reviewed this study, and had reviewed and/or edited this written report and agrees with it. Electronically signed by: César Davis M.D. Narrative 08/10/2024 5:10 PM CDT EXAMINATION: 2 view chest radiograph Procedure Note César Davis MD - 08/10/2024 EXAMINATION: 2 view chest radiograph IMPRESSION: The current study is compared with the prior radiograph dated 03/04/2018. No consolidation, pleural effusion, or pneumothorax. Tortuous aorta. Otherwise, the cardiomediastinal silhouette is within normal limits. Multiple old left rib fractures are noted. Dictated by: Travis Morales MD The radiology attending physician has personally reviewed this study, and had reviewed and/or edited this written report and agrees with it. Electronically signed by: César Davis M.D. Isabel Ashley BLEACH LIQUOR MAKER IMG XR PROCEDURES Final Resul t * TYPE AND SCREEN 14 DAY (08/10/2024 3:21 PM CDT) Neyda, indirect Negative ABO Rh A Negative [facility] Blood 08/10/2024 3:21 PM CDT 08/10/2024 4:00 PM CDT Narrative [facility] - 08/10/2024 4:51 PM CDT Has the patient had Daratumumab or Isatuximab in the past 6 months?->No Is this test being ordered in advance for a procedure?->Yes Expected date of procedure:->08/20/24 Has the patient been transfused in the past 3 months?->No us Isabel Ashley BLEACH [employer]QU[employer] MAKER LAB BLOOD BANK TEST ORDERABLE S Final Result [facility] Department [place] [address] * (ABNORMAL) Urinalysis reflex to microscopic and culture Urine, clean voided (08/10/2024 3:21 PM CDT) Color, ur Yellow Yellow Clarity, ur Clear Clear [facility] Specific gravity, ur 1.035(H) 1.003 - 1.030 [facility] pH, urine 6.0 [facility] Comment: Interpretive Data U rine pH is affected by diet, medications, systemic acid-base disturbances, and renal tubular function. pH may affect urinary stone formation. For example, urine pH below 6.0 may help reduce the tendency for calcium phosphate stones and pH greater than 6.0 may reduce the tendency for uric acid stone formation. Source: [facility] [employer] Current Interpretive Data was last revised on 2017 Protein, ur ql Trace Negative [facility] Glucose, ur ql Negative Negative [facility] Ketones, ur Trace Negative [facility] Bilirubin, ur Negative Negative [facility] Blood, ur Negative Negative [facility] Urobilinogen, ur <2.0 <2.0 mg/dL [facility] Nitrite, ur Negative Negative [facility] Leukocyte esterase, ur Negative Negative [facility] UA reflex comment Reflex conditions for microscopic UA and culture not met. [facility] Urine, clean voided 08/10/2024 3:21 PM CDT 08/10/2024 3:51 PM CDT Isabel Ashley NP LAB MICROBIOLOGY - GENERAL OR DERABLES Final Result Performing Organization Address City/State/[facility] Co de Phone Number [facility] [place] [address] * TRANSTHORACIC ECHO (TTE) COMPLETE W DOPPLER/CF WO CONTRAST (08/10/2024 9:03 AM CDT) Anatomical Region Laterality Modality Ultrasound 08/10/2024 8:18 AM CDT Narrative 08/10/2024 9:18 AM CDT [facility] [place] [place] [address] Transthoracic Echocardiographic Report Patient Name: CHICA WLECH GE : 1960 (64y 5m) Gender: M Study Date: 08/10/2024 08:18:39 AM Ht(Inch): 74 Wt(Lb): 229.94 BSA: 2.33 Pattern Puncher: Yara Park RDCS Location: [facility] Order Provider: JASON HESS Heart Rate: 56 [...] 427.56 sec Electronically Signed By: Mimi Wilson [facility] 08/10/2024 9:17:54 AM CDT Procedure Note Mimi Wilson MD - 08/10/2024 [facility] [place] [place] [address] Transthoracic Echocardiographic Report Patient Name: CHICA WELCH GE : 1960 (64y 5m) Gender: M Study Date: 08/10/2024 08:18:39 AM Ht(Inch): 74 Wt(Lb): 229.94 BSA: 2.33 Pattern Puncher: Yara Park RDCS Location: [facility] Order Provider:JASON HESS Heart Rate: 56 BMI: 29.52 BP: 138 / 84 Ref Provider: CHRISTIANMARIEJASON PROCEDURES: Echocardiographic Report: Transthoracic complete echo with [...] LA Length 4C 6.36 cm MV Decel Ehwj258.45 msec [ 104.00 - 258.00 ] LA [...] mmHg Asc Ao Index 1.97 cm/m2 PI VZX877.56 sec Electronically Signed By: Mimi Wilson [facility] 08/10/2024 9:17:54 AM CDT us Jason Hess MD CV ECHO PROCEDURES Final Result * LEFT HEART CATHETERIZATION WITH CORONARY ANGIOGRAPHY AND WITH AND WITHOUT LEFT VENTRICULOGRAM (08/09/2024 10:35 AM CDT) Anatomical Region Laterality Modality X-Ray Angiograph y Narrative 08/09/2024 12:29 PM CDT Cardiac Catheterization Report, Left Heart Facility: [facility] Referring Physician: Jason Hess MD Performing: Ashley Beckman DO Fellow: Celeste Chaney MD PATIENT CLINICAL PROFILE Chica Welch is a 64 y.o. male with [...] obtained. The patient was brought to the builder's labourer and placed on the table. The planned [...] RCA or RPDA branches. DIAGNOSTIC IMPRESSIONS No benton coronary artery disease.. THERAPEUTIC RECOMMENDATIONS Findings of the catheterization were discussed with the patient and will be conveyed to the referring physician who will determine the patient's future therapy and follow-up. Conscious sedation note: I provided direct [id number] monitoring of conscious sedation, which was administered by an independent, trained nurse using fentanyl and midazolam for 35 minutes. Ashley Beckman DO Medical Records Analyst Division of Cardiology [employer] us Jason Hess MD CV CARDIAC CATH PROCEDURES Final Result * (ABNORMAL) CBC without differential (08/09/2024 10:10 AM CDT) WBC 3.66(L) 3.80 - 9.90 K/cumm Hgb 12.5(L) 13.0 - 17.5 g/dL [facility] Hct 36.1(L) 38.9 - 50.3 % [facility] Plt 237 150 - 400 K/cumm [facility] MPV 9.5 9.1 - 12.3 fL [facility] RBC 3.97(L) 4.30 - 5.80 M/cumm [facility] MCV 90.9 81.3 - 96.4 fL [facility] MCH 31.5 27.1 - 33.3 pg [facility] MCHC 34.6 32.3 - 35.7 g/dL [facility] RDW CV 13.0 11.1 - 14.9 % [facility] RDW SD 43.3 35.7 - 48.1 fL [facility] NRBC abs 0.00 0.00 - 0.01 K/cumm [facility] Blood 08/09/2024 10:1 0 AM CDT 08/09/2024 10:16 AM CDT Narrative [facility] - 08/09/2024 10:32 AM CDT To be drawn after hydration bolus complete us Ashley Dugolenski Giacomino DO LAB BLOOD ORDERABLE S Final Result [facility] [place] [address] * ECG 12 lead (08/09/2024 7:02 AM CDT) Ventricular Rate EKG/Min 51 BPM [facility] Atrial Rate 51 BPM [facility] HI-Interval (MSEC) [address] [facility] QRS-Interval (MSEC) [address] [facility] QT-Interval (MSEC) 480 ms [facility] QTc 442 ms [facility] P [place] 66 degrees [facility] R [place] -50 degrees [facility] T [place] 12 degrees [facility] Diagnosis Sinus bradycardia Right bundle branch block Left anterior fascicular block Bifascicular block Abnormal ECG When compared with ECG of 10-JUL-2018 09:54, no significant change Confirmed by BLANCA PRO M.D ([id number]) on 08/09/2024 11:44:55 AM [facility] 08/09/2024 7:02 AM CDT 08/09/2024 11:44 AM CDT Ashley Beckman DO ECG ORDERABLES Fin al Result [facility] * eGFR (08/09/2024 6:47 AM CDT) eGFR [...] DO LAB BLOOD ORDERABLE S Final Result [facility] [place] [address] * CBC without differential (08/09/2024 6:47 AM CDT) WBC 3.86 3.80 - 9.90 K/cumm Hgb 13.6 13.0 - 17.5 g/dL [facility] Hct 39.6 38.9 - 50.3 % [facility] Plt 257 150 - 400 K/cumm [facility] MPV 9.7 9.1 - 12.3 fL [facility] RBC 4.34 4.30 - 5.80 M/cumm [facility] MCV 91.2 81.3 - 96.4 fL [facility] MCH 31.3 27.1 - 33.3 pg [facility] MCHC 34.3 32.3 - 35.7 g/dL [facility] RDW CV 13.1 11.1 - 14.9 % [facility] RDW SD 43.8 35.7 - 48.1 fL [facility] NRBC abs 0.00 0.00 - 0.01 K/cumm [facility] Blood 08/09/2024 6:47 AM CDT 08/09/2024 8:32 AM CDT us Ashley Dugolenski Giacomino DO LAB BLOOD ORDERABLE S Final Result [facility] [place] [address] * Basic metabolic panel (08/09/2024 6:47 AM CDT) Sodium 143 135 - 145 mmol/L Potassium, pl 4.9 3.3 - 4.9 mmol/L [facility] Comment:Hemolyzed; Potassium value may be falsely elevated by as much as 0.6-1.0 mmol/L. Suggest redraw and reanalysis. Chloride 105 97 - 110 mmol/L [facility] CO2 30 22 - 32 mmol/L [facility] Anion gap 8 2 - 15 mmol/L [facility] BUN 14 6 - 25 mg/dL [facility] Creatinine 1.02 0.80 - 1.30 mg/dL [facility] Glucose 97 70 - 199 mg/dL [facility] Comment: Interpretive Data Fasting glucose >/= [...] 2022. Calcium 9.6 8.5 - 10.3 mg/dL [facility] Blood 08/09/2024 6:47 AM CDT 08/09/2024 8:32 AM CDT us Ashley Beckman DO LAB BLOOD ORDERABLE S Final Result [facility] [place] [address] * COLONOSCOPY (10/14/2020 7:01 AM CDT) Anatomical Region Laterality Modality Other Narrative Procedure Note John Guthrie MD - 10/14/2020 7:01 AM CDT ENDOSCOPY LAB Patient Name: Chica Welch Procedure Date: 10/14/2020 7:01 AM Date of : 1960 Admit Type: Outpatient Age: 60 Gender: Male Attending MD: John Guthrie M.D. Room: [facility] ENDOSCOPY ROOM 01 Note Status: Finalized [...] The scope was passed under direct vision.The [id number] was introduced through the anusand advanced to [...] call and ask for the GI fellow concrete carpenter. Electronically Signed by John Guthrie MD John Guthrie M.D. 10/14/2020 7:55:34 AM Number of Addenda: 0 Note Initiated On: 10/14/2020 7:01 AM John Guthrie MD ENDOSCOPY PROCEDURES Final Res ult from Last 3 Months or Most Recently Relevant to Health Maintenance Insurance [facility]PPO Address: [address] [place] [address] [facility] Advance Directives For more information, please contact: [phone] * Full Code (Latest Code Status on File) Date Activated Date Inactivated Comments 08/21/2024 2:50 PM 08/26/2024 5:37 PM * Full Code Date Activated Date Inactivated Comments 10/14/2020 6:38 AM 10/14/2020 12:29 PM Care Teams Multiple Needle Stitcher Relationship Specialty Start Date End Date Dima Sanchez MD PCP - General 05/01/20 Ney Villalpando MD [address] [facility] [address] [place] [address] Tourist Guide Cardiology 02/08/23 Jason Hess MD [id number] [place] [address] Surgeon Cardiothoracic Surgery 08/26/24
--- OUTSIDE RECORDS SUMMARY | 2024-09-06 15:37 | XMS_ITS | Encounter Summary ---
Author Organization [facility] [employer] [facility] Address [address] [place] [address] Phone Care Team Providers Care Reciprocating Drill Operator Name Role Phone Dima Sanchez MD Primary Care Provider + [phone] Dima Sanchez MD Primary Care Provider + [phone] Theron Peace MD Primary Care Provider +[phone] Theron Upton MD Primary Care Provider [phone] Dima Sanchez MD Primary Care Provider + [phone] Ney Villalpando MD Unavailable [phone] Bridgette Hess MD Unavailable Encounter Details Date Type Department Care Team (Latest Contact Info) Description 09/06/2007 Orders Only [facility] Scanning, Provider Social History Tobacco Use Types Packs/Day Years Used Date Smoking Tobacco: Never Assessed Sex and Gender Information Value Date Recorded Sex Assigned at Not on file Legal Sex Male 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 AIRCRAFT DESIGNER Gender Identity Male 04/16/2021 11:58 AM MILITARY AIRCRAFT DESIGNER Sexual Orientation Straight 04/02/2019 2: 04 PM MILITARY AIRCRAFT DESIGNER documented as of this encounter Plan of Treatment Not on file documented as of this encounter Procedures Procedure Name Priority Date/Time Associated Diagnosis Comments SCAN - RADIOLOGY/IMAGING 09/06/2007 documented in this encounter Results * SCAN - RADIOLOGY/IMAGING (09/06/2007) Anatomical Region Laterality Modality Other us Provider Scanning Final Result documented in this encounter Visit Diagnoses Not on filedocumented in this encounter Care Teams Reciprocating Drill Operator Relationship Specialty Start Date End Date Dima Sanchez MD PCP - General 02/02/13 01/09/18 Dima Sanchez MD PCP - General 02/01/13 02/01/13 Theron Peace MD [address] [place] [address] PCP - General Obstetrics and Gynecology 01/10/1803/07/18 Theron Upton MD [address] [place] [address] PCP - General Endocrinology Diabetes & Metabolism 03/08/18 04/30/20 Dima Sanchez MD PCP - General 05/01/20 Ney Villalpando MD [address] [place] [address] Steam Tank Operator Cardiology 02/08/23 Bridgette Hess MD [id number] [place] [address] Surgeon Cardiothoracic Surgery 08/26/24 documented as of this encounter
--- OUTSIDE RECORDS SUMMARY | 2024-09-06 15:37 | XMS_ITS | Encounter Summary ---
Author Organization [facility] [employer] [facility] Address [address] [place] [address] Phone Care Team Providers Care Biodiesel Plant Superintendent Name Role Phone Dima Sanchez MD Primary Care Provider + [phone] Dima Sanchez MD Primary Care Provider + [phone] Theron Peace MD Primary Care Provider [phone] Theron Upton MD Primary Care Provider [phone] Dima Sanchez MD Primary Care Provider + [phone] Ney Villalpando MD Unavailable [phone] Bridgette Hess MD Unavailable Encounter Details Date Type Department Care Team (Latest Contact Info) Description 02/01/2013 Orders Only [facility] Scanning, Provider Social History Tobacco Use Types Packs/Day Years Used Date Smoking Tobacco: Never Assessed Sex and Gender Information Value Date Recorded Sex Assigned at Not on file Legal 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 Male 3: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 LEAD ASSEMBLER Gender Identity Male 04/16/2021 11:58 AM LEAD ASSEMBLER Sexual Orientation Straight 04/02/2019 2: 04 PM LEAD ASSEMBLER documented as of this encounter Plan of [...] on filedocumented in this encounter Care Teams Biodiesel Plant Superintendent Relationship Specialty Start Date End Date Dima Sanchez MD PCP - General 02/02/13 01/09/18 Dima Sanchez MD PCP - General 02/01/13 02/01/13 Theron Peace MD [address] [place] [address] PCP - General Obstetrics and Gynecology 01/10/1803/07/18 Theron Upton MD [email or web address] [place] [address] PCP - General Endocrinology Diabetes & Metabolism 03/08/18 04/30/20 Dima Sanchez MD PCP - General 05/01/20 Ney Villalpando MD [email or web address] [place] [address] Materials Buyer Cardiology 02/08/23 Bridgette Hess MD [id number] [place] [address] Surgeon Cardiothoracic Surgery 08/26/24 documented as of this encounter
--- OUTSIDE RECORDS SUMMARY | 2024-09-06 15:37 | XMS_ITS | Encounter Summary ---
Author Organization [facility] [employer] [facility] Address [address] [place] [address] Phone Care Team Providers Care Outdoor Emergency Care Technician Name Role Phone Dima Sanchez MD Primary Care Provider + [phone] Dima Sanchez MD Primary Care Provider + [phone] Theron Peace MD Primary Care Provider [phone] Theron Upton MD Primary Care Provider [phone] Dima Sanchez MD Primary Care Provider + [phone] Ney Villalpando MD Unavailable [phone] Bridgette Hess MD Unavailable Encounter Details Date Type Department Care Team (Latest Contact Info) Description 03/25/2005 Orders Only [facility] Scanning, Provider Social History Tobacco Use Types Packs/Day Years Used Date Smoking Tobacco: Never Assessed Sex and Gender Information Value Date Recorded Sex Assigned at Not on file Legal Sex Male 3:02 AM PAPER ROLLER Gender Identity Male 04/16/2021 11:58 AM PAPER ROLLER Sexual Orientation Straight 04/02/2019 2: 04 PM PAPER ROLLER documented as of this encounter Plan of [...] on filedocumented in this encounter Care Teams Outdoor Emergency Care Technician Relationship Specialty Start Date End Date Dima Sanchez MD PCP - General 02/02/13 01/09/18 Dima Sanchez MD PCP - General 02/01/13 02/01/13 Theron Peace MD [address] [place] [address] PCP - General Obstetrics and Gynecology 01/10/1803/07/18 Theron Upton MD [address] [place] [address] PCP - General Endocrinology Diabetes & Metabolism 03/08/18 04/30/20 Dima Sanchez MD PCP - General 05/01/20 Ney Villalpando MD [address] [place] [address] Pickle Solution Maker Cardiology 02/08/23 Bridgette Hess MD [id number] [place] [address] Surgeon Cardiothoracic Surgery 08/26/24 documented as of this encounter
--- OUTSIDE RECORDS SUMMARY | 2024-09-06 15:37 | XMS_ITS | Referral Summary ---
Author Organization [facility] Address [address] [place] [address] Care Team Providers Care Concierge Name Role Phone Dima Sanchez MD Primary Care Provider [phone] Ney Villalpando MD Unavailable [phone] Jason Hess MD Unavailable Encounters * This document contains information received from the source organization and may not represent a complete record from that organization. Date Type Department Care Team Description 08/29/2024 Results Follow-Up [facility] Cardiology [address] [place] [address] 8th [place] [address] [place] [address] Ney Villalpando MD 08/29/2024 12:00 PM CDT Office Visit [facility] Cardiology [address] [place] [address] 8th [place] [address] [place] [address] Ney Villalpando MD Essential hypertension (Primary Dx); S/P aortic aneurysm repair; Palpitations 08/28/2024 Orders Only [facility] Cardiothoracic Surgery [facility] 8th Floor [address] Room [address] [place] [address] Jason Hess MD S/P aortic aneurysm repair (Primary Dx) 08/27/2024 Telephone [facility] Cardiology [facility] 8th [place] [address] [place] [address] Ney Villalpando MD f/u after surgery 08/21/2024 5:03 AM CDT - 08/26/2024 1:20 PM CDT Hospital Encounter [address] [address] Jason Hess MD Aneurysm of ascending aorta without rupture (Primary Dx); Neuropathy; Dermatochalasis of both upper eyelids; S/P aortic aneurysm repair Discharge Disposition: Discharge to home or self care 08/21/2024 9:45 AM CDT - 08/21/2024 11:59 PM CDT Hospital Encounter [address] [address] Discharge Disposition: Discharge to home or self care 08/21/2024 6:55 AM CDT Ancillary Procedure [facility] Operating Room [address] [place] [address] 08/21/2024 7:00 AM CDT - 08/21/2024 1:30 PM CDT Surgery [facility] Operating Room [address] [place] [address] Jason Hess MD VALVE SPARING AORTIC ROOT REPLACEMENT 08/21/2024 7:02 AM CDT Anesthesia Event [facility] Operating Room [address] [place] [address] Christine Loaiza MD Maue, Saima Walsh NP 08/13/2024 3:05 PM CDT Lab [facility] [address] [place] [address] Aneurysm of ascending aorta without rupture; Preop testing 08/13/2024 Telephone [facility] Cardiothoracic Surgery [address] [place] [address] Advanced [facility] 8th Floor [address] Room [address] [place] [phone] Diane Mendez RMA 08/13/2024 Orders Only [facility] Cardiothoracic Surgery [address] [place] [address] [facility] 8th Floor [address] Room [address] [place] [phone] Jason Hess MD Aneurysm of ascending aorta without rupture (Primary Dx); Preop testing 08/10/2024 3:28 PM CDT - 08/10/2024 11:59 PM CDT Hospital Encounter [facility] [address] [place] [address] Pre-operative exam Discharge Disposition: Discharge to home or self care 08/10/2024 7:45 AM CDT - 08/10/2024 11:59 PM CDT Hospital Encounter [facility] Cardiac Diagnostic Lab [address] [facility] 8th [place] [address] Aneurysm of ascending aorta without rupture Discharge Disposition: Discharge to home or self care 08/10/2024 4:30 PM CDT Pre-Admission Testing [facility] for Preoperative Assessment and [facility] (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, Aneurysm of ascending aorta without rupture Discharge Disposition: Discharge to home or self care 07/18/2024 Documentation [facility] Cardiothoracic Surgery [address] [place] [address] [facility] 8th Floor [address] Room [address] [place] [phone] Jason Hess MD Surgery Confirmation 07/18/2024 Orders Only [facility] Cardiothoracic Surgery [address] [place] [address] Advanced Medicine 8th Floor [address] Room [address] [address] Jason Hess MD 07/18/2024 Orders Only [facility] Cardiothoracic Surgery [address] [facility] 8th Floor [address] Room [address] [address] Jason Hess MD Aneurysm of ascending aorta without rupture (Primary Dx) 07/18/2024 Orders Only [facility] Cardiothoracic Surgery [address] [facility] 8th Floor [address] [place] [phone] Jason Hess MD Aneurysm of ascending aorta without rupture (Primary Dx) 07/18/2024 Telephone [facility] Cardiology [address] [facility] 8th [place] [address] [place] [address] surgery from Last 3 Months Allergies No known active allergies Medications * [...] Discontin ued(Stop Taking at Discharge ) omega 8-bvn-hat-fish oil 60-90-500 mg capsule,delayed release(DR/EC)In dications:supple ment [...] 7:04 PM CDT): Depression Insomnia Resumed home Cymbalta, Vilazodone & Ambien, PRN nightly Radiculopathy affecting upper extremity 08/25/19 [...] not received RBC this admission. - HH 7.2/21 overnight, repeat this morning 7.2/21.1 - continue [...] (10/07/2020): Added automatically from request for surgery [id number] Personal history of colonic polyps 09/02/2020 Overview (09/02/2020): Added automatically from request for surgery [id number] Family history of colonic polyps 09/02/2020 Overview (09/02/2020): Added automatically from request for surgery [id number] Intraocular pressure increase, left 10/16/2019 Assessment & [...] 10/16/2019 Assessment & Plan (05/21/2022 3:11 PM CIVIL RIGHTS REPRESENTATIVE): New mrx, rec ar coating Assessment & Plan (10/16/2019 11:49 AM CDT): Release updated glasses and CLRx for Dailies. Age-related nuclear cataract of both eyes 2019 Assessment & Plan (05/21/2022 3:11 PM CIVIL RIGHTS REPRESENTATIVE): Not v/s, monitor, rec uv eye protection [...] (05/29/2018): Added automatically from request for surgery [id number] Aneurysm of thoracic aorta 01/09/2018 Multiple actinic keratoses 09/24/2015 Lentigo 09/24/2015 Essential hypertension 02/05/2013 Resolved Problems Problem Noted Date Diagnosed Date Resolved Date Melanocytic nevus of trunk 10/01/2016 0 01/09/2018 Lichen simplex chronicus 10/01/201601/2018 Tinea pedis 09/24/2015 01/09/2018 Palpitations 02/06/2013 01/09/2018 Arthralgia of shoulder 01/18/201301/09 Arthralgia of elbow 09/16/2011 01/10/20 18 Immunizations Immunization Administration Dates Next Due Scribz (J&J) SARS-CoV-2 Vaccination 07/07/2020 Tdap 03/12/2020 Social [...] on file Legal Sex Male 3:02 AM CIVIL RIGHTS REPRESENTATIVE Gender Identity Male 04/16/2021 11:58 AM CIVIL RIGHTS REPRESENTATIVE Sexual Orientation Straight 04/02/2019 2: 04 PM CIVIL RIGHTS REPRESENTATIVE Last Filed Vital Signs Vital Sign Reading [...] 08/29/2024 11:30 AM CDT Plan of Treatment Not on file Medical Devices Implanted Type Area Ticker Wirer Device Identifier Shelf Expiration Date Model / Serial / Lot [employer] [id number]-[id number] Bcm Swivelock 4.75mm 24.5mm Self Punch Vent Shoulder Kent Suture - [id number] Implanted:Qty: 1 on 09/11/2018 by Dwayne Torrez MD at [facility] Right: Shoulder [employer] 01/30/2020 [id number] CM / / [id number] [employer] [place] [employer] Graft Straight Thoracic Collagen Coated Double Velour Hemashield Tolleson [id number] Woven Polyester [id number] - [id number] - [id number] Implanted:Qty: 1 on 08/21/2024 by Jason Hess MD at [facility] N/A: Mediastinum [employer] [id number] 03/01/2029 [id number] / [id number] / [id number] [employer] [place] [employer] Graft Straight Thoracic Collagen Coated Double Velour Hemashield Tolleson [id number] Woven Polyester [id number] - [id number] - [id number] Implanted:Qty: 1 on 08/21/2024 by Jason Hess MD at [facility] N/A: Mediastinum [employer] [id number] 12/30/2028 [id number] / [id number] / [id number] Bard Peripheral Vascular 6x6in Patch Thk1.65mm [employer] Cardiovascular Ptfe Sterile Latex Free [id number] - [id number] Implanted:Qty: 1 on 08/21/2024 by Jason Hess MD at [facility] N/A: Aorta Bard Peripheral Vascular [id number] / / Procedures Procedure Name Priority Date/Time [...] CHEMISTRIES, ARTERIAL Routine 08/21/2024 10:23 AM CDT ME AN PROCEDURE PLACEHOLDER Routine 08/21/2024 9:58 AM CDT ME AN PROCEDURE PLACEHOLDER Routine 08/21/2024 9:57 AM [...] ECG 12 lead (08/29/2024 11:33 AM CDT) Ney Villalpando MD ECG ORDERABLES Edited Result [...] 08/25/2024 11:43 PM CDT us Moriah Stauffer SOAP WORKER LAB BLOOD ORDERABLES Final R esult Performing Organization Address City/[facility]/ZIP Co de Phone Number [facility] [place] [address] * (ABNORMAL) CBC without differential (08/25/2024 9:36 PM CDT) Pathologist [facility] WBC 5.23 3.80 - 9.90 K/cumm Hgb 7.3(L) 13.0 - 17.5 g/dL [facility] Hct 22.1(L) 38.9 - 50.3 % [facility] Plt 246 150 - 400 K/cumm [facility] MPV 10.0 9.1 - 12.3 fL [facility] RBC 2.35(L) 4.30 - 5.80 M/cumm [facility] MCV 94.0 81.3 - 96.4 fL [facility] MCH 31.1 27.1 - 33.3 pg [facility] MCHC 33.0 32.3 - 35.7 g/dL [facility] RDW CV 14.0 11.1 - 14.9 % [facility] RDW SD 47.5 35.7 - 48.1 fL [facility] NRBC abs 0.00 0.00 - 0.01 K/cumm [facility] Blood 08/25/2024 9:36 PM CDT 08/25/2024 11:42 PM CDT us Moriah Stauffer SOAP WORKER LAB BLOOD ORDERABLES Final R esult [facility] [place] [address] * Basic metabolic panel (08/25/2024 9:36 PM CDT) [facility] Sodium 142 135 - 145 mmol/L Potassium, pl 4.5 3.3 - 4.9 mmol/L [facility] Chloride 104 97 - 110 mmol/L [facility] CO2 30 22 - 32 mmol/L [facility] Anion gap 8 2 - 15 mmol/L [facility] BUN 23 6 - 25 mg/dL [facility] Creatinine 1.22 0.80 - 1.30 mg/dL [facility] Glucose 92 70 - 199 mg/dL [facility] Comment: Interpretive Data Fasting glucose >/= [...] 2022. Calcium 8.8 8.5 - 10.3 mg/dL [facility] Blood 08/25/2024 9:36 PM CDT 08/25/2024 11:43 PM CDT us Moriah Stauffer NP LAB BLOOD ORDERABLES Final R esult [facility] Department [place] [address] * XR Chest PA Lateral 2 Views [...] unchanged. Electronically signed by: Herman Foster M.D. us Moriah Stauffer SOAP WORKER IMG XR PROCEDURES Final Resu lt * (ABNORMAL) CBC without differential (08/25/2024 4:29 AM CDT) WBC 5.34 3.80 - 9.90 K/cumm Hgb 7.2(L) 13.0 - 17.5 g/dL [facility] Hct 21.1(L) 38.9 - 50.3 % [facility] Plt 183 150 - 400 K/cumm [facility] MPV 9.7 9.1 - 12.3 fL [facility] RBC 2.29(L) 4.30 - 5.80 M/cumm [facility] MCV 92.1 81.3 - 96.4 fL [facility] MCH 31.4 27.1 - 33.3 pg [facility] MCHC 34.1 32.3 - 35.7 g/dL [facility] RDW CV 13.7 11.1 - 14.9 % [facility] RDW SD 45.6 35.7 - 48.1 fL [facility] NRBC abs 0.00 0.00 - 0.01 K/cumm [facility] Blood 08/25/2024 4:29 AM CDT 08/25/2024 4:57 AM CDT Akiko Villavicencio SOAP WORKER LAB BLOOD ORDERABLES Final Result Performing Organization Address City/[facility] Co de Phone Number [facility] [place] [address] * Type and screen (08/25/2024 4:29 AM CDT) ABO Rh A Negative Neyda, indirect Negative [facility] Blood 08/25/2024 4:29 AM CDT 08/25/2024 10:38 AM CDT Narrative [facility] - 08/25/2024 11:15 AM CDT Has the patient had Daratumumab or Isatuximab in the past 6 months?->Unknown Akiko Villavicencio SOAP WORKER LAB BLOOD BANK TEST ORDERA BLES Final Result Performing Organization Address [facility] Co de Phone Number [facility] [place] [address] * eGFR (08/24/2024 10:19 PM CDT) [facility] eGFR 72 >=60 mL/min/1. 73 m2 Comment: [...] CDT 08/24/2024 10:48 PM CDT Moriah Stauffer SOAP WORKER LAB BLOOD ORDERABLES Final R esult Performing Organization Address [facility] Co de Phone Number [facility] [place] [address] * (ABNORMAL) CBC without differential (08/24/2024 10:19 PM CDT) Pathologist [facility] WBC 5.96 3.80 - 9.90 K/cumm Hgb 7.2(L) 13.0 - 17.5 g/dL [facility] Hct 21.0(L) 38.9 - 50.3 % [facility] Plt 173 150 - 400 K/cumm [facility] MPV 10.1 9.1 - 12.3 fL [facility] RBC 2.29(L) 4.30 - 5.80 M/cumm [facility] MCV 91.7 81.3 - 96.4 fL [facility] MCH 31.4 27.1 - 33.3 pg [facility] MCHC 34.3 32.3 - 35.7 g/dL [facility] RDW CV 13.8 11.1 - 14.9 % [facility] RDW SD 46.2 35.7 - 48.1 fL [facility] NRBC abs 0.00 0.00 - 0.01 K/cumm [facility] Blood 08/24/2024 10:1 9 PM CDT 08/24/2024 10:48 PM CDT us Moriah Stauffer SOAP WORKER LAB BLOOD ORDERABLES Final R esult Performing Organization Address City/[facility]/ZIP Co de Phone Number [facility] [place] [address] * Type and screen (08/24/2024 10:19 PM CDT) Pathologist [facility] Neyda, indirect Negative ABO Rh A Negative [facility] Blood 08/24/2024 10:1 9 PM CDT 08/24/2024 10:57 PM CDT Narrative [facility] - 08/25/2024 7:33 AM CDT Has the patient had Daratumumab or Isatuximab in the past 6 months?->Unknown Moriah Stauffer SOAP WORKER LAB BLOOD BANK TEST ORDERABL ES Final Result Performing Organization Address [facility] Co de Phone Number [facility] [place] [address] * Phosphorus (08/24/2024 10:19 PM CDT) [facility] Phosphorus, pl 3.5 2.3 - 4.5 mg/dL Blood 08/24/2024 10:1 9 PM CDT 08/24/2024 10:48 PM CDT us Lakisha Viera SOAP WORKER LAB BLOOD ORDERABLES Final Result Performing Organization Address [facility] Co de Phone Number [facility] [place] [address] * Magnesium (08/24/2024 10:19 PM CDT) [facility] Magnesium 2.1 1.4 - 2.5 mg/dL Blood 08/24/2024 10:1 9 PM CDT 08/24/2024 10:48 PM CDT Moriah Stauffer SOAP WORKER LAB BLOOD ORDERABLES Final R esult Performing Organization Address [facility] Co de Phone Number [facility] [place] [address] * Basic metabolic panel (08/24/2024 10:19 PM CDT) [facility] Sodium 142 135 - 145 mmol/L Potassium, pl 4.3 3.3 - 4.9 mmol/L [facility] Chloride 106 97 - 110 mmol/L [facility] CO2 30 22 - 32 mmol/L [facility] Anion gap 6 2 - 15 mmol/L [facility] BUN 24 6 - 25 mg/dL [facility] Creatinine 1.14 0.80 - 1.30 mg/dL [facility] Glucose 108 70 - 199 mg/dL [facility] Comment: Interpretive Data Fasting glucose >/= [...] 2022. Calcium 8.8 8.5 - 10.3 mg/dL [facility] Blood 08/24/2024 10:1 9 PM CDT 08/24/2024 10:48 PM CDT us Moriah Stauffer NP LAB BLOOD ORDERABLES Final R esult [facility] Department [place] [address] * XR Chest 1 View (08/24/2024 9:45 [...] seen. Electronically signed by: John Arauz M.D. us Sneha Rodriguez SOAP WORKER IMG XR PROCEDURES Final Re sult * [...] 08/23/2024 11:14 PM CDT us Moriah Stauffer SOAP WORKER LAB BLOOD ORDERABLES Final R esult Performing Organization Address [facility] Co de Phone Number [facility] [place] [address] * (ABNORMAL) CBC without differential (08/23/2024 10:42 PM CDT) [facility] WBC 7.17 3.80 - 9.90 K/cumm Hgb 7.8(L) 13.0 - 17.5 g/dL [facility] Hct 23.1(L) 38.9 - 50.3 % [facility] Plt 112(L) 150 - 400 K/cumm [facility] MPV 11.0 9.1 - 12.3 fL [facility] RBC 2.51(L) 4.30 - 5.80 M/cumm [facility] MCV 92.0 81.3 - 96.4 fL [facility] MCH 31.1 27.1 - 33.3 pg [facility] MCHC 33.8 32.3 - 35.7 g/dL [facility] RDW CV 13.7 11.1 - 14.9 % [facility] RDW SD 46.0 35.7 - 48.1 fL [facility] NRBC abs 0.00 0.00 - 0.01 K/cumm [facility] Blood 08/23/2024 10:4 2 PM CDT 08/23/2024 11:13 PM CDT Moriah Stauffer SOAP WORKER LAB BLOOD ORDERABLES Final R esult Performing Organization Address City/[facility]/ZIP Co de Phone Number [facility] Department [place] [address] * Phosphorus (08/23/2024 10:42 PM CDT) [facility] Phosphorus, pl 2.7 2.3 - 4.5 mg/dL Blood 08/23/2024 10:4 2 PM CDT 08/23/2024 11:14 PM CDT Jason Hess MD LAB BLOOD ORDERABLES Final Resul t [facility] [place] [address] * Magnesium (08/23/2024 10:42 PM CDT) [facility] Magnesium 2.1 1.4 - 2.5 mg/dL Blood 08/23/2024 10:4 2 PM CDT 08/23/2024 11:08 PM CDT Jason Hess MD LAB BLOOD ORDERABLES Final Resul t Performing Organization Address [facility] Co de Phone Number [facility] [place] [address] * Basic metabolic panel (08/23/2024 10:42 PM CDT) [facility] Sodium 138 135 - 145 mmol/L Potassium, pl 4.3 3.3 - 4.9 mmol/L [facility] Comment:Hemolyzed; Potassium value may be falsely elevated by as much as 0.3-0.5 mmol/L. Suggest redraw and reanalysis. Chloride 104 97 - 110 mmol/L [facility] CO2 29 22 - 32 mmol/L [facility] Anion gap 5 2 - 15 mmol/L [facility] BUN 19 6 - 25 mg/dL [facility] Creatinine 1.07 0.80 - 1.30 mg/dL [facility] Glucose 103 70 - 199 mg/dL [facility] Comment: Interpretive Data Fasting glucose >/= [...] 2022. Calcium 9.0 8.5 - 10.3 mg/dL [facility] Blood 08/23/2024 10:4 2 PM CDT 08/23/2024 11:08 PM CDT us Moriah Stauffer SOAP WORKER LAB BLOOD ORDERABLES Final R esult Performing Organization Address [facility] Co de Phone Number [facility] Department [place] [address] * POCT glucose (08/23/2024 9:14 PM CDT) Glucose, POC 121 70 - 199 mg/dL Blood 08/23/2024 9:14 PM CDT 08/23/2024 9:14 PM CDT Jason Hess MD LAB POCT ORDERABLES - DEVICE Fin al Result Performing Organization Address [facility] Co de Phone Number [facility] Department [place] [address] * XR Chest 1 View (08/23/2024 9:02 [...] it. Electronically signed by: César Davis M.D. us Sneha Rodriguez SOAP WORKER IMG XR PROCEDURES Final Re sult * Potassium, whole blood (08/23/2024 12:09 AM CDT) Potassium, bld 4.1 3.3 - 4.9 mmol/L Blood 08/23/2024 12:0 9 AM CDT 08/23/2024 12:28 AM CDT us Ema Bell NP LAB BLOOD ORDERABLES Final Result [facility] Department [place] [address] * eGFR (08/23/2024 12:09 AM CDT) eGFR 68 >=60 mL/min/1. 73 m2 [...] AM CDT 08/23/2024 12:40 AM CDT Ema Bell SOAP WORKER LAB BLOOD ORDERABLES Final Result [facility] Department [place] [address] * (ABNORMAL) CBC without differential (08/23/2024 12:09 AM CDT) WBC 7.88 3.80 - 9.90 K/cumm Hgb 8.4(L) 13.0 - 17.5 g/dL [facility] Hct 24.8(L) 38.9 - 50.3 % [facility] Plt 146(L) 150 - 400 K/cumm [facility] MPV 10.5 9.1 - 12.3 fL [facility] RBC 2.67(L) 4.30 - 5.80 M/cumm [facility] MCV 92.9 81.3 - 96.4 fL [facility] MCH 31.5 27.1 - 33.3 pg [facility] MCHC 33.9 32.3 - 35.7 g/dL [facility] RDW CV 13.7 11.1 - 14.9 % [facility] RDW SD 45.9 35.7 - 48.1 fL [facility] NRBC abs 0.00 0.00 - 0.01 K/cumm [facility] Blood 08/23/2024 12:0 9 AM CDT 08/23/2024 12:40 AM CDT Ema Bell SOAP WORKER LAB BLOOD ORDERABLES Final Result Performing Organization Address City/[facility]/ZIP Co de Phone Number [facility] Department [place] [address] * Phosphorus (08/23/2024 12:09 AM CDT) Pathologist [facility] Phosphorus, pl 3.1 2.3 - 4.5 mg/dL Blood 08/23/2024 12:0 9 AM CDT 08/23/2024 12:40 AM CDT Ema Bell SOAP WORKER LAB BLOOD ORDERABLES Final Result [facility] Department [place] [address] * Basic metabolic panel (08/23/2024 12:09 AM CDT) Pathologist [facility] Sodium 138 135 - 145 mmol/L Potassium, pl 4.1 3.3 - 4.9 mmol/L [facility] Chloride 103 97 - 110 mmol/L [facility] CO2 28 22 - 32 mmol/L [facility] Anion gap 7 2 - 15 mmol/L [facility] BUN 22 6 - 25 mg/dL [facility] Creatinine 1.20 0.80 - 1.30 mg/dL [facility] Glucose 133 70 - 199 mg/dL [facility] Comment: Interpretive Data Fasting glucose >/= [...] 2022. Calcium 8.8 8.5 - 10.3 mg/dL [facility] Blood 08/23/2024 12:0 9 AM CDT 08/23/2024 12:40 AM CDT Ema Bell NP LAB BLOOD ORDERABLES Final Result [facility] Department [place] [address] * XR Chest 1 View - in [...] Electronically signed by: Yen Orellana M.D. Ema Alondra Bell SOAP WORKER IMG XR PROCEDURES Final Re sult * [...] plan with the patient's team and other medical/clinical operations consultant staff. This time was in addition to and separate from care provided by other practitioners on this day of service. I spent time reviewing and interpreting data from bedside monitors, laboratory results, and imaging, I spent time discussing the management of this critically ill patient with consultants and the medical staff and I spent time documenting in the medical record us Yrn Porras PA IN CLINIC/BEDSIDE ORDERAB LES Final Result * POCT glucose (08/22/2024 5:25 PM CDT) Glucose, POC 141 70 - 199 mg/dL Blood 08/22/2024 5:25 PM CDT 08/22/2024 5:25 PM CDT us Jason Hess MD LAB POCT ORDERABLES - DEVICE Fin al Result [facility] Department [place] [address] * POCT glucose (08/22/2024 11:17 AM CDT) Glucose, POC 140 70 - 199 mg/dL Blood 08/22/2024 11:1 7 AM CDT 08/22/2024 11:17 AM CDT us Jason Hess MD LAB POCT ORDERABLES - DEVICE Fin al Result [facility] Department [place] [address] * Critical Care (08/22/2024 11:15 AM CDT) [...] plan with the ICU team and other medical/clinical operations consultant staff, making frequent assessments and decisions [...] 7:52 AM CDT 08/22/2024 7:52 AM CDT Jason Hess MD LAB POCT ORDERABLES - DEVICE Fin al Result [facility] Department [place] [address] * CT Stroke Head WO Contrast (08/22/2024 [...] 5:45 AM CDT 08/22/2024 5:45 AM CDT Result [facility] Jason Hess MD LAB POCT ORDERABLES - DEVICE Fin al Result [facility] Department [place] [address] * Oxyhemoglobin, pulmonary artery (08/22/2024 5:12 AM CDT) Oxyhemoglobin, PA 62.0 % Comment: Interpretive Data No reference range established. Current interpretive data was last revised 2019. Blood 08/22/2024 5:12 AM CDT 08/22/2024 5:25 AM CDT Ema Bell SOAP WORKER LAB BLOOD ORDERABLES Final [facility] [place] [address] * Potassium, whole blood (08/22/2024 5:12 AM CDT) Potassium, bld 4.6 3.3 - 4.9 mmol/L Blood 08/22/2024 5:12 AM CDT 08/22/2024 5:25 AM CDT Sneha Rodriguez SOAP WORKER LAB BLOOD ORDERABLES Final Result Performing Organization Address [facility] Co de Phone Number [facility] [place] [address] * POCT glucose (08/22/2024 4:00 AM CDT) Glucose, POC 142 70 - 199 mg/dL Blood 08/22/2024 4:00 AM CDT 08/22/2024 4:00 AM CDT Jason Hess MD LAB POCT ORDERABLES - DEVICE Fin al Result Performing Organization Address [facility] Co de Phone Number [facility] [place] [address] * Oxyhemoglobin, pulmonary artery (08/22/2024 3:47 AM CDT) Oxyhemoglobin, PA 60.7 % Comment: Interpretive Data No reference range established. Current interpretive data was last revised 2019. Blood 08/22/2024 3:47 AM CDT 08/22/2024 4:09 AM CDT Ema Bell SOAP WORKER LAB BLOOD ORDERABLES Final Result Performing Organization Address [facility] Co de Phone Number [facility] [place] [address] * Potassium, whole blood (08/22/2024 3:47 AM CDT) Potassium, bld 4.9 3.3 - 4.9 mmol/L Blood 08/22/2024 3:47 AM CDT 08/22/2024 4:09 AM CDT Sneha Rodriguez SOAP WORKER LAB BLOOD ORDERABLES Final Result Performing Organization Address [facility] Co de Phone Number [facility] [place] [address] * (ABNORMAL) Potassium (08/22/2024 3:47 AM CDT) Potassium, pl 5.2(H) 3.3 - 4.9 mmol/L Blood 08/22/2024 3:47 AM CDT 08/22/2024 4:09 AM CDT Narrative [facility] - 08/22/2024 4:31 AM CDT Provider to discontinue after two normal results. Jason Hess MD LAB BLOOD ORDERABLES Final Resul t Performing Organization Address [facility] Co de Phone Number [facility] Department [place] [address] * POCT glucose (08/22/2024 12:31 AM CDT) Glucose, POC 151 70 - 199 mg/dL Blood 08/22/2024 12:3 1 AM CDT 08/22/2024 12:31 AM CDT Jason Hess MD LAB POCT ORDERABLES - DEVICE Fin al Result Performing Organization Address [facility] Co de Phone Number [facility] [place] [address] * Oxyhemoglobin, pulmonary artery (08/22/2024 12:26 AM CDT) Oxyhemoglobin, PA 72.1 % Comment: Interpretive Data No reference range established. Current interpretive data was last revised 2019. Blood 08/22/2024 12:2 6 AM CDT 08/22/2024 12:43 AM CDT us Ema Bell SOAP WORKER LAB BLOOD ORDERABLES Final Result [facility] [place] [address] * (ABNORMAL) Potassium, whole blood (08/22/2024 12:26 AM CDT) Potassium, bld 5.3(H) 3.3 - 4.9 mmol/L Blood 08/22/2024 12:2 6 AM CDT 08/22/2024 12:43 AM CDT us Sneha Rodriguez SOAP WORKER LAB BLOOD ORDERABLES Final Result Performing Organization Address [facility] Co de Phone Number [facility] [place] [address] * eGFR (08/22/2024 12:26 AM CDT) eGFR [...] 08/22/2024 12:46 AM CDT us Ema Bell SOAP WORKER LAB BLOOD ORDERABLES Final Result [facility] Department [place] [address] * (ABNORMAL) CBC without differential (08/22/2024 12:26 AM CDT) [facility] WBC 7.94 3.80 - 9.90 K/cumm Hgb 9.8(L) 13.0 - 17.5 g/dL [facility] Hct 29.5(L) 38.9 - 50.3 % [facility] Plt 161 150 - 400 K/cumm [facility] MPV 10.0 9.1 - 12.3 fL [facility] RBC 3.17(L) 4.30 - 5.80 M/cumm [facility] MCV 93.1 81.3 - 96.4 fL [facility] MCH 30.9 27.1 - 33.3 pg [facility] MCHC 33.2 32.3 - 35.7 g/dL [facility] RDW CV 13.2 11.1 - 14.9 % [facility] RDW SD 45.2 35.7 - 48.1 fL [facility] NRBC abs 0.00 0.00 - 0.01 K/cumm [facility] Blood 08/22/2024 12:2 6 AM CDT 08/22/2024 12:46 AM CDT us Ema Bell SOAP WORKER LAB BLOOD ORDERABLES Final Result [facility] Department [place] [address] * (ABNORMAL) Phosphorus (08/22/2024 12:26 AM CDT) Phosphorus, pl 5.4(H) 2.3 - 4.5 mg/dL Blood 08/22/2024 12:2 6 AM CDT 08/22/2024 12:46 AM CDT Ema Alondra Bell SOAP WORKER LAB BLOOD ORDERABLES Final Result Performing Organization Address City/[facility] Co de Phone Number [facility] [place] [address] * Magnesium (08/22/2024 12:26 AM CDT) Pathologist [facility] Magnesium 2.2 1.4 - 2.5 mg/dL Blood 08/22/2024 12:2 6 AM CDT 08/22/2024 12:46 AM CDT Ema Cantu Ebll LAB BLOOD ORDERABLES Final Result Performing Organization Address [facility] Phone Number [facility] [place] [address] * (ABNORMAL) Blood gas, arterial (08/22/2024 12:26 AM CDT) Pathologist [facility] pH, Art 7.33(L) 7.35 - 7.45 PCO2, Arterial 49(H) 35 - 45 mmHg [facility] PO2, Arterial 132(H) 83 - 108 mmHg [facility] HCO3 Art (Calculated) 27 20 - 30 mmol/L [facility] BE, art 0 mmol/L [facility] Comment: Interpretive Data No Reference Range Established Current Interpretive Data was last revised on 2017 O2 Sat Art (Measured) 99(H) 90 - 95 % [facility] Blood 08/22/2024 12:2 6 AM CDT 08/22/2024 12:43 AM CDT Ema Cantu Bell SOAP WORKER LAB BLOOD ORDERABLES Final Result Performing Organization Address [facility] Co de Phone Number [facility] [place] [address] * (ABNORMAL) Basic metabolic panel (08/22/2024 12:26 AM CDT) Sodium 139 135 - 145 mmol/L Potassium, pl 5.6(H) 3.3 - 4.9 mmol/L [facility] Chloride 106 97 - 110 mmol/L [facility] CO2 27 22 - 32 mmol/L [facility] Anion gap 6 2 - 15 mmol/L [facility] BUN 23 6 - 25 mg/dL [facility] Creatinine 1.29 0.80 - 1.30 mg/dL [facility] Glucose 154 70 - 199 mg/dL [facility] Comment: Interpretive Data Fasting glucose >/= [...] 2022. Calcium 8.7 8.5 - 10.3 mg/dL [facility] Blood 08/22/2024 12:2 6 AM CDT 08/22/2024 12:46 AM CDT us Ema Bell NP LAB BLOOD ORDERABLES Final Result Performing Organization Address City/[facility]/ZIP Co de Phone Number [facility] Department [place] [address] * POCT glucose (08/21/2024 7:57 PM CDT) Glucose, POC 163 70 - 199 mg/dL Blood 08/21/2024 7:57 PM CDT 08/21/2024 7:57 PM CDT us Jason Hess MD LAB POCT ORDERABLES - DEVICE Fin al Result Performing Organization Address [facility]/State/ZIP Co de Phone Number [facility] Department [place] [address] * (ABNORMAL) Potassium, whole blood (08/21/2024 7:53 PM CDT) Potassium, bld 5.1(H) 3.3 - 4.9 mmol/L Blood 08/21/2024 7:53 PM CDT 08/21/2024 8:34 PM CDT Jason Hess MD LAB BLOOD ORDERABLES Final Resul t Performing Organization Address [facility] Co de Phone Number [facility] Department [place] [address] * Calcium, ionized, whole blood (08/21/2024 7:53 PM CDT) Ca, ionized, bld 5.03 4.50 - 5.10 mg/dL Blood 08/21/2024 7:53 PM CDT 08/21/2024 8:34 PM CDT Jason Hess MD LAB BLOOD ORDERABLES Final Resul t Performing Organization Address [facility] Co de Phone Number [facility] Department [place] [address] * Triglycerides (08/21/2024 7:53 PM CDT) Triglycerides [...] PM CDT 08/21/2024 8:34 PM CDT Narrative [facility] - 08[facility]21/2024 9:02 PM CDT While on propofol infusion. us Ema Bell NP LAB BLOOD ORDERABLES Final Result Performing Organization Address [facility] de Phone Number [facility] Department [place] [address] * (ABNORMAL) Blood gas, arterial (08/21/2024 7:53 PM CDT) pH, Art 7.32(L) 7.35 - 7.45 PCO2, Arterial 47(H) 35 - 45 mmHg [facility] PO2, Arterial 99 83 - 108 mmHg [facility] HCO3 Art (Calculated) 25 20 - 30 mmol/L [facility] BE, art -2 mmol/L [facility] Comment: Interpretive Data No Reference Range Established Current Interpretive Data was last revised on 2017 O2 Sat Art (Measured) 97(H) 90 - 95 % [facility] Blood 08/21/2024 7:53 PM CDT 08/21/2024 8:34 PM CDT us Jason Hess MD LAB BLOOD ORDERABLES Final Resul t Performing Organization Address [facility] Co de Phone Number [facility] Department [place] [address] * Critical Care (08/21/2024 6:35 PM CDT) Narrative Efrem Ziegler MD PhD - 08/21/2024 6:35 PM CDT Efrem Ziegler MD PhD 08/22/2024 6:40 AM Critical Care Performed by: Ema Bell, SOAP WORKER Authorized by: Ema Bell NP CRITICAL CARE: [...] plan with the ICU team and other medical/clinical operations consultant staff, making frequent assessments and decisions [...] documenting in the medical record Ema Bell NP IN CLINIC/BEDSIDE ORDERABL ES Final Result * POCT glucose (08/21/2024 6:10 PM CDT) Glucose, POC 125 70 - 199 mg/dL Blood 08/21/2024 6:10 PM CDT 08/21/2024 6:10 PM CDT Jason Hess MD LAB POCT ORDERABLES - DEVICE Fin al Result Performing Organization Address [facility] Co de Phone Number [facility] Department [place] [address] * POCT glucose (08/21/2024 5:06 PM CDT) Glucose, POC 98 70 - 199 mg/dL Blood 08/21/2024 5:06 PM CDT 08/21/2024 5:06 PM CDT Jason Hess MD LAB POCT ORDERABLES - DEVICE Fin al Result [facility] Department [place] [address] * POCT glucose (08/21/2024 3:54 PM CDT) Glucose, POC 103 70 - 199 mg/dL Blood 08/21/2024 3:54 PM CDT 08/21/2024 3:54 PM CDT us Jason Hess MD LAB POCT ORDERABLES - DEVICE Fin al Result Performing Organization Address [facility] Co de Phone Number D[facility]RICK [facility] Department [place] [address] * XR Chest 1 View (08/21/2024 3:44 [...] vena cava. Right internal jugular venous approach [place] catheter with tip overlying the right pulmonary [...] vena cava. Right internal jugular venous approach [place] catheter with tip overlying the right pulmonary [...] Oxyhemoglobin, pulmonary artery (08/21/2024 3:00 PM CDT) Pathologist [facility] Oxyhemoglobin, PA 83.9 % Comment: Interpretive Data No reference range established. Current interpretive data was last revised 2019. Blood 08/21/2024 3:00 PM CDT 08/21/2024 3:20 PM CDT Ema Bell NP LAB BLOOD ORDERABLES Final Result Performing Organization Address City/State/[facility] Co de Phone Number [facility]RICK [facility] Department [place] [address] * eGFR (08/21/2024 2:48 PM CDT) Pathologist [facility] eGFR 68 >=60 mL/min/1. 73 m2 Comment: [...] MD LAB BLOOD ORDERABLES Final Resul t [facility] Department [place] [address] * (ABNORMAL) POC Blood Gas and Chemistries, Arterial - (08/21/2024 2:48 PM CDT) pH, Art POC 7.38 7.35 - 7.45 pCO2, Art POC 39 35 - 45 mmHg [facility] pO2, Art POC 144(H) 83 - 108 mmHg [facility] Na, POC 139 135 - 145 mmol/L [facility] K POC 4.0 3.3 - 4.9 mmol/L [facility] Comment: Interpretive Data Not all point of care methods assess for hemolysis. Confirm with instrument and retest K+ if not consistent with clinical signs and symptoms. Current Interpretive Data was last revised on 2023. Cl, POC 110 97 - 110 mmol/L [facility] Ionized Ca, POC 5.38(H) 4.50 - 5.10 mg/dL [facility] Glucose, POC 133 70 - 199 mg/dL [facility] Lactate, POC 2.5(H) 0.7 - 2.0 mmol/L [facility] SO2 (jose angel) arterial 99(H) 90 - 95 % [facility] Base excess, POC -1.8 mmol/L [facility] HCO3, Art POC 23 20 - 30 mmol/L [facility] Hct, POC 32.0(L) 41.4 - 51.6 % [facility] Total Hb, POC 10.7(L) 13.8 - 17.2 g/dL [facility] Blood 08/21/2024 2:48 PM CDT 08/21/2024 2:48 PM CDT Jason Hess MD LAB POCT ORDERABLES - DEVICE Fin al Result Performing Organization Address [facility] Co de Phone Number [facility] [place] [address] * aPTT (08/21/2024 2:48 PM CDT) aPTT [...] ORDERABLES Final Resul t Performing Organization Address [facility] Co de Phone Number [facility] [place] [address] * (ABNORMAL) Protime-INR (08/21/2024 2:48 PM CDT) PT 13.4(H) 9.7 - 13.0 sec INR 1.24(H) 0.90 - 1.20 [facility] Comment: Interpretive data Oral anticoagulant therapeutic ranges: Venous thromboembolism prophylaxis or treatment: 2.0-3.0 CARDIOLOGY Standard range: 2.0-3.0 High-intensity range: 2.5-3.5 Refer to indication-specific guidelines for appropriate target ranges for prosthetic heart valve replacement. Current interpretive data was last revised on 2019. Blood 08/21/2024 2:48 PM CDT 08/21/2024 3:09 PM CDT Jason Hess MD LAB BLOOD ORDERABLES Final Resul t [facility] [place] [address] * (ABNORMAL) CBC without differential (08/21/2024 2:48 PM CDT) WBC 11.46(H) 3.80 - 9.90 K/cumm Hgb 10.1(L) 13.0 - 17.5 g/dL [facility] Hct 29.8(L) 38.9 - 50.3 % [facility] Plt 155 150 - 400 K/cumm [facility] MPV 9.6 9.1 - 12.3 fL [facility] RBC 3.24(L) 4.30 - 5.80 M/cumm [facility] MCV 92.0 81.3 - 96.4 fL [facility] MCH 31.2 27.1 - 33.3 pg [facility] MCHC 33.9 32.3 - 35.7 g/dL [facility] RDW CV 13.2 11.1 - 14.9 % [facility] RDW SD 44.8 35.7 - 48.1 fL [facility] NRBC abs 0.00 0.00 - 0.01 K/cumm [facility] Blood 08/21/2024 2:48 PM CDT 08/21/2024 3:15 PM CDT Jason Hess MD LAB BLOOD ORDERABLES Final Resul t [facility] [place] [address] * Type and screen (08/21/2024 2:48 PM CDT) [facility] ABO Rh A Negative Neyda, indirect Negative [facility] Blood 08/21/2024 2:48 PM CDT 08/21/2024 3:36 PM CDT Narrative [facility] - 08/21/2024 4:41 PM CDT Has the patient had Daratumumab or Isatuximab in the past 6 months?->Unknown us Sneha Rodriguez SOAP WORKER LAB BLOOD BANK TEST ORDERA BLES Final Result Performing Organization Address [facility] Co de Phone Number [facility] [place] [address] * Magnesium (08/21/2024 2:48 PM CDT) [facility] Magnesium 2.5 1.4 - 2.5 mg/dL Blood 08/21/2024 2:48 PM CDT 08/21/2024 3:15 PM CDT us Jason Hess MD LAB BLOOD ORDERABLES Final Resul t Performing Organization Address [facility] de Phone Number [facility] [place] [address] * Basic metabolic panel (08/21/2024 2:48 PM CDT) [facility] Sodium 142 135 - 145 mmol/L Potassium, pl 3.9 3.3 - 4.9 mmol/L [facility] Comment:Hemolyzed; Potassium value may be falsely elevated by as much as 0.3-0.5 mmol/L. Suggest redraw and reanalysis. Chloride 109 97 - 110 mmol/L [facility] CO2 26 22 - 32 mmol/L [facility] Anion gap 7 2 - 15 mmol/L [facility] BUN 17 6 - 25 mg/dL [facility] Creatinine 1.20 0.80 - 1.30 mg/dL [facility] Glucose 128 70 - 199 mg/dL [facility] Comment: Interpretive Data Fasting glucose >/= [...] 2022. Calcium 9.3 8.5 - 10.3 mg/dL [facility] Blood 08/21/2024 2:48 PM CDT 08/21/2024 3:15 PM CDT Jason Hess MD LAB BLOOD ORDERABLES Final Resul t [facility] Department [place] [address] * REPAIR ANEURYSM ASCENDING AORTIC (08/21/2024 2:21 PM CDT) Anatomical Region Laterality Modality X-Ray Angiograph y Narrative 08/21/2024 2:21 PM CDT Please see OpNote for result. Jason Hess MD SURGICAL CASE ORDERS Final Resul t * (ABNORMAL) POC Blood Gas and Chemistries, Arterial - (08/21/2024 1:48 PM CDT) pH, Art POC 7.34(L) 7.35 - 7.45 pCO2, Art POC 42 35 - 45 mmHg [facility] pO2, Art POC 332(H) 83 - 108 mmHg [facility] Na, POC 140 135 - 145 mmol/L [facility] K POC 3.7 3.3 - 4.9 mmol/L [facility] Comment: Interpretive Data Not all point of care methods assess for hemolysis. Confirm with instrument and retest K+ if not consistent with clinical signs and symptoms. Current Interpretive Data was last revised on 2023. Cl, POC 109 97 - 110 mmol/L [facility] Ionized Ca, POC 5.76(H) 4.50 - 5.10 mg/dL [facility] Glucose, POC 174 70 - 199 mg/dL [facility] Lactate, POC 2.7(H) 0.7 - 2.0 mmol/L [facility] SO2 (jose angel) arterial 100(H) 90 - 95 % [facility] Base excess, POC -2.9 mmol/L [facility] HCO3, Art POC 23 20 - 30 mmol/L [facility] Hct, POC 30.0(L) 41.4 - 51.6 % [facility] Total Hb, POC 10.0(L) 13.8 - 17.2 g/dL [facility] Blood 08/21/2024 1:48 PM CDT 08/21/2024 1:48 PM CDT Jason Hess MD LAB POCT ORDERABLES - DEVICE Fin al Result Performing Organization Address City/[facility]/ZIP Co de Phone Number [facility] [place] [address] * (ABNORMAL) POCT prothrombin time (08/21/2024 1:47 PM CDT) [facility] PT, POC 21.1(H) 11.7 - 16.6 sec INR, POC 1.6(H) 0.9 - 1.2 [facility] Blood 08/21/2024 1:47 PM CDT 08/21/2024 1:47 PM CDT Jason Hess MD LAB POCT ORDERABLES - DEVICE Fin al Result [facility] [place] [address] * (ABNORMAL) POCT hemoglobin, hematocrit and platelet count (08/21/2024 1:47 PM CDT) Hgb, POC 9.4(L) 13.0 - 17.5 g/dL Hematocrit POC 28.7(L) 38.9 - 50.3 % [facility] Platelet POC 150 150 - 400 K/cumm [facility] Blood 08/21/2024 1:47 PM CDT 08/21/2024 1:47 PM CDT Jason Hess MD LAB POCT ORDERABLES - DEVICE Fin al Result Performing Organization Address City/[facility]/ZIP Co de Phone Number [facility] [place] [address] * POCT Partial thromboplastin time (PTT) (08/21/2024 1:47 PM CDT) [facility] APTT, POC 41.5 32.5 - 46.1 sec Blood 08/21/2024 1:47 PM CDT 08/21/2024 1:47 PM CDT Jason Hess MD LAB POCT ORDERABLES - DEVICE Fin al Result Performing Organization Address [facility] Co de Phone Number [facility] [place] [address] * Transfuse platelets (08/21/2024 12:56 PM CDT) Blood Christine Loaiza MD BLOOD TRANSFUSION ORDERA BLES Final Result [facility] [place] [address] * Transfuse platelets (08/21/2024 12:56 PM CDT) Blood Christine Loaiza MD BLOOD TRANSFUSION ORDERA BLES Final Result Performing Organization Address City/[facility]/ZIP Co de Phone Number [facility] [place] [address] * POCT heparin/ACT CPB (08/21/2024 12:47 PM CDT) Heparin POC 0.0 units/mL ACT, CPB 113 112 - 174 sec [facility] Blood 08/21/2024 12:4 7 PM CDT 08/21/2024 12:47 PM CDT us Jason Hess MD LAB POCT ORDERABLES - DEVICE Fin al Result [facility] Department [place] [address] * (ABNORMAL) POC Blood Gas and Chemistries, Arterial - (08/21/2024 12:46 PM CDT) pH, Art POC 7.33(L) 7.35 - 7.45 pCO2, Art POC 40 35 - 45 mmHg [facility] pO2, Art POC 303(H) 83 - 108 mmHg [facility] Na, POC 139 135 - 145 mmol/L [facility] K POC 3.9 3.3 - 4.9 mmol/L [facility] Comment: Interpretive Data Not all point of care methods assess for hemolysis. Confirm with instrument and retest K+ if not consistent with clinical signs and symptoms. Current Interpretive Data was last revised on 2023. Cl, POC 108 97 - 110 mmol/L [facility] Ionized Ca, POC 4.71 4.50 - 5.10 mg/dL [facility] Glucose, POC 236(H) 70 - 199 mg/dL [facility] Lactate, POC 2.9(H) 0.7 - 2.0 mmol/L [facility] SO2 (jose angel) arterial 100(H) 90 - 95 % [facility] Base excess, POC -4.5 mmol/L [facility] HCO3, Art POC 22 20 - 30 mmol/L [facility] Hct, POC 31.0(L) 41.4 - 51.6 % [facility] Total Hb, POC 10.3(L) 13.8 - 17.2 g/dL [facility] Blood 08/21/2024 12:4 6 PM CDT 08/21/2024 12:46 PM CDT Jason Hess MD LAB POCT ORDERABLES - DEVICE Fin al Result Performing Organization Address [facility] Co de Phone Number [facility] [place] [address] * (ABNORMAL) POCT prothrombin time (08/21/2024 12:45 PM CDT) PT, POC 22.4(H) 11.7 - 16.6 sec INR, POC 1.7(H) 0.9 - 1.2 [facility] Blood 08/21/2024 12:4 5 PM CDT 08/21/2024 12:45 PM CDT Jason Hess MD LAB POCT ORDERABLES - DEVICE Fin al Result Performing Organization Address [facility] [place] [address] * (ABNORMAL) POCT hemoglobin, hematocrit and platelet count (08/21/2024 12:44 PM CDT) Hgb, POC 9.9(L) 13.0 - 17.5 g/dL Hematocrit POC 29.3(L) 38.9 - 50.3 % [facility] Platelet POC 114(L) 150 - 400 K/cumm [facility] Blood 08/21/2024 12:4 4 PM CDT 08/21/2024 12:44 PM CDT Jason Hess MD LAB POCT ORDERABLES - DEVICE Fin al Result Performing Organization Address [facility] Co de Phone Number [facility] [place] [address] * POCT Partial thromboplastin time (PTT) (08/21/2024 12:44 PM CDT) [facility] APTT, POC 41.5 32.5 - 46.1 sec Blood 08/21/2024 12:4 4 PM CDT 08/21/2024 12:44 PM CDT us Jason Hess MD LAB POCT ORDERABLES - DEVICE Fin al Result Performing Organization Address City/[facility]/ZIP Co de Phone Number [facility] Department [place] [address] * Prepare platelets: 2 Units (08/21/2024 12:36 PM CDT) [facility] Product code [id number] [facility] Unit Number [id number] [facility] Product Blood Type APOS [facility] Dispense Status PRESUMED TRANSFUSED [facility] Product code [id number] Unit Number [id number] [facility] Product Blood Type APOS [facility] Dispense Status PRESUMED TRANSFUSED [facility] Blood Venous blood specimen / Unknown 08/21/2024 12:36 PM CDT 08/21/2024 12:36 PM CDT Narrative [facility] - 08/22/2024 12:55 AM CDT Other indication->cts Are special requirements needed? (all products are leukoreduced)->No Date required:-[id number] PLT # of Units:-2-Units Reasons:-Other (Specify)} us Christine Loaiza MD BLOOD BANK PRODUCT ORDER SAMUEL Final Result Performing Organization Address City/[facility]/ZIP Co de Phone Number [facility] Department [place] [address] * (ABNORMAL) POCT heparin/ACT CPB (08/21/2024 11:37 AM CDT) [facility] Heparin POC >4.7 units/mL ACT, CPB 549(H) 112 - 174 sec [facility] Blood 08/21/2024 11:3 7 AM CDT 08/21/2024 11:37 AM CDT Jason Hess MD LAB POCT ORDERABLES - DEVICE Fin al Result [facility] Department [place] [address] * (ABNORMAL) POC Blood Gas and Chemistries, Arterial - (08/21/2024 11:36 AM CDT) pH, Art POC 7.36 7.35 - 7.45 pCO2, Art POC 41 35 - 45 mmHg [facility] pO2, Art POC 220(H) 83 - 108 mmHg [facility] Na, POC 138 135 - 145 mmol/L [facility] K POC 4.5 3.3 - 4.9 mmol/L [facility] Comment: Interpretive Data Not all point of care methods assess for hemolysis. Confirm with instrument and retest K+ if not consistent with clinical signs and symptoms. Current Interpretive Data was last revised on 2023. Cl, POC 108 97 - 110 mmol/L [facility] Ionized Ca, POC 4.82 4.50 - 5.10 mg/dL [facility] Glucose, POC 218(H) 70 - 199 mg/dL [facility] Lactate, POC 1.8 0.7 - 2.0 mmol/L [facility] SO2 (jose angel) arterial 100(H) 90 - 95 % [facility] Base excess, POC -2.1 mmol/L [facility] HCO3, Art POC 23 20 - 30 mmol/L [facility] Hct, POC 32.0(L) 41.4 - 51.6 % [facility] Total Hb, POC 10.8(L) 13.8 - 17.2 g/dL [facility] Blood 08/21/2024 11:3 6 AM CDT 08/21/2024 11:36 AM CDT Jason Hess MD LAB POCT ORDERABLES - DEVICE Fin al Result Performing Organization Address City/[facility] Co de Phone Number [facility] Department [place] [address] * (ABNORMAL) POCT heparin/ACT CPB (08/21/2024 11:00 AM CDT) Heparin POC >4.7 units/mL ACT, CPB 518(H) 112 - 174 sec [facility] Blood 08/21/2024 11:0 0 AM CDT 08/21/2024 11:00 AM CDT Jason Hess MD LAB POCT ORDERABLES - DEVICE Fin al Result Performing Organization Address [facility] Co de Phone Number [facility] Department [place] [address] * (ABNORMAL) POC Blood Gas and Chemistries, Arterial - (08/21/2024 10:58 AM CDT) pH, Art POC 7.33(L) 7.35 - 7.45 pCO2, Art POC 40 35 - 45 mmHg [facility] pO2, Art POC 268(H) 83 - 108 mmHg [facility] Na, POC 137 135 - 145 mmol/L [facility] K POC 4.9 3.3 - 4.9 mmol/L [facility] Comment: Interpretive Data Not all point of care methods assess for hemolysis. Confirm with instrument and retest K+ if not consistent with clinical signs and symptoms. Current Interpretive Data was last revised on 2023. Cl, POC 107 97 - 110 mmol/L [facility] Ionized Ca, POC 4.85 4.50 - 5.10 mg/dL [facility] Glucose, POC 220(H) 70 - 199 mg/dL [facility] Lactate, POC 1.5 0.7 - 2.0 mmol/L [facility] SO2 (jose angel) arterial 100(H) 90 - 95 % [facility] Base excess, POC -4.5 mmol/L [facility] HCO3, Art POC 22 20 - 30 mmol/L [facility] Hct, POC 33.0(L) 41.4 - 51.6 % [facility] Total Hb, POC 11.0(L) 13.8 - 17.2 g/dL [facility] Blood 08/21/2024 10:5 8 AM CDT 08/21/2024 10:58 AM CDT Jason Hess MD LAB POCT ORDERABLES - DEVICE Fin al Result Performing Organization Address City/[facility] Co de Phone Number [facility] [place] [address] * (ABNORMAL) POCT heparin/ACT CPB (08/21/2024 10:23 AM CDT) [facility] Heparin POC >4.7 units/mL ACT, CPB 538(H) 112 - 174 sec [facility] Blood 08/21/2024 10:2 3 AM CDT 08/21/2024 10:23 AM CDT Jason Hess MD LAB POCT ORDERABLES - DEVICE Fin al Result Performing Organization Address [facility] de Phone Number [facility] [place] [address] * (ABNORMAL) POC Blood Gas and Chemistries, Arterial - (08/21/2024 10:23 AM CDT) pH, Art POC 7.39 7.35 - 7.45 pCO2, Art POC 36 35 - 45 mmHg [facility] pO2, Art POC 297(H) 83 - 108 mmHg [facility] Na, POC 136 135 - 145 mmol/L [facility] K POC 4.6 3.3 - 4.9 mmol/L [facility] Comment: Interpretive Data Not all point of care methods assess for hemolysis. Confirm with instrument and retest K+ if not consistent with clinical signs and symptoms. Current Interpretive Data was last revised on 2023. Cl, POC 107 97 - 110 mmol/L [facility] Ionized Ca, POC 4.74 4.50 - 5.10 mg/dL [facility] Glucose, POC 211(H) 70 - 199 mg/dL [facility] Lactate, POC 1.5 0.7 - 2.0 mmol/L [facility] SO2 (jose angel) arterial 100(H) 90 - 95 % [facility] Base excess, POC -2.7 mmol/L [facility] HCO3, Art POC 23 20 - 30 mmol/L [facility] Hct, POC 33.0(L) 41.4 - 51.6 % [facility] Total Hb, POC 10.9(L) 13.8 - 17.2 g/dL [facility] Blood 08/21/2024 10:2 3 AM CDT 08/21/2024 10:23 AM CDT us Jason Hess MD LAB POCT ORDERABLES - DEVICE Fin al Result Performing Organization Address City/State/[facility] Co de Phone Number [facility] Department [place] [address] * ME AN PROCEDURE PLACEHOLDER (08/21/2024 9:58 AM CDT) [...] code: JEFF placement and diagnostic exam, non-congenital (91223) Echocardiographic and doppler measurements: Ventricles: Left ventricle: [...] inferior: normal 16- Apical septal: normal 17- [place]: normal Valves: Aortic Valve: Annulus: normal Leaflet [...] comments: Post-CPB JEFF performed under GA+PPV 3 CHEMICAL TREATMENT PLANT TECHNICIAN DDD at 90 Overall LV function remains [...] AN SHEATH INTRODUCER PERFORMABLE, PULMONARY ARTERY CATH, ME AN PROCEDURE PLACEHOLDER (59:57 AM CDT) Narrative [...] POCT heparin/ACT CPB (08/21/2024 9:49 AM CDT) Pathologist [facility] Heparin POC <4.9 units/mL ACT, CPB 543(H) 112 - 174 sec [facility] Blood 08/21/2024 9:49 AM CDT 08/21/2024 9:49 AM CDT Jason Hess MD LAB POCT ORDERABLES - DEVICE Fin al Result [facility] Department [place] [address] * (ABNORMAL) POC Blood Gas and Chemistries, Arterial - (08/21/2024 9:49 AM CDT) Pathologist [facility] pH, Art POC 7.37 7.35 - 7.45 pCO2, Art POC 40 35 - 45 mmHg [facility] pO2, Art POC 256(H) 83 - 108 mmHg [facility] Na, POC 136 135 - 145 mmol/L [facility] K POC 5.1(H) 3.3 - 4.9 mmol/L [facility] Comment: Interpretive Data Not all point of care methods assess for hemolysis. Confirm with instrument and retest K+ if not consistent with clinical signs and symptoms. Current Interpretive Data was last revised on 2023. Cl, POC 108 97 - 110 mmol/L [facility] Ionized Ca, POC 4.81 4.50 - 5.10 mg/dL [facility] Glucose, POC 193 70 - 199 mg/dL [facility] Lactate, POC 1.6 0.7 - 2.0 mmol/L [facility] SO2 (jose angel) arterial 100(H) 90 - 95 % [facility] Base excess, POC -2.0 mmol/L [facility] HCO3, Art POC 23 20 - 30 mmol/L [facility] Hct, POC 32.0(L) 41.4 - 51.6 % [facility] Total Hb, POC 10.5(L) 13.8 - 17.2 g/dL [facility] Blood 08/21/2024 9:49 AM CDT 08/21/2024 9:49 AM CDT us Jason Hess MD LAB POCT ORDERABLES - DEVICE Fin al Result Performing Organization Address City/State/[facility] Co de Phone Number [facility] Department [place] [address] * Surgical pathology (08/21/2024 9:47 AM CDT) Tissue (Aorta) 08/21/2024 9: 47 AM CDT Narrative PATHOLOGY [facility] - 08/24/2024 10:53 AM CDT EPIC results best viewed via link to PDF [facility] [place] [address] Note to Patients: This report may contain [...] details. SURGICAL PATHOLOGY REPORT FINAL Patient Name: RODERICK WELCH Gender: M : 1960 (Age: 64) Address: [address] [place], [place] [address] [address] Hospital #: [id number] Taken:08/21/2024 Received:08/21/2024 Reported: 08/24/2024 Patient Type: [facility] Inpatient Service: Cardiothoracic Location: [place] [address] Physician(s): Jason Hess M.D. Dima Caesar Mckinney M.D. Diagnosis: A. Aorta, excision: - Cystic medial degeneration ctb08/24/2024 10:53 By this signature, I attest that [...] is ulloa-white and smooth with fatty streaking. [employer] [facility] sections are submitted. Labeled A1. Jar 1. rxr/08/22/2024 13:39 PA(s): Lizette Spivey MS, PA(ASCP)CM By this signature, I attest that the above diagnosis is based upon my personal examination of the slides(and/or other material). Addenda/Procedures The performance characteristics of some immunohistochemical stains, fluorescence in-situ hybridization tests and immunophenotyping by flow cytometry cited in this report (if any) were determined by the Surgical Pathology and Flow Cytometry Departments at [facility] as part of an ongoing inspector quality assurance program and in compliance with federally mandated [...] Surgical Pathology and Flow Cytometry Departments of [facility]. It has not been cleared or approved by the U. S. Food and Drug Administration. IMAGES AND SCANNED DOCUMENTS, IF INCLUDED, ONLY VIEWABLE IN PDF VERSION OF REPORT Jason Hess MD LAB PATHOLOGY ORDERABLES Final R esult PATHOLOGY [facility] 3rd Floor [place], [place] [phone] * HIV 1/2 Antibody plus p24 Antigen [...] MICROBIOLOGY - GENERAL ORD ERABLES Final Result [facility] Department [place] [address] * Hepatitis C antibody Blood (08/21/2024 9:45 AM CDT) Hep C Ab Nonreactive Nonreactive Comment:Antibodies to HCV no t detected. Does NOT exclude the possibility of recent exposure to HCV. Current interpretive data was last revised on 21 Blood 08/21/2024 9:45 AM CDT 08/21/2024 11:09 AM CDT us Notinfile Unknown LAB MICROBIOLOGY - GENERAL ORD ERABLES Final Result Performing Organization Address [facility] Co de Phone Number [facility] [place] [address] * Hepatitis B Surface Antigen Blood (08/21/2024 9:45 AM CDT) HepBsAg Nonreactive Nonreactive Blood 08/21/2024 9:45 AM CDT 08/21/2024 11:09 AM CDT us Notinfile Unknown LAB MICROBIOLOGY - GENERAL ORD ERABLES Final Result Performing Organization Address [facility] de Phone Number DEDRICK [facility] [place] [address] * Central Venous Line (08/21/2024 8:59 AM [...] * Arterial Line (08/21/2024 8:59 AM CDT) Narrative Balta [...] no complications Christine Loaiza MD ANESTHESIA ORDERABLES Ed ited Result - Final * Airway (08/21/2024 8:57 AM CDT) Narrative Balta Villalta MD - 08/21/2024 8:57 AM CDT Balta [...] POCT heparin/ACT CPB (08/21/2024 8:56 AM CDT) Pathologist [facility] Heparin POC >6.7 units/mL ACT, CPB 543(H) 112 - 174 sec [facility] Blood 08/21/2024 8:56 AM CDT 08/21/2024 8:56 AM CDT Jason Hess MD LAB POCT ORDERABLES - DEVICE Fin al Result [facility] Department [place] [address] * (ABNORMAL) POC Blood Gas and Chemistries, Arterial - (08/21/2024 8:31 AM CDT) Pathologist [facility] pH, Art POC 7.43 7.35 - 7.45 pCO2, Art POC 40 35 - 45 mmHg [facility] pO2, Art POC 391(H) 83 - 108 mmHg [facility] Na, POC 137 135 - 145 mmol/L [facility] K POC 3.9 3.3 - 4.9 mmol/L [facility] Comment: Interpretive Data Not all point of care methods assess for hemolysis. Confirm with instrument and retest K+ if not consistent with clinical signs and symptoms. Current Interpretive Data was last revised on 2023. Cl, POC 106 97 - 110 mmol/L [facility] Ionized Ca, POC 4.88 4.50 - 5.10 mg/dL [facility] Glucose, POC 127 70 - 199 mg/dL [facility] Lactate, POC 1.0 0.7 - 2.0 mmol/L [facility] SO2 (jose angel) arterial 100(H) 90 - 95 % [facility] Base excess, POC 2.0 mmol/L [facility] HCO3, Art POC 27 20 - 30 mmol/L [facility] Hct, POC 39.0(L) 41.4 - 51.6 % [facility] Total Hb, POC 13.0(L) 13.8 - 17.2 g/dL [facility] Blood 08/21/2024 8:31 AM CDT 08/21/2024 8:31 AM CDT Jason Hess MD LAB POCT ORDERABLES - DEVICE Fin al Result Performing Organization Address [facility] Co de Phone Number [facility] [place] [address] * (ABNORMAL) POCT heparin dose response, CPB (08/21/2024 8:27 AM CDT) Baseline ACT POC 135 112 - 174 sec Heparin dose response slope POC 59(L) 60 - 195 [facility] Projected Heparin Concentration POC 5.8 units/mL [facility] Blood 08/21/2024 8:27 AM CDT 08/21/2024 8:27 AM CDT Jason Hess MD LAB POCT ORDERABLES - DEVICE Fin al Result Performing Organization Address City/[facility] Co de Phone Number [facility] [place] [address] * JEFF Add-On For OR (08/21/2024 6:54 AM CDT) Narrative [facility] PROSOLV_CARDIOREPORT_CONS SCIMAGE - 08/21/2024 6:54 AM CDT Procedure Auto Finalized by Rule: BW CV JEFF DURING CASE OR Please see the Anesthesiologist's Procedure Note for the results. us Balta Villalta MD CV ECHO PROCEDURES Final Result Performing Organization Address [facility] Co de Phone Number [facility] PROSOLV_CARDIOREPORT_CONS SCIMAGE * Prepare plasma: 2 Units (08/21/2024 6:54 AM CDT) Product code [id number] Unit Number [id number] 3-U [facility] Product Blood Type [facility]OS [facility] Dispense Status RETURNED [facility] Product code [id number] [facility] Unit [facility] [id number] 1-F [facility] Product Blood [facility] APOS [facility] Dispense Status RETURNED [facility] Blood Venous blood specimen / Unknown 08/21/2024 6:54 AM CDT 08/21/2024 6:54 AM CDT Narrative [facility] - 08/21/2024 2:34 PM CDT Date required:[id number] FFP # of Units:-2-Units Reasons:-Immediate need for surgical intervention Balta Villalta MD BLOOD BANK PRODUCT ORDERA BLES Final Result Performing Organization Address [facility] de Phone Number [facility] Department [place] [address] * Prepare RBC: 4 Units (08/21/2024 6:54 AM CDT) Product code [id number] Unit Number [id number] 3-O [facility] Product Blood Type ANEG [facility] Dispense Status RETURNED [facility] Product code [id number] [facility] Unit Number [id number] 4-[address] [facility] Product Blood Type ANEG [facility] Dispense Status RETURNED [facility] Product code [id number] [facility] Unit Number [id number] 6-W [facility] Product Blood Type ANEG [facility] Dispense Status RETURNED [facility] Product code [id number] [facility] Unit Number [id number] 3-5 [facility] Product Blood Type ANEG [facility] Dispense Status RETURNED [facility] Blood 08/21/2024 6:54 AM CDT 08/21/2024 6:54 AM CDT Narrative [facility] - 08/21/2024 2:34 PM CDT Are special requirements needed? (All products are leukoreduced and CMV- safe)- >No Date required:-[id number] LRRBC # of [id number] Reasons:-Intra-op transfusion} Balta Villalta MD BLOOD BANK PRODUCT ORDERA BLES Final Result Performing Organization Address City/[facility]/ZIP Co de Phone Number [facility] Department [place] [address] * Check Sample (08/21/2024 5:57 AM CDT) ABO Rh A Negative [facility] HCLL OTHER 08/21/2024 5:57 AM CDT 08/21/2024 6:47 AM CDT Jason Hess MD LAB BLOOD ORDERABLES Final Resul t Performing Organization Address [facility] Co de Phone Number [facility] [place] [address] [facility] * aPTT (08/13/2024 3:18 PM CDT) aPTT 37 22 - 37 sec Comment: Interpretive data aPTT test has not been evaluated for monitoring heparin therapy. The anti-Xa is the preferred test. Current interpretive data was last revised on 2019. Blood 08/13/2024 3:18 PM CDT 08/13/2024 3:26 PM CDT Jason Hess MD LAB BLOOD ORDERABLES Final Resul t Performing Organization Address City/[facility]/ZIP Co de Phone Number [facility] [address] [facility] [place] [address] * Protime-INR (08/13/2024 3:18 PM CDT) PT 14.1 12.0 - 14.6 sec INR 1.1 0.9 - 1.2 DEDRICK LEWIS Comment: Ref Range High Interpretive data Oral anticoagulant therapeutic ranges: Venous thromboembolism prophylaxis or treatment: 2.0-3.0 CARDIOLOGY Standard range: 2.0-3.0 High-intensity range: 2.5-3.5 Refer to indication-specific guidelines for appropriate target ranges for prosthetic heart valve replacement. Current interpretive data was last revised on 2019. Blood 08/13/2024 3:18 PM CDT 08/13/2024 3:26 PM CDT us Jason Hess MD LAB BLOOD ORDERABLES Final Resul t [address] [facility] [place] [address] * XR Chest PA Lateral 2 Views [...] signed by: César Davis M.D. Isabel Ashley SOAP WORKER IMG XR PROCEDURES Final Resul t * TYPE AND SCREEN 14 DAY (08/10/2024 3:21 PM CDT) Neyda, indirect Negative ABO Rh A Negative [facility] Blood 08/10/2024 3:21 PM CDT 08/10/2024 4:00 PM CDT [facility]ative [facility] - 08/10/2024 4:51 PM CDT Has the patient had Daratumumab or Isatuximab in the past 6 months?->No Is this test being ordered in advance for a procedure?->Yes Expected date of procedure:->08/20/24 Has the patient been transfused in the past 3 months?->No Isabel Aslhey NP LAB BLOOD BANK TEST ORDERABLE S Final Result [facility] Department [place] [address] * (ABNORMAL) Urinalysis reflex to microscopic and culture Urine, clean voided (08/10/2024 3:21 PM CDT) Color, ur Yellow Yellow Clarity, ur Clear Clear [facility] Specific gravity, ur 1.035(H) 1.003 - 1.030 [facility] pH, urine 6.0 [facility] Comment: Interpretive Data U rine pH is affected by diet, medications, systemic acid-base disturbances, and renal tubular function. pH may affect urinary stone formation. For example, urine pH below 6.0 may help reduce the tendency for calcium phosphate stones and pH greater than 6.0 may reduce the tendency for uric acid stone formation. Source: [facility] [address] [place] Current Interpretive Data was last revised on 2017 Protein, ur ql Trace Negative [facility] Glucose, ur ql Negative Negative [facility] Ketones, ur Trace Negative [facility] Bilirubin, ur Negative Negative [facility] Blood, ur Negative Negative [facility] Urobilinogen, ur <2.0 <2.0 mg/dL [facility] Nitrite, ur Negative Negative [facility] Leukocyte esterase, ur Negative Negative [facility] UA reflex comment Reflex conditions for microscopic UA and culture not met. [facility] Urine, clean voided 08/10/2024 3:21 PM CDT 08/10/2024 3:51 PM CDT us Isabel Ashley SOAP WORKER LAB MICROBIOLOGY - GENERAL OR DERABLES Final Result Performing Organization Address City/State/[facility] Co de Phone Number [facility] Department [place] [address] * TRANSTHORACIC ECHO (TTE) COMPLETE W DOPPLER/CF WO CONTRAST (08/10/2024 9:03 AM CDT) Anatomical Region Laterality Modality Ultrasound 08/10/2024 8:18 AM CDT Narrative 08/10/2024 9:18 AM CDT [facility] [place] [address] Transthoracic Echocardiographic Report Patient Name: RODERICK WELCH GE : 1960 (64y 5m) Gender: M Study Date: 08/10/2024 08:18:39 AM Ht(Inch): 74 Wt(Lb): 229.94 BSA: 2.33 Medical Assistant Ob Gyn: Yara Park RDCS Location: [facility] Order Provider: JASON HESS Heart [...] [ 1.00 - 2.00 ] PI Peak Isar 1.7 m/s Asc Ao Diam 2D 4.60 cm PI Peak PG 12 mmHg Asc Ao Index 1.97 cm/m2 PI PHT 427.56 sec Electronically Signed By: Mimi Wilson [facility] 08/10/2024 9:17:54 AM CDT Procedure Note Mimi Wilson MD - 08/10/[address] [facility] Cardiac [place] [address] Transthoracic Echocardiographic Report Patient Name: RODERICK WELCH GE : 1960 (64y 5m) Gender: M Study Date: 08/10/2024 08:18:39 AM Ht(Inch): 74 Wt(Lb): 229.94 BSA: 2.33 Medical Assistant Ob Gyn: Yara Park RDCS Location: [facility] Order Provider:JASON HESS Heart Rate: [...] LA Length 4C 6.36 cm MV Decel Ehxn243.45 msec [ 104.00 - 258.00 ] LA [...] mmHg Asc Ao Index 1.97 cm/m2 PI ZWR214.56 sec Electronically Signed By: Mimi Wilson [facility] 08/10/2024 9:17:54 AM CDT us Jason Hess MD CV ECHO PROCEDURES Final Result * LEFT HEART CATHETERIZATION WITH CORONARY ANGIOGRAPHY AND WITH AND WITHOUT LEFT VENTRICULOGRAM (08/09/2024 10:35 AM CDT) Anatomical Region Laterality Modality X-Ray Angiograph y Narrative 08/09/2024 12:29 PM CDT Cardiac Catheterization Report, Left Heart Facility: [facility] Referring Physician: Jason Hess MD Performing: Ashley [...] obtained. The patient was brought to the sleep lab technician and placed on the table. The planned [...] RCA or RPDA branches. DIAGNOSTIC IMPRESSIONS No confederated salish coronary artery disease.. THERAPEUTIC RECOMMENDATIONS Findings of the catheterization were discussed with the patient and will be conveyed to the referring physician who will determine the patient's future therapy and follow-up. Conscious sedation note: I provided direct [id number] monitoring of conscious sedation, which was administered by an independent, trained nurse using fentanyl and midazolam for 35 minutes. Ashley Beckman DO [employer] Division of Cardiology [facility] us Jason Hess MD CV CARDIAC CATH PROCEDURES Final Result * (ABNORMAL) CBC without differential (08/09/2024 10:10 AM CDT) Pathologist [facility] WBC 3.66(L) 3.80 - 9.90 K/cumm Hgb 12.5(L) 13.0 - 17.5 g/dL [facility] Hct 36.1(L) 38.9 - 50.3 % [facility] Plt 237 150 - 400 K/cumm [facility] MPV 9.5 9.1 - 12.3 fL [facility] RBC 3.97(L) 4.30 - 5.80 M/cumm [facility] MCV 90.9 81.3 - 96.4 fL [facility] MCH 31.5 27.1 - 33.3 pg [facility] MCHC 34.6 32.3 - 35.7 g/dL [facility] RDW CV 13.0 11.1 - 14.9 % [facility] RDW SD 43.3 35.7 - 48.1 fL [facility] NRBC abs 0.00 0.00 - 0.01 K/cumm [facility] Blood 08/09/2024 10:1 0 AM CDT 08/09/2024 10:16 AM CDT Narrative [facility] - 08/09/2024 10:32 AM CDT To be drawn after hydration bolus complete us Ashley Beckman DO LAB BLOOD ORDERABLE S Final Result [facility] Department [place] [address] * ECG 12 lead (08/09/2024 7:02 AM CDT) Pathologist [facility] Ventricular Rate EKG/Min 51 BPM [facility] Atrial Rate 51 BPM [facility] ME-Interval (MSEC) 200 ms [facility] QRS-Interval (MSEC) 146 ms [facility] QT-Interval (MSEC) 480 ms [facility] QTc 442 ms [facility] P [place] 66 degrees [facility] R [place] -50 degrees [facility] T [place] 12 degrees [facility] Diagnosis Sinus bradycardia Right bundle branch block Left anterior fascicular block Bifascicular block Abnormal ECG When compared with ECG of 10-JUL-2018 09:54, no significant change Confirmed by BLANCA PRO M.D ([id number]) on 08/09/2024 11:44:55 AM [facility] 08/09/2024 7:02 AM CDT 08/09/2024 11:44 AM CDT us Ashley Harrisonminruby DO ECG ORDERABLES Fin al Result [facility] [place] * eGFR (08/09/2024 6:47 AM CDT) eGFR [...] CDT 08/09/2024 8:32 AM CDT us Ashley Harrisonmino DO LAB BLOOD ORDERABLE S Final Result Performing Organization Address [facility] Co de Phone Number [facility] Department [place] [address] * CBC without differential (08/09/2024 6:47 AM CDT) [facility] WBC 3.86 3.80 - 9.90 K/cumm Hgb 13.6 13.0 - 17.5 g/dL [facility] Hct 39.6 38.9 - 50.3 % [facility] Plt 257 150 - 400 K/cumm [facility] MPV 9.7 9.1 - 12.3 fL [facility] RBC 4.34 4.30 - 5.80 M/cumm [facility] MCV 91.2 81.3 - 96.4 fL [facility] MCH 31.3 27.1 - 33.3 pg [facility] MCHC 34.3 32.3 - 35.7 g/dL [facility] RDW CV 13.1 11.1 - 14.9 % [facility] RDW SD 43.8 35.7 - 48.1 fL [facility] NRBC abs 0.00 0.00 - 0.01 K/cumm [facility] Blood 08/09/2024 6:47 AM CDT 08/09/2024 8:32 AM CDT Ashley Beckman DO LAB BLOOD ORDERABLE S Final Result Performing Organization Address [facility] de Phone Number [facility] Department [place] [address] * Basic metabolic panel (08/09/2024 6:47 AM CDT) [facility] Sodium 143 135 - 145 mmol/L Potassium, pl 4.9 3.3 - 4.9 mmol/L [facility] Comment:Hemolyzed; Potassium value may be falsely elevated by as much as 0.6-1.0 mmol/L. Suggest redraw and reanalysis. Chloride 105 97 - 110 mmol/L [facility] CO2 30 22 - 32 mmol/L [facility] Anion gap 8 2 - 15 mmol/L [facility] BUN 14 6 - 25 mg/dL [facility] Creatinine 1.02 0.80 - 1.30 mg/dL [facility] Glucose 97 70 - 199 mg/dL [facility] Comment: Interpretive Data Fasting glucose >/= [...] Calcium 9.6 8.5 - 10.3 mg/dL [facility] Blood 08/09/2024 6:47 AM CDT 08/09/2024 8:32 AM CDT us Ashley Beckman DO LAB BLOOD ORDERABLE S Final Result [facility] Department [place] [address] * COLONOSCOPY (10/14/2020 7:01 AM CDT) Anatomical Region Laterality Modality Other Narrative Procedure Note John Guthrie MD - 10/14/2020 7:01 AM CDT ENDOSCOPY LAB Patient Name: Roderick Welch Procedure Date: 10/14/2020 7:01 AM Date of : 1960 Admit Type: Outpatient Age: 60 Gender: Male Attending MD: John Guthrie M.D. Room: [facility] ENDOSCOPY ROOM 01 Note Status: Finalized [...] The scope was passed under direct vision.The [id number] was introduced through the anusand advanced to [...] call and ask for the GI fellow sales operations lead. Electronically Signed by John Guthrie MD John Guthrie M.D. 10/14/2020 7:55:34 AM Number of Addenda: 0 Note Initiated On: 10/14/2020 7:01 AM John Guthrie MD ENDOSCOPY PROCEDURES Final Res ult from Last 3 Months or Most Recently Relevant to Health Maintenance Insurance [facility] [place] [address] [facility] [place] [address] Advance Directives For more information, please contact: [phone] * Full Code (Latest Code Status on File) Date Activated Date Inactivated Comments 08/21/2024 2:50 PM 08/26/2024 5:37 PM * Full Code Date Activated Date Inactivated Comments 10/14/2020 6:38 AM 10/14/2020 12:29 PM Care Teams Concierge Relationship Specialty Start Date End Date Dima Sanchez MD PCP - General 05/01/20 Ney Villalpando MD [address] [facility] [address] [place] [address] Metal Machinist Cardiology 02/08/23 Jason Hess MD [id number] [place] [address] Surgeon Cardiothoracic Surgery 08/26/24
--- OUTSIDE RECORDS SUMMARY | 2024-09-06 15:37 | XMS_ITS | Encounter Summary ---
Author Organization [facility] [employer] [facility] Address [address] [place] [address] Phone Care Team Providers Care Electrical Engineer Name Role Phone Dima Sanchez MD Primary Care Provider + [phone] Dima Sanchez MD Primary Care Provider + [phone] Theron Peace MD Primary Care Provider [phone] Theron Upton MD Primary Care Provider [phone] Dima Sanchez MD Primary Care Provider + [phone] Ney Villalpando MD Unavailable [phone] Bridgette Hess MD Unavailable Encounter Details Date Type Department Care Team (Latest Contact Info) Description 09/10/2011 Orders Only [facility] Scanning, Provider Social History Tobacco Use Types Packs/Day Years Used Date Smoking Tobacco: Never Assessed Sex and Gender Information Value Date Recorded Sex Assigned at Not on file Legal 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 Gender Identity Male 04/16/2021 11:58 AM MACHINE SETUP OPERATOR Sexual Orientation Straight 04/02/2019 2: 04 PM MACHINE SETUP OPERATOR documented as of this encounter Plan [...] on filedocumented in this encounter Care Teams Electrical Engineer Relationship Specialty Start Date End Date Dima Sanchez MD PCP - General 02/02/13 01/09/18 Dima Sanchez MD PCP - General 02/01/13 02/01/13 Theron Peace MD [address] [place] [address] PCP - General Obstetrics and Gynecology 01/10/1803/07/18 Theron Upton MD [address] [place] [address] PCP - General Endocrinology Diabetes & Metabolism 03/08/18 04/30/20 Dima Sanchez MD PCP - General 05/01/20 Ney Villalpando MD [address] [place] [address] Roving Technician Cardiology 02/08/23 Bridgette Hess MD [id number] [place] [address] Surgeon Cardiothoracic Surgery 08/26/24 documented as of this encounter
--- OUTSIDE RECORDS SUMMARY | 2024-09-06 15:37 | XMS_ITS | Encounter Summary ---
Author Organization [facility] [employer] [facility] Address [address] [place] [address] Phone Care Team Providers Care Job Site Superintendent Name Role Phone Dima Sanchez MD Primary Care Provider + [phone] Dima Sanchez MD Primary Care Provider + [phone] Theron Peace MD Primary Care Provider [phone] Theron Upton MD Primary Care Provider [phone] Dima Sanchez MD Primary Care Provider + [phone] Ney Villalpando MD Unavailable [phone] Bridgette Hess MD Unavailable Encounter Details Date Type Department Care Team (Latest Contact Info) Description 05/12/2000 Orders Only [facility] Scanning, Provider Social History Tobacco Use Types Packs/Day Years Used Date Smoking Tobacco: Never Assessed Sex and Gender Information Value Date Recorded Sex Assigned at Not on file Legal Sex Male 3:02 AM FALL INTERN Gender Identity Male 04/16/2021 11:58 AM FALL INTERN Sexual Orientation Straight 04/02/2019 2: 04 PM FALL INTERN documented as of this encounter Plan of [...] on filedocumented in this encounter Care Teams Job Site Superintendent Relationship Specialty Start Date End Date Dima Sanchez MD PCP - General 02/02/13 01/09/18 Dima Sanchez MD PCP - General 02/01/13 02/01/13 Theron Peace MD [address] [place] [address] PCP - General Obstetrics and Gynecology 01/10/1803/07/18 Theorn Upton MD [address] [place] [address] PCP - General Endocrinology Diabetes & Metabolism 03/08/18 04/30/20 Dima Sanchez MD PCP - General 05/01/20 Ney Villalpando MD [address] [place] [address] Director Of Communications Cardiology 02/08/23 Bridgette Hess MD [id number] [place] [address] Surgeon Cardiothoracic Surgery 08/26/24 documented as of this encounter
--- OUTSIDE RECORDS SUMMARY | 2024-09-06 15:37 | XMS_ITS | Clinical Summary ---
Author Organization [facility] [employer] Address [address] [place] [address] Care Team Providers Care Engineer Exhauster Name Role Phone Dima Sanchez MD Primary Care Provider [phone] Source Comments [facility] [employer],non-owned Affiliates and Associated Physician Practices is amultiple site organization consisting of ambulatory clinics and hospital sitesin [place], [place], [place] and [place]. This disclosure is being madepursuant to the Care Everywhere program and may not contain all information available regarding this patient. 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
--- OUTSIDE RECORDS SUMMARY | 2024-09-06 15:37 | XMS_ITS | Clinical Summary ---
Author Organization [facility] Address [address] [place] [address] Care Team Providers Care Vice President Of Advertising Name Role Phone Unavailable Primary Care Provider [...] Td Vaccines ( 1 - Tdap) 1979 Pneumococcal Vaccine: 50+ Ye ars (1 of 1 - PCV) 2010 Zoster Vaccines (1 of 2) 2010 COVID-19 [...]
--- OUTSIDE RECORDS SUMMARY | 2024-09-06 15:37 | XMS_ITS | Encounter Summary ---
Author Organization [facility] [employer] [facility] Address [address] [place] [address] Phone Care Team Providers Care Customer Services Coordinator Name Role Phone Dima Sanchez MD Primary Care Provider + [phone] Ney Villalpando MD Unavailable [phone] Bridgette Hess MD Unavailable Encounter Details Date Type Department Care Team (Late st Contact Info) Description 08/29/2024 Results Follow-Up [facility] Cardiology [address] [facility] [address] 8[address] [place] [address] [place] [address] Ney Villalpando MD [address] [facility] [address] [place] [address] Social History Tobacco Use Types Packs/Day Years [...] on file Legal Sex Male 3:02 AM TERMINAL MANAGER Gender Identity Male 04/16/2021 11:58 AM TERMINAL MANAGER Sexual Orientation Straight 04/02/2019 2: 04 PM TERMINAL MANAGER documented as of this encounter Plan of Treatment Not on file documented as of this encounter Visit Diagnoses Not on filedocumented in this encounter Care Teams Customer Services Coordinator Relationship Specialty Start Date End Date Dima Sanchez MD PCP - General 05/01/20 Ney Villalpando MD [address] [address] City Weighmaster Cardiology 02/08/23 Bridgette Hess MD [id number] [place] [address] Surgeon Cardiothoracic Surgery 08/26/24 documented as of this encounter
--- OUTSIDE RECORDS SUMMARY | 2024-09-06 15:37 | XMS_ITS | Encounter Summary ---
Author Organization [facility] [employer] [facility] Address [address] [place] [address] Phone Care Team Providers Care Regulatory Specialist Name Role Phone Dima Sanchez MD Primary Care Provider + [phone] Dima Sanchez MD Primary Care Provider + [phone] Theron Peace MD Primary Care Provider [phone] Theron Upton MD Primary Care Provider [phone] Dima Sanchez MD Primary Care Provider + [phone] Ney Villalpando MD Unavailable [phone] Bridgette Hess MD Unavailable Encounter Details Date Type Department Care Team (Latest Contact Info) Description 01/22/2013 Orders Only [facility] Scanning, Provider Social History Tobacco Use Types Packs/Day Years Used Date Smoking Tobacco: Never Assessed Sex and Gender Information Value Date Recorded Sex Assigned at Not on file Legal Sex Male 3:02 AM [employer]AL Gender Identity Male 04/16/2021 11:58 AM [employer] Sexual Orientation Straight 04/02/2019 2: 04 PM [employer] documented as of this encounter Plan of Treatment Not on file documented as of this encounter Procedures Procedure Name Priority Date/Time Associated Diagnosis Comments SCAN - RADIOLOGY/IMAGING 01/22/2013 documented in this encounter Results * SCAN - RADIOLOGY/IMAGING (01/22/2013) Anatomical Region Laterality Modality Other us Provider Scanning Final Result documented in this encounter Visit Diagnoses Not on filedocumented in this encounter Care Teams Regulatory Specialist Relationship Specialty Start Date End Date Dima Sanchez MD PCP - General 02/02/13 01/09/18 Dima Sanchez MD PCP - General 02/01/13 02/01/13 Theron Peace MD [address] [place] [address] PCP - General Obstetrics and Gynecology 01/10/1803/07/18 Theron Upton MD [address] [place] [address] PCP - General Endocrinology Diabetes & Metabolism 03/08/18 04/30/20 Dima Sanchez MD PCP - General 05/01/20 Ney Villalpando MD [address] [place] [address] Supervisor Metal Furniture Fabrication Cardiology 02/08/23 Bridgette Hess MD [id number] [place] [address] Surgeon Cardiothoracic Surgery 08/26/24 documented as of this encounter
[2024-09-06 16:24] LABS: Anion Gap 8 mmol/L (4-12); Blood Urea Nitrogen 31 mg/dL (9-20); Calcium 9.5 mg/dL (8.4-10.2); Carbon Dioxide 30 mmol/L (22-30); Chloride 104 mmol/L (98-107); Estimated Glomerular Filt Rate 59; Glucose 91 mg/dL (65-110); Potassium 3.9 mmol/L (3.4-5.0); Sodium 142 mmol/L (137-145)
[2024-09-06 16:35] LABS: Hematocrit 33.1 % (42.0-52.0); Hemoglobin 10.2 g/dL (14.0-18.0); Mean Corpuscular HGB Conc 30.8 g/dl (32-36); Mean Corpuscular Hemoglobin 29.9 pg (26-34); Mean Corpuscular Volume 97.1 fl (80-100); Mean Platelet Volume 8.5 fl (7.4-10.4); Platelet Count Result 515 k/mm3 (150-375); Red Blood Count 3.41 M/mm3 (4.6-6.20); Red Cell Distribution Width 14.3 % (11.5-14.5); White Blood Count 7.5 K/mm3 (4.5-10.0)
[2024-09-13 10:28] LABS: Testosterone Free 26.7 pg/mL (35.0-155.0); Testosterone Total 335 ng/dL (250-1100)
== END 2024-09-06 15:32 | disposition home or self-care (01) ==
LOC: ANHLAB 15:32
PROVIDERS: PCP Family Medicine; Visit Provider Family Medicine
DX: E34.9 Endocrine disorder, unspecified (principal); D64.9 Anemia, unspecified
CPT/HCPCS: 36415; 80048; 84402; 84403; 85027

== ENCOUNTER 2024-09-21 10:51 | Outpatient (CLI) | payer OTHER, SELFPAY ==
--- NOTE | ~2024-09-21 | US_ITS ---
US thyroid INDICATION: Nontoxic thyroid nodule TECHNIQUE: Real-time sonographic images of the thyroid gland were obtained. COMPARISON: No prior studies for comparison. FINDINGS: The right thyroid lobe measures 4.8 x 1.7 x 2.2 cm. The left thyroid lobe measures 4.4 x 1 .9 x 1.8 cm. There is normal echotexture and echogenicity throughout the thyroid gland. In the left l obe there is a heterogeneous solid predominantly hypoechoic mass measuring 10 x 6 x 5 mm which is wid er than tall, smoothly marginated without internal echogenic foci, TR 4. Also in the left lobe there is an oval wider than tall solid hypoechoic smoothly marginated mass without echogenic foci measuring 8 mm, likely benign, TR 4. There are small benign cysts of the thyroid gland bilaterally as well... Normal vascular flow is present. IMPRESSION: 1. Probable benign left thyroid nodules, largest measuring 1 cm, TR 4. Consider follow-up thyroid ul trasound in 12 months. Reviewed, dictated and finalized at location B. IMPRESSION: 1. Probable benign left thyroid nodules, largest measuring 1 cm, TR 4. Conside r follow-up thyroid ultrasound in 12 months.
--- OUTSIDE RECORDS SUMMARY | 2024-09-21 10:57 | XMS_ITS | Encounter Summary ---
Author Organization [facility] [employer] [facility] Address [address] [place] [address] Phone Care Team Providers Care Cold Type Artist Name Role Phone Dima Sanchez MD Primary Care Provider + [phone] Dima Sanchez MD Primary Care Provider + [phone] Theron Peace MD Primary Care Provider [phone] Theron Upton MD Primary Care Provider [phone] Dima Sanchez MD Primary Care Provider + [phone] Ney Villalpando MD Unavailable [phone] Bridgette Hess MD Unavailable Encounter Details Date Type Department Care Team (Latest Contact Info) Description 01/22/2013 Orders Only [facility] Scanning, Provider Social History Tobacco Use Types Packs/Day Years Used Date Smoking Tobacco: Never Assessed Sex and Gender Information Value Date Recorded Sex Assigned at Not on file Legal 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 Gender Identity Male 04/16/2021 11:58 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 Sexual Orientation Straight 04/02/2019 2: 04 PM 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 documented as of this encounter Plan of Treatment Not on file documented as of this encounter Procedures Procedure Name Priority Date/Time Associated Diagnosis Comments SCAN - RADIOLOGY/IMAGING 01/22/2013 documented in this encounter Results * SCAN - RADIOLOGY/IMAGING (01/22/2013) Anatomical Region Laterality Modality Other us Provider Scanning Final Result documented in this encounter Visit Diagnoses Not on filedocumented in this encounter Care Teams Cold Type Artist Relationship Specialty Start Date End Date Dima Sanchez MD PCP - General 02/02/13 01/09/18 Dima Sanchez MD PCP - General 02/01/13 02/01/13 Theron Peace MD [address] [place] [address] PCP - General Obstetrics and Gynecology 01/10/1803/07/18 Theron Upton MD [address] [place] [address] PCP - General Endocrinology Diabetes & Metabolism 03/08/18 04/30/20 Dima Sanchez MD PCP - General 05/01/20 Ney Villalpando MD [address] [place] [address] Mixing Engineer Cardiology 02/08/23 Bridgette Hess MD [address] [place] [address] Surgeon Cardiothoracic Surgery 08/26/24 documented as of this encounter
--- OUTSIDE RECORDS SUMMARY | 2024-09-21 10:57 | XMS_ITS | Referral Summary ---
Author Organization [facility] Address [address] [place] [address] Care Team Providers Care Buckle Coverer Name Role Phone Dima Sanchez MD Primary Care Provider [phone] Ney Villalpando MD Unavailable [phone] Jason Hess MD Unavailable Encounters * This document contains information received from the source organization and may not represent a complete record from that organization. Date Type Department Care Team Description 09/19/2024 Plan of Care Documentation [facility] OP Occup Therapy [address] [place] [id number] 09/19/2024 3:00 PM CDT Therapy [facility] OP Occup Therapy [address] [place] [id number] Frank, Lilibeth, OT Left hand weakness (Primary Dx) 09/17/2024 Results Follow-Up [facility] [address] [facility] 6th [place] [address] Jose Alberto Mcknight MD EMG/NCV - 09/13/2024 1:30 PM CDT Office Visit [facility] [address] [facility] 6th [place] [address] Left arm weakness [R29.898] (Primary Dx); Left arm numbness [R20.0] 09/11/2024 Orders Only [facility] [address] [place] [address] 8th [place] [address] [place] [address] Cynthia Mayberry RN 09/11/2024 Telephone [facility] [address] [facility] 8th [place] [address] [place] [address] Ney Villalpando MD Swelling/Medication Management 09/11/2024 2:10 PM CDT Procedure visit [facility] 6th [place] [address] [place] [address] Left hand weakness 09/08/2024 Documentation [facility] [address] [place] [address] [place] [address] [place] [address] Kamala Nelson NP 09/07/2024 3:00 PM CDT Office Visit [facility] Neuro Muscle [address] [place] [address] [place] [address] [place] [address] Jose Alberto Mcknight MD Left hand weakness (Primary Dx); Neuropathy 08/29/2024 Results Follow-Up [facility] [address] [place] [address] [place] [address] [place] [address] Ney Villalpando MD ECG 12 lead 08/29/2024 12:00 PM CDT Office Visit [facility] [address] [place] [address] [place] [address] [place] [address] Ney Villalpando MD Essential hypertension (Primary Dx); S/P aortic aneurysm repair; Palpitations 08/28/2024 Orders Only [facility] Cardiothoracic Surgery [facility] [address] [place] [address] Jason Hess MD S/P aortic aneurysm repair (Primary Dx) 08/27/2024 Telephone [facility] [address] [place] [address] 8th [place] [address] [place] [address] Ney Villalpando MD f/u after surgery 08/21/2024 5:03 AM CDT - 08/26/2024 1:20 PM CDT Hospital Encounter [address] [address] Jason Hess MD Aneurysm of ascending aorta without rupture (Primary Dx); Neuropathy; Dermatochalasis of both upper eyelids; S/P aortic aneurysm repair Discharge Disposition: Discharge to home or self care 08/21/2024 9:45 AM CDT - 08/21/2024 11:59 PM CDT Hospital Encounter [address] [address] Discharge Disposition: Discharge to home or self care 08/21/2024 6:55 AM CDT Ancillary Procedure [facility] Operating Room [address] [place] [address] 08/21/2024 7:00 AM CDT - 08/21/2024 1:30 PM CDT Surgery [facility] Operating Room [address] [place] [address] Jason Hess MD VALVE SPARING AORTIC ROOT REPLACEMENT 08/21/2024 7:02 AM CDT Anesthesia Event [facility] Operating Room [address] [place] [address] Christine Loaiza MD Maue, Jessica Brooke, NP 08/13/2024 3:05 PM CDT Lab [facility] [address] [place] [address] Aneurysm of ascending aorta without rupture; Preop testing 08/13/2024 Telephone [facility] Cardiothoracic Surgery [address] [place] [address] [facility] 8th Floor [address] Room [address] [place] [phone] Diane Mendez RMA 08/13/2024 Orders Only [facility] Cardiothoracic Surgery [address] [facility] 8th Floor [address] Room [address] [place] [address] Jason Hess MD Aneurysm of ascending aorta without rupture (Primary Dx); Preop testing 08/10/2024 3:28 PM CDT - 08/10/2024 11:59 PM CDT Hospital Encounter [facility] [address] [place] [address] Pre-operative exam Discharge Disposition: Discharge to home or self care 08/10/2024 7:45 AM CDT - 08/10/2024 11:59 PM CDT Hospital Encounter [facility] [address] [place] [address] 8th [place] [address] Aneurysm of ascending aorta without rupture Discharge Disposition: Discharge to home or self care 08/10/2024 4:30 PM CDT Pre-Admission Testing [facility] for Preoperative Assessment and Planning [facility] [address] [place] [phone] Pre-operative exam (Primary Dx) 08/09/2024 9:35 AM CDT - 08/09/2024 11:00 AM CDT Surgery [facility] [address] [place] [phone] Ashley Beckman, LEFT HEART CATHETERIZATION WITH CORONARY ANGIOGRAPHY AND WITH OR WITHOUT LEFT VENTRICULOGRAM [id number] 08/09/2024 6:43 AM CDT - 08/09/2024 1:25 PM CDT Hospital Encounter [facility] Heart [facility] [place] [address] [place] [address] [employer] Manager, Aneurysm of ascending aorta without rupture Discharge Disposition: Discharge to home or self care 07/18/2024 Documentation [facility] [address] [place] [address] [facility] 8th Floor [address] Room [address] [place] [phone] Jason Hess MD Surgery Confirmation 07/18/2024 Orders Only [facility]oth[facility] Surgery [address] [place] [address] [facility] 8th Floor [address] Room [address] [address] Jason Hess MD 07/18/2024 Orders Only [facility] Surgery [address] [facility] Medicine 8th Floor [address] Room [address] [phone] Jason Hess MD Aneurysm of ascending aorta without rupture (Primary Dx) 07/18/2024 Orders Only [facility]oth[facility] Surgery [address] [facility] 8th Floor [phone] [place] [address] Jason Hess MD Aneurysm of ascending aorta without rupture (Primary Dx) 07/18/2024 Telephone [facility] [address] [facility] 8th [place] [address] [place] [phone] surgery from Last 3 Months Allergies No known active allergies Medications * This document contains information received from the source organization and may not represent a complete record from that organization. multivitamin (MULTI-DAY ORAL)Indication s:supplelment Take 1 tablet by mouth every morning Active Viibryd 40 mg tabletIndicatio ns:major depressive disorder Take 1 tablet (40 mg total) by mouth every morning Active zolpidem CR (AMBIEN CR) 12.5 mg CR tabletIndicatio ns:Sleep-Onset Insomnia Take 1 tablet (12.5 mg total) by mouth nightly as needed for sleep 020 Active amLODIPine (NORVASC) 5 mg tablet Take 1 tablet (5 mg total) by mouth daily 30 tablet [address] (CYMBALTA) 20 mg capsuleIndicati ons:Anxiety with Depression Take 1 capsule (20 mg total) by mouth 2 (two) times a day 025 Active ALPRAZolam (XANAX) 0.5 mg tabletIndicatio ns:anxiety Take 1 tablet (0.5 mg total) by mouth as needed for anxiety Active cholecalciferol (VITAMIN D-3) 5,000 unit capsuleIndicati ons:Vitamin D Deficiency Take 1 capsule (5,000 Units total) by mouth every morning Active acetaminophen (TYLENOL) 325 mg tablet Take 2 tablets (650 mg total) by mouth every 4 (four) hours as needed for pain Active aspirin 81 mg enteric coated tablet Take 1 tablet (81 mg total) by mouth daily 30 tablet 1 025 Active senna (SENOKOT) 8.6 mg tabletIndicatio ns:constipation Take 1 tablet by mouth 2 (two) times a day as needed for constipation 20 tablet 025 Active ferrous sulfate 325 mg (65 mg of elemental iron) tabletIndicatio ns:Iron Deficiency Anemia Take 1 tablet (325 mg total) by mouth 2 (two) times a day 60 tablet 2 025 Active furosemide (LASIX) 20 mg tablet Take 1 tablet (20 mg total) by mouth daily 30 tablet 11 025 2025 Active potassium chloride ER (KLOR-CON) 10 mEq CR tablet Take 1 tablet/capsule (10 mEq total) by mouth daily 30 tablet 11 025 Active metoprolol XL (TOPROL-XL) 25 mg extended release tablet Take 1 tablet (25 mg total) by mouth daily 90 tablet 3 025 Active losartan-hydroc hlorothiazide (HYZAAR) 100-25 mg per tablet TAKE 1 TABLET BY MOUTH DAILY 90 tablet 3 023 2024 Discontinued(S top Taking at Discharge) turmeric root extract 500 mg capsuleIndicati ons:supplement Take 500 capsules by mouth every morning 2024 Discontinued(S top Taking at Discharge) omega 0-tsp-clr-fish oil 60-90-500 mg capsule,delayed release(DR/EC)I ndications:supp lement Take 500 capsules by mouth every morning 2024 Discontinued(S top Taking at Discharge) chlorhexidine (PERIDEX) 0.12 % oral rinseIndication s:Mouth Infection Prevention Apply 15 mL to the mouth or throat 3 (three) times a day for 5 days 225 mL 025 2024 Discontinued(S top Taking at Discharge) mupirocin (BACTROBAN) 2 % ointmentIndicat ions:Methicilli n-Resistant S. Aureus Nasal Colonization Apply to each nostril 2 (two) times a day for 5 days 22 g 025 2024 Discontinued(S top Taking at Discharge) oxyCODONE (ROXICODONE) 5 mg immediate release tabletIndicatio ns:Pain Take 1 tablet (5 mg total) by mouth every 4 (four) hours as needed (acute post operative pain) 10 tablet 025 2024 Discontinued furosemide (LASIX) 40 mg tablet Take 1 tablet (40 mg total) by mouth daily for 14 days 14 tablet 025 2024 Discontinued metoprolol XL (TOPROL-XL) 25 mg extended release tablet Take 1 tablet (25 mg total) by mouth daily 30 tablet 1 025 2024 Discontinued(R eorder) potassium chloride ER (KLOR-CON) 20 mEq CR tablet Take 1 tablet (20 mEq total) by mouth daily for 14 days 14 tablet 025 2024 Discontinued(D uplicate order) Active Problems Problem Noted Date Diagnosed Date [...] (10/07/2020): Added automatically from request for surgery [id number] Personal history of colonic polyps 09/02/2020 Overview (09/02/2020): Added automatically from request for surgery [id number] Family history of colonic polyps 09/02/2020 Overview (09/02/2020): Added automatically from request for surgery [id number] Intraocular pressure increase, left 10/16/2019 Assessment & [...] 10/16/2019 Assessment & Plan (05/21/2022 3:11 PM PHOTOGRAPHIC PROCESSOR): New mrx, rec ar coating Assessment & Plan (10/16/2019 11:49 AM CDT): Release updated glasses and CLRx for Dailies. Age-related nuclear cataract of both eyes 2019 Assessment & Plan (05/21/2022 3:11 PM PHOTOGRAPHIC PROCESSOR): Not v/s, monitor, rec uv eye protection [...] (05/29/2018): Added automatically from request for surgery [id number] Aneurysm of thoracic aorta 01/09/2018 Multiple actinic keratoses 09/24/2015 Lentigo 09/24/2015 Essential hypertension 02/05/2013 Resolved Problems Problem Noted Date Diagnosed Date Resolved Date Melanocytic nevus of trunk 10/01/2016 0 01/09/2018 Lichen simplex chronicus 10/01/201601/2018 Tinea pedis 09/24/2015 01/09/2018 Palpitations 02/06/2013 01/09/2018 Arthralgia of shoulder 01/18/201301/09 Arthralgia of elbow 09/16/2011 01/10/20 18 Immunizations Immunization Administration Dates Next Due [employer]) SARS-CoV-2 Vaccination 07/07/2020 Tdap 03/12/2020 Social History Tobacco Use Types Packs/Day Years Used Date Smoking Tobacco: Never Passive Smoke Exposure: Never Smokeless Tobacco: Never Tobacco Cessation:Counseling Given: No Alcohol Use Standard Drinks/Week Comments Yes 8 [...] on file Legal Sex Male 3:02 AM PHOTOGRAPHIC PROCESSOR Gender Identity Male 04/16/2021 11:58 AM PHOTOGRAPHIC PROCESSOR Sexual Orientation Straight 04/02/2019 2: 04 PM PHOTOGRAPHIC PROCESSOR Last Filed Vital Signs Vital Sign Reading Time Taken Comments Blood Pressure 124/82 09/07/2024 2:47 PM CDT Pulse 98 09/07/2024 2:47 PM CDT Temperature 36.7 C (98.1 F) 08/26/2024 11:48 AM CDT Respiratory Rate 18 08/26/2024 11:48 AM CDT Oxygen Saturation 96% 08/29/2024 11:30 AM CDT Inhaled Oxygen Concentration - - Weight 101.2 kg (223 lb) 09/07/2024 2:47 PM CDT Height 185.4 cm (6' 1 ) 09/07/2024 2:47 PM CDT Body Mass Index 29.42 09/07/2024 2:47 PM CDT Plan of Treatment Not on file Medical Devices Implanted Type Area Arranging Funeral Director Device Identifier Shelf Expiration Date Model / Serial / Lot [employer] [id number]-2324 Bcm Swivelock 4.75mm 24.5mm Self Punch Vent Shoulder Kake Suture - [id number] Implanted:Qty: 1 on 09/11/2018 by Dwayne Torrez MD at [facility] Right: Shoulder [employer] 01/30/2020 [id number] CM / / [id number] [employer] Graft Straight Thoracic Collagen Coated Double Velour Hemashield Pauma [id number] Woven Polyester [id number] - [id number] - [id number] Implanted:Qty: 1 on 08/21/2024 by Jason Hess MD at [facility] N/A: Mediastinum [employer] [id number] 03/01/2029 [id number] / [id number] / [id number] [employer] Graft Straight Thoracic Collagen Coated Double Velour Hemashield Pauma [id number] Woven Polyester [id number] - [id number] - [id number] Implanted:Qty: 1 on 08/21/2024 by Jason Hess MD at [facility] N/A: Mediastinum [employer] [id number] 12/30/2028 [id number] / [id number] / [id number] Bard Peripheral Vascular 6x6in Patch Thk1.65mm Nathalie [employer]ovascular Ptfe Sterile Latex Free [id number] - [id number] Implanted:Qty: 1 on 08/21/2024 by Jason Hess MD at [facility] N/A: Aorta [employer] Peripheral Vascular [id number] / / Procedures Procedure Name Priority Date/Time Associated Diagnosis Comments EMG/NCV Routine 09/11/2024 2:31 PM CDT Left hand weakness ECG 12-LEAD Routine 08/29/2024 11:33 AM CDT [...] CHEMISTRIES, ARTERIAL Routine 08/21/2024 10:23 AM CDT [place] AN PROCEDURE PLACEHOLDER Routine 08/21/2024 9:58 AM CDT [place] AN PROCEDURE PLACEHOLDER Routine 08/21/2024 9:57 AM [...] Recently Relevant to Health Maintenance Results * EMG/NCV (09/11/2024 2:31 PM CDT) Anatomical Region Laterality Modality Other Narrative 09/11/2024 2:31 PM CDT Migue Soares MD 09/12/2024 7:14 AM EMG/NCV - Date/Time: 09/11/2024 2:31 PM Performed by: Migue Soares MD Authorized by: Jose Alberto Mcknight MD us Jose Alberto Mcknight MD NEUROLOGY ORDERABLES Mai l Result * ECG 12 lead (08/29/2024 11:33 AM [...] NP LAB BLOOD ORDERABLES Final R esult [facility] Department [place] [address] * (ABNORMAL) CBC without differential (08/25/2024 9:36 PM CDT) WBC 5.23 3.80 - 9.90 K/cumm Hgb 7.3(L) 13.0 - 17.5 g/dL [facility] Hct 22.1(L) 38.9 - 50.3 % [facility] Plt 246 150 - 400 K/cumm [facility] MPV 10.0 9.1 - 12.3 fL [facility] RBC 2.35(L) 4.30 - 5.80 M/cumm [facility] MCV 94.0 81.3 - 96.4 fL [facility] MCH 31.1 27.1 - 33.3 pg [facility] MCHC 33.0 32.3 - 35.7 g/dL [facility] RDW CV 14.0 11.1 - 14.9 % [facility] RDW SD 47.5 35.7 - 48.1 fL [facility] NRBC abs 0.00 0.00 - 0.01 K/cumm [facility] Blood 08/25/2024 9:36 PM CDT 08/25/2024 11:42 PM CDT Moriah Stauffer RELIABILITY TECHNICIAN LAB BLOOD ORDERABLES Final R esult Performing Organization Address City/[facility]/ZIP Co de Phone Number [facility] Department [place] [address] * Basic metabolic panel (08/25/2024 9:36 PM CDT) Pathologist [facility] Sodium 142 135 - 145 mmol/L Potassium, pl 4.5 3.3 - 4.9 mmol/L [facility] Chloride 104 97 - 110 mmol/L [facility] CO2 30 22 - 32 mmol/L [facility] Anion gap 8 2 - 15 mmol/L [facility] BUN 23 6 - 25 mg/dL [facility] Creatinine 1.22 0.80 - 1.30 mg/dL [facility] Glucose 92 70 - 199 mg/dL [facility] Comment: Interpretive Data Fasting glucose [...] 2022. Calcium 8.8 8.5 - 10.3 mg/dL [facility] Blood 08/25/2024 9:36 PM CDT 08/25/2024 11:43 PM CDT us oMriah Stauffer RELIABILITY TECHNICIAN LAB BLOOD ORDERABLES Final R esult Performing Organization Address City/[facility]/ZIP Co de Phone Number [facility] Department [place] [address] * XR Chest PA Lateral 2 Views [...] signed by: Herman Foster M.D. Moriah Stauffer RELIABILITY TECHNICIAN IMG XR PROCEDURES Final Resu lt * (ABNORMAL) CBC without differential (08/25/2024 4:29 AM CDT) WBC 5.34 3.80 - 9.90 K/cumm Hgb 7.2(L) 13.0 - 17.5 g/dL [facility] Hct 21.1(L) 38.9 - 50.3 % [facility] Plt 183 150 - 400 K/cumm [facility] MPV 9.7 9.1 - 12.3 fL [facility] RBC 2.29(L) 4.30 - 5.80 M/cumm [facility] MCV 92.1 81.3 - 96.4 fL [facility] MCH 31.4 27.1 - 33.3 pg [facility] MCHC 34.1 32.3 - 35.7 g/dL [facility] RDW CV 13.7 11.1 - 14.9 % [facility] RDW SD 45.6 35.7 - 48.1 fL [facility] NRBC abs 0.00 0.00 - 0.01 K/cumm [facility] Blood 08/25/2024 4:29 AM CDT 08/25/2024 4:57 AM CDT Akiko Villavicencio NP LAB BLOOD ORDERABLES Final Result Performing Organization Address [facility] Co de Phone Number [facility] [place] [address] * Type and screen (08/25/2024 4:29 AM CDT) ABO Rh A Negative Neyda, indirect Negative [facility] Blood 08/25/2024 4:29 AM CDT 08/25/2024 10:38 AM CDT Narrative [facility] - 08/25/2024 11:15 AM CDT Has the patient had Daratumumab or Isatuximab in the past 6 months?->Unknown Akiko Villavicencio NP LAB BLOOD BANK TEST ORDERA BLES Final Result Performing Organization Address City/[facility]/ZIP Co de Phone Number [facility] [place] [address] * eGFR (08/24/2024 10:19 PM CDT) eGFR [...] 08/24/2024 10:48 PM CDT us Moriah Stauffer RELIABILITY TECHNICIAN LAB BLOOD ORDERABLES Final R esult [facility] Department [place] [address] * (ABNORMAL) CBC without differential (08/24/2024 10:19 PM CDT) WBC 5.96 3.80 - 9.90 K/cumm Hgb 7.2(L) 13.0 - 17.5 g/dL [facility] Hct 21.0(L) 38.9 - 50.3 % [facility] Plt 173 150 - 400 K/cumm [facility] MPV 10.1 9.1 - 12.3 fL [facility] RBC 2.29(L) 4.30 - 5.80 M/cumm [facility] MCV 91.7 81.3 - 96.4 fL [facility] MCH 31.4 27.1 - 33.3 pg [facility] MCHC 34.3 32.3 - 35.7 g/dL [facility] RDW CV 13.8 11.1 - 14.9 % [facility] RDW SD 46.2 35.7 - 48.1 fL [facility] NRBC abs 0.00 0.00 - 0.01 K/cumm [facility] Blood 08/24/2024 10:1 9 PM CDT 08/24/2024 10:48 PM CDT Moriah Stauffer NP LAB BLOOD ORDERABLES Final R esult Performing Organization Address [facility] Co de Phone Number [facility] [place] [address] * Type and screen (08/24/2024 10:19 PM CDT) Neyda, indirect Negative ABO Rh A Negative [facility] Blood 08/24/2024 10:1 9 PM CDT 08/24/2024 10:57 PM CDT Narrative [facility] - 08/25/2024 7:33 AM CDT Has the patient had Daratumumab or Isatuximab in the past 6 months?->Unknown Moriah Stauffer NP LAB BLOOD BANK TEST ORDERABL ES Final Result Performing Organization Address [facility] [place] [address] * Phosphorus (08/24/2024 10:19 PM CDT) Phosphorus, pl 3.5 2.3 - 4.5 mg/dL Blood 08/24/2024 10:1 9 PM CDT 08/24/2024 10:48 PM CDT Lakisha Viera RELIABILITY TECHNICIAN LAB BLOOD ORDERABLES Final Result Performing Organization Address [facility] [place] [address] * Magnesium (08/24/2024 10:19 PM CDT) Magnesium 2.1 1.4 - 2.5 mg/dL Blood 08/24/2024 10:1 9 PM CDT 08/24/2024 10:48 PM CDT Moriah Stauffer RELIABILITY TECHNICIAN LAB BLOOD ORDERABLES Final R esult Performing Organization Address [facility] Co de Phone Number [facility] Department [place] [address] * Basic metabolic panel (08/24/2024 10:19 PM CDT) [facility] Sodium 142 135 - 145 mmol/L Potassium, pl 4.3 3.3 - 4.9 mmol/L [facility] Chloride 106 97 - 110 mmol/L [facility] CO2 30 22 - 32 mmol/L [facility] Anion gap 6 2 - 15 mmol/L [facility] BUN 24 6 - 25 mg/dL [facility] Creatinine 1.14 0.80 - 1.30 mg/dL [facility] Glucose 108 70 - 199 mg/dL [facility] Comment: Interpretive Data Fasting glucose [...] 2022. Calcium 8.8 8.5 - 10.3 mg/dL [facility] Blood 08/24/2024 10:1 9 PM CDT 08/24/2024 10:48 PM CDT Moriah Stauffer RELIABILITY TECHNICIAN LAB BLOOD ORDERABLES Final R esult Performing Organization Address [facility] Co de Phone Number [facility] Department [place] [address] * XR Chest 1 View (08/24/2024 9:45 [...] by: John Arauz M.D. us Sneha Rodriguez RELIABILITY TECHNICIAN IMG XR PROCEDURES Final Re sult * [...] 08/23/2024 11:14 PM CDT us Moriah Stauffer RELIABILITY TECHNICIAN LAB BLOOD ORDERABLES Final R esult [facility] Department [place] [address] * (ABNORMAL) CBC without differential (08/23/2024 10:42 PM CDT) WBC 7.17 3.80 - 9.90 K/cumm Hgb 7.8(L) 13.0 - 17.5 g/dL [facility] Hct 23.1(L) 38.9 - 50.3 % [facility] Plt 112(L) 150 - 400 K/cumm [facility] MPV 11.0 9.1 - 12.3 fL [facility] RBC 2.51(L) 4.30 - 5.80 M/cumm [facility] MCV 92.0 81.3 - 96.4 fL [facility] MCH 31.1 27.1 - 33.3 pg [facility] MCHC 33.8 32.3 - 35.7 g/dL [facility] RDW CV 13.7 11.1 - 14.9 % [facility] RDW SD 46.0 35.7 - 48.1 fL [facility] NRBC abs 0.00 0.00 - 0.01 K/cumm [facility] Blood 08/23/2024 10:4 2 PM CDT 08/23/2024 11:13 PM CDT us Moriah Stauffer NP LAB BLOOD ORDERABLES Final R esult Performing Organization Address City/[facility]/ZIP Co de Phone Number [facility] [place] [address] * Phosphorus (08/23/2024 10:42 PM CDT) [facility] Phosphorus, pl 2.7 2.3 - 4.5 mg/dL Blood 08/23/2024 10:4 2 PM CDT 08/23/2024 11:14 PM CDT Jason Hess MD LAB BLOOD ORDERABLES Final Resul t Performing Organization Address [facility] Co de Phone Number [facility] [place] [address] * Magnesium (08/23/2024 10:42 PM CDT) [facility] Magnesium 2.1 1.4 - 2.5 mg/dL Blood 08/23/2024 10:4 2 PM CDT 08/23/2024 11:08 PM CDT Jason Hess MD LAB BLOOD ORDERABLES Final Resul t Performing Organization Address [facility] Co de Phone Number [facility] [place] [address] * Basic metabolic panel (08/23/2024 10:42 PM CDT) [facility] Sodium 138 135 - 145 mmol/L Potassium, pl 4.3 3.3 - 4.9 mmol/L [facility] Comment:Hemolyzed; Potassium value may be falsely elevated by as much as 0.3-0.5 mmol/L. Suggest redraw and reanalysis. Chloride 104 97 - 110 mmol/L [facility] CO2 29 22 - 32 mmol/L [facility] Anion gap 5 2 - 15 mmol/L [facility] BUN 19 6 - 25 mg/dL [facility] Creatinine 1.07 0.80 - 1.30 mg/dL [facility] Glucose 103 70 - 199 mg/dL [facility] Comment: Interpretive Data Fasting glucose [...] 2022. Calcium 9.0 8.5 - 10.3 mg/dL [facility] Blood 08/23/2024 10:4 2 PM CDT 08/23/2024 11:08 PM CDT Moriah Stauffer NP LAB BLOOD ORDERABLES Final R esult Performing Organization Address City/[facility]/ZIP Co de Phone Number [facility] Department [place] [address] * POCT glucose (08/23/2024 9:14 PM CDT) [facility] Glucose, POC 121 70 - 199 mg/dL Blood 08/23/2024 9:14 PM CDT 08/23/2024 9:14 PM CDT us Jason Hess MD LAB POCT ORDERABLES - DEVICE Fin al Result Performing Organization Address City/[facility]/ZIP Co de Phone Number [facility] Department [place] [address] * XR Chest 1 View (08/23/2024 9:02 [...] by: César Davis M.D. us Sneha Rodriguez RELIABILITY TECHNICIAN IMG XR PROCEDURES Final Re sult * Potassium, whole blood (08/23/2024 12:09 AM CDT) Pathologist [facility] Potassium, bld 4.1 3.3 - 4.9 mmol/L Blood 08/23/2024 12:0 9 AM CDT 08/23/2024 12:28 AM CDT us Ema Bell NP LAB BLOOD ORDERABLES Final Result [facility] [place] [address] * eGFR (08/23/2024 12:09 AM CDT) Pathologist [facility] eGFR 68 >=60 mL/min/1. 73 m2 Comment: [...] 08/23/2024 12:40 AM CDT us Ema Bell RELIABILITY TECHNICIAN LAB BLOOD ORDERABLES Final Result [facility] Department [place] [address] * (ABNORMAL) CBC without differential (08/23/2024 12:09 AM CDT) WBC 7.88 3.80 - 9.90 K/cumm Hgb 8.4(L) 13.0 - 17.5 g/dL [facility] Hct 24.8(L) 38.9 - 50.3 % [facility] Plt 146(L) 150 - 400 K/cumm [facility] MPV 10.5 9.1 - 12.3 fL [facility] RBC 2.67(L) 4.30 - 5.80 M/cumm [facility] MCV 92.9 81.3 - 96.4 fL [facility] MCH 31.5 27.1 - 33.3 pg [facility] MCHC 33.9 32.3 - 35.7 g/dL [facility] RDW CV 13.7 11.1 - 14.9 % [facility] RDW SD 45.9 35.7 - 48.1 fL [facility] NRBC abs 0.00 0.00 - 0.01 K/cumm [facility] Blood 08/23/2024 12:0 9 AM CDT 08/23/2024 12:40 AM CDT Ema Cantu Arabella RELIABILITY TECHNICIAN LAB BLOOD ORDERABLES Final Result [facility] Department [place] [address] * Phosphorus (08/23/2024 12:09 AM CDT) [facility] Phosphorus, pl 3.1 2.3 - 4.5 mg/dL Blood 08/23/2024 12:0 9 AM CDT 08/23/2024 12:40 AM CDT Ema Cantu Arabella RELIABILITY TECHNICIAN LAB BLOOD ORDERABLES Final Result Performing Organization Address [facility] de Phone Number [facility] [place] [address] * Basic metabolic panel (08/23/2024 12:09 AM CDT) [facility] Sodium 138 135 - 145 mmol/L Potassium, pl 4.1 3.3 - 4.9 mmol/L [facility] Chloride 103 97 - 110 mmol/L [facility] CO2 28 22 - 32 mmol/L [facility] Anion gap 7 2 - 15 mmol/L [facility] BUN 22 6 - 25 mg/dL [facility] Creatinine 1.20 0.80 - 1.30 mg/dL [facility] Glucose 133 70 - 199 mg/dL [facility] Comment: Interpretive Data Fasting glucose [...] CDT 08/23/2024 12:40 AM CDT us Ema Cantu Arabella RELIABILITY TECHNICIAN LAB BLOOD ORDERABLES Final Result [facility] Department [place] [address] * XR Chest 1 View - in [...] by: Yen Orellana M.D. Ema Alondra Bell RELIABILITY TECHNICIAN IMG XR PROCEDURES Final Re sult * [...] plan with the patient's team and other medical/actuarial consultant staff. This time was in addition to and separate from care provided by other practitioners on this day of service. I spent time reviewing and interpreting data from bedside monitors, laboratory results, and imaging, I spent time discussing the management of this critically ill patient with consultants and the medical staff and I spent time documenting in the medical record us Yrn FELIZ IN CLINIC/BEDSIDE ORDERAB LES Final Result * POCT glucose (08/22/2024 5:25 PM CDT) Glucose, POC 141 70 - 199 mg/dL Blood 08/22/2024 5:25 PM CDT 08/22/2024 5:25 PM CDT us Jason Hess MD LAB POCT ORDERABLES - DEVICE Fin al Result Performing Organization Address City/[facility] Co de Phone Number [facility] Department [place] [address] * POCT glucose (08/22/2024 11:17 AM CDT) Glucose, POC 140 70 - 199 mg/dL Blood 08/22/2024 11:1 7 AM CDT 08/22/2024 11:17 AM CDT Jason Hess MD LAB POCT ORDERABLES - DEVICE Fin al Result Performing Organization Address [facility] Co de Phone Number [facility] Department [place] [address] * Critical Care (08/22/2024 11:15 AM CDT) [...] plan with the ICU team and other medical/actuarial consultant staff, making frequent assessments and decisions [...] POCT ORDERABLES - DEVICE Fin al Result [facility] Department [place] [address] * CT Stroke Head WO Contrast (08/22/2024 [...] Critical results were discussed with Dr. Carroll Delcua by Dr. Carlos on 08/22/2024 at 6:14 [...] ORDERABLES - DEVICE Fin al Result [facility] [place] [address] * Oxyhemoglobin, pulmonary artery (08/22/2024 5:12 AM CDT) Oxyhemoglobin, PA 62.0 % Comment: Interpretive Data No reference range established. Current interpretive data was last revised 2019. Blood 08/22/2024 5:12 AM CDT 08/22/2024 5:25 AM CDT Ema Alondra Bell RELIABILITY TECHNICIAN LAB BLOOD ORDERABLES Final Result Performing Organization Address [facility] de Phone Number [facility] [place] [address] * Potassium, whole blood (08/22/2024 5:12 AM CDT) Potassium, bld 4.6 3.3 - 4.9 mmol/L Blood 08/22/2024 5:12 AM CDT 08/22/2024 5:25 AM CDT Sneha Rodriguez RELIABILITY TECHNICIAN LAB BLOOD ORDERABLES Final Result Performing Organization Address [facility] de Phone Number [facility] Department [place] [address] * POCT glucose (08/22/2024 4:00 AM CDT) Glucose, POC 142 70 - 199 mg/dL Blood 08/22/2024 4:00 AM CDT 08/22/2024 4:00 AM CDT Jason Hess MD LAB POCT ORDERABLES - DEVICE Fin al Result Performing Organization Address [facility] Phone Number [facility] [place] [address] * Oxyhemoglobin, pulmonary artery (08/22/2024 3:47 AM CDT) Oxyhemoglobin, PA 60.7 % Comment: Interpretive Data No reference range established. Current interpretive data was last revised 2019. Blood 08/22/2024 3:47 AM CDT 08/22/2024 4:09 AM CDT Emabibiana Bell RELIABILITY TECHNICIAN LAB BLOOD ORDERABLES Final Result Performing Organization Address [facility] Co de Phone Number [facility] [place] [address] * Potassium, whole blood (08/22/2024 3:47 AM CDT) Potassium, bld 4.9 3.3 - 4.9 mmol/L Blood 08/22/2024 3:47 AM CDT 08/22/2024 4:09 AM CDT Sneha Rodriguez RELIABILITY TECHNICIAN LAB BLOOD ORDERABLES Final Result Performing Organization Address [facility] Co de Phone Number [facility] [place] [address] * (ABNORMAL) Potassium (08/22/2024 3:47 AM CDT) Potassium, pl 5.2(H) 3.3 - 4.9 mmol/L Blood 08/22/2024 3:47 AM CDT 08/22/2024 4:09 AM CDT Narrative [facility] - 08/22/2024 4:31 AM CDT Provider to discontinue after two normal results. Jason Hess MD LAB BLOOD ORDERABLES Final Resul t Performing Organization Address [facility] Co de Phone Number [facility] [place] [address] * POCT glucose (08/22/2024 12:31 AM CDT) Glucose, POC 151 70 - 199 mg/dL Blood 08/22/2024 12:3 1 AM CDT 08/22/2024 12:31 AM CDT Jason Hess MD LAB POCT ORDERABLES - DEVICE Fin al Result Performing Organization Address [facility] [place] [address] * Oxyhemoglobin, pulmonary artery (08/22/2024 12:26 AM CDT) Oxyhemoglobin, PA 72.1 % Comment: Interpretive Data No reference range established. Current interpretive data was last revised 2019. Blood 08/22/2024 12:2 6 AM CDT 08/22/2024 12:43 AM CDT us Ema Bell RELIABILITY TECHNICIAN LAB BLOOD ORDERABLES Final Result Performing Organization Address [facility] Co de Phone Number [facility] [place] [address] * (ABNORMAL) Potassium, whole blood (08/22/2024 12:26 AM CDT) Potassium, bld 5.3(H) 3.3 - 4.9 mmol/L Blood 08/22/2024 12:2 6 AM CDT 08/22/2024 12:43 AM CDT Sneha Rodriguez RELIABILITY TECHNICIAN LAB BLOOD ORDERABLES Final Result Performing Organization Address [facility] Co de Phone Number [facility] [place] [address] * eGFR (08/22/2024 12:26 AM CDT) eGFR [...] 08/22/2024 12:46 AM CDT us Ema Bell RELIABILITY TECHNICIAN LAB BLOOD ORDERABLES Final Result [facility] Department [place] [address] * (ABNORMAL) CBC without differential (08/22/2024 12:26 AM CDT) WBC 7.94 3.80 - 9.90 K/cumm Hgb 9.8(L) 13.0 - 17.5 g/dL [facility] Hct 29.5(L) 38.9 - 50.3 % [facility] Plt 161 150 - 400 K/cumm [facility] MPV 10.0 9.1 - 12.3 fL [facility] RBC 3.17(L) 4.30 - 5.80 M/cumm [facility] MCV 93.1 81.3 - 96.4 fL [facility] MCH 30.9 27.1 - 33.3 pg [facility] MCHC 33.2 32.3 - 35.7 g/dL [facility] RDW CV 13.2 11.1 - 14.9 % [facility] RDW SD 45.2 35.7 - 48.1 fL [facility] NRBC abs 0.00 0.00 - 0.01 K/cumm [facility] Blood 08/22/2024 12:2 6 AM CDT 08/22/2024 12:46 AM CDT Ema Bell RELIABILITY TECHNICIAN LAB BLOOD ORDERABLES Final Result Performing Organization Address [facility] Co de Phone Number [facility] [place] [address] * (ABNORMAL) Phosphorus (08/22/2024 12:26 AM CDT) Phosphorus, pl 5.4(H) 2.3 - 4.5 mg/dL Blood 08/22/2024 12:2 6 AM CDT 08/22/2024 12:46 AM CDT Ema Bell RELIABILITY TECHNICIAN LAB BLOOD ORDERABLES Final Result Performing Organization Address [facility] de Phone Number [facility] [place] [address] * Magnesium (08/22/2024 12:26 AM CDT) Magnesium 2.2 1.4 - 2.5 mg/dL Blood 08/22/2024 12:2 6 AM CDT 08/22/2024 12:46 AM CDT Ema Bell RELIABILITY TECHNICIAN LAB BLOOD ORDERABLES Final Result Performing Organization Address [facility] [place] [address] * (ABNORMAL) Blood gas, arterial (08/22/2024 12:26 AM CDT) pH, Art 7.33(L) 7.35 - 7.45 PCO2, Arterial 49(H) 35 - 45 mmHg [facility] PO2, Arterial 132(H) 83 - 108 mmHg [facility] HCO3 Art (Calculated) 27 20 - 30 mmol/L [facility] BE, art 0 mmol/L [facility] Comment: Interpretive Data No Reference Range Established Current Interpretive Data was last revised on 2017 O2 Sat Art (Measured) 99(H) 90 - 95 % [facility] Blood 08/22/2024 12:2 6 AM CDT 08/22/2024 12:43 AM CDT Ema Alondra Bell RELIABILITY TECHNICIAN LAB BLOOD ORDERABLES Final Result [facility] Department [place] [address] * (ABNORMAL) Basic metabolic panel (08/22/2024 12:26 AM CDT) Pathologist [facility] Sodium 139 135 - 145 mmol/L Potassium, pl 5.6(H) 3.3 - 4.9 mmol/L [facility] Chloride 106 97 - 110 mmol/L [facility] CO2 27 22 - 32 mmol/L [facility] Anion gap 6 2 - 15 mmol/L [facility] BUN 23 6 - 25 mg/dL [facility] Creatinine 1.29 0.80 - 1.30 mg/dL [facility] Glucose 154 70 - 199 mg/dL [facility] Comment: Interpretive Data Fasting glucose [...] 2022. Calcium 8.7 8.5 - 10.3 mg/dL [facility] Blood 08/22/2024 12:2 6 AM CDT 08/22/2024 12:46 AM CDT Ema Alondra Bell RELIABILITY TECHNICIAN LAB BLOOD ORDERABLES Final Result Performing Organization Address [facility]/ZIP Co de Phone Number [facility] [place] [address] * POCT glucose (08/21/2024 7:57 PM CDT) Glucose, POC 163 70 - 199 mg/dL Blood 08/21/2024 7:57 PM CDT 08/21/2024 7:57 PM CDT Jason Hess MD LAB POCT ORDERABLES - DEVICE Fin al Result Performing Organization Address [facility] [place] [place] [address] * (ABNORMAL) Potassium, whole blood (08/21/2024 7:53 PM CDT) Potassium, bld 5.1(H) 3.3 - 4.9 mmol/L Blood 08/21/2024 7:53 PM CDT 08/21/2024 8:34 PM CDT Jason Hess MD LAB BLOOD ORDERABLES Final Resul t Performing Organization Address [facility] Co de Phone Number [facility] [place] [address] * Calcium, ionized, whole blood (08/21/2024 7:53 PM CDT) Ca, ionized, bld 5.03 4.50 - 5.10 mg/dL Blood 08/21/2024 7:53 PM CDT 08/21/2024 8:34 PM CDT Jason Hess MD LAB BLOOD ORDERABLES Final Resul t Performing Organization Address [facility] Co de Phone Number [facility] Department [place] [address] * Triglycerides (08/21/2024 7:53 PM CDT) Triglycerides [...] PM CDT 08/21/2024 8:34 PM CDT N[facility]ative [facility] 08/21/2024 9:02 PM CDT While on propofol infusion. us Ema Bell RELIABILITY TECHNICIAN LAB BLOOD ORDERABLES Final Result [facility] Department [place] [address] * (ABNORMAL) Blood gas, arterial (08/21/2024 7:53 PM CDT) pH, Art 7.32(L) 7.35 - 7.45 PCO2, Arterial 47(H) 35 - 45 mmHg [facility] PO2, Arterial 99 83 - 108 mmHg [facility] HCO3 Art (Calculated) 25 20 - 30 mmol/L [facility] BE, art -2 mmol/L [facility] Comment: Interpretive Data No Reference Range Established Current Interpretive Data was last revised on 2017 O2 Sat Art (Measured) 97(H) 90 - 95 % [facility] Blood 08/21/2024 7:53 PM CDT 08/21/2024 8:34 PM CDT us Jason Hess MD LAB BLOOD ORDERABLES Final Resul t Performing Organization Address City/[facility]/ZIP Co mi Phone Number [facility] Department [place] [address] * Critical Care (08/21/2024 6:35 PM CDT) [...] plan with the ICU team and other medical/actuarial consultant staff, making frequent assessments and decisions [...] time documenting in the medical record us Ema Bell RELIABILITY TECHNICIAN IN CLINIC/BEDSIDE ORDERABL ES Final Result * POCT glucose (08/21/2024 6:10 PM CDT) Glucose, POC 125 70 - 199 mg/dL Blood 08/21/2024 6:10 PM CDT 08/21/2024 6:10 PM CDT Jason Hess MD LAB POCT ORDERABLES - DEVICE Fin al Result [facility] [place] [address] * POCT glucose (08/21/2024 5:06 PM CDT) Glucose, POC 98 70 - 199 mg/dL Blood 08/21/2024 5:06 PM CDT 08/21/2024 5:06 PM CDT Jason Hess MD LAB POCT ORDERABLES - DEVICE Fin al Result Performing Organization Address [facility] Co de Phone Number [facility] [place] [address] * POCT glucose (08/21/2024 3:54 PM CDT) Glucose, POC 103 70 - 199 mg/dL Blood 08/21/2024 3:54 PM CDT 08/21/2024 3:54 PM CDT Jason Hess MD LAB POCT ORDERABLES - DEVICE Fin al Result Performing Organization Address [facility] de Phone Number [facility] Department [place] [address] * XR Chest 1 View (08/21/2024 3:44 [...] vena cava. Right internal jugular venous approach Sturtevant-Nicolasa catheter with tip overlying the right pulmonary [...] vena cava. Right internal jugular venous approach Sturtevant-Nicolasa catheter with tip overlying the right pulmonary [...] it. Electronically signed by: César Davis M.D. Result [facility] Jason Hess MD IMG XR PROCEDURES Final Result * Oxyhemoglobin, pulmonary artery (08/21/2024 3:00 PM CDT) Oxyhemoglobin, PA 83.9 % Comment: Interpretive Data No reference range established. Current interpretive data was last revised 2019. Blood 08/21/2024 3:00 PM CDT 08/21/2024 3:20 PM CDT Ema Bell RELIABILITY TECHNICIAN LAB BLOOD ORDERABLES Final Result Performing Organization Address City/[facility] Co de Phone Number [facility] Department [place] [address] * eGFR (08/21/2024 2:48 PM CDT) eGFR [...] LAB BLOOD ORDERABLES Final Resul t [facility] [place] [address] * (ABNORMAL) POC Blood Gas and Chemistries, Arterial - (08/21/2024 2:48 PM CDT) pH, Art POC 7.38 7.35 - 7.45 pCO2, Art POC 39 35 - 45 mmHg [facility] pO2, Art POC 144(H) 83 - 108 mmHg [facility] Na, POC 139 135 - 145 mmol/L [facility] K POC 4.0 3.3 - 4.9 mmol/L [facility] Comment: Interpretive Data Not all point of care methods assess for hemolysis. Confirm with instrument and retest K+ if not consistent with clinical signs and symptoms. Current Interpretive Data was last revised on 2023. Cl, POC 110 97 - 110 mmol/L [facility] Ionized Ca, POC 5.38(H) 4.50 - 5.10 mg/dL [facility] Glucose, POC 133 70 - 199 mg/dL [facility] Lactate, POC 2.5(H) 0.7 - 2.0 mmol/L [facility] SO2 (jose angel) arterial 99(H) 90 - 95 % [facility] Base excess, POC -1.8 mmol/L [facility] HCO3, Art POC 23 20 - 30 mmol/L [facility] Hct, POC 32.0(L) 41.4 - 51.6 % [facility] Total Hb, POC 10.7(L) 13.8 - 17.2 g/dL [facility] Blood 08/21/2024 2:48 PM CDT 08/21/2024 2:48 PM CDT Jason Hess MD LAB POCT ORDERABLES - DEVICE Fin al Result Performing Organization Address [facility] Co de Phone Number [facility] Department [place] [address] * aPTT (08/21/2024 2:48 PM CDT) aPTT 29 28 - 38 sec Comment: Interpretive Data Heparin therapeutic range: 66.0 - 100.0 seconds. Range based on correlation with therapeutic heparin activity range of 0.3 - 0.7 Units/mL. Current interpretive data was last revised on 2023. Blood 08/21/2024 2:48 PM CDT 08/21/2024 3:09 PM CDT Jason Hess MD LAB BLOOD ORDERABLES Final Resul t [facility] [place] [address] * (ABNORMAL) Protime-INR (08/21/2024 2:48 PM CDT) [facility] PT 13.4(H) 9.7 - 13.0 sec INR 1.24(H) 0.90 - 1.20 [facility] Comment: Interpretive data Oral anticoagulant therapeutic ranges: Venous thromboembolism prophylaxis or treatment: 2.0-3.0 CARDIOLOGY Standard range: 2.0-3.0 High-intensity range: 2.5-3.5 Refer to indication-specific guidelines for appropriate target ranges for prosthetic heart valve replacement. Current interpretive data was last revised on 2019. Blood 08/21/2024 2:48 PM CDT 08/21/2024 3:09 PM CDT us Jason Hess MD LAB BLOOD ORDERABLES Final Resul t [facility] [place] [address] * (ABNORMAL) CBC without differential (08/21/2024 2:48 PM CDT) [facility] WBC 11.46(H) 3.80 - 9.90 K/cumm Hgb 10.1(L) 13.0 - 17.5 g/dL [facility] Hct 29.8(L) 38.9 - 50.3 % [facility] Plt 155 150 - 400 K/cumm [facility] MPV 9.6 9.1 - 12.3 fL [facility] RBC 3.24(L) 4.30 - 5.80 M/cumm [facility] MCV 92.0 81.3 - 96.4 fL [facility] MCH 31.2 27.1 - 33.3 pg [facility] MCHC 33.9 32.3 - 35.7 g/dL [facility] RDW CV 13.2 11.1 - 14.9 % [facility] RDW SD 44.8 35.7 - 48.1 fL [facility] NRBC abs 0.00 0.00 - 0.01 K/cumm [facility] Blood 08/21/2024 2:48 PM CDT 08/21/2024 3:15 PM CDT Jason Hess MD LAB BLOOD ORDERABLES Final Resul t Performing Organization Address [facility] Co de Phone Number [facility] [place] [facility] [place] [address] * Type and screen (08/21/2024 2:48 PM CDT) ABO Rh A Negative Neyda, indirect Negative [facility] Blood 08/21/2024 2:48 PM CDT 08/21/2024 3:36 PM CDT Narrative [facility] - 08/21/2024 4:41 PM CDT Has the patient had Daratumumab or Isatuximab in the past 6 months?->Unknown Sneha Rodriguez RELIABILITY TECHNICIAN LAB BLOOD BANK TEST ORDERA BLES Final Result Performing Organization Address [facility] [place] [address] * Magnesium (08/21/2024 2:48 PM CDT) Pathologist [facility] Magnesium 2.5 1.4 - 2.5 mg/dL Blood 08/21/2024 2:48 PM CDT 08/21/2024 3:15 PM CDT Jason Hess MD LAB BLOOD ORDERABLES Final Resul t Performing Organization Address [facility] [place] [address] * Basic metabolic panel (08/21/2024 2:48 PM CDT) Sodium 142 135 - 145 mmol/L Potassium, pl 3.9 3.3 - 4.9 mmol/L [facility] Comment:Hemolyzed; Potassium value may be falsely elevated by as much as 0.3-0.5 mmol/L. Suggest redraw and reanalysis. Chloride 109 97 - 110 mmol/L [facility] CO2 26 22 - 32 mmol/L [facility] Anion gap 7 2 - 15 mmol/L [facility] BUN 17 6 - 25 mg/dL [facility] Creatinine 1.20 0.80 - 1.30 mg/dL [facility] Glucose 128 70 - 199 mg/dL [facility] Comment: Interpretive Data Fasting glucose [...] 2022. Calcium 9.3 8.5 - 10.3 mg/dL [facility] Blood 08/21/2024 2:48 PM CDT 08/21/2024 3:15 PM CDT Jason Hess MD LAB BLOOD ORDERABLES Final Resul t [facility] Department [place] [address] * REPAIR ANEURYSM ASCENDING AORTIC (08/21/2024 2:21 PM CDT) Anatomical Region Laterality Modality X-Ray Angiograph y Narrative 08/21/2024 2:21 PM CDT Please see OpNote for result. Jason Hess MD SURGICAL CASE ORDERS Final Resul t * (ABNORMAL) POC Blood Gas and Chemistries, Arterial - (08/21/2024 1:48 PM CDT) pH, Art POC 7.34(L) 7.35 - 7.45 pCO2, Art POC 42 35 - 45 mmHg [facility] pO2, Art POC 332(H) 83 - 108 mmHg [facility] Na, POC 140 135 - 145 mmol/L [facility] K POC 3.7 3.3 - 4.9 mmol/L [facility] Comment: Interpretive Data Not all point of care methods assess for hemolysis. Confirm with instrument and retest K+ if not consistent with clinical signs and symptoms. Current Interpretive Data was last revised on 2023. Cl, POC 109 97 - 110 mmol/L [facility] Ionized Ca, POC 5.76(H) 4.50 - 5.10 mg/dL [facility] Glucose, POC 174 70 - 199 mg/dL [facility] Lactate, POC 2.7(H) 0.7 - 2.0 mmol/L [facility] SO2 (jose angel) arterial 100(H) 90 - 95 % [facility] Base excess, POC -2.9 mmol/L [facility] HCO3, Art POC 23 20 - 30 mmol/L [facility] Hct, POC 30.0(L) 41.4 - 51.6 % [facility] Total Hb, POC 10.0(L) 13.8 - 17.2 g/dL [facility] Blood 08/21/2024 1:48 PM CDT 08/21/2024 1:48 PM CDT us Jason Hess MD LAB POCT ORDERABLES - DEVICE Fin al Result [facility] Department [place] [address] * (ABNORMAL) POCT prothrombin time (08/21/2024 1:47 PM CDT) PT, POC 21.1(H) 11.7 - 16.6 sec INR, POC 1.6(H) 0.9 - 1.2 [facility] Blood 08/21/2024 1:47 PM CDT 08/21/2024 1:47 PM CDT Jason Hess MD LAB POCT ORDERABLES - DEVICE Fin al Result Performing Organization Address [facility] de Phone Number [facility] [place] [address] * (ABNORMAL) POCT hemoglobin, hematocrit and platelet count (08/21/2024 1:47 PM CDT) Hgb, POC 9.4(L) 13.0 - 17.5 g/dL Hematocrit POC 28.7(L) 38.9 - 50.3 % [facility] Platelet POC 150 150 - 400 K/cumm [facility] Blood 08/21/2024 1:47 PM CDT 08/21/2024 1:47 PM CDT Jason Hess MD LAB POCT ORDERABLES - DEVICE Fin al Result Performing Organization Address [facility] de Phone Number [facility] [place] [address] * POCT Partial thromboplastin time (PTT) (08/21/2024 1:47 PM CDT) [facility] APTT, POC 41.5 32.5 - 46.1 sec Blood 08/21/2024 1:47 PM CDT 08/21/2024 1:47 PM CDT Jason Hess MD LAB POCT ORDERABLES - DEVICE Fin al Result Performing Organization Address [facility] [place] [address] * Transfuse platelets (08/21/2024 12:56 PM CDT) Blood Christine Loaiza MD BLOOD TRANSFUSION ORDERA BLES Final Result Performing Organization Address [facility] Co de Phone Number [facility] [place] [address] * Transfuse platelets (08/21/2024 12:56 PM CDT) Blood us Christine Loaiza MD BLOOD TRANSFUSION ORDERA BLES Final Result Performing Organization Address [facility] Co de Phone Number [facility] Department [place] [address] * POCT heparin/ACT CPB (08/21/2024 12:47 PM CDT) Pathologist [facility] Heparin POC 0.0 units/mL ACT, CPB 113 112 - 174 sec [facility] Blood 08/21/2024 12:4 7 PM CDT 08/21/2024 12:47 PM CDT us Jason Hess MD LAB POCT ORDERABLES - DEVICE Fin al Result Performing Organization Address [facility] Co de Phone Number [facility] [place] [address] * (ABNORMAL) POC Blood Gas and Chemistries, Arterial - (08/21/2024 12:46 PM CDT) pH, Art POC 7.33(L) 7.35 - 7.45 pCO2, Art POC 40 35 - 45 mmHg [facility] pO2, Art POC 303(H) 83 - 108 mmHg [facility] Na, POC 139 135 - 145 mmol/L [facility] K POC 3.9 3.3 - 4.9 mmol/L [facility] Comment: Interpretive Data Not all point of care methods assess for hemolysis. Confirm with instrument and retest K+ if not consistent with clinical signs and symptoms. Current Interpretive Data was last revised on 2023. Cl, POC 108 97 - 110 mmol/L [facility] Ionized Ca, POC 4.71 4.50 - 5.10 mg/dL [facility] Glucose, POC 236(H) 70 - 199 mg/dL [facility] Lactate, POC 2.9(H) 0.7 - 2.0 mmol/L [facility] SO2 (jose angel) arterial 100(H) 90 - 95 % [facility] Base excess, POC -4.5 mmol/L [facility] HCO3, Art POC 22 20 - 30 mmol/L [facility] Hct, POC 31.0(L) 41.4 - 51.6 % [facility] Total Hb, POC 10.3(L) 13.8 - 17.2 g/dL [facility] Blood 08/21/2024 12:4 6 PM CDT 08/21/2024 12:46 PM CDT Jason Hess MD LAB POCT ORDERABLES - DEVICE Fin al Result Performing Organization Address [facility] Co de Phone Number [facility] Department [place] [address] * (ABNORMAL) POCT prothrombin time (08/21/2024 12:45 PM CDT) Pathologist [facility] PT, POC 22.4(H) 11.7 - 16.6 sec INR, POC 1.7(H) 0.9 - 1.2 [facility] Blood 08/21/2024 12:4 5 PM CDT 08/21/2024 12:45 PM CDT Jason Hess MD LAB POCT ORDERABLES - DEVICE Fin al Result Performing Organization Address City/[facility] Co de Phone Number [facility] [place] [address] * (ABNORMAL) POCT hemoglobin, hematocrit and platelet count (08/21/2024 12:44 PM CDT) Hgb, POC 9.9(L) 13.0 - 17.5 g/dL Hematocrit POC 29.3(L) 38.9 - 50.3 % [facility] Platelet POC 114(L) 150 - 400 K/cumm [facility] Blood 08/21/2024 12:4 4 PM CDT 08/21/2024 12:44 PM CDT Jason Hess MD LAB POCT ORDERABLES - DEVICE Fin al Result Performing Organization Address City/[facility] Co de Phone Number [facility] Department [place] [address] * POCT Partial thromboplastin time (PTT) (08/21/2024 12:44 PM CDT) [facility] APTT, POC 41.5 32.5 - 46.1 sec Blood 08/21/2024 12:4 4 PM CDT 08/21/2024 12:44 PM CDT Jason Hess MD LAB POCT ORDERABLES - DEVICE Fin al Result Performing Organization Address [facility] de Phone Number [facility] [place] [address] * Prepare platelets: 2 Units (08/21/2024 12:36 PM CDT) Pathologist [facility] Product code [id number] [facility] Unit Number [id number] [facility] Product Blood Type APOS [facility] Dispense Status PRESUMED TRANSFUSED [facility] Product code [id number] Unit Number [id number] [facility] Product Blood Type APOS [facility] Dispense Status PRESUMED TRANSFUSED [facility] Blood Venous blood specimen / Unknown 08/21/2024 12:36 PM CDT 08/21/2024 12:36 PM CDT Narrative [facility] - 08/22/2024 12:55 AM CDT Other indication->cts Are special requirements needed? (all products are leukoreduced)->No Date required:-[id number] PLT # of Units:-2-Units Reasons:-Other (Specify)} us Christine Loaiza MD BLOOD BANK PRODUCT ORDER SAMUEL Final Result Performing Organization Address [facility] Co de Phone Number [facility] [place] [address] * (ABNORMAL) POCT heparin/ACT CPB (08/21/2024 11:37 AM CDT) Pathologist [facility] Heparin POC >4.7 units/mL ACT, CPB 549(H) 112 - 174 sec [facility] Blood 08/21/2024 11:3 7 AM CDT 08/21/2024 11:37 AM CDT Jason Hess MD LAB POCT ORDERABLES - DEVICE Fin al Result Performing Organization Address [facility] de Phone Number [facility] [place] [address] * (ABNORMAL) POC Blood Gas and Chemistries, Arterial - (08/21/2024 11:36 AM CDT) [facility] pH, Art POC 7.36 7.35 - 7.45 pCO2, Art POC 41 35 - 45 mmHg [facility] pO2, Art POC 220(H) 83 - 108 mmHg [facility] Na, POC 138 135 - 145 mmol/L [facility] K POC 4.5 3.3 - 4.9 mmol/L [facility] Comment: Interpretive Data Not all point of care methods assess for hemolysis. Confirm with instrument and retest K+ if not consistent with clinical signs and symptoms. Current Interpretive Data was last revised on 2023. Cl, POC 108 97 - 110 mmol/L [facility] Ionized Ca, POC 4.82 4.50 - 5.10 mg/dL [facility] Glucose, POC 218(H) 70 - 199 mg/dL [facility] Lactate, POC 1.8 0.7 - 2.0 mmol/L [facility] SO2 (jose angel) arterial 100(H) 90 - 95 % [facility] Base excess, POC -2.1 mmol/L [facility] HCO3, Art POC 23 20 - 30 mmol/L [facility] Hct, POC 32.0(L) 41.4 - 51.6 % [facility] Total Hb, POC 10.8(L) 13.8 - 17.2 g/dL [facility] Blood 08/21/2024 11:3 6 AM CDT 08/21/2024 11:36 AM CDT Jason Hess MD LAB POCT ORDERABLES - DEVICE Fin al Result Performing Organization Address City/[facility]/ZIP Co de Phone Number [facility] [place] [address] * (ABNORMAL) POCT heparin/ACT CPB (08/21/2024 11:00 AM CDT) Heparin POC >4.7 units/mL ACT, CPB 518(H) 112 - 174 sec [facility] Blood 08/21/2024 11:0 0 AM CDT 08/21/2024 11:00 AM CDT Jason Hess MD LAB POCT ORDERABLES - DEVICE Fin al Result Performing Organization Address City/[facility] Co de Phone Number [facility] Department [place] [address] * (ABNORMAL) POC Blood Gas and Chemistries, Arterial - (08/21/2024 10:58 AM CDT) pH, Art POC 7.33(L) 7.35 - 7.45 pCO2, Art POC 40 35 - 45 mmHg [facility] pO2, Art POC 268(H) 83 - 108 mmHg [facility] Na, POC 137 135 - 145 mmol/L [facility] K POC 4.9 3.3 - 4.9 mmol/L [facility] Comment: Interpretive Data Not all point of care methods assess for hemolysis. Confirm with instrument and retest K+ if not consistent with clinical signs and symptoms. Current Interpretive Data was last revised on 2023. Cl, POC 107 97 - 110 mmol/L [facility] Ionized Ca, POC 4.85 4.50 - 5.10 mg/dL [facility] Glucose, POC 220(H) 70 - 199 mg/dL [facility] Lactate, POC 1.5 0.7 - 2.0 mmol/L [facility] SO2 (jose angel) arterial 100(H) 90 - 95 % [facility] Base excess, POC -4.5 mmol/L [facility] HCO3, Art POC 22 20 - 30 mmol/L [facility] Hct, POC 33.0(L) 41.4 - 51.6 % [facility] Total Hb, POC 11.0(L) 13.8 - 17.2 g/dL [facility] Blood 08/21/2024 10:5 8 AM CDT 08/21/2024 10:58 AM CDT Jason Hess MD LAB POCT ORDERABLES - DEVICE Fin al Result [facility] Department [place] [address] * (ABNORMAL) POCT heparin/ACT CPB (08/21/2024 10:23 AM CDT) Heparin POC >4.7 units/mL ACT, CPB 538(H) 112 - 174 sec [facility] Blood 08/21/2024 10:2 3 AM CDT 08/21/2024 10:23 AM CDT Jason Hess MD LAB POCT ORDERABLES - DEVICE Fin al Result [facility] Department [place] [address] * (ABNORMAL) POC Blood Gas and Chemistries, Arterial - (08/21/2024 10:23 AM CDT) pH, Art POC 7.39 7.35 - 7.45 pCO2, Art POC 36 35 - 45 mmHg [facility] pO2, Art POC 297(H) 83 - 108 mmHg [facility] Na, POC 136 135 - 145 mmol/L [facility] K POC 4.6 3.3 - 4.9 mmol/L [facility] Comment: Interpretive Data Not all point of care methods assess for hemolysis. Confirm with instrument and retest K+ if not consistent with clinical signs and symptoms. Current Interpretive Data was last revised on 2023. Cl, POC 107 97 - 110 mmol/L [facility] Ionized Ca, POC 4.74 4.50 - 5.10 mg/dL [facility] Glucose, POC 211(H) 70 - 199 mg/dL [facility] Lactate, POC 1.5 0.7 - 2.0 mmol/L [facility] SO2 (jose angel) arterial 100(H) 90 - 95 % [facility] Base excess, POC -2.7 mmol/L [facility] HCO3, Art POC 23 20 - 30 mmol/L [facility] Hct, POC 33.0(L) 41.4 - 51.6 % [facility] Total Hb, POC 10.9(L) 13.8 - 17.2 g/dL [facility] Blood 08/21/2024 10:2 3 AM CDT 08/21/2024 10:23 AM CDT us Jason Hess MD LAB POCT ORDERABLES - DEVICE Fin al Result [facility] Department [place] [address] * [place] AN PROCEDURE PLACEHOLDER (08/21/2024 9:58 AM CDT) [...] code: JEFF placement and diagnostic exam, non-congenital (58401) Echocardiographic and doppler measurements: Ventricles: Left ventricle: [...] inferior: normal 16- Apical septal: normal 17- [place]: normal Valves: Aortic Valve: Annulus: normal Leaflet [...] comments: Post-CPB JEFF performed under GA+PPV 3 [employer]UT[employer] CONSULTANT DDD at 90 Overall LV function remains [...] AN SHEATH INTRODUCER PERFORMABLE, PULMONARY ARTERY CATH, [place] AN PROCEDURE PLACEHOLDER (59:57 AM CDT) Narrative [...] POCT heparin/ACT CPB (08/21/2024 9:49 AM CDT) [facility] Signature Heparin POC <4.9 units/mL ACT, CPB 543(H) 112 - 174 sec [facility] Blood 08/21/2024 9:49 AM CDT 08/21/2024 9:49 AM CDT Jason Hess MD LAB POCT ORDERABLES - DEVICE Fin al Result [facility] [place] [address] * (ABNORMAL) POC Blood Gas and Chemistries, Arterial - (08/21/2024 9:49 AM CDT) pH, Art POC 7.37 7.35 - 7.45 pCO2, Art POC 40 35 - 45 mmHg [facility] pO2, Art POC 256(H) 83 - 108 mmHg [facility] Na, POC 136 135 - 145 mmol/L [facility] K POC 5.1(H) 3.3 - 4.9 mmol/L [facility] Comment: Interpretive Data Not all point of care methods assess for hemolysis. Confirm with instrument and retest K+ if not consistent with clinical signs and symptoms. Current Interpretive Data was last revised on 2023. Cl, POC 108 97 - 110 mmol/L [facility] Ionized Ca, POC 4.81 4.50 - 5.10 mg/dL [facility] Glucose, POC 193 70 - 199 mg/dL [facility] Lactate, POC 1.6 0.7 - 2.0 mmol/L [facility] SO2 (jose angel) arterial 100(H) 90 - 95 % [facility] Base excess, POC -2.0 mmol/L [facility] HCO3, Art POC 23 20 - 30 mmol/L [facility] Hct, POC 32.0(L) 41.4 - 51.6 % [facility] Total Hb, POC 10.5(L) 13.8 - 17.2 g/dL [facility] Blood 08/21/2024 9:49 AM CDT 08/21/2024 9:49 AM CDT us Jason Hess MD LAB POCT ORDERABLES - DEVICE Fin al Result [facility] Department [place] [address] * Surgical pathology (08/21/2024 9:47 AM CDT) Tissue (Aorta) 08/21/2024 9: 47 AM CDT Narrative PATHOLOGY [facility] - 08/24/2024 10:53 AM CDT EPIC results best viewed via link to PDF [facility] [place] [address] Note to Patients: This report may contain [...] M : 1960 (Age: 64) Address: [address] [place] [id number] Hospital #: [id number] Taken:08/21/2024 Received:08/21/2024 Reported: 08/24/2024 Patient Type: [facility] Inpatient Service: Cardiothoracic Location: [place] [address] Physician(s): Jason Hess M.D. Dima Caesar Mckinney [...] is ulloa-white and smooth with fatty streaking. Rush Seater sections are submitted. Labeled A1. Jar 1. rxr/08/22/2024 13:39 PA(s): Lizette Spivey, MS, PA(ASCP)CM By this signature, I attest that the above diagnosis is based upon my personal examination of the slides(and/or other material). Addenda/Procedures The performance characteristics of some immunohistochemical stains, fluorescence in-situ hybridization tests and immunophenotyping by flow cytometry cited in this report (if any) were determined by the Surgical Pathology and Flow Cytometry Departments at [facility] as part of an ongoing compliance quality performance analyst program and in compliance with federally mandated [...] Surgical Pathology and Flow Cytometry Departments of [facility]. It has not been cleared or approved by the U. S. Food and Drug Administration. IMAGES AND SCANNED DOCUMENTS, IF INCLUDED, ONLY VIEWABLE IN PDF VERSION OF REPORT us Jason Hess MD LAB PATHOLOGY ORDERABLES Final R esult PATHOLOGY [facility] [address]rd Floor [place], [place] [phone] * HIV 1/2 Antibody plus p24 Antigen [...] ORD ERABLES Final Result Performing Organization Address [facility] Co de Phone Number [facility] [place] [address] * Hepatitis C antibody Blood (08/21/2024 9:45 AM CDT) Hep C Ab Nonreactive Nonreactive Comment:Antibodies to HCV no t detected. Does NOT exclude the possibility of recent exposure to HCV. Current interpretive data was last revised on 21 Blood 08/21/2024 9:45 AM CDT 08/21/2024 11:09 AM CDT us Notinfile Unknown LAB MICROBIOLOGY - GENERAL ORD ERABLES Final Result Performing Organization Address [facility] de Phone Number [facility] [place] [address] * Hepatitis B Surface Antigen Blood (08/21/2024 9:45 AM CDT) HepBsAg Nonreactive Nonreactive Blood 08/21/2024 9:45 AM CDT 08/21/2024 11:09 AM CDT us Notinfile Unknown LAB MICROBIOLOGY - GENERAL ORD ERABLES Final Result Performing Organization Address [facility] de Phone Number [facility] [place] [address] * Central Venous Line (08/21/2024 8:59 AM [...] pressure tracing changes and verified by JEFF us Christine Loaiza MD ANESTHESIA ORDERABLES Ed [...] Difficult airway: no Staff: Supervising provider: Christine Laoiza MD Placed by: Fellow: Balta Villalta MD [...] CPB 543(H) 112 - 174 sec [facility] Blood 08/21/2024 8:56 AM CDT 08/21/2024 8:56 AM CDT us Jason Hess MD LAB POCT ORDERABLES - DEVICE Fin al Result [facility] [place] [address] * (ABNORMAL) POC Blood Gas and Chemistries, Arterial - (08/21/2024 8:31 AM CDT) pH, Art POC 7.43 7.35 - 7.45 pCO2, Art POC 40 35 - 45 mmHg [facility] pO2, Art POC 391(H) 83 - 108 mmHg [facility] Na, POC 137 135 - 145 mmol/L [facility] K POC 3.9 3.3 - 4.9 mmol/L [facility] Comment: Interpretive Data Not all point of care methods assess for hemolysis. Confirm with instrument and retest K+ if not consistent with clinical signs and symptoms. Current Interpretive Data was last revised on 2023. Cl, POC 106 97 - 110 mmol/L [facility] Ionized Ca, POC 4.88 4.50 - 5.10 mg/dL [facility] Glucose, POC 127 70 - 199 mg/dL [facility] Lactate, POC 1.0 0.7 - 2.0 mmol/L [facility] SO2 (jose angel) arterial 100(H) 90 - 95 % [facility] Base excess, POC 2.0 mmol/L [facility] HCO3, Art POC 27 20 - 30 mmol/L [facility] Hct, POC 39.0(L) 41.4 - 51.6 % [facility] Total Hb, POC 13.0(L) 13.8 - 17.2 g/dL [facility] Blood 08/21/2024 8:31 AM CDT 08/21/2024 8:31 AM CDT us Jason Hess MD LAB POCT ORDERABLES - DEVICE Fin al Result [facility] Department [place] [address] * (ABNORMAL) POCT heparin dose response, CPB (08/21/2024 8:27 AM CDT) Baseline ACT POC 135 112 - 174 sec Heparin dose response slope POC 59(L) 60 - 195 [facility] Projected Heparin Concentration POC 5.8 units/mL [facility] Blood 08/21/2024 8:27 AM CDT 08/21/2024 8:27 AM CDT us Jason Hess MD LAB POCT ORDERABLES - DEVICE Fin al Result Performing Organization Address City/[facility] Co de Phone Number [facility] Department [place] [address] * JEFF Add-On For OR (08/21/2024 6:54 AM CDT) Narrative [facility] PROSOLV_CARDIOREPORT_CONS SCIMAGE - 08/21/2024 6:54 AM CDT Procedure Auto Finalized by Rule: BW CV JEFF DURING CASE OR Please see the Anesthesiologist's Procedure Note for the results. us Balta Villalta MD CV ECHO PROCEDURES Final Result Performing Organization Address [facility] de Phone Number [facility] PROSOLV_CARDIOREPORT_CONS SCIMAGE * Prepare plasma: 2 Units (08/21/2024 6:54 AM CDT) Product code [id number] Unit Number [id number] 3-U [facility] Product Blood Type APOS [facility] Dispense Status RETURNED [facility] Product code [id number] [facility] Unit Number [id number] 1-F [facility] Product Blood [facility] Dispense Status RETURNED [facility] Blood Venous blood specimen / Unknown 08/21/2024 6:54 AM CDT 08/21/2024 6:54 AM CDT Narrative [facility] - 08/21/2024 2:34 PM CDT Date required:-[id number] FFP # of Units:-2-Units Reasons:-Immediate need for surgical intervention us Balta Villalta MD BLOOD BANK PRODUCT ORDERA BLES Final Result Performing Organization Address [facility] Co de Phone Number [facility] Department [place] [address] * Prepare RBC: 4 Units (08/21/2024 6:54 AM CDT) Product code [id number] Unit Number [id number] 3-O [facility] Product Blood Type ANEG [facility] Dispense Status RETURNED [facility] Product code [id number] [facility] Unit Number [id number] 4-5 [facility] Product Blood Type ANEG [facility] Dispense Status RETURNED [facility] Product code [id number] [facility] Unit Number [id number] 6-W [facility] Product Blood Type ANEG [facility] Dispense Status RETURNED [facility] Product code [id number] [facility] Unit Number [id number] 3-5 [facility] Product Blood Type ANEG [facility] Dispense Status RETURNED [facility] Blood 08/21/2024 6:54 AM CDT 08/21/2024 6:54 AM CDT Narrative [facility] - 08/21/2024 2:34 PM CDT Are special requirements needed? (All products are leukoreduced and CMV- safe)- >No Date required:-[id number] LRRBC # of Shpxa-1-Wrxrv Reasons:-Intra-op transfusion} us Balta Villalta MD BLOOD BANK PRODUCT ORDERA BLES Final Result Performing Organization Address [facility] Co de Phone Number [facility] Department of [place] [address] * Check Sample (08/21/2024 5:57 AM CDT) ABO Rh A Negative [facility] OTHER 08/21/2024 5:57 AM CDT 08/21/2024 6:47 AM CDT us Jason Hess MD LAB BLOOD ORDERABLES Final Resul t Performing Organization Address City/[facility] Co de Phone Number [facility] Department [place] [address] BJ * aPTT (08/13/2024 3:18 PM CDT) aPTT 37 22 - 37 sec Comment: Interpretive data aPTT test has not been evaluated for monitoring heparin therapy. The anti-Xa is the preferred test. Current interpretive data was last revised on 2019. Blood 08/13/2024 3:18 PM CDT 08/13/2024 3:26 PM CDT Jason Hess MD LAB BLOOD ORDERABLES Final Resul t Performing Organization Address [facility] de Phone Number [id number] [employer] [place], [place] [id number] * Protime-INR (08/13/2024 3:18 PM CDT) PT [...] ORDERABLES Final Resul t Performing Organization Address [facility] de Phone Number [facility] [address] [facility] [place] [address] * XR Chest PA Lateral 2 Views [...] Electronically signed by: César Davis M.D. us Isabel Ashley RELIABILITY TECHNICIAN IMG XR PROCEDURES Final Resul t * TYPE AND SCREEN 14 DAY (08/10/2024 3:21 PM CDT) Neyda, indirect Negative ABO Rh A Negative [facility] Blood 08/10/2024 3:21 PM CDT 08/10/2024 4:00 PM CDT Narrative [facility] - 08/10/2024 4:51 PM CDT Has the patient had Daratumumab or Isatuximab in the past 6 months?->No Is this test being ordered in advance for a procedure?->Yes Expected date of procedure:->08/20/24 Has the patient been transfused in the past 3 months?->No us Isabel Ashley NP LAB BLOOD BANK TEST ORDERABLE S Final Result [facility] Department [place] [address] * (ABNORMAL) Urinalysis reflex to microscopic and culture Urine, clean voided (08/10/2024 3:21 PM CDT) Color, ur Yellow Yellow Clarity, ur Clear Clear [facility] Specific gravity, ur 1.035(H) 1.003 - 1.030 [facility] pH, urine 6.0 [facility] Comment: Interpretive Data U rine pH is affected by diet, medications, systemic acid-base disturbances, and renal tubular function. pH may affect urinary stone formation. For example, urine pH below 6.0 may help reduce the tendency for calcium phosphate stones and pH greater than 6.0 may reduce the tendency for uric acid stone formation. Source: [facility] [place] [facility] Current Interpretive Data was last revised on 2017 Protein, ur ql Trace Negative [facility] Glucose, ur ql Negative Negative [facility] Ketones, ur Trace Negative [facility] Bilirubin, ur Negative Negative [facility] Blood, ur Negative Negative [facility] Urobilinogen, ur <2.0 <2.0 mg/dL [facility] Nitrite, ur Negative Negative [facility] Leukocyte esterase, ur Negative Negative [facility] UA reflex comment Reflex conditions for microscopic UA and culture not met. [facility] Urine, clean voided 08/10/2024 3:21 PM CDT 08/10/2024 3:51 PM CDT Isabel Ashley NP LAB MICROBIOLOGY - GENERAL OR DERABLES Final Result [facility] Department [place] [address] * TRANSTHORACIC ECHO (TTE) COMPLETE W DOPPLER/CF WO CONTRAST (08/10/2024 9:03 AM CDT) Anatomical Region Laterality Modality Ultrasound 08/10/2024 8:18 AM CDT Narrative 08/10/2024 9:18 AM CDT [facility] [place] [address] Transthoracic Echocardiographic Report Patient Name: RODERICK WELCH GE : 1960 (64y 5m) Gender: M Study Date: 08/10/2024 08:18:39 AM Ht(Inch): 74 Wt(Lb): 229.94 BSA: 2.33 Enlisted Advisor: Yara Park RDCS Location: [facility] Order Provider: JASON HESS Heart Rate: [...] 427.56 sec Electronically Signed By: Mimi Wilson [facility] 08/10/2024 9:17:54 AM CDT Procedure Note Mimi Wilson MD - 08/10/2024 [facility] [place] [address] Transthoracic Echocardiographic Report Patient Name: RODERICK WECLHMIKHAIL : 1960 (64y 5m) Gender: M Study Date: 08/10/2024 08:18:39 AM Ht(Inch): 74 Wt(Lb): 229.94 BSA: 2.33 Enlisted Advisor: Yara Park RDCS Location: [facility] Order Provider:JASON HESS Heart Rate: 56 [...] LA Length 4C 6.36 cm MV Decel Lgdc349.45 msec [ 104.00 - 258.00 ] LA [...] mmHg Asc Ao Index 1.97 cm/m2 PI GZR423.56 sec Electronically Signed By: Mimi Wilson [facility] 08/10/2024 9:17:54 AM CDT us Jason Hess MD CV ECHO PROCEDURES Final Result * LEFT HEART CATHETERIZATION WITH CORONARY ANGIOGRAPHY AND WITH AND WITHOUT LEFT VENTRICULOGRAM (08/09/2024 10:35 AM CDT) Anatomical Region Laterality Modality X-Ray Angiograph y [facility] 08/09/2024 12:29 PM CDT Cardiac Catheterization Report, Left Heart Facility: [facility] Referring Physician: Jason Hess MD [...] obtained. The patient was brought to the skilled labor and placed on the table. The planned [...] RCA or RPDA branches. DIAGNOSTIC IMPRESSIONS No kletsel dehe wintun coronary artery disease.. THERAPEUTIC RECOMMENDATIONS Findings of the catheterization were discussed with the patient and will be conveyed to the referring physician who will determine the patient's future therapy and follow-up. Conscious sedation note: I provided direct oxbx-yw-cdus monitoring of conscious sedation, which was administered by an independent, trained nurse using fentanyl and midazolam for 35 minutes. Ashley Beckman DO Insurance Sales Agent Division of Cardiology [employer] [facility] [employer] Jason Hess MD CV CARDIAC CATH PROCEDURES Final Result * (ABNORMAL) CBC without differential (08/09/2024 10:10 AM CDT) WBC 3.66(L) 3.80 - 9.90 K/cumm Hgb 12.5(L) 13.0 - 17.5 g/dL [facility] Hct 36.1(L) 38.9 - 50.3 % [facility] Plt 237 150 - 400 K/cumm [facility] MPV 9.5 9.1 - 12.3 fL [facility] RBC 3.97(L) 4.30 - 5.80 M/cumm [facility] MCV 90.9 81.3 - 96.4 fL [facility] MCH 31.5 27.1 - 33.3 pg [facility] MCHC 34.6 32.3 - 35.7 g/dL [facility] RDW CV 13.0 11.1 - 14.9 % [facility] RDW SD 43.3 35.7 - 48.1 fL [facility] NRBC abs 0.00 0.00 - 0.01 K/cumm [facility] Blood 08/09/2024 10:1 0 AM CDT 08/09/2024 10:16 AM CDT Narrative [facility] - 08/09/2024 10:32 AM CDT To be drawn after hydration bolus complete us Ashley Palominoacominruby DO LAB BLOOD ORDERABLE S Final Result [facility] Department [place] [address] * ECG 12 lead (08/09/2024 7:02 AM CDT) Ventricular Rate EKG/Min 51 BPM [facility] Atrial Rate 51 BPM [facility] [place]-Interval (MSEC) 200 ms [facility] QRS-Interval (MSEC) 146 ms [facility] QT-Interval (MSEC) 480 ms [facility] QTc 442 ms [facility] P [place] 66 degrees [facility] R [place] -50 degrees [facility] T [place] 12 degrees [facility] Diagnosis Sinus bradycardia Right bundle branch block Left anterior fascicular block Bifascicular block Abnormal ECG When compared with ECG of 10-JUL-2018 09:54, no significant change Confirmed by BLANCA PRO M.D ([id number]) on 08/09/2024 11:44:55 AM [facility] 08/09/2024 7:02 AM CDT 08/09/2024 [...] CDT 08/09/2024 8:32 AM CDT us Ashley PalominoacoModbookruby DO LAB BLOOD ORDERABLE S Final Result [facility] Department [place] [address] * CBC without differential (08/09/2024 6:47 AM CDT) WBC 3.86 3.80 - 9.90 K/cumm Hgb 13.6 13.0 - 17.5 g/dL [facility] Hct 39.6 38.9 - 50.3 % [facility] Plt 257 150 - 400 K/cumm [facility] MPV 9.7 9.1 - 12.3 fL [facility] RBC 4.34 4.30 - 5.80 M/cumm [facility] MCV 91.2 81.3 - 96.4 fL [facility] MCH 31.3 27.1 - 33.3 pg [facility] MCHC 34.3 32.3 - 35.7 g/dL [facility] RDW CV 13.1 11.1 - 14.9 % [facility] RDW SD 43.8 35.7 - 48.1 fL [facility] NRBC abs 0.00 0.00 - 0.01 K/cumm [facility] Blood 08/09/2024 6:47 AM CDT 08/09/2024 8:32 AM CDT us Ashley Song Giacomino DO LAB BLOOD ORDERABLE S Final Result [facility] Department [place] [address] * Basic metabolic panel (08/09/2024 6:47 AM CDT) Sodium 143 135 - 145 mmol/L Potassium, pl 4.9 3.3 - 4.9 mmol/L [facility] Comment:Hemolyzed; Potassium value may be falsely elevated by as much as 0.6-1.0 mmol/L. Suggest redraw and reanalysis. Chloride 105 97 - 110 mmol/L [facility] CO2 30 22 - 32 mmol/L [facility] Anion gap 8 2 - 15 mmol/L [facility] BUN 14 6 - 25 mg/dL [facility] Creatinine 1.02 0.80 - 1.30 mg/dL [facility] Glucose 97 70 - 199 mg/dL [facility] Comment: Interpretive Data Fasting glucose [...] 2022. Calcium 9.6 8.5 - 10.3 mg/dL [facility] Blood 08/09/2024 6:47 AM CDT 08/09/2024 8:32 AM CDT us Ashley Beckman DO LAB BLOOD ORDERABLE S Final Result [facility] Department [place] [address] * COLONOSCOPY (10/14/2020 7:01 AM CDT) Anatomical Region Laterality Modality Other Narrative Procedure Note John Guthrie MD - 10/14/2020 7:01 AM CDT ENDOSCOPY LAB Patient Name: Roderick Welch Procedure Date: 10/14/2020 7:01 AM Date of : 1960 Admit Type: Outpatient Age: 60 Gender: Male Attending MD: John Guthrie M.D. Room: [facility] ENDOSCOPY ROOM 01 Note Status: Finalized [...] The scope was passed under direct vision.The [id number] was introduced through the anusand advanced to [...] call and ask for the GI fellow leguillon debeader. Electronically Signed by John Guthrie MD John Guthrie M.D. 10/14/2020 7:55:34 AM Number of Addenda: 0 Note Initiated On: 10/14/2020 7:01 AM us John Guthrie MD ENDOSCOPY PROCEDURES Final Res ult from Last 3 Months or Most Recently Relevant to Health Maintenance Insurance [facility] Address: [address] [address] [place] [address] [facility] Address: [address] [address] [place] [address] [facility] Address: [address] [address] Advance Directives For more information, please contact: [phone] * Full Code (Latest Code Status on File) Date Activated Date Inactivated Comments 08/21/2024 2:50 PM 08/26/2024 5:37 PM * Full Code Date Activated Date Inactivated Comments 10/14/2020 6:38 AM 10/14/2020 12:29 PM Care Teams Buckle Coverer Relationship Specialty Start Date End Date Dima Sanchez MD PCP - General 05/01/20 Ney Villalpando MD [address] [place] [address] Room Service Supervisor Cardiology 02/08/23 Jason Hess MD [address] [place] [address] Surgeon Cardiothoracic Surgery 08/26/24
--- OUTSIDE RECORDS SUMMARY | 2024-09-21 10:57 | XMS_ITS | Clinical Summary ---
Author Organization [facility] Address [address] [place] [address] Care Team Providers Care House Parent Name Role Phone Dima Sanchez MD Primary Care Provider [phone] Ney Villalpando MD Unavailable [phone] Jason Hess MD Unavailable Allergies No known active allergies Medications * This document contains information received from the source organization and may not represent a complete record from that organization. multivitamin (MULTI-DAY ORAL)Indication s:supplelment Take 1 tablet by mouth every morning Active Viibryd 40 mg tabletIndicatio ns:major depressive disorder Take 1 tablet (40 mg total) by mouth every morning 020 Active zolpidem CR (AMBIEN CR) 12.5 mg [...] total) by mouth daily 30 tablet 1 Active senna (SENOKOT) 8.6 mg tabletIndicatio ns:constipation Take 1 tablet by mouth 2 (two) times a day as needed for constipation 20 tablet Active ferrous sulfate 325 mg (65 mg of elemental iron) tabletIndicatio ns:Iron Deficiency Anemia Take 1 tablet (325 mg total) by mouth 2 (two) times a day 60 tablet 2 Active furosemide (LASIX) 20 mg tablet Take 1 tablet (20 mg total) by mouth daily 30 tablet 11 025 2025 Active potassium chloride ER (KLOR-CON) 10 mEq CR tablet Take 1 tablet/capsule (10 mEq total) by mouth daily 30 tablet 11 Active metoprolol XL (TOPROL-XL) 25 mg extended release tablet Take 1 tablet (25 mg total) by mouth daily 90 tablet 3 Active losartan-hydroc hlorothiazide (HYZAAR) 100-25 mg per tablet TAKE 1 TABLET BY MOUTH DAILY 90 tablet 3 023 2024 Discontinued(S top Taking at Discharge) turmeric root extract 500 mg capsuleIndicati ons:supplement Take 500 capsules by mouth every morning 2024 Discontinued(S top Taking at Discharge) omega 0-pbt-jlk-fish oil 60-90-500 mg capsule,delayed release(DR/EC)I ndications:supp lement [...] mouth daily for 14 days 14 tablet 2024 Discontinued metoprolol XL (TOPROL-XL) 25 mg [...] 7:04 PM CDT): Depression Insomnia Resumed home Cyfloridaallucian, Hilarioazodonlogan & EVY Russ nightly Radiculopathy affecting upper extremity 08/25/19 Assessment [...] (10/07/2020): Added automatically from request for surgery [id number] Personal history of colonic polyps 09/02/2020 Overview (09/02/2020): Added automatically from request for surgery [id number] Family history of colonic polyps 09/02/2020 Overview (09/02/2020): Added automatically from request for surgery [id number] Intraocular pressure increase, left 10/16/2019 Assessment & [...] 10/16/2019 Assessment & Plan (05/21/2022 3:11 PM PAPER CORE MACHINE OPERATOR): New mrx, rec ar coating Assessment & Plan (10/16/2019 11:49 AM CDT): Release updated glasses and CLRx for Dailies. Age-related nuclear cataract of both eyes 2019 Assessment & Plan (05/21/2022 3:11 PM PAPER CORE MACHINE OPERATOR): Not v/s, monitor, rec uv eye [...] (05/29/2018): Added automatically from request for surgery [id number] Aneurysm of thoracic aorta 01/09/2018 Multiple actinic [...] Date Type Department Care Team Description 09/19/2024 3:00 PM CDT Therapy [facility] OP Occup Therapy [address] [place] [address] Frank, Lilibeth, OT Left hand weakness (Primary Dx) 09/19/2024 Plan of Care Documentation [facility] OP Occup Therapy [address] [place] [id number] 09/17/2024 Results Follow-Up [facility] Neurological Testing [address] [facility] 6th [place] [address] [place] [address] Jose Alberto Mcknight MD EMG/NCV - 09/13/2024 1:30 PM CDT Office Visit [facility] Neurological Testing [address] [facility] 6th [place] [address] [place] [address] Left arm weakness [R29.898] (Primary Dx); Left arm numbness [R20.0] 09/11/2024 2:10 PM CDT Procedure visit [facility] Neurological Testing [address] [facility] 6th [place] [address] [place] [address] Left hand weakness 09/11/2024 Orders Only [facility] Cardiology [address] [place] [address] [place] [address] [place] [address] Cynthia Mayberry RN 09/11/[address] [place] [address] [place] [address] Ney Villalpando MD Swelling/Medication Management 09/08/2024 Documentation [facility] Cardiology [address] [place] [address] [place] [address] [place] [address] Kamala Nelson NP 09/07/2024 3:00 PM CDT Office Visit [facility] Neuro Muscle [address] [place] [address] [place] [address] Jose Alberto Mcknight MD Left hand weakness (Primary Dx); Neuropathy 08/29/2024 12:00 PM CDT Office Visit [facility] Cardiology [address] [place] [address] [place] [address] [place] [address] Ney Villalpando MD Essential hypertension (Primary Dx); S/P aortic aneurysm repair; Palpitations 08/29/2024 Results Follow-Up [facility] Cardiology [address] [place] [address] [place] [address] [place] [address] Ney Villalpando MD ECG 12 lead 08/28/2024 Orders Only [facility] Cardiothoracic Surgery [address] [place] [address] Floor [address] Room 08[address]085 [place] [address] Jason Hess MD S/P aortic aneurysm repair (Primary Dx) 08/27/2024 Telephone [facility] Cardiology [address] [facility] 8th [place] [address] [place] [address] Ney Villalpando MD f/u after surgery 08/21/2024 9:45 AM CDT - 08/21/2024 11:59 PM CDT Hospital Encounter [address] [address] Discharge Disposition: Discharge to home or self care 08/21/2024 7:02 AM CDT Anesthesia Event [facility] Operating Room 1 [place] [address] Christine Loaiza MD Maue, Jessica Brooke, NP 08/21/2024 7:00 AM CDT - 08/21/2024 1:30 PM CDT Surgery [facility] Operating Room 1 [place] [address] Jason Hess MD VALVE SPARING AORTIC ROOT REPLACEMENT 08/21/2024 6:55 AM CDT Ancillary Procedure [facility] Operating Room 1 [place] [address] 08/21/2024 5:03 AM CDT - 08/26/2024 1:20 PM CDT Hospital Encounter [address] [address] Jason Hess MD Aneurysm of ascending aorta without rupture (Primary Dx); Neuropathy; Dermatochalasis of both upper eyelids; S/P aortic aneurysm repair Discharge Disposition: Discharge to home or self care 08/13/2024 3:05 PM CDT Lab [facility] Lab [address] [place] [address] Aneurysm of ascending aorta without rupture; Preop testing 08/13/2024 Telephone [facility] Cardiothoracic Surgery [address] [facility] 8th Floor [address] Room [address] [place] [address] Diane Mendez RMA 08/13/2024 Orders Only [facility] Cardiothoracic Surgery [address] [facility] 8th Floor [address] Room [address] [place] [address] Jason Hess MD Aneurysm of ascending aorta without rupture (Primary Dx); Preop testing 08/10/2024 4:30 PM CDT Pre-Admission Testing [facility] for Preoperative Assessment and Planning [facility] [address] [place] [address] Pre-operative exam (Primary Dx) 08/10/2024 3:28 PM CDT - 08/10/2024 11:59 PM CDT Hospital Encounter [facility] Radiology [facility] [address] [place] [address] Pre-operative exam Discharge Disposition: Discharge to home or self care 08/10/2024 7:45 AM CDT - 08/10/2024 11:59 PM CDT Hospital Encounter [facility] Cardiac Diagnostic Lab [address] [place] [phone] Aneurysm of ascending aorta without rupture Discharge Disposition: Discharge to home or self care 08/09/2024 9:35 AM CDT - 08/09/2024 11:00 AM CDT Surgery [facility] [address] [place] [phone] Ashley Beckman, LEFT HEART CATHETERIZATION WITH CORONARY ANGIOGRAPHY AND WITH OR WITHOUT LEFT VENTRICULOGRAM [id number] 08/09/2024 6:43 AM CDT - 08/09/2024 1:25 PM CDT Hospital Encounter 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 Aneurysm of ascending aorta without rupture Discharge Disposition: Discharge to home or self care 07/18/2024 Documentation [facility] Cardiothoracic Surgery [address] [facility] 8th Floor [address] Room [address] [address] Jason Hess MD Surgery Confirmation 07/18/2024 Orders Only [facility] Cardiothoracic Surgery [address] [facility] Medicine 8th Floor [address] Room [address] [address] Jason Hess MD 07/18/2024 Orders Only [facility] Cardiothoracic Surgery [address] [facility] 8th Floor [address] Room [address] [place] [address] Jason Hess MD Aneurysm of ascending aorta without rupture (Primary Dx) 07/18/2024 Orders Only [facility] Cardiothoracic Surgery [address] [facility] 8th Floor [address] Room [address] [place] [address] Jason Hess MD Aneurysm of ascending aorta without rupture (Primary Dx) 07/18/2024 Telephone [facility] Cardiology [facility] [facility] 8th [place] [address] [place] [address] surgery from Last 3 Months Immunizations Immunization Administration Dates Next Due [employer] ([employer]) SARS-CoV-2 Vaccination 07/07/2020 Tdap 03/12/2020 Surgical [...] ANGIOGRAPHY AND WITH OR WITHOUT LEFT VENTRICULOGRAM [id number]; Surgeon: Ashley Beckman DO; Location: [facility] CARD[facility]AC [facility]ATION CASE COORDINATOR; Service: Cardiovascular; Laterality: Left; Medical History Medical [...] Welch Heart disease Paternal Grandmother Soni Welch Malig Hyperthermia Neg Hx Pseudochol deficiency Neg Hx [...] file Legal Sex Male 3:02 AM PAPER CORE MACHINE OPERATOR Gender Identity Male 04/16/2021 11:58 AM PAPER CORE MACHINE OPERATOR Sexual Orientation Straight 04/02/2019 2: 04 PM PAPER CORE MACHINE OPERATOR Obstetrics History Last Filed Vital Signs [...] 09/07/2024 2:47 PM CDT Plan of Treatment Health Maintenance Due [...] this topic Medical Devices Implanted Type Area Plastic Tool Maker Device Identifier Shelf Expiration Date Model / Serial / Lot [employer] Ar-2324 Bcm Swivelock 4.75mm 24.5mm Self Punch Vent Shoulder [place] Suture - [id number] Implanted:Qty: 1 on 09/11/2018 by Dwayne Torrez MD at [facility] Right: Shoulder [employer] 01/30/2020 [id number] CM / / [id number] [employer] [place] [employer] Graft Straight Thoracic Collagen Coated Double Velour Hemashield [place] [id number] Woven Polyester [id number] - [id number] - [id number] Implanted:Qty: 1 on 08/21/2024 by Jason Hess MD at [facility] N/A: Mediastinum [employer] [id number] 03/01/2029 [id number] / [id number] / [id number] [employer] [place] [employer] Graft Straight Thoracic Collagen Coated Double Velour Hemashield [place] [id number] Woven Polyester [id number] - [id number] - [id number] Implanted:Qty: 1 on 08/21/2024 by Jason Hess MD at [facility] N/A: Mediastinum [employer] [id number] 12/30/2028 [id number] / [id number] / [id number] Bard Peripheral Vascular 6x6in Patch Thk1.65mm [facility] Ptfe Sterile Latex Free [id number] - [id number] Implanted:Qty: 1 on 08/21/2024 by Jason Hess MD at [facility] N/A: Aorta Bard Peripheral Vascular [id number] / / Procedures Procedure Name Priority Date/Time [...] CHEMISTRIES, ARTERIAL Routine 08/21/2024 10:23 AM CDT IN AN PROCEDURE PLACEHOLDER Routine 08/21/2024 9:58 AM CDT IN AN PROCEDURE PLACEHOLDER Routine 08/21/2024 9:57 AM [...] Final * eGFR (08/25/2024 9:36 PM CDT) Pathologist [facility] eGFR 66 >=60 mL/min/1. 73 m2 Comment: [...] CDT 08/25/2024 11:43 PM CDT Moriah Stauffer NP LAB BLOOD ORDERABLES Final R esult [facility] [address] [facility] Department [place] [address] * (ABNORMAL) CBC without differential (08/25/2024 9:36 PM CDT) Pathologist [facility] WBC 5.23 3.80 - 9.90 K/cumm Hgb 7.3(L) 13.0 - 17.5 g/dL [facility] Hct 22.1(L) 38.9 - 50.3 % [facility] Plt 246 150 - 400 K/cumm [facility] MPV 10.0 9.1 - 12.3 fL [facility] RBC 2.35(L) 4.30 - 5.80 M/cumm [facility] MCV 94.0 81.3 - 96.4 fL [facility] MCH 31.1 27.1 - 33.3 pg [facility] MCHC 33.0 32.3 - 35.7 g/dL [facility] RDW CV 14.0 11.1 - 14.9 % [facility] RDW SD 47.5 35.7 - 48.1 fL [facility] NRBC abs 0.00 0.00 - 0.01 K/cumm [facility] Blood 08/25/2024 9:36 PM CDT 08/25/2024 11:42 PM CDT us Moriah Stauffer LINING MACHINE OPERATOR LAB BLOOD ORDERABLES Final R esult Performing Organization Address City/State/[facility] Co de Phone Number [facility] Department [place] [address] * Basic metabolic panel (08/25/2024 9:36 PM CDT) Sodium 142 135 - 145 mmol/L Potassium, pl 4.5 3.3 - 4.9 mmol/L [facility] Chloride 104 97 - 110 mmol/L [facility] CO2 30 22 - 32 mmol/L [facility] Anion gap 8 2 - 15 mmol/L [facility] BUN 23 6 - 25 mg/dL [facility] Creatinine 1.22 0.80 - 1.30 mg/dL [facility] Glucose 92 70 - 199 mg/dL [facility] Comment: Interpretive Data Fasting glucose >/= 126 [...] 2022. Calcium 8.8 8.5 - 10.3 mg/dL [facility] Blood 08/25/2024 9:36 PM CDT 08/25/2024 11:43 PM CDT us Moriah Stauffer NP LAB BLOOD ORDERABLES Final R esult [facility] Department [place] [address] * XR Chest PA Lateral 2 Views [...] signed by: Herman Foster M.D. us Moriah G. Xiomy LINING MACHINE OPERATOR IMG XR PROCEDURES Final Resu lt * (ABNORMAL) CBC without differential (08/25/2024 4:29 AM CDT) Pathologist [facility] WBC 5.34 3.80 - 9.90 K/cumm Hgb 7.2(L) 13.0 - 17.5 g/dL [facility] Hct 21.1(L) 38.9 - 50.3 % [facility] Plt 183 150 - 400 K/cumm [facility] MPV 9.7 9.1 - 12.3 fL [facility] RBC 2.29(L) 4.30 - 5.80 M/cumm [facility] MCV 92.1 81.3 - 96.4 fL [facility] MCH 31.4 27.1 - 33.3 pg [facility] MCHC 34.1 32.3 - 35.7 g/dL [facility] RDW CV 13.7 11.1 - 14.9 % [facility] RDW SD 45.6 35.7 - 48.1 fL [facility] NRBC abs 0.00 0.00 - 0.01 K/cumm [facility] Blood 08/25/2024 4:29 AM CDT 08/25/2024 4:57 AM CDT Akiko Villavicencio NP LAB BLOOD ORDERABLES Final Result [facility] Department [place] [address] * Type and screen (08/25/2024 4:29 AM CDT) Pathologist [facility] ABO Rh A Negative Neyda, indirect Negative [facility] Blood 08/25/2024 4:29 AM CDT 08/25/2024 10:38 AM CDT Narrative [facility] - 08/25/2024 11:15 AM CDT Has the patient had Daratumumab or Isatuximab in the past 6 months?->Unknown Akiko A. Villavicencio LINING MACHINE OPERATOR LAB BLOOD BANK TEST ORDERA BLES Final Result Performing Organization Address [facility] Co de Phone Number [facility] Department [place] [address] * eGFR (08/24/2024 10:19 PM CDT) Pathologist [facility] eGFR 72 >=60 mL/min/1. 73 m2 Comment: [...] 08/24/2024 10:48 PM CDT us Moriah Stauffer LINING MACHINE OPERATOR LAB BLOOD ORDERABLES Final R esult Performing Organization Address City/[facility]/ZIP Co de Phone Number [facility] [place] [address] * (ABNORMAL) CBC without differential (08/24/2024 10:19 PM CDT) [facility] WBC 5.96 3.80 - 9.90 K/cumm Hgb 7.2(L) 13.0 - 17.5 g/dL [facility] Hct 21.0(L) 38.9 - 50.3 % [facility] Plt 173 150 - 400 K/cumm [facility] MPV 10.1 9.1 - 12.3 fL [facility] RBC 2.29(L) 4.30 - 5.80 M/cumm [facility] MCV 91.7 81.3 - 96.4 fL [facility] MCH 31.4 27.1 - 33.3 pg [facility] MCHC 34.3 32.3 - 35.7 g/dL [facility] RDW CV 13.8 11.1 - 14.9 % [facility] RDW SD 46.2 35.7 - 48.1 fL [facility] NRBC abs 0.00 0.00 - 0.01 K/cumm [facility] Blood 08/24/2024 10:1 9 PM CDT 08/24/2024 10:48 PM CDT us Moriah Stauffer LINING MACHINE OPERATOR LAB BLOOD ORDERABLES Final R esult Performing Organization Address City/[facility]/ZIP Co de Phone Number [facility] Department [place] [employer] [place] [address] * Type and screen (08/24/2024 10:19 PM CDT) Neyda, indirect Negative ABO Rh A Negative [facility] Blood 08/24/2024 10:1 9 PM CDT 08/24/2024 10:57 PM CDT Narrative [facility] - 08/25/2024 7:33 AM CDT Has the patient had Daratumumab or Isatuximab in the past 6 months?->Unknown Moriah Stauffer NP LAB BLOOD BANK TEST ORDERABL ES Final Result [facility] [place] [address] * Phosphorus (08/24/2024 10:19 PM CDT) Phosphorus, pl 3.5 2.3 - 4.5 mg/dL Blood 08/24/2024 10:1 9 PM CDT 08/24/2024 10:48 PM CDT us Lakisha Viera LINING MACHINE OPERATOR LAB BLOOD ORDERABLES Final Result Performing Organization Address City/[facility]/ZIP Co de Phone Number [facility] Department [place] [address] * Magnesium (08/24/2024 10:19 PM CDT) [facility] Magnesium 2.1 1.4 - 2.5 mg/dL Blood 08/24/2024 10:1 9 PM CDT 08/24/2024 10:48 PM CDT Moriah Stauffer LINING MACHINE OPERATOR LAB BLOOD ORDERABLES Final R esult Performing Organization Address [facility] Co de Phone Number [facility] [place] [address] * Basic metabolic panel (08/24/2024 10:19 PM CDT) [facility] Sodium 142 135 - 145 mmol/L Potassium, pl 4.3 3.3 - 4.9 mmol/L [facility] Chloride 106 97 - 110 mmol/L [facility] CO2 30 22 - 32 mmol/L [facility] Anion gap 6 2 - 15 mmol/L [facility] BUN 24 6 - 25 mg/dL [facility] Creatinine 1.14 0.80 - 1.30 mg/dL [facility] Glucose 108 70 - 199 mg/dL [facility] Comment: Interpretive Data Fasting glucose >/= 126 [...] 2022. Calcium 8.8 8.5 - 10.3 mg/dL [facility] Blood 08/24/2024 10:1 9 PM CDT 08/24/2024 10:48 PM CDT us Moriah Stauffer NP LAB BLOOD ORDERABLES Final R esult [facility] Department [place] [address] * XR Chest 1 View (08/24/2024 9:45 [...] by: John Arauz M.D. us Sneha Rodriguez LINING MACHINE OPERATOR IMG XR PROCEDURES Final Re sult * eGFR (08/23/2024 10:42 PM CDT) [facility] eGFR 77 >=60 mL/min/1. 73 m2 Comment: [...] 08/23/2024 11:14 PM CDT us Moriah Stauffer NP LAB BLOOD ORDERABLES Final R esult [facility] Department [place] [address] * (ABNORMAL) CBC without differential (08/23/2024 10:42 PM CDT) [facility] WBC 7.17 3.80 - 9.90 K/cumm Hgb 7.8(L) 13.0 - 17.5 g/dL [facility] Hct 23.1(L) 38.9 - 50.3 % [facility] Plt 112(L) 150 - 400 K/cumm [facility] MPV 11.0 9.1 - 12.3 fL [facility] RBC 2.51(L) 4.30 - 5.80 M/cumm [facility] MCV 92.0 81.3 - 96.4 fL [facility] MCH 31.1 27.1 - 33.3 pg [facility] MCHC 33.8 32.3 - 35.7 g/dL [facility] RDW CV 13.7 11.1 - 14.9 % [facility] RDW SD 46.0 35.7 - 48.1 fL [facility] NRBC abs 0.00 0.00 - 0.01 K/cumm [facility] Blood 08/23/2024 10:4 2 PM CDT 08/23/2024 11:13 PM CDT us Moriah Stauffer LINING MACHINE OPERATOR LAB BLOOD ORDERABLES Final R esult Performing Organization Address City/[facility]/ZIP Co de Phone Number [facility] [place] [address] * Phosphorus (08/23/2024 10:42 PM CDT) Phosphorus, pl 2.7 2.3 - 4.5 mg/dL Blood 08/23/2024 10:4 2 PM CDT 08/23/2024 11:14 PM CDT Jason Hess MD LAB BLOOD ORDERABLES Final Resul t Performing Organization Address [facility] Co de Phone Number [facility] [place] [address] * Magnesium (08/23/2024 10:42 PM CDT) Magnesium 2.1 1.4 - 2.5 mg/dL Blood 08/23/2024 10:4 2 PM CDT 08/23/2024 11:08 PM CDT Jason Hess MD LAB BLOOD ORDERABLES Final Resul t Performing Organization Address City/[facility] Co de Phone Number [facility] Department [place] [address] * Basic metabolic panel (08/23/2024 10:42 PM CDT) Pathologist [facility] Sodium 138 135 - 145 mmol/L Potassium, pl 4.3 3.3 - 4.9 mmol/L [facility] Comment:Hemolyzed; Potassium value may be falsely elevated by as much as 0.3-0.5 mmol/L. Suggest redraw and reanalysis. Chloride 104 97 - 110 mmol/L [facility] CO2 29 22 - 32 mmol/L [facility] Anion gap 5 2 - 15 mmol/L [facility] BUN 19 6 - 25 mg/dL [facility] Creatinine 1.07 0.80 - 1.30 mg/dL [facility] Glucose 103 70 - 199 mg/dL [facility] Comment: Interpretive Data Fasting glucose >/= 126 [...] 2022. Calcium 9.0 8.5 - 10.3 mg/dL [facility] Blood 08/23/2024 10:4 2 PM CDT 08/23/2024 11:08 PM CDT us Moriah Stauffer LINING MACHINE OPERATOR LAB BLOOD ORDERABLES Final R esult [facility] Department [place] [address] * POCT glucose (08/23/2024 9:14 PM CDT) Pathologist [facility] Glucose, POC 121 70 - 199 mg/dL Blood 08/23/2024 9:14 PM CDT 08/23/2024 9:14 PM CDT us Jason Hess MD LAB POCT ORDERABLES - DEVICE Fin al Result [facility] Marcela [facility] Department [place] [address] * XR Chest 1 View (08/23/2024 9:02 [...] by: César Davis M.D. us Sneha Rodriguez LINING MACHINE OPERATOR IMG XR PROCEDURES Final Re sult * Potassium, whole blood (08/23/2024 12:09 AM CDT) Potassium, bld 4.1 3.3 - 4.9 mmol/L Blood 08/23/2024 12:0 9 AM CDT 08/23/2024 12:28 AM CDT Ema Cantu Arabella LINING MACHINE OPERATOR LAB BLOOD ORDERABLES Final Result Performing Organization Address City/[facility] Co de Phone Number [facility] [place] [address] * eGFR (08/23/2024 12:09 AM CDT) eGFR [...] 12:40 AM CDT us Ema Cantu Arabella LINING MACHINE OPERATOR LAB BLOOD ORDERABLES Final Result [facility] Department [place] [place] [address] * (ABNORMAL) CBC without differential (08/23/2024 12:09 AM CDT) WBC 7.88 3.80 - 9.90 K/cumm Hgb 8.4(L) 13.0 - 17.5 g/dL [facility] Hct 24.8(L) 38.9 - 50.3 % [facility] Plt 146(L) 150 - 400 K/cumm [facility] MPV 10.5 9.1 - 12.3 fL [facility] RBC 2.67(L) 4.30 - 5.80 M/cumm [facility] MCV 92.9 81.3 - 96.4 fL [facility] MCH 31.5 27.1 - 33.3 pg [facility] MCHC 33.9 32.3 - 35.7 g/dL [facility] RDW CV 13.7 11.1 - 14.9 % [facility] RDW SD 45.9 35.7 - 48.1 fL [facility] NRBC abs 0.00 0.00 - 0.01 K/cumm [facility] Blood 08/23/2024 12:0 9 AM CDT 08/23/2024 12:40 AM CDT Ema Bell LINING MACHINE OPERATOR LAB BLOOD ORDERABLES Final Result Performing Organization Address City/[facility]/ZIP Co de Phone Number [facility] [place] [place] [address] * Phosphorus (08/23/2024 12:09 AM CDT) [facility] [facility] Phosphorus, pl 3.1 2.3 - 4.5 mg/dL Blood 08/23/2024 12:0 9 AM CDT 08/23/2024 12:40 AM CDT Ema Bell LINING MACHINE OPERATOR LAB BLOOD ORDERABLES Final Result [facility] [place] [address] * Basic metabolic panel (08/23/2024 12:09 AM CDT) Sodium 138 135 - 145 mmol/L Potassium, pl 4.1 3.3 - 4.9 mmol/L [facility] Chloride 103 97 - 110 mmol/L [facility] CO2 28 22 - 32 mmol/L [facility] Anion gap 7 2 - 15 mmol/L [facility] BUN 22 6 - 25 mg/dL [facility] Creatinine 1.20 0.80 - 1.30 mg/dL [facility] Glucose 133 70 - 199 mg/dL [facility] Comment: Interpretive Data Fasting glucose >/= 126 [...] 2022. Calcium 8.8 8.5 - 10.3 mg/dL [facility] Blood 08/23/2024 12:0 9 AM CDT 08/23/2024 12:40 AM CDT us Ema Bell NP LAB BLOOD ORDERABLES Final Result [facility] Department [place] [address] * XR Chest 1 View - in [...] it. Electronically signed by: Yen Orellana M.D. us Ema Alondra Arabella LINING MACHINE OPERATOR IMG XR PROCEDURES Final Re sult * [...] plan with the patient's team and other medical/customer service and sales consultant staff. This time was in addition [...] 5:25 PM CDT 08/22/2024 5:25 PM CDT Jason Hess MD LAB POCT ORDERABLES - DEVICE Fin al Result Performing Organization Address [facility] Co de Phone Number [facility] Department [place] [address] * POCT glucose (08/22/2024 11:17 AM CDT) Glucose, POC 140 70 - 199 mg/dL Blood 08/22/2024 11:1 7 AM CDT 08/22/2024 11:17 AM CDT Jason Hess MD LAB POCT ORDERABLES - DEVICE Fin al Result Performing Organization Address [facility] Co de Phone Number [facility] Department [place] [address] * Critical Care (08/22/2024 11:15 AM CDT) [...] plan with the ICU team and other medical/customer service and sales consultant staff, making frequent assessments and decisions [...] POCT ORDERABLES - DEVICE Fin al Result [facility] [place] [address] * CT Stroke Head WO Contrast (08/22/2024 [...] by: Dione Basurto M.D. Jason Hess MD IM CT PROCEDURES Final Result * POCT glucose (08/22/2024 5:45 AM CDT) Glucose, POC 132 70 - 199 mg/dL Blood 08/22/2024 5:45 AM CDT 08/22/2024 5:45 AM CDT us Jason Hess MD LAB POCT ORDERABLES - DEVICE Fin al Result Performing Organization Address [facility] [place] [address] * Oxyhemoglobin, pulmonary artery (08/22/2024 5:12 AM CDT) Oxyhemoglobin, PA 62.0 % Comment: Interpretive Data No reference range established. Current interpretive data was last revised 2019. Blood 08/22/2024 5:12 AM CDT 08/22/2024 5:25 AM CDT us Ema Bell LINING MACHINE OPERATOR LAB BLOOD ORDERABLES Final Result Performing Organization Address [facility] de Phone Number [facility] [place] [address] * Potassium, whole blood (08/22/2024 5:12 AM CDT) Potassium, bld 4.6 3.3 - 4.9 mmol/L Blood 08/22/2024 5:12 AM CDT 08/22/2024 5:25 AM CDT us Sneha Rodriguez LINING MACHINE OPERATOR LAB BLOOD ORDERABLES Final Result Performing Organization Address [facility] de Phone Number [facility] [place] [address] * POCT glucose (08/22/2024 4:00 AM CDT) Glucose, POC 142 70 - 199 mg/dL Blood 08/22/2024 4:00 AM CDT 08/22/2024 4:00 AM CDT Jason Hess MD LAB POCT ORDERABLES - DEVICE Fin al Result Performing Organization Address [facility]/ZIP Co de Phone Number [facility] [place] [address] * Oxyhemoglobin, pulmonary artery (08/22/2024 3:47 AM CDT) Oxyhemoglobin, PA 60.7 % Comment: Interpretive Data No reference range established. Current interpretive data was last revised 2019. Blood 08/22/2024 3:47 AM CDT 08/22/2024 4:09 AM CDT us Ema Bell LINING MACHINE OPERATOR LAB BLOOD ORDERABLES Final Result Performing Organization Address [facility] Co de Phone Number [facility] [place] [address] * Potassium, whole blood (08/22/2024 3:47 AM CDT) Potassium, bld 4.9 3.3 - 4.9 mmol/L Blood 08/22/2024 3:47 AM CDT 08/22/2024 4:09 AM CDT us Sneha Rodriguez LINING MACHINE OPERATOR LAB BLOOD ORDERABLES Final Result Performing Organization Address [facility] de Phone Number [facility] Department [place] [address] * (ABNORMAL) Potassium (08/22/2024 3:47 AM CDT) Potassium, pl 5.2(H) 3.3 - 4.9 mmol/L Blood 08/22/2024 3:47 AM CDT 08/22/2024 4:09 AM CDT Narrative [facility] - 08/22/2024 4:31 AM CDT Provider to discontinue after two normal results. us Jason Hess MD LAB BLOOD ORDERABLES Final Resul t Performing Organization Address [facility] Co de Phone Number [facility] Department [place] [address] * POCT glucose (08/22/2024 12:31 AM CDT) Glucose, POC 151 70 - 199 mg/dL Blood 08/22/2024 12:3 1 AM CDT 08/22/2024 12:31 AM CDT us Jason Hess MD LAB POCT ORDERABLES - DEVICE Fin al Result Performing Organization Address [facility] de Phone Number [facility] Department [place] [address] * Oxyhemoglobin, pulmonary artery (08/22/2024 12:26 AM CDT) Oxyhemoglobin, PA 72.1 % Comment: Interpretive Data No reference range established. Current interpretive data was last revised 2019. Blood 08/22/2024 12:2 6 AM CDT 08/22/2024 12:43 AM CDT us Ema Bell LINING MACHINE OPERATOR LAB BLOOD ORDERABLES Final Result Performing Organization Address [facility] Co de Phone Number [facility] Department [place] [address] * (ABNORMAL) Potassium, whole blood (08/22/2024 12:26 AM CDT) Potassium, bld 5.3(H) 3.3 - 4.9 mmol/L Blood 08/22/2024 12:2 6 AM CDT 08/22/2024 12:43 AM CDT us Sneha Rodriguez LINING MACHINE OPERATOR LAB BLOOD ORDERABLES Final Result Performing Organization Address [facility] Co de Phone Number [facility] Department [place] [address] * eGFR (08/22/2024 12:26 AM CDT) [facility] eGFR 62 >=60 mL/min/1. 73 m2 Comment: [...] Bell NP LAB BLOOD ORDERABLES Final Result [facility] Department [place] [address] * (ABNORMAL) CBC without differential (08/22/2024 12:26 AM CDT) [facility] WBC 7.94 3.80 - 9.90 K/cumm Hgb 9.8(L) 13.0 - 17.5 g/dL [facility] Hct 29.5(L) 38.9 - 50.3 % [facility] Plt 161 150 - 400 K/cumm [facility] MPV 10.0 9.1 - 12.3 fL [facility] RBC 3.17(L) 4.30 - 5.80 M/cumm [facility] MCV 93.1 81.3 - 96.4 fL [facility] MCH 30.9 27.1 - 33.3 pg [facility] MCHC 33.2 32.3 - 35.7 g/dL [facility] RDW CV 13.2 11.1 - 14.9 % [facility] RDW SD 45.2 35.7 - 48.1 fL [facility] NRBC abs 0.00 0.00 - 0.01 K/cumm [facility] Blood 08/22/2024 12:2 6 AM CDT 08/22/2024 12:46 AM CDT Ema Mendeztrupti Bell LINING MACHINE OPERATOR LAB BLOOD ORDERABLES Final Result Performing Organization Address [facility] Co de Phone Number [facility] Department [place] [address] * (ABNORMAL) Phosphorus (08/22/2024 12:26 AM CDT) Phosphorus, pl 5.4(H) 2.3 - 4.5 mg/dL Blood 08/22/2024 12:2 6 AM CDT 08/22/2024 12:46 AM CDT Ema Mendeztrupti Bell LINING MACHINE OPERATOR LAB BLOOD ORDERABLES Final Result Performing Organization Address [facility] Co de Phone Number [facility] Department [place] [address] * Magnesium (08/22/2024 12:26 AM CDT) Magnesium 2.2 1.4 - 2.5 mg/dL Blood 08/22/2024 12:2 6 AM CDT 08/22/2024 12:46 AM CDT Ema Mendeztrupti Bell LINING MACHINE OPERATOR LAB BLOOD ORDERABLES Final Result Performing Organization Address [facility] Co de Phone Number [facility] Department [place] [address] * (ABNORMAL) Blood gas, arterial (08/22/2024 12:26 AM CDT) [facility] pH, Art 7.33(L) 7.35 - 7.45 PCO2, Arterial 49(H) 35 - 45 mmHg [facility] PO2, Arterial 132(H) 83 - 108 mmHg [facility] HCO3 Art (Calculated) 27 20 - 30 mmol/L [facility] BE, art 0 mmol/L [facility] Comment: Interpretive Data No Reference Range Established Current Interpretive Data was last revised on 2017 O2 Sat Art (Measured) 99(H) 90 - 95 % [facility] Blood 08/22/2024 12:2 6 AM CDT 08/22/2024 12:43 AM CDT Ema Bell LINING MACHINE OPERATOR LAB BLOOD ORDERABLES Final Result [facility] Department [place] [address] * (ABNORMAL) Basic metabolic panel (08/22/2024 12:26 AM CDT) [facility] Sodium 139 135 - 145 mmol/L Potassium, pl 5.6(H) 3.3 - 4.9 mmol/L [facility] Chloride 106 97 - 110 mmol/L [facility] CO2 27 22 - 32 mmol/L [facility] Anion gap 6 2 - 15 mmol/L [facility] BUN 23 6 - 25 mg/dL [facility] Creatinine 1.29 0.80 - 1.30 mg/dL [facility] Glucose 154 70 - 199 mg/dL [facility] Comment: Interpretive Data Fasting glucose >/= 126 [...] 2022. Calcium 8.7 8.5 - 10.3 mg/dL [facility] Blood 08/22/2024 12:2 6 AM CDT 08/22/2024 12:46 AM CDT us Ema Bell NP LAB BLOOD ORDERABLES Final Result [facility] Department [place] [address] * POCT glucose (08/21/2024 7:57 PM CDT) Glucose, POC 163 70 - 199 mg/dL Blood 08/21/2024 7:57 PM CDT 08/21/2024 7:57 PM CDT Jason Hess MD LAB POCT ORDERABLES - DEVICE Fin al Result Performing Organization Address [facility] Co de Phone Number [facility] Department [place] [address] * (ABNORMAL) Potassium, whole blood (08/21/2024 7:53 PM CDT) Potassium, bld 5.1(H) 3.3 - 4.9 mmol/L Blood 08/21/2024 7:53 PM CDT 08/21/2024 8:34 PM CDT Jason Hess MD LAB BLOOD ORDERABLES Final Resul t Performing Organization Address [facility] Co de Phone Number [facility] Department [place] [address] * Calcium, ionized, whole blood (08/21/2024 7:53 PM CDT) Ca, ionized, bld 5.03 4.50 - 5.10 mg/dL Blood 08/21/2024 7:53 PM CDT 08/21/2024 8:34 PM CDT Jason Hess MD LAB BLOOD ORDERABLES Final Resul t Performing Organization Address [facility]/ZIP Co de Phone Number [facility] Department [place] [address] * Triglycerides (08/21/2024 7:53 PM CDT) Pathologist [facility] Triglycerides 59 <=149 mg/dL Comment: Interpretive Data [...] PM CDT 08/21/2024 8:34 PM CDT [facility]ative [facility] 08/21/[facility] 9:02 PM CDT While on propofol infusion. Ema Bell LINING MACHINE OPERATOR LAB BLOOD ORDERABLES Final Result Performing Organization Address [facility]/ZIP Co de Phone Number [facility] Department [place] [address] * (ABNORMAL) Blood gas, arterial (08/21/2024 7:53 PM CDT) Pathologist [facility] pH, Art 7.32(L) 7.35 - 7.45 PCO2, Arterial 47(H) 35 - 45 mmHg [facility] PO2, Arterial 99 83 - 108 mmHg [facility] HCO3 Art (Calculated) 25 20 - 30 mmol/L [facility] BE, art -2 mmol/L [facility] Comment: Interpretive Data No Reference Range Established Current Interpretive Data was last revised on 2017 O2 Sat Art (Measured) 97(H) 90 - 95 % [facility] Blood 08/21/2024 7:53 PM CDT 08/21/2024 8:34 PM CDT us Jason Hess MD LAB BLOOD ORDERABLES Final Resul t [facility] [place] [address] * Critical Care (08/21/2024 6:35 PM CDT) [...] plan with the ICU team and other medical/customer service and sales consultant staff, making frequent assessments and decisions [...] in the medical record us Ema Bell LINING MACHINE OPERATOR IN CLINIC/BEDSIDE ORDERABL ES Final Result * POCT glucose (08/21/2024 6:10 PM CDT) Glucose, POC 125 70 - 199 mg/dL Blood 08/21/2024 6:10 PM CDT 08/21/2024 6:10 PM CDT us Jason Hess MD LAB POCT ORDERABLES - DEVICE Fin al Result Performing Organization Address [facility] Co de Phone Number [facility] [place] [address] * POCT glucose (08/21/2024 5:06 PM CDT) Glucose, POC 98 70 - 199 mg/dL Blood 08/21/2024 5:06 PM CDT 08/21/2024 5:06 PM CDT us Jason Hess MD LAB POCT ORDERABLES - DEVICE Fin al Result Performing Organization Address [facility] de Phone Number [facility] [place] [place] [address] * POCT glucose (08/21/2024 3:54 PM CDT) Glucose, POC 103 70 - 199 mg/dL Blood 08/21/2024 3:54 PM CDT 08/21/2024 3:54 PM CDT Jason Hess MD LAB POCT ORDERABLES - DEVICE Fin al Result Performing Organization Address [facility] Co de Phone Number [facility] [place] [address] * XR Chest 1 View (08/21/2024 3:44 [...] vena cava. Right internal jugular venous approach [place] catheter with tip overlying the right pulmonary [...] vena cava. Right internal jugular venous approach [place] catheter with tip overlying the right pulmonary [...] 3:00 PM CDT 08/21/2024 3:20 PM CDT us Ema Bell NP LAB BLOOD ORDERABLES Final Result Performing Organization Address [facility] Co de Phone Number [facility] Department [place] [address] * eGFR (08/21/2024 2:48 PM CDT) eGFR [...] ORDERABLES Final Resul t Performing Organization Address City/[facility]/ZIP Co de Phone Number [facility] [place] [address] * (ABNORMAL) POC Blood Gas and Chemistries, Arterial - (08/21/2024 2:48 PM CDT) Pathologist [facility] pH, Art POC 7.38 7.35 - 7.45 pCO2, Art POC 39 35 - 45 mmHg [facility] pO2, Art POC 144(H) 83 - 108 mmHg [facility] Na, POC 139 135 - 145 mmol/L [facility] K POC 4.0 3.3 - 4.9 mmol/L [facility] Comment: Interpretive Data Not all point of care methods assess for hemolysis. Confirm with instrument and retest K+ if not consistent with clinical signs and symptoms. Current Interpretive Data was last revised on 2023. Cl, POC 110 97 - 110 mmol/L [facility] Ionized Ca, POC 5.38(H) 4.50 - 5.10 mg/dL [facility] Glucose, POC 133 70 - 199 mg/dL [facility] Lactate, POC 2.5(H) 0.7 - 2.0 mmol/L [facility] SO2 (jose angel) arterial 99(H) 90 - 95 % [facility] Base excess, POC -1.8 mmol/L [facility] HCO3, Art POC 23 20 - 30 mmol/L [facility] Hct, POC 32.0(L) 41.4 - 51.6 % [facility] Total Hb, POC 10.7(L) 13.8 - 17.2 g/dL [facility] Blood 08/21/2024 2:48 PM CDT 08/21/2024 2:48 PM CDT us Jason Hess MD LAB POCT ORDERABLES - DEVICE Fin al Result [facility] Department [place] [address] * aPTT (08/21/2024 2:48 PM CDT) [facility] aPTT 29 28 - 38 sec Comment: Interpretive Data Heparin therapeutic range: 66.0 - 100.0 seconds. Range based on correlation with therapeutic heparin activity range of 0.3 - 0.7 Units/mL. Current interpretive data was last revised on 2023. Blood 08/21/2024 2:48 PM CDT 08/21/2024 3:09 PM CDT Jason Hess MD LAB BLOOD ORDERABLES Final Resul t Performing Organization Address [facility] de Phone Number [facility] [place] [address] * (ABNORMAL) Protime-INR (08/21/2024 2:48 PM CDT) PT 13.4(H) 9.7 - 13.0 sec INR 1.24(H) 0.90 - 1.20 [facility] Comment: Interpretive data Oral anticoagulant therapeutic ranges: Venous thromboembolism prophylaxis or treatment: 2.0-3.0 CARDIOLOGY Standard range: 2.0-3.0 High-intensity range: 2.5-3.5 Refer to indication-specific guidelines for appropriate target ranges for prosthetic heart valve replacement. Current interpretive data was last revised on 2019. Blood 08/21/2024 2:48 PM CDT 08/21/2024 3:09 PM CDT Jason Hess MD LAB BLOOD ORDERABLES Final Resul t Performing Organization Address [facility] de Phone Number [facility] Department [place] [address] * (ABNORMAL) CBC without differential (08/21/2024 2:48 PM CDT) WBC 11.46(H) 3.80 - 9.90 K/cumm Hgb 10.1(L) 13.0 - 17.5 g/dL [facility] Hct 29.8(L) 38.9 - 50.3 % [facility] Plt 155 150 - 400 K/cumm [facility] MPV 9.6 9.1 - 12.3 fL [facility] RBC 3.24(L) 4.30 - 5.80 M/cumm [facility] MCV 92.0 81.3 - 96.4 fL [facility] MCH 31.2 27.1 - 33.3 pg [facility] MCHC 33.9 32.3 - 35.7 g/dL [facility] RDW CV 13.2 11.1 - 14.9 % [facility] RDW SD 44.8 35.7 - 48.1 fL [facility] NRBC abs 0.00 0.00 - 0.01 K/cumm [facility] Blood 08/21/2024 2:48 PM CDT 08/21/2024 3:15 PM CDT Jason Hess MD LAB BLOOD ORDERABLES Final Resul t Performing Organization Address City/[facility]/ZIP Co de Phone Number [facility] Department [place] [place] [address] * Type and screen (08/21/2024 2:48 PM CDT) ABO Rh A Negative Neyda, indirect Negative [facility] Blood 08/21/2024 2:48 PM CDT 08/21/2024 3:36 PM CDT Narrative [facility] - 08/21/2024 4:41 PM CDT Has the patient had Daratumumab or Isatuximab in the past 6 months?->Unknown us Sneha Rodriguez NP LAB BLOOD BANK TEST ORDERA BLES Final Result [facility] [place] [address] * Magnesium (08/21/2024 2:48 PM CDT) Magnesium 2.5 1.4 - 2.5 mg/dL Blood 08/21/2024 2:48 PM CDT 08/21/2024 3:15 PM CDT us Jason Hess MD LAB BLOOD ORDERABLES Final Resul t [facility] [place] [address] * Basic metabolic panel (08/21/2024 2:48 PM CDT) Sodium 142 135 - 145 mmol/L Potassium, pl 3.9 3.3 - 4.9 mmol/L [facility] Comment:Hemolyzed; Potassium value may be falsely elevated by as much as 0.3-0.5 mmol/L. Suggest redraw and reanalysis. Chloride 109 97 - 110 mmol/L [facility] CO2 26 22 - 32 mmol/L [facility] Anion gap 7 2 - 15 mmol/L [facility] BUN 17 6 - 25 mg/dL [facility] Creatinine 1.20 0.80 - 1.30 mg/dL [facility] Glucose 128 70 - 199 mg/dL [facility] Comment: Interpretive Data Fasting glucose >/= 126 [...] 2022. Calcium 9.3 8.5 - 10.3 mg/dL [facility] Blood 08/21/2024 2:48 PM CDT 08/21/2024 3:15 PM CDT Jason Hess MD LAB BLOOD ORDERABLES Final Resul t [facility] [place] [address] * REPAIR ANEURYSM ASCENDING AORTIC (08/21/2024 2:21 [...] POC 42 35 - 45 mmHg [facility] pO2, Art POC 332(H) 83 - 108 mmHg [facility] Na, POC 140 135 - 145 mmol/L [facility] K POC 3.7 3.3 - 4.9 mmol/L [facility] Comment: Interpretive Data Not all point of care methods assess for hemolysis. Confirm with instrument and retest K+ if not consistent with clinical signs and symptoms. Current Interpretive Data was last revised on 2023. Cl, POC 109 97 - 110 mmol/L [facility] Ionized Ca, POC 5.76(H) 4.50 - 5.10 mg/dL [facility] Glucose, POC 174 70 - 199 mg/dL [facility] Lactate, POC 2.7(H) 0.7 - 2.0 mmol/L [facility] SO2 (jose angel) arterial 100(H) 90 - 95 % [facility] Base excess, POC -2.9 mmol/L [facility] HCO3, Art POC 23 20 - 30 mmol/L [facility] Hct, POC 30.0(L) 41.4 - 51.6 % [facility] Total Hb, POC 10.0(L) 13.8 - 17.2 g/dL [facility] Blood 08/21/2024 1:48 PM CDT 08/21/2024 1:48 PM CDT Jason Hess MD LAB POCT ORDERABLES - DEVICE Fin al Result Performing Organization Address [facility] Co de Phone Number [facility] [place] [address] * (ABNORMAL) POCT prothrombin time (08/21/2024 1:47 PM CDT) PT, POC 21.1(H) 11.7 - 16.6 sec INR, POC 1.6(H) 0.9 - 1.2 [facility] Blood 08/21/2024 1:47 PM CDT 08/21/2024 1:47 PM CDT Jason Hess MD LAB POCT ORDERABLES - DEVICE Fin al Result Performing Organization Address [facility] [place] [address] * (ABNORMAL) POCT hemoglobin, hematocrit and platelet count (08/21/2024 1:47 PM CDT) Hgb, POC 9.4(L) 13.0 - 17.5 g/dL Hematocrit POC 28.7(L) 38.9 - 50.3 % [facility] Platelet POC 150 150 - 400 K/cumm [facility] Blood 08/21/2024 1:47 PM CDT 08/21/2024 1:47 PM CDT Jason Hess MD LAB POCT ORDERABLES - DEVICE Fin al Result Performing Organization Address [facility] Co de Phone Number [facility] [place] [address] * POCT Partial thromboplastin time (PTT) (08/21/2024 1:47 PM CDT) APTT, POC 41.5 32.5 - 46.1 sec Blood 08/21/2024 1:47 PM CDT 08/21/2024 1:47 PM CDT Jason Hess MD LAB POCT ORDERABLES - DEVICE Fin al Result Performing Organization Address [facility] Co de Phone Number [facility] [place] [address] * Transfuse platelets (08/21/2024 12:56 PM CDT) Blood Christine Loaiza MD BLOOD TRANSFUSION ORDERA BLES Final Result Performing Organization Address [facility] de Phone Number [facility] [place] [address] * Transfuse platelets (08/21/2024 12:56 PM CDT) Blood Christine Loaiza MD BLOOD TRANSFUSION ORDERA BLES Final Result Performing Organization Address [facility] de Phone Number [facility] [place] [address] * POCT heparin/ACT CPB (08/21/2024 12:47 PM CDT) Heparin POC 0.0 units/mL ACT, CPB 113 112 - 174 sec [facility] Blood 08/21/2024 12:4 7 PM CDT 08/21/2024 12:47 PM CDT Jason Hess MD LAB POCT ORDERABLES - DEVICE Fin al Result Performing Organization Address [facility] Co de Phone Number [facility] [place] [address] * (ABNORMAL) POC Blood Gas and Chemistries, Arterial - (08/21/2024 12:46 PM CDT) pH, Art POC 7.33(L) 7.35 - 7.45 pCO2, Art POC 40 35 - 45 mmHg [facility] pO2, Art POC 303(H) 83 - 108 mmHg [facility] Na, POC 139 135 - 145 mmol/L [facility] K POC 3.9 3.3 - 4.9 mmol/L [facility] Comment: Interpretive Data Not all point of care methods assess for hemolysis. Confirm with instrument and retest K+ if not consistent with clinical signs and symptoms. Current Interpretive Data was last revised on 2023. Cl, POC 108 97 - 110 mmol/L [facility] Ionized Ca, POC 4.71 4.50 - 5.10 mg/dL [facility] Glucose, POC 236(H) 70 - 199 mg/dL [facility] Lactate, POC 2.9(H) 0.7 - 2.0 mmol/L [facility] SO2 (jose angel) arterial 100(H) 90 - 95 % [facility] Base excess, POC -4.5 mmol/L [facility] HCO3, Art POC 22 20 - 30 mmol/L [facility] Hct, POC 31.0(L) 41.4 - 51.6 % [facility] Total Hb, POC 10.3(L) 13.8 - 17.2 g/dL [facility] Blood 08/21/2024 12:4 6 PM CDT 08/21/2024 12:46 PM CDT us Jason Hess MD LAB POCT ORDERABLES - DEVICE Fin al Result [facility] Department [place] [address] * (ABNORMAL) POCT prothrombin time (08/21/2024 12:45 PM CDT) PT, POC 22.4(H) 11.7 - 16.6 sec INR, POC 1.7(H) 0.9 - 1.2 [facility] Blood 08/21/2024 12:4 5 PM CDT 08/21/2024 12:45 PM CDT Jason Hess MD LAB POCT ORDERABLES - DEVICE Fin al Result Performing Organization Address [facility] Co de Phone Number [facility] [place] [address] * (ABNORMAL) POCT hemoglobin, hematocrit and platelet count (08/21/2024 12:44 PM CDT) [facility] Hgb, POC 9.9(L) 13.0 - 17.5 g/dL Hematocrit POC 29.3(L) 38.9 - 50.3 % [facility] Platelet POC 114(L) 150 - 400 K/cumm [facility] Blood 08/21/2024 12:4 4 PM CDT 08/21/2024 12:44 PM CDT Jason Hess MD LAB POCT ORDERABLES - DEVICE Fin al Result Performing Organization Address [facility] Co de Phone Number [facility] Department [place] [address] * POCT Partial thromboplastin time (PTT) (08/21/2024 12:44 PM CDT) [facility] APTT, POC 41.5 32.5 - 46.1 sec Blood 08/21/2024 12:4 4 PM CDT 08/21/2024 12:44 PM CDT Jason Hess MD LAB POCT ORDERABLES - DEVICE Fin al Result Performing Organization Address [facility] Co de Phone Number [facility] [place] [place] [address] * Prepare platelets: 2 Units (08/21/2024 12:36 PM CDT) [facility] Product code [id number] [facility] Unit Number [id number] [facility] Product Blood Type APOS [facility] Dispense Status PRESUMED TRANSFUSED [facility] Product code [id number] Unit Number [id number] [facility] Product Blood Type APOS [facility] Dispense Status PRESUMED TRANSFUSED [facility] Blood Venous blood specimen / Unknown 08/21/2024 12:36 PM CDT 08/21/2024 12:36 PM CDT [facility]ative [facility] - 08/22/2024 12:55 AM CDT Other indication->cts Are special requirements needed? (all products are leukoreduced)->No Date required:-[id number] PLT # of Units:-2-Units Reasons:-Other (Specify)} us Christine Loaiza MD BLOOD BANK PRODUCT ORDER SAMUEL Final Result Performing Organization Address [facility] de Phone Number [facility] Department [place] [address] * (ABNORMAL) POCT heparin/ACT CPB (08/21/2024 11:37 AM CDT) Heparin POC >4.7 units/mL ACT, CPB 549(H) 112 - 174 sec [facility] Blood 08/21/2024 11:3 7 AM CDT 08/21/2024 11:37 AM CDT us Jason Hess MD LAB POCT ORDERABLES - DEVICE Fin al Result Performing Organization Address City/[facility] Co de Phone Number [facility] [place] [place] [address] * (ABNORMAL) POC Blood Gas and Chemistries, Arterial - (08/21/2024 11:36 AM CDT) pH, Art POC 7.36 7.35 - 7.45 pCO2, Art POC 41 35 - 45 mmHg [facility] pO2, Art POC 220(H) 83 - 108 mmHg [facility] Na, POC 138 135 - 145 mmol/L [facility] K POC 4.5 3.3 - 4.9 mmol/L [facility] Comment: Interpretive Data Not all point of care methods assess for hemolysis. Confirm with instrument and retest K+ if not consistent with clinical signs and symptoms. Current Interpretive Data was last revised on 2023. Cl, POC 108 97 - 110 mmol/L [facility] Ionized Ca, POC 4.82 4.50 - 5.10 mg/dL [facility] Glucose, POC 218(H) 70 - 199 mg/dL [facility] Lactate, POC 1.8 0.7 - 2.0 mmol/L [facility] SO2 (jose angel) arterial 100(H) 90 - 95 % [facility] Base excess, POC -2.1 mmol/L [facility] HCO3, Art POC 23 20 - 30 mmol/L [facility] Hct, POC 32.0(L) 41.4 - 51.6 % [facility] Total Hb, POC 10.8(L) 13.8 - 17.2 g/dL [facility] Blood 08/21/2024 11:3 6 AM CDT 08/21/2024 11:36 AM CDT Jason Hess MD LAB POCT ORDERABLES - DEVICE Fin al Result Performing Organization Address City/[facility]/ZIP Co de Phone Number [facility] Department [place] [place] [address] * (ABNORMAL) POCT heparin/ACT CPB (08/21/2024 11:00 AM CDT) Heparin POC >4.7 units/mL ACT, CPB 518(H) 112 - 174 sec [facility] Blood 08/21/2024 11:0 0 AM CDT 08/21/2024 11:00 AM CDT Jason Hess MD LAB POCT ORDERABLES - DEVICE Fin al Result [facility] Department [place] [address] * (ABNORMAL) POC Blood Gas and Chemistries, Arterial - (08/21/2024 10:58 AM CDT) pH, Art POC 7.33(L) 7.35 - 7.45 pCO2, Art POC 40 35 - 45 mmHg [facility] pO2, Art POC 268(H) 83 - 108 mmHg [facility] Na, POC 137 135 - 145 mmol/L [facility] K POC 4.9 3.3 - 4.9 mmol/L [facility] Comment: Interpretive Data Not all point of care methods assess for hemolysis. Confirm with instrument and retest K+ if not consistent with clinical signs and symptoms. Current Interpretive Data was last revised on 2023. Cl, POC 107 97 - 110 mmol/L [facility] Ionized Ca, POC 4.85 4.50 - 5.10 mg/dL [facility] Glucose, POC 220(H) 70 - 199 mg/dL [facility] Lactate, POC 1.5 0.7 - 2.0 mmol/L [facility] SO2 (jose angel) arterial 100(H) 90 - 95 % [facility] Base excess, POC -4.5 mmol/L [facility] HCO3, Art POC 22 20 - 30 mmol/L [facility] Hct, POC 33.0(L) 41.4 - 51.6 % [facility] Total Hb, POC 11.0(L) 13.8 - 17.2 g/dL [facility] Blood 08/21/2024 10:5 8 AM CDT 08/21/2024 10:58 AM CDT us Jason Hess MD LAB POCT ORDERABLES - DEVICE Fin al Result [facility] Department of Laboratories [place], [place] [id number] * (ABNORMAL) POCT heparin/ACT CPB (08/21/2024 10:23 AM CDT) Heparin POC >4.7 units/mL ACT, CPB 538(H) 112 - 174 sec [facility] Blood 08/21/2024 10:2 3 AM CDT 08/21/2024 10:23 AM CDT Jason Hess MD LAB POCT ORDERABLES - DEVICE Fin al Result Performing Organization Address [facility]/State/ZIP Co de Phone Number [facility] Department [place] [address] * (ABNORMAL) POC Blood Gas and Chemistries, Arterial - (08/21/2024 10:23 AM CDT) pH, Art POC 7.39 7.35 - 7.45 pCO2, Art POC 36 35 - 45 mmHg [facility] pO2, Art POC 297(H) 83 - 108 mmHg [facility] Na, POC 136 135 - 145 mmol/L [facility] K POC 4.6 3.3 - 4.9 mmol/L [facility] Comment: Interpretive Data Not all point of care methods assess for hemolysis. Confirm with instrument and retest K+ if not consistent with clinical signs and symptoms. Current Interpretive Data was last revised on 2023. Cl, POC 107 97 - 110 mmol/L [facility] Ionized Ca, POC 4.74 4.50 - 5.10 mg/dL [facility] Glucose, POC 211(H) 70 - 199 mg/dL [facility] Lactate, POC 1.5 0.7 - 2.0 mmol/L [facility] SO2 (jose angel) arterial 100(H) 90 - 95 % [facility] Base excess, POC -2.7 mmol/L [facility] HCO3, Art POC 23 20 - 30 mmol/L [facility] Hct, POC 33.0(L) 41.4 - 51.6 % [facility] Total Hb, POC 10.9(L) 13.8 - 17.2 g/dL [facility] Blood 08/21/2024 10:2 3 AM CDT 08/21/2024 10:23 AM CDT Jason Hess MD LAB POCT ORDERABLES - DEVICE Fin al Result [facility] Department [place] [address] * IN AN PROCEDURE PLACEHOLDER (08/21/2024 9:58 AM CDT) [...] code: JEFF placement and diagnostic exam, non-congenital (82699) Echocardiographic and doppler measurements: Ventricles: Left ventricle: [...] inferior: normal 16- Apical septal: normal 17- [place]: normal Valves: Aortic Valve: Annulus: normal Leaflet [...] comments: Post-CPB JEFF performed under GA+PPV 3 BACK FACER DDD at 90 Overall LV function remains [...] AN SHEATH INTRODUCER PERFORMABLE, PULMONARY ARTERY CATH, IN AN PROCEDURE PLACEHOLDER (:57 AM CDT) Christine Goldstein MD - 08/21/2024 9:57 AM CDT Christine [...] complications us Christine Loaiza MD ANESTHESIA ORDERABLES Fi nal Result * (ABNORMAL) POCT heparin/ACT CPB (08/21/2024 9:49 AM CDT) Heparin POC <4.9 units/mL ACT, CPB 543(H) 112 - 174 sec [facility] Blood 08/21/2024 9:49 AM CDT 08/21/2024 9:49 AM CDT us Jason Hess MD LAB POCT ORDERABLES - DEVICE Fin al Result [facility] Department [place] [address] * (ABNORMAL) POC Blood Gas and Chemistries, Arterial - (08/21/2024 9:49 AM CDT) pH, Art POC 7.37 7.35 - 7.45 pCO2, Art POC 40 35 - 45 mmHg [facility] pO2, Art POC 256(H) 83 - 108 mmHg [facility] Na, POC 136 135 - 145 mmol/L [facility] K POC 5.1(H) 3.3 - 4.9 mmol/L [facility] Comment: Interpretive Data Not all point of care methods assess for hemolysis. Confirm with instrument and retest K+ if not consistent with clinical signs and symptoms. Current Interpretive Data was last revised on 2023. Cl, POC 108 97 - 110 mmol/L [facility] Ionized Ca, POC 4.81 4.50 - 5.10 mg/dL [facility] Glucose, POC 193 70 - 199 mg/dL [facility] Lactate, POC 1.6 0.7 - 2.0 mmol/L [facility] SO2 (jose angel) arterial 100(H) 90 - 95 % [facility] Base excess, POC -2.0 mmol/L [facility] HCO3, Art POC 23 20 - 30 mmol/L [facility] Hct, POC 32.0(L) 41.4 - 51.6 % [facility] Total Hb, POC 10.5(L) 13.8 - 17.2 g/dL [facility] Blood 08/21/2024 9:49 AM CDT 08/21/2024 9:49 AM CDT Jason Hess MD LAB POCT ORDERABLES - DEVICE Fin al Result [facility] Department [place] [address] * Surgical pathology (08/21/2024 9:47 AM CDT) Tissue (Aorta) 08/21/2024 9: 47 AM CDT Narrative PATHOLOGY [facility] - 08/24/2024 10:53 AM CDT EPIC results best viewed via link to PDF [facility] [place] [address] Note to Patients: This report may contain [...] Gender: M : 1960 (Age: 64) Address: [address] [place], [place] [id number] Hospital #: [id number] Taken:08/21/2024 Received:08/21/2024 Reported: 08/24/2024 Patient Type: [facility] Inpatient Service: Cardiothoracic Location: [place] [address] Physician(s): Jason Hess M.D. Dima Caesar Mckinney [...] is ulloa-white and smooth with fatty streaking. Healthcare Management sections are submitted. Labeled A1. Jar 1. 08/22/2024 13:39 PA(s): Lizette Spivey MS, TRINI([facility])CM By this signature, I attest that the above diagnosis is based upon my personal examination of the slides(and/or other material). Addenda/Procedures The performance characteristics of some immunohistochemical stains, fluorescence in-situ hybridization tests and immunophenotyping by flow cytometry cited in this report (if any) were determined by the Surgical Pathology and Flow Cytometry Departments at [facility] as part of an ongoing lead quality technician program and in compliance with federally mandated [...] Surgical Pathology and Flow Cytometry Departments of [facility]. It has not been cleared or approved by the U. S. Food and Drug Administration. IMAGES AND SCANNED DOCUMENTS, IF INCLUDED, ONLY VIEWABLE IN PDF VERSION OF REPORT us Jason Hess MD LAB PATHOLOGY ORDERABLES Final R esult PATHOLOGY [facility] 3rd Floor [place], [place] [phone] * HIV 1/2 Antibody plus p24 Antigen [...] ORD ERABLES Final Result Performing Organization Address [facility] Co de Phone Number [facility] Department [place] [address] * Hepatitis C antibody Blood (08/21/2024 9:45 AM CDT) Pathologist [facility] Hep C Ab Nonreactive Nonreactive Comment:Antibodies to HCV no t detected. Does NOT exclude the possibility of recent exposure to HCV. Current interpretive data was last revised on 21 Blood 08/21/2024 9:45 AM CDT 08/21/2024 11:09 AM CDT us Notinfile Unknown LAB MICROBIOLOGY - GENERAL ORD ERABLES Final Result Performing Organization Address City/[facility] Co de Phone Number [facility] Department [place] [place] [address] * Hepatitis B Surface Antigen Blood (08/21/2024 9:45 AM CDT) Pathologist [facility] HepBsAg Nonreactive Nonreactive Blood 08/21/2024 9:45 AM CDT 08/21/2024 11:09 AM CDT us Notinfile Unknown LAB MICROBIOLOGY - GENERAL ORD ERABLES Final Result Performing Organization Address City/[facility] Co de Phone Number [facility] Department [place] [address] * Central Venous Line (08/21/2024 8:59 AM CDT) Balta Hanson [...] CPB 543(H) 112 - 174 sec [facility] Blood 08/21/2024 8:56 AM CDT 08/21/2024 8:56 AM CDT us Jason Hess MD LAB POCT ORDERABLES - DEVICE Fin al Result Performing Organization Address City/[facility]/ZIP Co de Phone Number [facility] Department [place] [address] * (ABNORMAL) POC Blood Gas and Chemistries, Arterial - (08/21/2024 8:31 AM CDT) pH, Art POC 7.43 7.35 - 7.45 pCO2, Art POC 40 35 - 45 mmHg [facility] pO2, Art POC 391(H) 83 - 108 mmHg [facility] Na, POC 137 135 - 145 mmol/L [facility] K POC 3.9 3.3 - 4.9 mmol/L [facility] Comment: Interpretive Data Not all point of care methods assess for hemolysis. Confirm with instrument and retest K+ if not consistent with clinical signs and symptoms. Current Interpretive Data was last revised on 2023. Cl, POC 106 97 - 110 mmol/L [facility] Ionized Ca, POC 4.88 4.50 - 5.10 mg/dL [facility] Glucose, POC 127 70 - 199 mg/dL [facility] Lactate, POC 1.0 0.7 - 2.0 mmol/L [facility] SO2 (jose angel) arterial 100(H) 90 - 95 % [facility] Base excess, POC 2.0 mmol/L [facility] HCO3, Art POC 27 20 - 30 mmol/L [facility] Hct, POC 39.0(L) 41.4 - 51.6 % [facility] Total Hb, POC 13.0(L) 13.8 - 17.2 g/dL [facility] Blood 08/21/2024 8:31 AM CDT 08/21/2024 8:31 AM CDT us Jason Hess MD LAB POCT ORDERABLES - DEVICE Fin al Result [facility] [place] [address] * (ABNORMAL) POCT heparin dose response, CPB (08/21/2024 8:27 AM CDT) Baseline ACT POC 135 112 - 174 sec Heparin dose response slope POC 59(L) 60 - 195 [facility] Projected Heparin Concentration POC 5.8 units/mL [facility] Blood 08/21/2024 8:27 AM CDT 08/21/2024 8:27 AM CDT us Jason Hess MD LAB POCT ORDERABLES - DEVICE Fin al Result Performing Organization Address City/[facility]/ZIP Co de Phone Number [facility] One [facility] [place] [address] * JEFF Add-On For OR (08/21/2024 6:54 AM CDT) Narrative [facility] PROSOLV_CARDIOREPORT_CONS SCIMAGE - 08/21/2024 6:54 AM CDT Procedure Auto Finalized by Rule: RAMA CV JEFF DURING CASE OR Please see the Anesthesiologist's Procedure Note for the results. us Balta Villalta MD CV ECHO PROCEDURES Final Result Performing Organization Address City/[facility]/ZIP Co de Phone Number [facility] PROSOLV_CARDIOREPORT_CONS SCIMAGE * Prepare plasma: 2 Units (08/21/2024 6:54 AM CDT) Product code [id number] Unit Number [id number] 3-U [facility] Product Blood Type APOS [facility] Dispense Status RETURNED [facility] Product code [id number] [facility] Unit Number [id number] 1-F [facility] Product Blood Type APOS [facility] Dispense Status RETURNED [facility] Blood Venous blood specimen / Unknown 08/21/2024 6:54 AM CDT 08/21/2024 6:54 AM CDT Narrative [facility] - 08/21/2024 2:34 PM CDT Date required:-20240821 FFP # of Units:-2-Units Reasons:-Immediate need for surgical intervention Balta Villalta MD BLOOD BANK PRODUCT ORDERA BLES Final Result Performing Organization Address [facility] de Phone Number [facility] [place] [place] [address] * Prepare RBC: 4 Units (08/21/2024 6:54 AM CDT) [facility] Product code [id number] Unit Number [id number] 3-O [facility] Product Blood Type ANEG [facility] Dispense Status RETURNED [facility] Product code H6073K29 [facility] Unit Number [id number] 4-5 [facility] Product Blood Type ANEG [facility] Dispense Status RETURNED [facility] Product code [id number] [facility] Unit Number [id number] 6-W [facility] Product Blood Type ANEG [facility] Dispense Status RETURNED [facility] Product code D7558N29 [facility] Unit Number [id number] 3-5 [facility] Product Blood Type ANEG [facility] Dispense Status RETURNED [facility] Blood 08/21/2024 6:54 AM CDT 08/21/2024 6:54 AM CDT [facility]ative [facility] 08/21/2024 2:34 PM CDT Are special requirements needed? (All products are leukoreduced and CMV- safe)- >No Date required:-20240821 LRRBC # of [id number] Reasons:-Intra-op transfusion} Balta Villalta MD BLOOD BANK PRODUCT ORDERA BLES Final Result Performing Organization Address [facility] de Phone Number [facility] [place] [place] [address] * Check Sample (08/21/2024 5:57 AM CDT) ABO Rh A Negative [facility] HCLL OTHER 08/21/2024 5:57 AM CDT 08/21/2024 6:47 AM CDT Jason Hess MD LAB BLOOD ORDERABLES Final Resul t [facility] [place] [address] [facility] * aPTT (08/13/2024 3:18 PM CDT) aPTT 37 22 - 37 sec Comment: Interpretive data aPTT test has not been evaluated for monitoring heparin therapy. The anti-Xa is the preferred test. Current interpretive data was last revised on 2019. Blood 08/13/2024 3:18 PM CDT 08/13/2024 3:26 PM CDT Jason Hess MD LAB BLOOD ORDERABLES Final Resul t [facility] [address] [facility] Department [place] [address] * Protime-INR (08/13/2024 3:18 PM CDT) PT [...] BLOOD ORDERABLES Final Resul t [facility] [address] [facility] Department [place] [address] * XR Chest PA Lateral 2 Views [...] signed by: César Davis M.D. Isabel Ashley NP IMG XR PROCEDURES Final Resul t * TYPE AND SCREEN 14 DAY (08/10/2024 3:21 PM CDT) Neyda, indirect Negative ABO Rh A Negative [facility] Blood 08/10/2024 3:21 PM CDT 08/10/2024 4:00 PM CDT Narrative [facility] - 08/10/2024 4:51 PM CDT Has the patient had Daratumumab or Isatuximab in the past 6 months?->No Is this test being ordered in advance for a procedure?->Yes Expected date of procedure:->08/20/24 Has the patient been transfused in the past 3 months?->No us Isabel Ashley LINING MACHINE OPERATOR LAB BLOOD BANK TEST ORDERABLE S Final Result Performing Organization Address City/[facility]/ZIP Co de Phone Number [facility] [place] [address] * (ABNORMAL) Urinalysis reflex to microscopic and culture Urine, clean voided (08/10/2024 3:21 PM CDT) Color, ur Yellow Yellow Clarity, ur Clear Clear [facility] Specific gravity, ur 1.035(H) 1.003 - 1.030 [facility] pH, urine 6.0 [facility] Comment: Interpretive Data U rine pH is affected by diet, medications, systemic acid-base disturbances, and renal tubular function. pH may affect urinary stone formation. For example, urine pH below 6.0 may help reduce the tendency for calcium phosphate stones and pH greater than 6.0 may reduce the tendency for uric acid stone formation. Source: [facility] Current Interpretive Data was last revised on 2017 Protein, ur ql Trace Negative [facility] Glucose, ur ql Negative Negative [facility] Ketones, ur Trace Negative [facility] Bilirubin, ur Negative Negative [facility] Blood, ur Negative Negative [facility] Urobilinogen, ur <2.0 <2.0 mg/dL [facility] Nitrite, ur Negative Negative [facility] Leukocyte esterase, ur Negative Negative [facility] UA reflex comment Reflex conditions for microscopic UA and culture not met. [facility] Urine, clean voided 08/10/2024 3:21 PM CDT 08/10/2024 3:51 PM CDT us Isabel Ashley LINING MACHINE OPERATOR LAB MICROBIOLOGY - GENERAL OR DERABLES Final Result Performing Organization Address [facility]/ZIP Co de Phone Number [facility] Department [place] [address] * TRANSTHORACIC ECHO (TTE) COMPLETE W DOPPLER/CF WO CONTRAST (08/10/2024 9:03 AM CDT) Anatomical Region Laterality Modality Ultrasound 08/10/2024 8:18 AM CDT Narrative 08/10/2024 9:18 AM CDT [facility] [place] [address] Transthoracic Echocardiographic Report Patient Name: CHICA WELCH GE : 1960 (64y 5m) Gender: M Study Date: 08/10/2024 08:18:39 AM Ht(Inch): 74 Wt(Lb): 229.94 BSA: 2.33 Training Designer: Yara Park RDCS Location: [facility] Order Provider: JASON HESS Heart Rate: [...] 427.56 sec Electronically Signed By: Mimi Wilson [facility] 08/10/2024 9:17:54 AM CDT Procedure Note Mimi Wilson MD - 08/10/2024 [facility] [place] [address] Transthoracic Echocardiographic Report Patient Name: CHICA WELCH GE : 1960 (64y 5m) Gender: M Study Date: 08/10/2024 08:18:39 AM Ht(Inch): 74 Wt(Lb): 229.94 BSA: 2.33 Training Designer: Yara Park RDCS Location: [facility] Order Provider:JASON HESS Heart Rate: 56 [...] LA Length 4C 6.36 cm MV Decel Hipa905.45 msec [ 104.00 - 258.00 ] LA [...] mmHg Asc Ao Index 1.97 cm/m2 PI PKD092.56 sec Electronically Signed By: Mimichristen Wilson [facility] 08/10/2024 9:17:54 AM CDT Jason Hess MD CV ECHO PROCEDURES Final Result * LEFT HEART CATHETERIZATION WITH CORONARY ANGIOGRAPHY AND WITH AND WITHOUT LEFT VENTRICULOGRAM (08/09/2024 10:35 AM CDT) Anatomical Region Laterality Modality X-Ray Angiograph y Narrative 08/09/2024 12:29 PM CDT Cardiac Catheterization Report, Left Heart Facility: [facility] Referring Physician: Jason Hess MD Performing: [...] obtained. The patient was brought to the greenhouse laborer and placed on the table. The planned [...] RCA or RPDA branches. DIAGNOSTIC IMPRESSIONS No [place] coronary artery disease.. THERAPEUTIC RECOMMENDATIONS Findings of the catheterization were discussed with the patient and will be conveyed to the referring physician who will determine the patient's future therapy and follow-up. Conscious sedation note: I provided direct oiuk-ea-swct monitoring of conscious sedation, which was administered by an independent, trained nurse using fentanyl and midazolam for 35 minutes. Ashley Beckman DO [facility] Division of Cardiology [facility] Jason Hess MD CV CARDIAC CATH PROCEDURES Final Result * (ABNORMAL) CBC without differential (08/09/2024 10:10 AM CDT) WBC 3.66(L) 3.80 - 9.90 K/cumm Hgb 12.5(L) 13.0 - 17.5 g/dL [facility] Hct 36.1(L) 38.9 - 50.3 % [facility] Plt 237 150 - 400 K/cumm [facility] MPV 9.5 9.1 - 12.3 fL [facility] RBC 3.97(L) 4.30 - 5.80 M/cumm [facility] MCV 90.9 81.3 - 96.4 fL [facility] MCH 31.5 27.1 - 33.3 pg [facility] MCHC 34.6 32.3 - 35.7 g/dL [facility] RDW CV 13.0 11.1 - 14.9 % [facility] RDW SD 43.3 35.7 - 48.1 fL [facility] NRBC abs 0.00 0.00 - 0.01 K/cumm [facility] Blood 08/09/2024 10:1 0 AM CDT 08/09/2024 10:16 AM CDT Narrative [facility] - 08/09/2024 10:32 AM CDT To be drawn after hydration bolus complete us Ashley Palominoacomino DO LAB BLOOD ORDERABLE S Final Result [facility] Department [place] [address] * ECG 12 lead (08/09/2024 7:02 AM CDT) Pathologist [facility] Ventricular Rate EKG/Min 51 BPM [facility] Atrial Rate 51 BPM [facility] IN-Interval (MSEC) 200 ms [facility] QRS-Interval (MSEC) 146 ms [facility] QT-Interval (MSEC) 480 ms [facility] QTc 442 ms [facility] P Wallace 66 degrees [facility] R Wallace -50 degrees [facility] T Wallace 12 degrees [facility] Diagnosis Sinus bradycardia Right bundle branch block Left anterior fascicular block Bifascicular block Abnormal ECG When compared with ECG of 10-JUL-2018 09:54, no significant change Confirmed by BLANCA PRO M.D ([id number]) on 08/09/2024 11:44:55 AM [facility] 08/09/2024 7:02 AM CDT 08/09/2024 11:44 AM CDT us Ashley Palominoacomino DO ECG ORDERABLES Fin al Result [facility] * eGFR (08/09/2024 6:47 AM CDT) Pathologist [facility] eGFR 82 >=60 mL/min/1. 73 m2 Comment: [...] DO LAB BLOOD ORDERABLE S Final Result [facility] Department [place] [address] * CBC without differential (08/09/2024 6:47 AM CDT) [facility] WBC 3.86 3.80 - 9.90 K/cumm Hgb 13.6 13.0 - 17.5 g/dL [facility] Hct 39.6 38.9 - 50.3 % [facility] Plt 257 150 - 400 K/cumm [facility] MPV 9.7 9.1 - 12.3 fL [facility] RBC 4.34 4.30 - 5.80 M/cumm [facility] MCV 91.2 81.3 - 96.4 fL [facility] MCH 31.3 27.1 - 33.3 pg [facility] MCHC 34.3 32.3 - 35.7 g/dL [facility] RDW CV 13.1 11.1 - 14.9 % [facility] RDW SD 43.8 35.7 - 48.1 fL [facility] NRBC abs 0.00 0.00 - 0.01 K/cumm [facility] Blood 08/09/2024 6:47 AM CDT 08/09/2024 8:32 AM CDT us Ashley Beckman DO LAB BLOOD ORDERABLE S Final Result [facility] [place] [address] * Basic metabolic panel (08/09/2024 6:47 AM CDT) Sodium 143 135 - 145 mmol/L Potassium, pl 4.9 3.3 - 4.9 mmol/L [facility] Comment:Hemolyzed; Potassium value may be falsely elevated by as much as 0.6-1.0 mmol/L. Suggest redraw and reanalysis. Chloride 105 97 - 110 mmol/L [facility] CO2 30 22 - 32 mmol/L [facility] Anion gap 8 2 - 15 mmol/L [facility] BUN 14 6 - 25 mg/dL [facility] Creatinine 1.02 0.80 - 1.30 mg/dL [facility] Glucose 97 70 - 199 mg/dL [facility] Comment: Interpretive Data Fasting glucose >/= 126 [...] 2022. Calcium 9.6 8.5 - 10.3 mg/dL [facility] Blood 08/09/2024 6:47 AM CDT 08/09/2024 8:32 AM CDT us Ashley Beckman DO LAB BLOOD ORDERABLE S Final Result [facility] [place] [address] * COLONOSCOPY (10/14/2020 7:01 AM CDT) Anatomical Region Laterality Modality Other Narrative Procedure Note John Guthrie MD - 10/14/2020 7:01 AM CDT ENDOSCOPY LAB Patient Name: Chica Welch Procedure Date: 10/14/2020 7:01 AM Date of : 1960 Admit Type: Outpatient Age: 60 Gender: Male Attending MD: John Guthrie M.D. Room: [facility] ENDOSCOPY ROOM 01 Note Status: Finalized [...] The scope was passed under direct vision.The [id number] was introduced through the anusand advanced to [...] call and ask for the GI fellow drill press operator numerical control. Electronically Signed by John Guthrie MD John Guthrie M.D. 10/14/2020 7:55:34 AM Number of Addenda: 0 Note Initiated On: 10/14/2020 7:01 AM John Guthrie MD ENDOSCOPY PROCEDURES Final Res ult from Last 3 Months or Most Recently Relevant to Health Maintenance Insurance [facility]PPO Address: [address] [address] [place] [address] [facility]PPO Address: [address] [place] [phone] [facility] H[facility]/PPO Address: [place] [phone] Advance Directives For more information, please contact: [phone] * Full Code (Latest Code Status on File) Date Activated Date Inactivated Comments 08/21/2024 2:50 PM 08/26/2024 5:37 PM * Full Code Date Activated Date Inactivated Comments 10/14/2020 6:38 AM 10/14/2020 12:29 PM Care Teams House Parent Relationship Specialty Start Date End Date Dima Sanchez MD PCP - General 05/01/20 Ney Villalpando MD [address] [place] [address] Basket Operator Cardiology 02/08/23 Jason Hess MD [address] [facility] [address] [place] [address] Surgeon Cardiothoracic Surgery 08/26/24
--- OUTSIDE RECORDS SUMMARY | 2024-09-21 10:57 | XMS_ITS | Encounter Summary ---
Author Organization [facility] [employer] [facility] Address [address] [place] [address] Phone Care Team Providers Care Stunt Performer Name Role Phone Dima Sanchez MD Primary Care Provider + [phone] Dima Sanchez MD Primary Care Provider + [phone] Theron Peace MD Primary Care Provider +[phone] Theron Upton MD Primary Care Provider [phone] Dima Sanchez MD Primary Care Provider + [phone] Ney Villalpando MD Unavailable [phone] Bridgette Hess MD Unavailable Encounter Details Date Type Department Care Team (Latest Contact Info) Description 03/25/2005 Orders Only [facility] Scanning, Provider Social History Tobacco Use Types Packs/Day Years Used Date Smoking Tobacco: Never Assessed Sex and Gender Information Value Date Recorded Sex Assigned at Not on file Legal Sex Male 3:02 AM RELAY DISPATCHER Gender Identity Male 04/16/2021 11:58 AM RELAY DISPATCHER Sexual Orientation Straight 04/02/2019 2: 04 PM RELAY DISPATCHER documented as of this encounter Plan [...] on filedocumented in this encounter Care Teams Stunt Performer Relationship Specialty Start Date End Date Dima Sanchez MD PCP - General 02/02/13 01/09/18 Dima Sanchez MD PCP - General 02/01/13 02/01/13 Theron Peace MD [address] [place] [address] PCP - General Obstetrics and Gynecology 01/10/1803/07/18 Theron Upton MD [address] [place] [address] PCP - General Endocrinology Diabetes & Metabolism 03/08/18 04/30/20 Dima Sanchez MD PCP - General 05/01/20 Ney Villalpando MD [address] [place] [address] Collections Professional Cardiology 02/08/23 Bridgette Hess MD [address] [place] [address] Surgeon Cardiothoracic Surgery 08/26/24 documented as of this encounter
--- OUTSIDE RECORDS SUMMARY | 2024-09-21 10:57 | XMS_ITS | Encounter Summary ---
Author Organization [facility] [employer] of [facility] Address [address] [place] [address] Phone Care Team Providers Care Bridge Opener Name Role Phone Dima Sanchez MD Primary Care Provider + [phone] Dima Sanchez MD Primary Care Provider + [phone] Theron Peace MD Primary Care Provider +[phone] Theron Upton MD Primary Care Provider +[phone] Dima Sanchez MD Primary Care Provider + [phone] Ney Villalpando MD Unavailable [phone] Bridgette Hess MD Unavailable Encounter Details Date Type Department Care Team (Latest Contact Info) Description 09/10/2011 Orders Only [facility] Scanning, Provider Social History Tobacco Use Types Packs/Day Years Used Date Smoking Tobacco: Never Assessed Sex and Gender Information Value Date Recorded Sex Assigned at Not on file Legal Sex Male 3:02 AM LEADITE WORKER Gender Identity Male 04/16/2021 11:58 AM LEADITE WORKER Sexual Orientation Straight 04/02/2019 2: 04 PM LEADITE WORKER documented as of this encounter Plan [...] on filedocumented in this encounter Care Teams Bridge Opener Relationship Specialty Start Date End Date Dima Sanchez MD PCP - General 02/02/13 01/09/18 Dima Sanchez MD PCP - General 02/01/13 02/01/13 Theron Peace MD [address] [place] [address] PCP - General Obstetrics and Gynecology 01/10/1803/07/18 Theron Upton MD [address] [place] [address] PCP - General Endocrinology Diabetes & Metabolism 03/08/18 04/30/20 Dima Sanchez MD PCP - General 05/01/20 Ney Villalpando MD [address] [place] [address] Insulation Sprayer Cardiology 02/08/23 Bridgette Hess MD [address] [place] [address] Surgeon Cardiothoracic Surgery 08/26/24 documented as of this encounter
--- OUTSIDE RECORDS SUMMARY | 2024-09-21 10:57 | XMS_ITS | Encounter Summary ---
Author Organization [facility] [employer] of [facility] Address [address] [place] [address] Phone Care Team Providers Care Asset Card Clerk Name Role Phone Dima Sanchez MD Primary Care Provider + [phone] Ney Villalpando MD Unavailable [phone] Bridgette Hess MD Unavailable Encounter Details Date Type Department Care Team (Late st Contact Info) Description 08/29/2024 Results Follow-Up [facility] Cardiology [address] [facility] Advanced Medicine 8th [place] [address] [place] [address] Ney Villalpando MD [address] [facility] [address] [place] [address] ECG 12 lead Social History Tobacco Use Types Packs/Day Years [...] file Legal Sex Male 3:02 AM LEAD INSPECTOR Gender Identity Male 04/16/2021 11:58 AM LEAD INSPECTOR Sexual Orientation Straight 04/02/2019 2: 04 PM LEAD INSPECTOR documented as of this encounter Plan of Treatment Not on file documented as of this encounter Visit Diagnoses Not on filedocumented in this encounter Care Teams Asset Card Clerk Relationship Specialty Start Date End Date Dima Sanchez MD PCP - General 05/01/20 Ney Villalpando MD [address] [place] [address] Setter Molding And Coremaking Machines Cardiology 02/08/23 Bridgette Hess MD [address] [place] [address] Surgeon Cardiothoracic Surgery 08/26/24 documented as of this encounter
--- OUTSIDE RECORDS SUMMARY | 2024-09-21 10:57 | XMS_ITS | Encounter Summary ---
Author Organization [facility] [employer] [facility] Address [address] [place] [address] Phone Care Team Providers Care Dispatcher Bus And Trolley Name Role Phone Dima Sanchez MD Primary Care Provider + [phone] Ney Villalpando MD Unavailable [phone] Bridgette Hess MD Unavailable Reason for Referral * MRI/CAT/PET Scan (Routine) - Pending Review Specialty Diagnoses / Procedures Referred By Contac t Referred To Contact Radiology Diagnoses Left arm weakness Procedures MRI Brachial Plexus W WO Contrast Left Jose Alberto Quiroga MD [address] [address] Phone: tel: fax: [facility] [address] [place] [address] Referral ID Status Reason Start Date Expiration Date V isits Requested Visits Authorized [id number] Pending Review 09/20/2024 10/20/2025 1 1 * MRI/CAT/PET Scan (Routine) - Pending Review Specialty Diagnoses / Procedures Referred By Contac t Referred To Contact Radiology Diagnoses Left arm weakness Procedures MRI Cervical Spine W WO Contrast Jose Alberto Quiroga MD [address] [address] Phone: tel: fax: [facility] 1 [facility] [place] [address] Referral ID Status Reason Start Date Expiration Date V isits Requested Visits Authorized [id number] Pending Review 09/20/2024 10/20/2025 1 1 * Consultation (Routine) - Pending Review Specialty Diagnoses / Procedures Referred By Deysi lawson Referred To Contact Plastic Surgery Diagnoses Ulnar neuropathy at elbow of left upper extremity Left cervical radiculopathy Jose Alberto Quiroga MD [address] [place] [address] Phone: tel: fax: Krystina Austin MD [address] [place] [address] Phone: tel: fax: Referral ID Status Reason Start Date Expiration Date Visits Requested Visits Authorized [id number] Pending Review Specialty Services Required 09/17/2024 10/17/2025 1 1 Question Answer Please select the performing region: [facility] (All Locations) [167] What type of surgery is needed? 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 Gender Identity Male 04/16/2021 11:58 AM FOOD SANITARIAN Sexual Orientation Straight 04/02/2019 2: 04 PM FOOD SANITARIAN documented as of this encounter Miscellaneous Notes * Addendum Note - Jose Alberto Quiroga MD - 09/20/2024 10:43 PM CDTAddended by: JOSE ALBERTO QUIROGA on: 09/20/2024 10:43 PM Modules accepted: Orders documented in this encounter Plan of Treatment Scheduled Orders Name Type Priority Associated Diagnoses Orde r Schedule MRI Cervical Spine W WO Contrast Imaging Schedule Routine, Read Routine (OP Routine) Left arm weakness Expected: 09/20/2024, Expires: 09/20/2025 MRI Brachial Plexus W WO Contrast Left Imaging Schedule Routine, Read Routine (OP Routine) Left arm weakness Expected: 09/20/2024, Expires: 09/20/2025 Scheduled Referrals Name Type Priority Associated Diagnoses Orde r Schedule Ambulatory referral to Plastic Surgery Outpatient Referral Routine Ulnar neuropathy at elbow of left upper extremity Left cervical radiculopathy 1 Occurrences starting 09/17/2024 until 09/17/2025 documented as of this encounter Visit Diagnoses Diagnosis Ulnar neuropathy at elbow of left upper extremity- Primary Left cervical radiculopathy Left arm weakness Other musculoskeletal symptoms referable to limbs documented in this encounter Care Teams Dispatcher Bus And Trolley Relationship Specialty Start Date End Date Dima Sanchez MD PCP - General 05/01/20 Ney Villalpando MD [address] [facility] [address] [place] [address] School Administrator Cardiology 02/08/23 Bridgette Hess MD [address] [facility] [address] [place] [address] Surgeon Cardiothoracic Surgery 08/26/24 documented as of this encounter
--- OUTSIDE RECORDS SUMMARY | 2024-09-21 10:57 | XMS_ITS | Encounter Summary ---
Author Organization [facility] [employer] of [facility] Address [address] [place] [address] Phone Care Team Providers Care Electric Well Logging Operator Name Role Phone Dima Sanchez MD Primary Care Provider + [phone] Dima Sanchez MD Primary Care Provider + [phone] Theron Peace MD Primary Care Provider [phone] Theron Upton MD Primary Care Provider [phone] Dima Sanchez MD Primary Care Provider + [phone] Ney Villalpando MD Unavailable [phone] Bridgette Hess MD Unavailable Encounter Details Date Type Department Care Team (Latest Contact Info) Description 05/12/2000 Orders Only [facility] Scanning, Provider Social History Tobacco Use Types Packs/Day Years Used Date Smoking Tobacco: Never Assessed Sex and Gender Information Value Date Recorded Sex Assigned at Not on file 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 Gender Identity Male 04/16/2021 11:58 AM HEATING WORKER Sexual Orientation Straight 04/02/2019 2: 04 PM HEATING WORKER documented as of this encounter Plan [...] on filedocumented in this encounter Care Teams Electric Well Logging Operator Relationship Specialty Start Date End Date Dima Sanchez MD PCP - General 02/02/13 01/09/18 Dima Sanchez MD PCP - General 02/01/13 02/01/13 Theron Peace MD [address] [place] [address] PCP - General Obstetrics and Gynecology 01/10/1803/07/18 Theron Upton MD [address] [place] [address] PCP - General Endocrinology Diabetes & Metabolism 03/08/18 04/30/20 Dima Sanchez MD PCP - General 05/01/20 Ney Villalpando MD [address] [place] [address] Call Or Contact Centre Coach Cardiology 02/08/23 Bridgette Hess MD [address] [place] [address] Surgeon Cardiothoracic Surgery 08/26/24 documented as of this encounter
--- OUTSIDE RECORDS SUMMARY | 2024-09-21 10:58 | XMS_ITS | Clinical Summary ---
Author Organization [facility] [employer] Address [address] [place] [address] Care Team Providers Care Keeper Helper Name Role Phone Dima Sanchez MD Primary Care Provider [phone] Source Comments [facility],non-owned Affiliates and Associated Physician Practices is amultiple site organization consisting of ambulatory clinics and hospital sitesin [place], [place], [place] and [place]. This disclosure is being madepursuant to the Care Everywhere program and may not contain all information available regarding this patient. Last updated 18.[facility] Social History Tobacco Use Types Packs/Day Years Used Date Smoking Tobacco: Never Assessed Sex and Gender Information Value Date Recorded Sex Assigned at Not on file Legal Sex Male 6:43 PM LEGAL STENOGRAPHER Gender Identity Not on file Sexual Orientation [...] age to complete this topic Care Teams Keeper Helper Relationship Specialty Start Date End Date Dima Sanchez MD [address] [place] [address] PCP - General 01/22/13
--- OUTSIDE RECORDS SUMMARY | 2024-09-21 10:58 | XMS_ITS | Encounter Summary ---
Author Organization [facility] [employer] of [facility] Address [address] [place] [address] Phone Care Team Providers Care Shrimp Picker Name Role Phone Dima Sanchez MD Primary Care Provider + [phone] Dima Sanchez MD Primary Care Provider + [phone] Theron Peace MD Primary Care Provider [phone] Theron Upton MD Primary Care Provider +[phone] Dima Sanchez MD Primary Care Provider + [phone] Ney Villalpando MD Unavailable [phone] Bridgette Hess MD Unavailable Encounter Details Date Type Department Care Team (Latest Contact Info) Description 09/06/2007 Orders Only [facility] Scanning, Provider Social History Tobacco Use Types Packs/Day Years Used Date Smoking Tobacco: Never Assessed Sex and Gender Information Value Date Recorded Sex Assigned at Not on file Legal 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 Male 3: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 MEAL COOK Gender Identity Male 04/16/2021 11:58 AM MEAL COOK Sexual Orientation Straight 04/02/2019 2: 04 PM MEAL COOK documented as of this encounter Plan of Treatment Not on file documented as of this encounter Procedures Procedure Name Priority Date/Time Associated Diagnosis Comments SCAN - RADIOLOGY/IMAGING 09/06/2007 documented in this encounter Results * SCAN - RADIOLOGY/IMAGING (09/06/2007) Anatomical Region Laterality Modality Other us Provider Scanning Final Result documented in this encounter Visit Diagnoses Not on filedocumented in this encounter Care Teams Shrimp Picker Relationship Specialty Start Date End Date Dima Sanchez MD PCP - General 02/02/13 01/09/18 Dima Sanchez MD PCP - General 02/01/13 02/01/13 Theron Peace MD [address] [place] [address] PCP - General Obstetrics and Gynecology 01/10/1803/07/18 Theron Upton MD [address] [place] [address] PCP - General Endocrinology Diabetes & Metabolism 03/08/18 04/30/20 Dima Sanchez MD PCP - General 05/01/20 Ney Villalpando MD [address] [place] [address] Database Developer Cardiology 02/08/23 Bridgette Hess MD [address] [place] [address] Surgeon Cardiothoracic Surgery 08/26/24 documented as of this encounter
--- OUTSIDE RECORDS SUMMARY | 2024-09-21 10:58 | XMS_ITS | Encounter Summary ---
Author Organization [facility] [employer] of [facility] Address [address] [place] [address] Phone Care Team Providers Care Director Of Promotions Name Role Phone Dima Sanchez MD Primary Care Provider + [phone] Dima Sanchez MD Primary Care Provider + [phone] Theron Peace MD Primary Care Provider [phone] Theron Upton MD Primary Care Provider [phone] Dima Sanchez MD Primary Care Provider + [phone] Ney Villalpando MD Unavailable [phone] Bridgette Hess MD Unavailable Encounter Details Date Type Department Care Team (Latest Contact Info) Description 02/01/2013 Orders Only [facility] Scanning, Provider Social History Tobacco Use Types Packs/Day Years Used Date Smoking Tobacco: Never Assessed Sex and Gender Information Value Date Recorded Sex Assigned at Not on file Legal Sex Male 3:02 AM CARBONIZER Gender Identity Male 04/16/2021 11:58 AM CARBONIZER Sexual Orientation Straight 04/02/2019 2: 04 PM CARBONIZER documented as of this encounter Plan of [...] on filedocumented in this encounter Care Teams Director Of Promotions Relationship Specialty Start Date End Date Dima Sanchez MD PCP - General 02/02/13 01/09/18 Dima Sanchez MD PCP - General 02/01/13 02/01/13 Theron Peace MD [address] [place] [address] PCP - General Obstetrics and Gynecology 01/10/1803/07/18 Theron Upton MD [address] [place] [address] PCP - General Endocrinology Diabetes & Metabolism 03/08/18 04/30/20 Dima Sanchez MD PCP - General 05/01/20 Ney Villalpando MD [address] [place] [address] Tape Edge Machine Operator Cardiology 02/08/23 Bridgette Hess MD [address] [place] [address] Surgeon Cardiothoracic Surgery 08/26/24 documented as of this encounter
[2024-09-21 11:21] LABS: Basophils Percent Auto 0.7 % (0.2-1.2); Eosinophils Absolute Auto 0.1 K/mm3 (0-0.3); Hematocrit 35.6 % (42.0-52.0); Immature Granulocyte Absolute 0.02 K/mm3 (0.00-0.031); Immature Granulocyte Percent A 0.3 % (0-0.5); Lymphocytes Absolute Auto 0.95 K/mm3 (0.9-3.2); Lymphocytes Percent Auto 15.5 % (18.3-44.2); Mean Corpuscular HGB Conc 30.9 g/dl (32-36); Mean Corpuscular Hemoglobin 29.5 pg (26-34); Mean Corpuscular Volume 95.4 fl (80-100); Mean Platelet Volume 8.9 fl (7.4-10.4); Monocytes Absolute Auto 0.6 K/mm3 (0.1-0.6); Monocytes Percent Auto 9.3 % (2.6-8.5); Neutrophils Absolute Auto 4.4 K/mm3 (1.3-6.7); Neutrophils Percent Auto 72.2 % (45.5-73.1); Platelet Count Result 266 k/mm3 (150-375); Red Blood Count 3.73 M/mm3 (4.6-6.20); White Blood Count 6.1 K/mm3 (4.5-10.0)
[2024-09-21 11:40] LABS: Anion Gap 7 mmol/L (4-12); Blood Urea Nitrogen 21 mg/dL (9-20); Calcium 9.5 mg/dL (8.4-10.2); Carbon Dioxide 28 mmol/L (22-30); Chloride 106 mmol/L (98-107); Estimated Glomerular Filt Rate > 60; Glucose 90 mg/dL (65-110); Potassium 4.7 mmol/L (3.4-5.0); Sodium 141 mmol/L (137-145)
[2024-09-23 02:48] LABS: FSH 8.9 mIU/mL (1.4-12.8)
[2024-09-23 04:12] LABS: Sex Hormone Binding Globulin 71 nmol/L (22-77)
== END 2024-09-21 10:52 | disposition home or self-care (01) ==
PROVIDERS: PCP Family Medicine; Referring Provider Internal Medicine Cardiovascular Disease; Visit Provider Family Medicine
DX: E34.9 Endocrine disorder, unspecified (principal); Q25.43 Congenital aneurysm of aorta; Z79.899 Other long term (current) drug therapy
CPT/HCPCS: 36415; 76536; 80048; 83001; 83002; 84270; 85025

== ENCOUNTER 2024-11-22 11:21 | Outpatient (CLI) | payer OTHER, SELFPAY ==
--- OUTSIDE RECORDS SUMMARY | 2024-11-22 11:25 | XMS_ITS | Clinical Summary ---
Author Organization [facility] Address [address] [place] [id number] Care Team Providers Care Pit Recorder Name Role Phone Unavailable Primary Care Provider [...]
[2024-11-22 12:02] LABS: Anion Gap 6 mmol/L (4-12); Blood Urea Nitrogen 14 mg/dL (9-20); Calcium 9.6 mg/dL (8.4-10.2); Carbon Dioxide 29 mmol/L (22-30); Chloride 104 mmol/L (98-107); Estimated Glomerular Filt Rate > 60; Glucose 99 mg/dL (65-110); Potassium 3.9 mmol/L (3.4-5.0); Sodium 139 mmol/L (137-145)
== END 2024-11-22 11:22 | disposition home or self-care (01) ==
LOC: ANHLAB 11:23
PROVIDERS: PCP Family Medicine; Visit Provider Internal Medicine Cardiovascular Disease
DX: Z79.899 Other long term (current) drug therapy (principal)
CPT/HCPCS: 36415; 80048

== ENCOUNTER 2025-01-30 14:42 | Outpatient (CLI) | payer OTHER, SELFPAY ==
--- NOTE | ~2025-01-30 | XR_ITS ---
EXAMINATION: XR tibia fibula LT 2V, 01/30/2025 14:45 CDT HISTORY: S80.12XA - Contusion of left lower leg, initial encounter COMPARISON: No comparisons available. Findings: No fracture of the distal fibula, no acute fracture. Moderate degenerative changes of the ankle joint Soft tissues unremarkable. Impression: No acute fracture or malalignment. Reviewed, dictated and finalized at location P. Impression: No acute fracture or malalignment.
== END 2025-01-30 14:43 | disposition home or self-care (01) ==
LOC: MICIMG 14:43
PROVIDERS: PCP Family Medicine; Visit Provider Nurse Practitioner Adult Health
DX: S80.12XA Contusion of left lower leg, initial encounter (principal); S89.92XA Unspecified injury of left lower leg, initial encounter; X58.XXXA Exposure to other specified factors, initial encounter
CPT/HCPCS: 73590